=== PATIENT | female | born 1930 | race Caucasian/White ===

== ENCOUNTER → 2016-04-28 | Outpatient (CLI) | payer OTHER, MEDICARE ==
[~2016-04-28] MED LIST: AMOX500C3 PO; AMX500 PO; ASPI81TA28 PO; ATEN50TA8 PO; BETA0.053 TOP; CALC-20 PO; CEPH500C PO; CEPH500C2 PO; CHOL1000 PO; CHOL100027 PO; ECON0.05 TOP; FLUT0.0529 NAE; GABA-112 PO; GABA1CAP4 PO; HCTZ PO; HYZ/50125 PO; LOSA100T2 PO; LOSA100T26 PO; LOSARTAN POT PO; LXP10 PO; MECL1TAB42 PO; MECL25TA2 PO; MULT60CA PO; MULTCAP42 PO; OMEG10007 PO; PENI-82 PO; TIMO0.5S2 OPB; TRAM-10 PO; [UNRECOGNIZED DRUG - CODE] TD
--- NOTE | 2016-04-28 10:06 | DIAGNOSTIC IMAGING REPORT ---
RIGHT TOE(S) MIN 2 VIEWS CLINICAL HISTORY: RIGHT 3RD TOE NON HEALING WOUND Right COMPARISON: None. DISCUSSION: Significant degenerative change throughout the articular joints throughout. Mild soft tissue edema. No evidence for bony destructive process. No evidence for abnormal depressed reaction. IMPRESSION: Soft tissue edema. Degenerative change. No acute bony abnormality. Electronically signed by: Moe Mulligan M.D. 04/28/2016 10:05 AM Dictated Date/Time: 04/28/2016 10:04 AM
== END | disposition home or self-care (01) ==
LOC: C.RAD 09:19
PROVIDERS: ATTEND Emergency Medicine
DX: S91.104A Unspecified open wound of right lesser toe(s) without damage to nail, initial encounter (principal); X58.XXXA Exposure to other specified factors, initial encounter; M79.9 Soft tissue disorder, unspecified; M19.071 Primary osteoarthritis, right ankle and foot

== ENCOUNTER → 2016-05-03 | Outpatient (CLI) | payer OTHER, MEDICARE ==
[~2016-05-03] MED LIST changes: -CEPH500C2 PO; +GADAVIST IV PRN
--- NOTE | 2016-05-03 15:24 | DIAGNOSTIC IMAGING REPORT ---
MRI RIGHT FOREFOOT COMBO CLINICAL HISTORY: Third toe wound. COMPARISON STUDY: Radiographs of the right third toe dated 04/28/16 TECHNIQUE: MRI of the right forefoot is performed utilizing various T1 and T2-weighted sequences in the axial, sagittal, coronal planes. Contrast-enhanced sequences are acquired from the IV administration of 8 cc of Gadavist. The examination is degraded by motion artifact. FINDINGS: There is marrow edema identified within the third distal phalanx. There is drop in signal on the T1-weighted sequence, with increased signal on the STIR sequence. Nonspecific abnormal enhancement is identified. The appearance is highly concerning for osteomyelitis. No additional similar-appearing foci are identified throughout the remainder of the forefoot. Arthritic change with mild edema is present the first metatarsophalangeal joints. There is near-complete bony fusion at the second proximal interphalangeal joint. There is mild soft tissue edema present in the third toe with nonspecific patchy abnormal enhancement suggesting cellulitis. A small cutaneous ulceration is seen in the tip of the third toe. No organized fluid collection is identified to indicate abscess. There is mild fatty atrophy of the regional musculature. The partially imaged flexor and extensor tendons are grossly intact. Subcutaneous soft tissue edema is also present along the dorsal aspect of the foot. There is significant marrow edema identified within the navicular with drop in signal on the T1-weighted sequence. There is also nonspecific enhancement identified at this site. This is only partially assessed. Degenerative change is also seen involving the intertarsal articulations. IMPRESSION: 1. Cutaneous ulceration is identified in the distal third toe with surrounding cellulitis. No organized fluid collection is seen to indicate abscess. 2. Findings are consistent with osteomyelitis involving the third distal phalanx. 3. No additional foci of osteomyelitis are suspected in the forefoot. 4. There is marked edema present within the partially imaged navicular bone with associated nonspecific abnormal enhancement. This is likely on a degenerative basis. Osteonecrosis or osteomyelitis would be impossible to exclude. Clinical correlation will be required. 5. Additional foci of degenerative change as above. 6. Soft tissue edema is also present on the dorsal aspect of the foot. Electronically signed by: Narinder Fonseca M.D. 05/03/2016 3:23 PM Dictated Date/Time: 05/03/2016 3:15 PM
== END | disposition home or self-care (01) ==
LOC: C.MRI 13:33
PROVIDERS: ATTEND Emergency Medicine
DX: S91.104A Unspecified open wound of right lesser toe(s) without damage to nail, initial encounter (principal); X58.XXXA Exposure to other specified factors, initial encounter

== ENCOUNTER → 2016-06-20 | Outpatient (CLI) | payer OTHER, MEDICARE ==
[~2016-06-20] MED LIST changes: -GADAVIST IV PRN; -PENI-82 PO
[2016-06-20 15:50] LABS: BASO % 0.3 %; BASO ABS # 0.02 K/uL (0-0.2); COMPLETE YES; EOS % 1.8 %; IG% 0.3 %; LYMPH % 23.2 %; MEAN CELL VOLUME 90.9 fL (80-100); MEAN CORPUSCULAR HEMOGLOBIN 30.2 pg (25-34); MEAN CORPUSCULAR HGB CONC 33.2 g/dl (32-36); MEAN PLATELET VOLUME 11.5 fL (7.4-10.4); MONO % 10.1 %; NEUT % 64.3 %; PLATELET COUNT 150 K/uL (130-400); RED BLOOD COUNT 4.51 M/uL (4.2-5.4); WHITE BLOOD COUNT 7.33 K/uL (4.8-10.8)
[2016-06-20 16:01] LABS: ALT/SGPT 27 U/L (12-78); BLOOD UREA NITROGEN 11 mg/dl (7-18); BUN/CREATININE RATIO 13.1 (10-20); C-REACTIVE PROTEIN < 0.29 mg/dl (0-0.29); CALCIUM 9.6 mg/dl (8.5-10.1); CARBON DIOXIDE 31 mmol/L (21-32); CHLORIDE 105 mmol/L (98-107); CREATININE 0.84 mg/dl (0.60-1.20); GLUCOSE 98 mg/dl (70-99); POTASSIUM 3.9 mmol/L (3.5-5.1); SODIUM 143 mmol/L (136-145)
[2016-06-20 16:04] LABS: ALB/GLOB RATIO 1.1 (0.9-2); ALKALINE PHOSPHATASE 52 U/L (45-117); AST/SGOT 21 U/L (15-37)
== END | disposition home or self-care (01) ==
LOC: C.LAB1850 14:23
PROVIDERS: ATTEND Internal Medicine Infectious Disease
DX: M86.179 Other acute osteomyelitis, unspecified ankle and foot (principal)

== ENCOUNTER → 2016-07-05 | Outpatient (CLI) | payer OTHER, MEDICARE ==
[~2016-07-05] MED LIST changes: -LOSA100T26 PO; +LOSA100T33 PO
--- NOTE | 2016-07-05 14:01 | DIAGNOSTIC IMAGING REPORT ---
RIGHT FOOT MIN 3 VIEWS ROUTINE CLINICAL HISTORY: M86.179 Acute osteomyelitis of [id number] Right pain COMPARISON: 04/28/2016 DISCUSSION: Severe degenerative change throughout. This is most prominent at the first as well as second metatarsal tarsal phalangeal joints. Moderate degenerative changes seen throughout all remaining osseous structures. It well-defined lytic or blastic process is not appreciated. There is no evidence for soft tissue swelling. IMPRESSION: Severe degenerative change. No well-defined lytic or blastic process. Electronically signed by: Moe Mulligan M.D. 07/05/2016 1:59 PM Dictated Date/Time: 07/05/2016 1:58 PM
== END | disposition home or self-care (01) ==
LOC: C.RAD 13:35
PROVIDERS: ATTEND Internal Medicine Infectious Disease
DX: M86.179 Other acute osteomyelitis, unspecified ankle and foot (principal)

== ENCOUNTER 2016-08-08 18:56 | Emergency (ER) | payer OTHER, MEDICARE ==
[~2016-08-08] VITALS: Ht 167.6 cm; Wt 98.3 kg
[~2016-08-08 18:56] MED LIST changes: -AMOX500C3 PO; -CEPH500C PO; -CHOL1000 PO; -GABA-112 PO; -GABA1CAP4 PO; -HCTZ PO; -LOSA100T33 PO; -LOSARTAN POT PO; -MECL1TAB42 PO; -MULT60CA PO; -TRAM-10 PO; -[UNRECOGNIZED DRUG - CODE] TD
[2016-08-08 19:02] VITALS: TEMP 36.7; Ht 167.6 cm; Wt 98.3 kg
[2016-08-08] MEDS ORDERED: HYZ/50125 PO (19:21)
[2016-08-08] MEDS ORDERED: GABA-112 PO ×2 (19:30→19:32)
[2016-08-08] MEDS ORDERED: HCTZ PO (19:34)
[2016-08-08] MEDS ORDERED: LOSARTAN POT PO (19:34)
[2016-08-08] MEDS ORDERED: AMOX500C3 PO (19:38)
[2016-08-08] MEDS ORDERED: [UNRECOGNIZED DRUG - CODE] TD (19:48)
--- NOTE | 2016-08-08 20:25 | DIAGNOSTIC IMAGING REPORT ---
LEFT SHOULDER 3 VIEWS CLINICAL HISTORY: Fall with left shoulder pain. FINDINGS: 3 views of left shoulder are obtained. No prior studies are available for comparison at the time of dictation. The skeletal structures are osteopenic. There is an impacted and comminuted fracture of the left humeral head and neck. No significant distraction of the fragments is seen. Overlying soft tissue edema is noted. No additional fracture is identified. The glenohumeral articulation appears preserved. Productive degenerative change is identified at the acromioclavicular joint. Calcific tendinopathy is noted. The visualized left upper lobe lung parenchyma appears clear. The heart is enlarged and there is atherosclerotic calcification of the thoracic aorta. IMPRESSION: There is an impacted and comminuted fracture through the left humeral head and neck as detailed above. Electronically signed by: Narinder Fonseca M.D. 08/08/2016 8:24 PM Dictated Date/Time: 08/08/2016 8:23 PM
--- NOTE | 2016-08-08 20:29 | DIAGNOSTIC IMAGING REPORT ---
PA CHEST WITH LEFT-SIDED RIB SERIES CLINICAL HISTORY: Fall. Left-sided chest injury. FINDINGS: A PA chest radiograph with 4 additional views may left-sided rib series is compared to study dated 11/28/2012. The heart is enlarged and there is atherosclerotic calcification of the thoracic aorta. The pulmonary vasculature is noncongested. There is bibasilar atelectasis. No airspace consolidation, large pleural effusion, or pneumothorax is seen. The skeletal structures are osteopenic. There is no radiographic evidence of left-sided rib fracture on the rib series. There is an impacted fracture of the left humeral head and neck. The remainder of the bony thorax is grossly intact. Degenerative change and scoliosis are noted in the thoracic spine. Calcific tendinopathy is noted in the left shoulder. IMPRESSION: 1. Cardiomegaly with no acute cardiopulmonary abnormality. 2. There is an impacted and comminuted fracture through the left humeral head and neck. 3. There is no radiographic evidence of left-sided rib fracture on the rib series as clinically queried. Electronically signed by: Narinder Fonseca M.D. 08/08/2016 8:28 PM Dictated Date/Time: 08/08/2016 8:24 PM
--- NOTE | 2016-08-08 20:33 | DIAGNOSTIC IMAGING REPORT ---
LEFT ELBOW 3 VIEWS CLINICAL HISTORY: Fall with left arm pain. FINDINGS: 3 views of left elbow are obtained. No prior studies are available for comparison at the time of dictation. The skeletal structures are osteopenic. No fracture is identified. There is no joint effusion. Degenerative spurring is noted along the lateral joint space. Small enthesophytes arise from the humeral epicondyles. Soft tissue calcifications are seen posterior to olecranon process. The overlying soft tissues are otherwise normal in appearance. IMPRESSION: Osteopenia and degenerative change as above. There is no radiographic evidence of left elbow fracture. Electronically signed by: Narinder Fonseca M.D. 08/08/2016 8:31 PM Dictated Date/Time: 08/08/2016 8:28 PM
[2016-08-08] MEDS ORDERED: TRAMADOL HCL 50 MG TAB PO STA (21:10)
--- NOTE | 2016-08-08 21:29 | EMERGENCY ROOM VISIT NOTE ---
History Report prepared by Idania: Mary Vyas Under the Supervision of: Dr. Sury Chadwick D.O. 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 The patient currently rates her pain as a 10/10 in severity. The patient states that she was walking out of the bathroom and started to stumble forward and was unable to catch herself. She thinks that her shoes are too big and it caused her to stumble and fall hitting her left shoulder. The patient states that she landed on her left shoulder. The patient denies hitting her head, hips or knees. The patient states that she was unable to get up by herself. She denies any loss of consciousness, or knee or hip pain. The patient states that movements worsens her pain. No chest pain or abdominal pain. The patient stats that she was initially short of breath when she fell but denies any shortness of breath currently. The patient stats that she is not on any blood thinners. The patient states that when she was young she might have broke her shoulder. Source of History: patient Onset: shortly HAND STRAIGHTENER Position: shoulder (left) Symptom Intensity: 10/10 Timing: constant Modifying Factors (Worsening): movement Associated Symptoms: + SOB, No LOC, No abdominal pain, No chest pain Note: Patient denies any hip or knee pain. Review of Systems See HPI for pertinent positives & negatives. A total of 10 systems reviewed and were otherwise negative. Past Medical & Surgical Medical Problems: (1) DIAB W OTH SPEC MANIFEST, TYPE II OR UNSPEC TYPE, NOT UNCNTR (2) HIP JOINT REPLACEMENT STATUS (3) Idiopathic osteoporosis (4) Irritable colon (5) Low tension glaucoma (6) MALIGN NEOPL BREAST NOS Family History Patient reports no known family medical history. Social History Smoking Status: Never Smoker Drug Use: none Marital Status: Housing Status: lives alone Occupation Status: employed, retired Current/Historical Medications Scheduled Amoxicillin (Amoxil), 500 MG PO TID Aspirin (Aspirin Ec), 81 MG PO QPM Atenolol (Tenormin), 50 MG PO QPM Calcium Carbonate-Vitamin D (Calcium 600 + D), 600 MG PO BID Escitalopram Oxalate (Escitalopram Oxalate), 10 MG PO DAILY Fish Oil (Hemet-3), 1 CAP PO DAILY Gabapentin (Neurontin), 200 MG PO AMPM Gabapentin (Neurontin), 100 MG PO QAFTERNOON Multiple Vitamin (Multivitamins), 1 CAPSULE PO QPM Timolol Maleate (Ophth) (Timoptic-Xe 0.5% Oph), 1 DROP OPB DAILY [Losartan Pot/Hctz], 1 TAB PO DAILY Scheduled PRN Meclizine Hcl (Antivert), 25 MG PO TID PRN for Dizziness or Vertigo Metronidazole (Topical) (Rosadan), 1 APPLN TD BID PRN for ROSACIA Tramadol (Ultram), 1-2 TABS PO Q6H PRN for Pain Allergies Coded Allergies: Epinephrine (Verified Allergy, Unknown, BODY SHOOK, FREEZING, 08/18/15) Physical Exam Vital Signs Date Time Temp Pulse Resp B/P Pulse Ox O2 Delivery O2 Flow Rate FiO2 08/08/16 22:02 65 18 178/97 95 08/08/16 20:25 62 14 174/95 98 Room Air 08/08/16 19:02 36.7 64 18 186/130 97 Room Air Physical Exam GENERAL: alert, well appearing, well nourished, no distress, non-toxic EYE EXAM: normal conjunctiva, PERRL and EOM's grossly intact OROPHARYNX: no exudate, no erythema, lips, buccal mucosa, and tongue normal and mucous membranes are moist NECK: supple, no nuchal rigidity, no adenopathy, non-tender LUNGS: Clear to auscultation. Normal chest wall mechanics HEART: no murmurs, S1 normal and S2 normal ABDOMEN: abdomen soft, non-tender, normo-active bowel sounds, no masses, no rebound or guarding. BACK: Back is symmetrical on inspection and there is no deformity, no midline tenderness, no CVA tenderness. 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 LOWER EXTREMITIES: No pitting edema. NEURO EXAM: Normal sensorium, cranial nerves II-XII intact, normal speech, no weakness of arms, no weakness of legs. Medical Decision & Procedures ER Provider Diagnostic Interpretation: Radiology results have been interpreted by the radiologist and reviewed by me. LEFT ELBOW 3 VIEWS CLINICAL HISTORY: Fall with left arm pain. FINDINGS: 3 views of left elbow are obtained. No prior studies are available for comparison at the time of dictation. The skeletal structures are osteopenic. No fracture is identified. There is no joint effusion. Degenerative spurring is noted along the lateral joint space. Small enthesophytes arise from the humeral epicondyles. Soft tissue calcifications are seen posterior to olecranon process. The overlying soft tissues are otherwise normal in appearance. IMPRESSION: Osteopenia and degenerative change as above. There is no radiographic evidence of left elbow fracture. Electronically signed by: Narinder Fonseca M.D. 08/08/2016 8:31 PM Dictated Date/Time: 08/08/2016 8:28 PM PA CHEST WITH LEFT-SIDED RIB SERIES CLINICAL HISTORY: Fall. Left-sided chest injury. FINDINGS: A PA chest radiograph with 4 additional views may left-sided rib series is compared to study dated 11/28/2012. The heart is enlarged and there is atherosclerotic calcification of the thoracic aorta. The pulmonary vasculature is noncongested. There is bibasilar atelectasis. No airspace consolidation, large pleural effusion, or pneumothorax is seen. The skeletal structures are osteopenic. There is no radiographic evidence of left-sided rib fracture on the rib series. There is an impacted fracture of the left humeral head and neck. The remainder of the bony thorax is grossly intact. Degenerative change and scoliosis are noted in the thoracic spine. Calcific tendinopathy is noted in the left shoulder. IMPRESSION: 1. Cardiomegaly with no acute cardiopulmonary abnormality. 2. There is an impacted and comminuted fracture through the left humeral head and neck. 3. There is no radiographic evidence of left-sided rib fracture on the rib series as clinically queried. Electronically signed by: Narinder Fonseca M.D. 08/08/2016 8:28 PM Dictated Date/Time: 08/08/2016 8:24 PM LEFT SHOULDER 3 VIEWS CLINICAL HISTORY: Fall with left shoulder pain. FINDINGS: 3 views of left shoulder are obtained. No prior studies are available for comparison at the time of dictation. The skeletal structures are osteopenic. There is an impacted and comminuted fracture of the left humeral head and neck. No significant distraction of the fragments is seen. Overlying soft tissue edema is noted. No additional fracture is identified. The glenohumeral articulation appears preserved. Productive degenerative change is identified at the acromioclavicular joint. Calcific tendinopathy is noted. The visualized left upper lobe lung parenchyma appears clear. The heart is enlarged and there is atherosclerotic calcification of the thoracic aorta. IMPRESSION: There is an impacted and comminuted fracture through the left humeral head and neck as detailed above. Electronically signed by: Narinder Fonseca M.D. 08/08/2016 8:24 PM Dictated Date/Time: 08/08/2016 8:23 PM Medications Administered Medications (Trade) Dose Ordered Sig/Naz Route Start Time Stop Time Status Last Admin Dose Admin Tramadol HCl (Ultram Tab) 50 mg NOW STAT PO 08/08/16 21:10 08/08/16 21:12 DC 08/08/16 21:31 50 MG Tramadol HCl (Ultram Home Pack) 1 homepack UD ONCE PO 08/08/16 21:45 08/08/16 21:46 DC 08/08/16 21:48 1 HOMEPACK ED Course 1906: The patient was evaluated in room A11B. A complete history and physical exam was performed. \ 2104: I reevaluated the patient and she was feeling okay. Her family was at bedside and I updated her on the results of her X-Ray. I discussed the treatment plan with the patient. She verbalizes agreement and understanding. The patient was discharged home. 2109: Ordered Ultram Tab 50 mg PO. Medical Decision The patient is a 86 year old female who presents to the ED with complaints of shoulder pain. Differential diagnoses include but are not limited to fracture, dislocation, neurovascular compromise, compartment syndrome, soft tissue injury , as well as others were entertained. Patient well-appearing here despite injury. Isolated humeral head fracture found, patient with no other pain by history or exam to warrant additional imaging. No head trauma or LOC. Patient not on any anticoagulation or any platelet therapy. I have a low suspicion for any additional culture medic injury. No change in patient's complaints are exam on repeat evaluation at bedside. Patient aware of all results and need for sling, and close follow-up with orthopedics. Injuries to patient's nondominant upper extremity. Discussed with patient symptoms to watch and return for, need for additional help during this time with activities of daily living given limitations, family is at bedside and agrees to help with this. Patient verbalized understanding of all this was agreeable with plan. Impression Primary Impression: Fall Additional Impression: Humeral head fracture Scribe Attestation The scribe's documentation has been prepared under my direction and personally reviewed by me in its entirety. I confirm that the note above accurately reflects all work, treatment, procedures, and medical decision making performed by me. Departure Information Dispostion Home / Self-Care Prescriptions Tramadol (Ultram) 50 Mg Tab 1-2 TABS PO Q6H Y for Pain, #14 TAB Prov: Sury Chadwick, DO 08/08/16 Referrals Moe Bogres M.D. (PCP) Forms HOME CARE DOCUMENTATION FORM, IMPORTANT VISIT INFORMATION Patient Instructions My [facility] Additional Instructions Please call and follow-up with your orthopedic surgeon. Please wear the sling until you're otherwise instructed by orthopedics. You may use the pain medication as needed. Do not take the pain medication and drive. Please continue regular medications. If you have any worsening pain, have discoloration or increased swelling of your left arm or hand, have worsening numbness and tingling, develop a cold sensation to the hand or fingers, develop fevers, chest pain, trouble breathing, dizziness, headaches, you've any other new concerns, please return the emergency room. Problem Qualifiers Primary Impression: Fall Encounter type: initial encounter Qualified Codes: W19.XXXA - Unspecified fall, initial encounter Additional Impression: Humeral head fracture Encounter type: initial encounter Fracture type: closed Laterality: left Qualified Codes: S42.292A - Other displaced fracture of upper end of left humerus, initial encounter for closed fracture
[2016-08-08] MEDS ORDERED: TRAM-10 PO (21:30)
[2016-08-08] MEDS ORDERED: TRAMADOL HCL 50 MG HOME PACK PO ONE (21:45)
[2016-08-08 22:02] VITALS: BP 178/97; PULSE 65; O2SAT 95
[2016-11-04] MEDS ORDERED: LOSA100T33 PO (20:09)
== END 2016-08-08 22:04 | disposition home or self-care (01) ==
LOC: EDBD 18:56 → C.EDA 18:57
DX: S42.292A Other displaced fracture of upper end of left humerus, initial encounter for closed fracture (principal); W18.09XA Striking against other object with subsequent fall, initial encounter; E11.9 Type 2 diabetes mellitus without complications; Z96.649 Presence of unspecified artificial hip joint; M81.8 Other osteoporosis without current pathological fracture; H40.1290 Low-tension glaucoma, unspecified eye, stage unspecified; Z85.3 Personal history of malignant neoplasm of breast; Z79.82 Long term (current) use of aspirin; Z79.899 Other long term (current) drug therapy

== ENCOUNTER 2016-11-04 17:59 | Observation (INO) | payer OTHER, MEDICARE ==
[~2016-11-04] VITALS: Ht 170.2 cm; Wt 85.9 kg
[~2016-11-04 17:59] MED LIST changes: +AMOX500C3 PO; -AMX500 PO; +BACITRACIN OINT 15 GM TUBE EXT ONE; -BETA0.053 TOP; -CHOL100027 PO; -ECON0.05 TOP; -FLUT0.0529 NAE; +GABA-112 PO; +HCTZ PO; -HYZ/50125 PO; +LIDOCAINE 4% W/AFRIN NASAL SOLN 4ML ONE; -LOSA100T2 PO; +LOSARTAN POT PO; +TRAM-10 PO; +[UNRECOGNIZED DRUG - CODE] TD
[2016-11-04] MEDS ORDERED: CEPHALEXIN MONOHYDRATE 250 MG CAP PO STA (19:10)
[2016-11-04] MEDS ORDERED: XYLOCAINE 1%/SOD BICARB 20 ML VIAL INFIL ONE (19:15)
--- NOTE | 2016-11-04 19:19 | EMERGENCY ROOM VISIT NOTE ---
History Report prepared by Idania: Katie Delgadillo Under the Supervision of: Dr. Narinder Sheppard M.D. First contact with patient: 19:00 Chief Complaint: FALL Stated Complaint: FALL,FELL FACE FIRST W/OTHER ABRASIONS History of Present Illness The patient is an 86 year old female who presents to the Emergency Room with complaints of a sudden fall that occurred two hours prior to arrival. The patient states that she was trying to close or storm door today, noting that she fell face first onto the ramp outside of her house. She states that she injured her nose and bilateral knees. The patient denies any loss of consciousness and states that she has ambulated since the fall. She states that she is on aspirin daily, but denies being on Coumadin. The patient denies any neck pain. She states that she is unsure if her tetanus is up to date, but her daughter reports that the patient's PCP is good about keeping her updated on her vaccinations. The patient's daughter states that in July the patient fell injuring her left shoulder. She states that the patient has been following with physical therapy since then. The patient denies any new left shoulder pain. She states that she felt fine prior to the fall. Source of History: patient, family (daughter) Onset: two hours prior to arrival Position: other (global) Quality: other (fall) Timing: other (sudden) Associated Symptoms: No LOC, No neck pain Note: Associated symptoms: injury to nose and bilateral knees. Review of Systems See HPI for pertinent positives & negatives. A total of 10 systems reviewed and were otherwise negative. Past Medical & Surgical Medical Problems: (1) Ambulatory dysfunction (2) DIAB W OTH SPEC MANIFEST, TYPE II OR UNSPEC TYPE, NOT UNCNTR (3) Diabetes mellitus (4) HIP JOINT REPLACEMENT STATUS (5) Idiopathic osteoporosis (6) Irritable colon (7) Low tension glaucoma (8) MALIGN NEOPL BREAST NOS (9) Nasal bone fractures Family History Patient reports no known family medical history. Social History Smoking Status: Never Smoker Drug Use: none Marital Status: Housing Status: lives alone Occupation Status: employed, retired Current/Historical Medications Scheduled Aspirin (Aspirin Ec), 81 MG PO QPM Atenolol (Tenormin), 50 MG PO QPM Calcium Carbonate-Vitamin D (Calcium 600 + D), 600 MG PO BID Cephalexin Monohydrate (Keflex), 500 MG PO TID Cholecalciferol (Vitamin D3), 1,000 UNITS PO DAILY Escitalopram Oxalate (Escitalopram Oxalate), 10 MG PO DAILY Fish Oil (Barnard-3), 1 CAP PO DAILY Gabapentin (Gabapentin), 300 MG PO TID Hctz/Losartan (Hyzaar 12.5MG/100MG), 1 TAB PO DAILY Multiple Vitamin (Multivitamins), 1 CAPSULE PO QPM Multiple Vitamins W/ Minerals (Preservision Areds 2), 1 CAP PO BID Timolol Maleate (Ophth) (Timoptic-Xe 0.5% Oph), 1 DROP OPB DAILY Scheduled PRN Meclizine Hcl (Meclizine Hcl), 25 MG PO TID PRN for Dizziness or Vertigo Tramadol (Ultram), 1-2 TABS PO Q6H PRN for Pain Allergies Coded Allergies: Epinephrine (Verified Allergy, Unknown, BODY SHOOK, FREEZING, 11/04/16) Physical Exam Vital Signs Date Time Temp Pulse Resp B/P (MAP) Pulse Ox O2 Delivery O2 Flow Rate FiO2 11/05/16 01:02 56 20 180/73 95 Room Air 11/05/16 00:34 57 11/05/16 00:25 57 20 136/75 94 Room Air 11/04/16 22:54 71 18 154/86 96 Room Air 11/04/16 21:25 78 20 203/103 96 Room Air 11/04/16 19:27 58 20 209/82 97 Room Air 11/04/16 18:01 36.7 62 18 195/88 95 Room Air Physical Exam GENERAL: Patient is in no acute distress. HEENT: 2 cm gaping laceration to the bridge of the nose, abrasion to the mid forehead and nose. Edema to the nose, no active bleeding, contusion forming inferior to both eyes. Normal bite, no lip lacerations. No scalp hematoma, mucous membranes moist. NECK: No stridor, no adenopathy, no meningismus, trachea is midline. Nontender posterior c-spine. LUNGS: Clear to auscultation bilaterally, no wheeze, no rhonchi, breath sounds equal. HEART: 2/6 systolic murmur with a regular rate and rhythm. ABDOMEN: Soft, nontender, bowel sounds positive, no hernias, no peritonitis. EXTREMITIES: Full range of motion of all joints without evidence of fracture, abrasion to the dorsal right wrist and hand, no evidence of fracture, abrasion to both anterior knees no evidence of fracture. NEUROLOGIC: Oriented x 3, no acute motor or sensory deficits, no focal weakness. SKIN: No rash, no jaundice, no diaphoresis. Medical Decision & Procedures ER Provider Diagnostic Interpretation: CT results as stated below per my review and radiologist interpretation: MAXILLOFACIAL CT CT DOSE: 843.88 mGy.cm HISTORY: fall, trauma TECHNIQUE: Multiaxial CT images of the maxillofacial region were performed and reformatted in the coronal plane without the use of contrast. A dose lowering technique was utilized adhering to the principles of ALARA. COMPARISON: None. FINDINGS: Comminuted and displaced nasal bone and anterior nasal septal fractures. There is soft tissue swelling at the nose with a small laceration at the bridge of the nose. There is intraorbital soft tissue swelling. There is also displaced fracture within the frontal process of the right maxilla at the junction of the nasal bones. Left temporomandibular joint osteoarthritis. No fractures within the mandible, skull base, pterygoid plates, zygomatic arches, or orbits. IMPRESSION: 1. Comminuted and displaced nasal bone and nasal septal fractures. 2. Soft tissue swelling with a small laceration at the nose. Electronically signed by: Fletcher Smiley M.D. 11/04/2016 7:56 PM Dictated Date/Time: 11/04/2016 7:[address] CT DOSE: HISTORY: fall, trauma TECHNIQUE: Multiaxial CT images of the head were performed without the use of intravenous contrast. Automated exposure control was utilized for this study. A dose lowering technique was utilized adhering to the principles of ALARA. Comparison: Head CT 08/18/2015. Findings: The paranasal sinuses and mastoid air cells are clear. The calvarium and skull base are intact. There is no mass, hematoma, midline shift, acute infarct. White matter hypodensity is nonspecific but suggestive of microvascular ischemic change. The ventricles and sulci demonstrate mild age-related involutional changes. Comminuted and displaced nasal bone and anterior nasal septal fractures. There is a small soft tissue laceration at the nasal bridge and nasal soft tissue swelling. Impression: No acute intracranial abnormality. Nasal bone and nasal septal fractures. Electronically signed by: Fletcher Smiley M.D. 11/04/2016 7:52 PM Dictated Date/Time: 11/04/2016 7:46 PM Laboratory Results 11/05/16 00:36 Red Blood Count 4.40, Mean Corpuscular Volume 89.8, Mean Corpuscular Hemoglobin 30.2, Mean Corpuscular Hemoglobin Concent 33.7, Mean Platelet Volume 11.1, Neutrophils (%) (Auto) 72.3, Lymphocytes (%) (Auto) 17.5, Monocytes (%) (Auto) 8.9, Eosinophils (%) (Auto) 0.8, Basophils (%) (Auto) 0.2, Neutrophils # (Auto) 8.66, Lymphocytes # (Auto) 2.09, Monocytes # (Auto) 1.07, Eosinophils # (Auto) 0.09, Basophils # (Auto) 0.02 11/05/16 00:36 Test 11/05/16 00:26 11/05/16 00:36 Bedside Glucose 140 mg/dl (70-90) White Blood Count 11.96 K/uL (4.8-10.8) Red Blood Count 4.40 M/uL (4.2-5.4) Hemoglobin 13.3 g/dL (12.0-16.0) Hematocrit 39.5 % (37-47) Mean Corpuscular Volume 89.8 fL (80-100) Mean Corpuscular Hemoglobin 30.2 pg (25-34) Mean Corpuscular Hemoglobin Concent 33.7 g/dl (32-36) Platelet Count 155 K/uL (130-400) Mean Platelet Volume 11.1 fL (7.4-10.4) Neutrophils (%) (Auto) 72.3 % Lymphocytes (%) (Auto) 17.5 % Monocytes (%) (Auto) 8.9 % Eosinophils (%) (Auto) 0.8 % Basophils (%) (Auto) 0.2 % Neutrophils # (Auto) 8.66 K/uL (1.4-6.5) Lymphocytes # (Auto) 2.09 K/uL (1.2-3.4) Monocytes # (Auto) 1.07 K/uL (0.11-0.59) Eosinophils # (Auto) 0.09 K/uL (0-0.5) Basophils # (Auto) 0.02 K/uL (0-0.2) RDW Standard Deviation 45.4 fL (36.4-46.3) RDW Coefficient of Variation 13.7 % (11.5-14.5) Immature Granulocyte % (Auto) 0.3 % Immature Granulocyte # (Auto) 0.03 K/uL (0.00-0.02) Prothrombin Time 11.1 SECONDS (9.0-12.0) Prothromb Time International Ratio 1.0 (0.9-1.1) Activated Partial Thromboplast Time 21.2 SECONDS (21.0-31.0) Partial Thromboplastin Ratio 0.8 Anion Gap 7.0 mmol/L (3-11) Est Creatinine Clear Calc Drug Dose 54.5 ml/min Estimated GFR () 72.9 Estimated GFR (Non- 62.9 BUN/Creatinine Ratio 16.7 (10-20) Calcium Level 9.3 mg/dl (8.5-10.1) Magnesium Level 1.9 mg/dl (1.8-2.4) Total Bilirubin 0.8 mg/dl (0.2-1) Aspartate Amino Transf (AST/SGOT) 20 U/L (15-37) Alanine Aminotransferase (ALT/SGPT) 32 U/L (12-78) Alkaline Phosphatase 66 U/L (45-117) Troponin I < 0.015 ng/ml (0-0.045) Total Protein 7.2 gm/dl (6.4-8.2) Albumin 3.7 gm/dl (3.4-5.0) Globulin 3.5 gm/dl (2.5-4.0) Albumin/Globulin Ratio 1.1 (0.9-2) Laboratory results reviewed by me. Medications Administered Medications (Trade) Dose Ordered Sig/Naz Route Start Time Stop Time Status Last Admin Dose Admin Cephalexin Monohydrate (Keflex Cap) 500 mg NOW STAT PO 11/04/16 19:10 11/04/16 19:13 DC 11/04/16 19:25 500 MG Atenolol (Tenormin Tab) 50 mg NOW ONCE PO 11/04/16 22:45 11/04/16 22:46 DC 11/04/16 22:53 50 MG Sodium Chloride 500 ml @ 999 mls/hr Q31M STAT IV 8/12/17 00:29 11/05/16 00:59 DC 11/05/16 00:29 999 MLS/HR Ondansetron HCl (Zofran Inj) 4 mg NOW STAT IV 11/05/16 00:29 11/05/16 00:31 DC 11/05/16 00:29 4 MG ECG Indication: syncope Rate (beats per minute): 60 Rhythm: sinus rhythm (with SA) Findings: LBBB, no acute ischemic change Comparison ECG Date: no prior available ED Course 1901: The patient was evaluated in room B2. A complete history and physical exam was performed. 1909: Ordered Keflex Cap 500 mg PO. 1914: Ordered Lidocaine HCl 20 ml INFIL. 2032: I reevaluated the patient and she is resting comfortably. I discussed the exam findings with her and I discussed the treatment plan. She verbalized complete understanding and agreement. Her lacerations will be repaired by Sohail Steinberg PA-C. See his note for further detail. 2112: I reevaluated the patient and she is persistently bleeding from her laceration. She has an arterial bleed that cannot be stopped. 2117: I discussed the patients case with Dr. Bynum, director of in service education. He is going to come in to evaluate the patient. 2150: I reevaluated the patient and she is resting comfortably. Dr. Bynum, from director of in service education is currently at the bedside. 2224: I spoke to Dr. Bynum, director of in service education and he states that he was able to stop the patients bleeding. He states that he will follow up with the patient as an outpatient. 0: I reevaluated the patient and she is going well. I discussed the exam findings with her and I discussed the treatment plan. She verbalized complete understanding and agreement. She is going to have an ambulation trial. 2245: Ordered Atenolol 50 mg PO. 0015: I reevaluated the patient and she is doing well. She is ready to go home. 0026: Per nursing staff the patient became nauseated and had a near syncopal event. She is still feeling nauseated and is diaphoretic. She denies any chest pain. I evaluated the patient at this time. She will be evaluated for further treatment. 0029: Ordered Zofran Inj 4 mg IV, Sodium Chloride 1000 ml @ 125 mls/hr IV, Sodium Chloride 500 ml @ 999 mls/hr IV. 0034: I discussed the patients case with Oneida Davenport. He states that he will evaluate the patient for further treatment. 0113: I reevaluated the patient and she is doing much better. Medical Decision The patient is an 86 year old female who presents to the ED with complaints of a fall. Differential diagnoses considered include intracranial bleeding, skull fracture, facial fracture; c-spine injury, extremity, chest, or abdominal trauma. There is a mild leukocytosis, this could be consistent with infection or the stress of her situation. No concerning anemia. No significant electrolyte abnormality, kidney failure or hepatitis. EKG shows a sinus rhythm with a left bundle branch block, no acute ischemia. Cardiac enzyme testing times one is not consistent with acute cardiac injury. Brain CT shows no acute bleed or mass effect. Facial CT shows a nasal fracture. Urinalysis result is currently pending. I did have my PA attend to the nasal laceration, however, the bleeding was not controllable. I did also attempt to control the arterial nasal bleeding but I was unsuccessful. Point pressure was held to control the bleeding. Dr. Bynum of facial surgery was consulted. He saw the patient here and has attended to the bleeding and the laceration. The patient was given a dose of oral Keflex. The patient was adamant about being discharged home. I did have her ambulate here and she was able to get around with a walker. Before discharge though, she had a syncopal or near syncopal event. She became sweaty and nauseated and did vomit. She was placed back in bed. She was given IV Zofran and IV saline and did do well. The patient is in no condition to be discharged home. Further workup and care is required. She may require inpatient rehabilitation. The cause for the frequent falls is unclear. Of note, patient did receive her normal dose of oral atenolol as her blood pressure was elevated. Medication Reconcilliation Current Medication List: was personally reviewed by me Blood Pressure Screening Patient's blood pressure: Elevated blood pressure Blood pressure disposition: Referred to PCP Consults Time Called: 2114 Consulting Physician: Dr. Bynum, Oral amd Maxillofacial Surgery Returned Call: 2117 I discussed the patients case with Dr. Bynum, director of in service education. He is going to come in to evaluate the patient. Additional Consults: Time Called: 29 Consulted Physician: Oneida Davenport Returned Call: 33 Additional Comments: I discussed the patients case with Oneida Davenport. He states that he will evaluate the patient for further treatment. Impression Primary Impression: Nasal fracture Additional Impressions: Nasal laceration Multiple abrasions Fall Arterial hemorrhage Syncope Scribe Attestation The scribe's documentation has been prepared under my direction and personally reviewed by me in its entirety. I confirm that the note above accurately reflects all work, treatment, procedures, and medical decision making performed by me. Departure Information Dispostion Being Evaluated By Hospitalist Prescriptions Cephalexin Monohydrate (Keflex) 500 Mg Cap 500 MG PO TID for 5 Days, #15 CAP Prov: Narinder Sheppard M.D. 11/05/16 Referrals Moe Borges M.D. (PCP) Problem Qualifiers
--- NOTE | 2016-11-04 19:53 | DIAGNOSTIC IMAGING REPORT ---
HEAD CT NONCONTRAST CT DOSE: HISTORY: fall, trauma TECHNIQUE: Multiaxial CT images of the head were performed without the use of intravenous contrast. Automated exposure control was utilized for this study. A dose lowering technique was utilized adhering to the principles of ALARA. Comparison: Head CT 08/18/2015. Findings: The paranasal sinuses and mastoid air cells are clear. The calvarium and skull base are intact. There is no mass, hematoma, midline shift, acute infarct. White matter hypodensity is nonspecific but suggestive of microvascular ischemic change. The ventricles and sulci demonstrate mild age-related involutional changes. Comminuted and displaced nasal bone and anterior nasal septal fractures. There is a small soft tissue laceration at the nasal bridge and nasal soft tissue swelling. Impression: No acute intracranial abnormality. Nasal bone and nasal septal fractures. Electronically signed by: Fletcher Smiley M.D. 11/04/2016 7:52 PM Dictated Date/Time: 11/04/2016 7:46 PM
--- NOTE | 2016-11-04 19:57 | DIAGNOSTIC IMAGING REPORT ---
MAXILLOFACIAL CT CT DOSE: 843.88 mGy.cm HISTORY: fall, trauma TECHNIQUE: Multiaxial CT images of the maxillofacial region were performed and reformatted in the coronal plane without the use of contrast. A dose lowering technique was utilized adhering to the principles of ALARA. COMPARISON: None. FINDINGS: Comminuted and displaced nasal bone and anterior nasal septal fractures. There is soft tissue swelling at the nose with a small laceration at the bridge of the nose. There is intraorbital soft tissue swelling. There is also displaced fracture within the frontal process of the right maxilla at the junction of the nasal bones. Left temporomandibular joint osteoarthritis. No fractures within the mandible, skull base, pterygoid plates, zygomatic arches, or orbits. IMPRESSION: 1. Comminuted and displaced nasal bone and nasal septal fractures. 2. Soft tissue swelling with a small laceration at the nose. Electronically signed by: Fletcher Smiley M.D. 11/04/2016 7:56 PM Dictated Date/Time: 11/04/2016 7:52 PM
[2016-11-04] MEDS ORDERED: MECL1TAB42 PO (20:09)
[2016-11-04] MEDS ORDERED: LOSA100T26 PO (20:09)
[2016-11-04] MEDS ORDERED: GABA1CAP4 PO (20:09)
[2016-11-04] MEDS ORDERED: MULT60CA PO (20:09)
[2016-11-04] MEDS ORDERED: CHOL1000 PO (20:09)
[2016-11-04] MEDS ORDERED: LIDO/EPINEPHRINE/SOD BICARB 20 ML VIAL INFIL ONE (21:24)
[2016-11-05] MEDS ORDERED: CEPH500C PO (00:19)
[2016-11-05] MEDS ORDERED: ONDANSETRON INJ 2 MG/ML 2 ML VIAL IV STA (00:29)
[2016-11-05] MEDS ORDERED: SODIUM CHLORIDE 0.9% 1000ML 1,000 ML IV STA (00:29)
[2016-11-05] MEDS ORDERED: SODIUM CHLORIDE 0.9% 500ML 500 ML IV STA (00:29)
[2016-11-05 00:49] LABS: BASO % 0.2 %; BASO ABS # 0.02 K/uL (0-0.2); COMPLETE YES; EOS % 0.8 %; HEMATOCRIT 39.5 % (37-47); IG% 0.3 %; LYMPH % 17.5 %; LYMPH ABS # 2.09 K/uL (1.2-3.4); MEAN CELL VOLUME 89.8 fL (80-100); MEAN CORPUSCULAR HEMOGLOBIN 30.2 pg (25-34); MEAN CORPUSCULAR HGB CONC 33.7 g/dl (32-36); MEAN PLATELET VOLUME 11.1 fL (7.4-10.4); MONO % 8.9 %; NEUT % 72.3 %; PLATELET COUNT 155 K/uL (130-400); WHITE BLOOD COUNT 11.96 K/uL (4.8-10.8)
[2016-11-05 00:58] LABS: PARTIAL THROMBOPLASTIN RATIO 0.8; PROTHROMBIN TIME (PATIENT) 11.1 SECONDS (9.0-12.0)
[2016-11-05] MEDS ORDERED: TRAMADOL HCL 50 MG TAB PO PRN (01:15)
[2016-11-05] MEDS ORDERED: MECLIZINE HCL 25 MG TAB PO PRN (01:15)
[2016-11-05] MEDS ORDERED: ACETAMINOPHEN 325 MG TAB PO PRN (01:30)
[2016-11-05] MEDS ORDERED: ONDANSETRON INJ 2 MG/ML 2 ML VIAL IV PRN (01:30)
[2016-11-05 01:36] LABS: ALT/SGPT 32 U/L (12-78); AST/SGOT 20 U/L (15-37); BLOOD UREA NITROGEN 14 mg/dl (7-18); BUN/CREATININE RATIO 16.7 (10-20); CALCIUM 9.3 mg/dl (8.5-10.1); CARBON DIOXIDE 28 mmol/L (21-32); CHLORIDE 105 mmol/L (98-107); CREATININE 0.84 mg/dl (0.60-1.20); GLUCOSE 175 mg/dl (70-99); MAGNESIUM 1.9 mg/dl (1.8-2.4); POTASSIUM 3.8 mmol/L (3.5-5.1); SODIUM 140 mmol/L (136-145)
[2016-11-05 01:41] LABS: ALB/GLOB RATIO 1.1 (0.9-2); ALKALINE PHOSPHATASE 66 U/L (45-117)
[2016-11-05] MEDS ORDERED: DEXTROSE 50% 50 ML SYR IV PRN (01:45)
[2016-11-05] MEDS ORDERED: GLUCAGON FOR INJ 1 MG VIAL SQ PRN (01:45)
[2016-11-05] MEDS ORDERED: GLUCOSE 40% GEL 15 GM TUBE PO PRN (01:45)
[2016-11-05] MEDS ORDERED: GLUCOSE 10 TABS/TUBE PO PRN (01:45)
--- NOTE | 2016-11-05 01:53 | EMERGENCY ROOM VISIT NOTE ---
ED Visit Note Emergency Department Procedure Note I was asked to see Ms. Chaves by Dr. Narinder Sheppard, emergency medicine, for repair of the nasal laceration she sustained during a fall. Please see Dr. Sheppard his notes and orders for full information about her ED visit. Wound Repair: Description: Full-thickness anterior nasal laceration over the anterior portion of the nose; approximately 2.5 cm. Complexity: Advanced. Reason: Uncontrolled arterial bleeding Verbal consent was obtained after the risks and benefits were explained. The skin was prepped with betadine and a sterile field set. Wound edges of the wound was anesthetized with 4.2 ml buffered 1% lidocaine. The wound was explored for foreign bodies and multiple small black foreign bodies were removed from the wound. Copious irrigation was performed using sterile saline. During irrigation patient's wounds started bleeding. The bleeding was arterial in nature. I made multiple attempts to control bleeding including direct pressure, subcutaneous sutures, cutaneous sutures, cauterization; all of which were unsuccessful. I did have Dr. Sheppard and see the patient and we added direct pressure with a Quik Clot Trauma Dressing. Dr. Sheppard contacted the facial surgeon optimization consultant who came to the ED and repaired patient's laceration.
--- NOTE | 2016-11-05 02:25 | HISTORY & PHYSICAL EXAMINATION ---
DATE OF ADMISSION: 11/04/2016 PRIMARY CARE PHYSICIAN: Dr. Borges. CHIEF COMPLAINT: Status post mechanical fall this evening. HISTORY OF PRESENT COMPLAINT: She is an 86-year-old female with significant past medical history of depression, diabetes type 2 with neuropathy, osteoporosis, sleep apnea, hypertension, osteoarthritis, and history of CA of breast. Apparently, has had a fall this evening. The patient was trying to close the storm door today while she fell on her face onto the ramp outside her house. She denies any loss of consciousness and she has ambulated since the fall. She started to bleed from the nose, and from that point, she was brought to the Emergency Room. In the ER, she had a CAT scan of the maxillofacial area, and that did show comminuted and displaced nasal bone and septal fracture with ongoing bleeding. The ENT physician had to come to stop the bleeding. Following that, the patient was almost about to go home, but she felt dizzy and with the history of recurrent falls at home, she was advised to stay in the hospital. There are no warning symptoms before the fall and there are no palpitations, no dizziness, no numbness or tingling in the extremities. No headache, no blurred vision, no dysarthria before the fall. PAST MEDICAL HISTORY: Significant for depression, type 2 diabetes with peripheral neuropathy, osteoporosis, history of sleep apnea, hypertension, history of CA of breast and benign essential tremor. PAST SURGICAL HISTORY: Colonoscopy with biopsy 5 years ago, cholecystectomy, partial mastectomy and total hysterectomy. FAMILY HISTORY: Mother had breast cancer. Sister has acute leukemia. Father secondary to [place]. SOCIAL HISTORY: She is . She has 5 children. She lives alone. She never smoked any cigarettes. She uses alcohol occasionally, and she has been ambulant, but recently she has been falling a lot. In fact, recently she had a fall and fractured her left shoulder. ALLERGIES: EPINEPHRINE. MEDICATIONS: She has been on aspirin 81 mg daily, atenolol 50 mg daily, Keflex 500 mg three times daily, vitamin D3 at 1000 units daily, Lexapro 10 mg daily, fish oil 1 tablet daily, gabapentin 300 mg 3 times daily, meclizine 25 mg t.i.d. for dizziness, ophthalmic solution 0.5% one drop OPB daily that is Timolol, Ultram 50 mg 1-2 tablets q. 6 hourly p.r.n., calcium with vitamin D 1 tablet b.i.d., Hyzaar 12.5/100 one tablet daily, multivitamin 1 tablet daily. REVIEW OF SYSTEMS: Other systems reviewed and are unremarkable except those mentioned in history of present complaint. LABORATORY DATA: White count was 11.96, H&H 13.3/39.5, platelet was 155. Chemistry pending. Coagulation pending. CT of the head, no acute abnormality, nasal bone and septal fracture. CT of faciomaxillary area, comminuted and displaced nasal bone and nasal septal fracture, soft tissue swelling with a small laceration at the side of the nose. IMPRESSION AND PLAN: 1. Status post mechanical fall with fracture of the nasal bone and nasal septum with profuse bleeding. The bleeding was stopped by manipulation by ENT specialist, Dr. Bynum. The patient will be admitted to medical floor for observation, PT, OT evaluation and she may need placement from here. She has bilateral black eyes. 2. Ambulatory dysfunction with frequent falls. The dysfunction could be secondary to neuropathy from diabetes. Recently she has had a fall with left shoulder fracture, and she mentions today, falling quite a few times in a week. She will need PT, OT and probable placement before she goes home. 3. Diabetes type 2. Continue with current medications. She does not take any medicines or any insulin. We will put her on sliding scale coverage. 4. Hypertension. Continue current medications. Blood pressure seems to be controlled. 5. Sleep apnea. Not sure whether she uses any CPAP, but that will be provided. 6. Deep venous thrombosis prophylaxis with SCDs. 7. Gastrointestinal prophylaxis with Maalox and Mylanta as needed. 8. Code status. She will be a full code. In my clinical judgment, the beneficiary meets criteria as per CMS for 2 midnight stay in the hospital. MTDD
[2016-11-05 02:30] VITALS: BP 197/80; PULSE 61; TEMP 36.8; O2SAT 94
[2016-11-05 02:52] VITALS: Ht 170.2 cm; Wt 85.9 kg
[2016-11-05] MEDS ORDERED: CLONIDINE HCL 0.1 MG TAB PO PRN (03:15)
[2016-11-05] MEDS ORDERED: IV FLUIDS COMPLETED PRN (03:15)
[2016-11-05 04:42] VITALS: BP 109/63; PULSE 58
[2016-11-05 06:04] LABS: HEMATOCRIT 34.6 % (37-47); MEAN CELL VOLUME 90.8 fL (80-100); MEAN CORPUSCULAR HEMOGLOBIN 29.7 pg (25-34); MEAN CORPUSCULAR HGB CONC 32.7 g/dl (32-36); MEAN PLATELET VOLUME 10.9 fL (7.4-10.4); PLATELET COUNT 131 K/uL (130-400); RED BLOOD COUNT 3.81 M/uL (4.2-5.4); WHITE BLOOD COUNT 8.04 K/uL (4.8-10.8)
[2016-11-05] MEDS: INSULIN ASPART 100 UNITS/ML 3 ML PEN SC SCH ×4 (06:30→20:52)
[2016-11-05 06:43] LABS: BUN/CREATININE RATIO 16.8 (10-20); CALCIUM 8.5 mg/dl (8.5-10.1); CREATININE 0.86 mg/dl (0.60-1.20); POTASSIUM 4.3 mmol/L (3.5-5.1)
[2016-11-05 07:31] VITALS: BP 97/50; PULSE 51; TEMP 36.5; O2SAT 94
[2016-11-05 08:00] VITALS: O2SAT 94
[2016-11-05] MEDS: TIMOLOL GFS 0.5% OPH SOLN 74 DROPS/5 ML BTL OPB SCH (08:23)
[2016-11-05] MEDS: GABAPENTIN 300 MG CAP PO SCH ×3 (08:24→20:53)
[2016-11-05] MEDS: CALCIUM 600MG + VIT D 400 IU TAB PO SCH ×2 (08:24→20:53)
[2016-11-05] MEDS: ESCITALOPRAM OXALATE 10 MG TAB PO SCH (08:25)
[2016-11-05] MEDS: CHOLECALCIFEROL 1000 INTER.UNIT TAB PO SCH (08:25)
[2016-11-05] MEDS: CEROVITE ADV FORMULA TAB PO SCH ×2 (08:26→20:53)
[2016-11-05] MEDS: HYDROCHLOROTHIAZIDE 25 MG TAB PO SCH (08:33)
[2016-11-05] MEDS: LOSARTAN POTASSIUM 50 MG TAB PO SCH (08:34)
[2016-11-05 16:10] VITALS: BP 110/61; PULSE 48; TEMP 36.5; O2SAT 94
--- NOTE | 2016-11-05 18:11 | Progress Note ---
Internal Med Progress Note Date of Service: Nov 05, 2016. Provider Documentation: SUBJECTIVE: denies of any headache or vision change no SOB no fever or chills no bleeding from nose OBJECTIVE: Vital Signs-as noted below Exam: General-no sign of distress Eyes-ecchymosis around both eyelids ENT-bruise /ecchymosis on nasal bridge -appears to be deformed /bilateral maxillary and frontal area, no active bleeding noted Neck- no JVD Lungs-CTA ,no wheeze or rales Heart-regular s1/S2 Abdomen-soft, non tender Extremities-superficial skin tear on both knees , no active bleeding noted Neuro-AAo x3, no focal deficit Lab data as noted below. ASSESSMENT & PLAN: 1. Status post mechanical fall leading to fracture of the nasal bone and nasal septum had profuse nasal bleeding in ED The bleeding was stopped by manipulation by ENT specialist, Dr. Bynum. no active bleeding noted since admission continue to hold aspirin and all form of anticoagulation 2. Ambulatory dysfunction with frequent falls. pt mentions of losing balance while trying to close the storm door landed on her face mention of falling at least 6 times in past few months loses balance all of a sudden and causing to fall denies of any dizzy spell or lightheadedness prior to fall dysfunction could be secondary to neuropathy from diabetes. PT/OT eval requested unsafe to return to home will need rehab referral made to [facility] 3. Diabetes type 2. cont insulin SSI FULL CODE DVT PROPHYLAXIS scd and teds avoid anticoagulation due to recent fall /nasal bone fracture /significant nasal bleed DISPOSITION transfer to [facility] for rehab tomorrow if accepted Vital Signs: Date Time Temp Pulse Resp B/P (MAP) Pulse Ox O2 Delivery O2 Flow Rate FiO2 11/05/16 16:10 36.5 48 18 110/61 (77) 94 Room Air 11/05/16 15:50 Room Air 11/05/16 08:00 94 Room Air 11/05/16 07:31 36.5 51 18 97/50 (66) 94 Room Air 11/05/16 04:42 58 109/63 (78) 11/05/16 02:52 Room Air 11/05/16 02:30 36.8 61 20 197/80 (119) 94 Room Air 11/05/16 02:00 53 20 144/60 95 Room Air 11/05/16 01:02 56 20 180/73 95 Room Air 11/05/16 00:34 57 11/05/16 00:25 57 20 136/75 94 Room Air 11/04/16 22:54 71 18 154/86 96 Room Air 11/04/16 21:25 78 20 203/103 96 Room Air 11/04/16 19:27 58 20 209/82 97 Room Air Lab Results: Results Past 24 Hours Test 11/05/16 00:26 11/05/16 00:36 11/05/16 05:31 11/05/16 07:40 Range/Units Bedside Glucose 140 122 70-90 mg/dl White Blood Count 11.96 8.04 4.8-10.8 K/uL Red Blood Count 4.40 3.81 4.2-5.4 M/uL Hemoglobin 13.3 11.3 12.0-16.0 g/dL Hematocrit 39.5 34.6 37-47 % Mean Corpuscular Volume 89.8 90.8 80-100 fL Mean Corpuscular Hemoglobin 30.2 29.7 25-34 pg Mean Corpuscular Hemoglobin Concent 33.7 32.7 32-36 g/dl Platelet Count 155 131 130-400 K/uL Mean Platelet Volume 11.1 10.9 7.4-10.4 fL Neutrophils (%) (Auto) 72.3 % Lymphocytes (%) (Auto) 17.5 % Monocytes (%) (Auto) 8.9 % Eosinophils (%) (Auto) 0.8 % Basophils (%) (Auto) 0.2 % Neutrophils # (Auto) 8.66 1.4-6.5 K/uL Lymphocytes # (Auto) 2.09 1.2-3.4 K/uL Monocytes # (Auto) 1.07 0.11-0.59 K/uL Eosinophils # (Auto) 0.09 0-0.5 K/uL Basophils # (Auto) 0.02 0-0.2 K/uL RDW Standard Deviation 45.4 45.8 36.4-46.3 fL RDW Coefficient of Variation 13.7 13.9 11.5-14.5 % Immature Granulocyte % (Auto) 0.3 % Immature Granulocyte # (Auto) 0.03 0.00-0.02 K/uL Prothrombin Time 11.1 9.0-12.0 SECONDS Prothromb Time International Ratio 1.0 0.9-1.1 Activated Partial Thromboplast Time 21.2 21.0-31.0 SECONDS Partial Thromboplastin Ratio 0.8 Sodium Level 140 141 136-145 mmol/L Potassium Level 3.8 4.3 3.5-5.1 mmol/L Chloride Level 105 108 98-107 mmol/L Carbon Dioxide Level 28 30 21-32 mmol/L Anion Gap 7.0 3.0 3-11 mmol/L Blood Urea Nitrogen 14 14 7-18 mg/dl Creatinine 0.84 0.86 0.60-1.20 mg/dl Est Creatinine Clear Calc Drug Dose 54.5 52.9 ml/min Estimated GFR () 72.9 70.9 Estimated GFR (Non- 62.9 61.2 BUN/Creatinine Ratio 16.7 16.8 10-20 Random Glucose 175 137 70-99 mg/dl Calcium Level 9.3 8.5 8.5-10.1 mg/dl Magnesium Level 1.9 1.8-2.4 mg/dl Total Bilirubin 0.8 0.2-1 mg/dl Aspartate Amino Transf (AST/SGOT) 20 15-37 U/L Alanine Aminotransferase (ALT/SGPT) 32 12-78 U/L Alkaline Phosphatase 66 45-117 U/L Troponin I < 0.015 0-0.045 ng/ml Total Protein 7.2 6.4-8.2 gm/dl Albumin 3.7 3.4-5.0 gm/dl Globulin 3.5 2.5-4.0 gm/dl Albumin/Globulin Ratio 1.1 0.9-2 Test 11/05/16 11:31 11/05/16 16:41 Range/Units Bedside Glucose 116 118 70-90 mg/dl
--- NOTE | 2016-11-05 18:14 | Discharge Instructions ---
Discharge Instructions Date of Service Nov 05, 2016. Admission Reason for Admission: Ambulatory Dysfunction,Diabetes Mellitus,Fall, Discharge Discharge Diagnosis / Problem: FALL /AMBULATORY DYSFUNCTION /NASAL BONE FRACTURE Discharge Goals Goal(s): Increase independence, Improve disease control, Therapeutic intervention Activity Recommendations Activity Level: Assistance Required Therapies: Physical Therapy, Occupational Therapy Shower/Bathe: no limitations . Additional Information Patient informed of condition: Yes Advance Directives: No DNR: No Level of Care: Acute Rehab Communicable Disease: No Prognosis: Stable Thomas Catheter: No Instructions / Follow-Up Instructions / Follow-Up FOLLOW UP WITH FAMILY PHYSICIAN AFTER DISCHARGE FORM REHAB FOLLOW UP WITH ENT DR GARVEY IN 2 WEEKS TO ASSES FOR FRACTURE OF NASAL BRIDGE AVOID ANTIPLATELETS -ASPIRIN NO MOTRIN , NO ANTICOAGULATION , INCREASES RISK OF NASAL BLEED Current Hospital Diet Patient's current hospital diet: Diabetes Type 2 Diet Discharge Diet Recommended Diet: Diabetes Type 2 Diet Pending Studies Studies pending at discharge: no Medical Emergencies . Who to Call and When: Medical Emergencies: If at any time you feel your situation is an emergency, please call 911 immediately. . Non-Emergent Contact Non-Emergency issues call your: Primary Care Provider . . "Provider Documentation" section prepared by Alondra Aguilar. . Core Measure Problem Core Measures: None
[2016-11-05 20:20] VITALS: BP 116/65; PULSE 60; TEMP 36.8; O2SAT 92
[2016-11-06 00:02] VITALS: BP 128/68; PULSE 57; TEMP 37.1; O2SAT 93
[2016-11-06 07:39] VITALS: BP 147/66; PULSE 59; TEMP 37; O2SAT 91
[2016-11-06] MEDS: CALCIUM 600MG + VIT D 400 IU TAB PO SCH (08:23)
[2016-11-06] MEDS: HYDROCHLOROTHIAZIDE 25 MG TAB PO SCH (08:23)
[2016-11-06] MEDS: CHOLECALCIFEROL 1000 INTER.UNIT TAB PO SCH (08:23)
[2016-11-06] MEDS: TIMOLOL GFS 0.5% OPH SOLN 74 DROPS/5 ML BTL OPB SCH (08:23)
[2016-11-06] MEDS: GABAPENTIN 300 MG CAP PO SCH (08:23)
[2016-11-06] MEDS: LOSARTAN POTASSIUM 50 MG TAB PO SCH (08:24)
[2016-11-06] MEDS: CEROVITE ADV FORMULA TAB PO SCH (08:24)
[2016-11-06] MEDS: ESCITALOPRAM OXALATE 10 MG TAB PO SCH (08:24)
[2016-11-06] MEDS: INSULIN ASPART 100 UNITS/ML 3 ML PEN SC SCH ×2 (08:50→12:22)
[2016-11-06 10:00] VITALS: BP 147/66; PULSE 59; TEMP 37; O2SAT 91
[2016-11-06 10:31] VITALS: BP 146/60; PULSE 62; O2SAT 93
--- NOTE | 2016-11-06 11:33 | Progress Note ---
Internal Med Progress Note Date of Service: Nov 06, 2016. Provider Documentation: SUBJECTIVE: no episode of bleeding from nose no headache or visual symptoms feels well accepted at [facility] for rehab will be transferred to [facility] today OBJECTIVE: Vital Signs-as noted below Exam: General-no sign of distress Eyes-ecchymosis around both eyelids ENT-bruise /ecchymosis on nasal bridge -appears to be deformed /bilateral maxillary and frontal area, no active bleeding noted Neck- no JVD Lungs-CTA ,no wheeze or rales Heart-regular s1/S2 Abdomen-soft, non tender Extremities-superficial skin tear on both knees , no active bleeding noted Neuro-AAo x3, no focal deficit Lab data as noted below. ASSESSMENT & PLAN: 1. Status post mechanical fall leading to fracture of the nasal bone and nasal septum had profuse nasal bleeding in ED The bleeding was stopped by manipulation by ENT specialist, Dr. Bynum. no active bleeding noted since admission continue to hold aspirin and all form of anticoagulation stable to be transferred to [facility] for rehab pt will need follow up with ENT Dr Bynum in 2 weeks for evaluation of nasal bone fracture 2. Ambulatory dysfunction with frequent falls. pt mentions of losing balance while trying to close the storm door landed on her face mention of falling at least 6 times in past few months loses balance all of a sudden and causing to fall denies of any dizzy spell or lightheadedness prior to fall dysfunction could be secondary to neuropathy from diabetes. PT/OT eval requested unsafe to return to home will need rehab referral made to [facility] -accepted transfer to [facility] today 3. Diabetes type 2. cont insulin SSI FULL CODE DVT PROPHYLAXIS scd and teds avoid anticoagulation due to recent fall /nasal bone fracture /significant nasal bleed DISPOSITION transfer to [facility] for rehab today Vital Signs: Date Time Temp Pulse Resp B/P (MAP) Pulse Ox O2 Delivery O2 Flow Rate FiO2 11/06/16 10:31 62 93 11/06/16 10:00 37.0 59 18 91 Room Air 11/06/16 08:00 Room Air 11/06/16 07:39 37.0 59 18 147/66 (93) 91 Room Air 11/06/16 00:02 37.1 57 20 128/68 (88) 93 Room Air 11/06/16 00:00 Room Air 11/05/16 20:20 36.8 60 18 116/65 (82) 92 Room Air 11/05/16 16:10 36.5 48 18 110/61 (77) 94 Room Air 11/05/16 15:50 Room Air Lab Results: Results Past 24 Hours Test 11/05/16 11:31 11/05/16 16:41 11/05/16 20:47 11/06/16 07:15 Range/Units Bedside Glucose 116 118 143 70-90 mg/dl Thyroid Stimulating Hormone (TSH) 2.090 0.300-4.500 uIu/ml Test 11/06/16 07:37 Range/Units Bedside Glucose 104 70-90 mg/dl
--- NOTE | 2016-11-06 11:35 | Discharge Summary ---
Discharge Summary Date of Service Nov 06, 2016. Discharge Summary Admission Date: Nov 05, 2016 at 01:20 Discharge Date: Nov 06, 2016 Discharge Disposition: Rehab Principal Diagnosis: FALL /AMBULATORY DYSFUNCTION /NASAL BONE FRACTURE Procedures: CT MAXILLOFACIAL : IMPRESSION: 1. Comminuted and displaced nasal bone and nasal septal fractures. 2. Soft tissue swelling with a small laceration at the nose. CT HEAD : Impression: No acute intracranial abnormality. Nasal bone and nasal septal fractures. Medication Reconciliation Continued Medications: Atenolol (Tenormin) 50 Mg Tab 50 MG PO QPM, 0 Refills Calcium Carbonate-Vitamin D (Calcium 600 + D) 1 Tab Tab 600 MG PO BID Cholecalciferol (Vitamin D3) 1,000 Unit Tab 1000 UNITS PO DAILY for 90 Days, TAB 3 Refills Escitalopram Oxalate (Escitalopram Oxalate) 10 Mg Tab 10 MG PO DAILY Gabapentin (Gabapentin) 300 Mg Cap 300 MG PO TID, #270 Hctz/Losartan (Hyzaar 12.5MG/100MG) 1 Tab Tab 1 TAB PO DAILY, TAB Meclizine Hcl (Meclizine Hcl) 25 Mg Tab 25 MG PO TID PRN for Dizziness or Vertigo for 10 Days, #30 TAB Multiple Vitamin (Multivitamins) 1 Cap Cap 1 CAPSULE PO QPM Multiple Vitamins W/ Minerals (Preservision Areds 2) 1 Cap Cap 1 CAP PO BID Timolol Maleate (Ophth) (Timoptic-Xe 0.5% Oph) 0.5 % Reema 1 DROP OPB DAILY Discontinued Medications: Aspirin (Aspirin Ec) 81 Mg Tab 81 MG PO QPM Cephalexin Monohydrate (Keflex) 500 Mg Cap 500 MG PO TID for 5 Days, #15 CAP Fish Oil ([place]-3) 1 Ea Cap 1 CAP PO DAILY, CAP Tramadol (Ultram) 50 Mg Tab 1-2 TABS PO Q6H PRN for Pain, #14 TAB Referrals At Discharge Follow up Referrals: Physician Referral - Within 2 Weeks with Juan Carlos Bynum D.D.S. Admission Information HPI (per Admitting provider): DATE OF ADMISSION: 11/04/2016 PRIMARY CARE PHYSICIAN: Dr. Borges. CHIEF COMPLAINT: Status post mechanical fall this evening. HISTORY OF PRESENT COMPLAINT: She is an 86-year-old female with significant past medical history of depression, diabetes type 2 with neuropathy, osteoporosis, sleep apnea, hypertension, osteoarthritis, and history of CA of breast. Apparently, has had a fall this evening. The patient was trying to close the storm door today while she fell on her face onto the ramp outside her house. She denies any loss of consciousness and she has ambulated since the fall. She started to bleed from the nose, and from that point, she was brought to the Emergency Room. In the ER, she had a CAT scan of the maxillofacial area, and that did show comminuted and displaced nasal bone and septal fracture with ongoing bleeding. The ENT physician had to come to stop the bleeding. Following that, the patient was almost about to go home, but she felt dizzy and with the history of recurrent falls at home, she was advised to stay in the hospital. There are no warning symptoms before the fall and there are no palpitations, no dizziness, no numbness or tingling in the extremities. No headache, no blurred vision, no dysarthria before the fall. Hospital Course 1. Status post mechanical fall leading to fracture of the nasal bone and nasal septum had profuse nasal bleeding in ED The bleeding was stopped by manipulation by ENT specialist, Dr. Bynum. no active bleeding noted since admission continue to hold aspirin and all form of anticoagulation stable to be transferred to [facility] for rehab pt will need follow up with ENT Dr Bynum in 2 weeks for evaluation of nasal bone fracture 2. Ambulatory dysfunction with frequent falls. pt mentions of losing balance while trying to close the storm door landed on her face mention of falling at least 6 times in past few months loses balance all of a sudden and causing to fall denies of any dizzy spell or lightheadedness prior to fall dysfunction could be secondary to neuropathy from diabetes. PT/OT eval requested unsafe to return to home will need rehab referral made to [facility] -accepted transfer to [facility] today 3. Diabetes type 2. cont insulin SSI FULL CODE DVT PROPHYLAXIS scd and teds avoid anticoagulation due to recent fall /nasal bone fracture /significant nasal bleed DISPOSITION transfer to [facility] for rehab today Discharge Instructions Discharge Instructions Date of Service Nov 05, 2016. Admission Reason for Admission: Ambulatory Dysfunction,Diabetes Mellitus,Fall, Discharge Discharge Diagnosis / Problem: FALL /AMBULATORY DYSFUNCTION /NASAL BONE FRACTURE Discharge Goals Goal(s): Increase independence, Improve disease control, Therapeutic intervention Activity Recommendations Activity Level: Assistance Required Therapies: Physical Therapy, Occupational Therapy Shower/Bathe: no limitations . Additional Information Patient informed of condition: Yes Advance Directives: No DNR: No Level of Care: Acute Rehab Communicable Disease: No Prognosis: Stable Thomas Catheter: No Instructions / Follow-Up Instructions / Follow-Up FOLLOW UP WITH FAMILY PHYSICIAN AFTER DISCHARGE FORM REHAB FOLLOW UP WITH ENT DR BYNUM IN 2 WEEKS TO ASSES FOR FRACTURE OF NASAL BRIDGE AVOID ANTIPLATELETS -ASPIRIN NO MOTRIN , NO ANTICOAGULATION , INCREASES RISK OF NASAL BLEED Current Hospital Diet Patient's current hospital diet: Diabetes Type 2 Diet Discharge Diet Recommended Diet: Diabetes Type 2 Diet Pending Studies Studies pending at discharge: no Medical Emergencies . Who to Call and When: Medical Emergencies: If at any time you feel your situation is an emergency, please call 911 immediately. . Non-Emergent Contact Non-Emergency issues call your: Primary Care Provider . . "Provider Documentation" section prepared by Alondra Aguilar. . Core Measure Problem Core Measures: None
--- NOTE | 2016-11-07 08:05 | CONSULTATION REPORT ---
DATE OF CONSULTATION: 11/05/2016 CHIEF COMPLAINT: Fall with nasal trauma and bleeding. HISTORY OF PRESENT ILLNESS: Ariana is an 86-year-old woman who fell earlier this evening, striking her face. She presented to the ER with significant bleeding and I was called by Dr. Sheppard to help control an arterial bleed through a nasal fracture with open skin laceration. I will defer you to the patient's dictated ER documentation, her history and physical, and past medical history. On exam, the nurse was holding direct pressure on the nose, and on careful inspection there, there was indeed brisk arterial pumper right in the midline of the nasal dorsum through the laceration which was down to bone. I first used some judicious amounts of 1% lidocaine with 1:100,000 epinephrine as local infiltration around the wound as well as bilateral infraorbital and supratrochlear nerve blocks. Also used topical lidocaine and Afrin intranasally. I then performed a closed reduction of the nasal fracture to help reduce the bones which resulted in some improvement in the bleeding and then I directly used a mattress suture over the soft tissue bleeding point to control the arterial bleeder. I then carefully irrigated and cleansed the wound. I did a sterile prep and completed the closure with interrupted 4-0 chromic gut suture. Bacitracin was applied to the suture line which was 1.5 cm in length and also to superficial abrasions on her forehead and nasal tip. Her maxilla and mandible were stable, and I did not see any signs of dental trauma. I gave the patient wound care instructions and she will follow up with me in approximately 1 week's time to monitor her healing.
== END 2016-11-06 12:35 ==
LOC: C.EDB 17:59 → C.MED 11-05 01:20 → ENRESERV 11-05 01:53
PROVIDERS: ADMIT Internal Medicine; ATTEND Hospitalist
DX: S02.2XXA Fracture of nasal bones, initial encounter for closed fracture (principal); R26.9 Unspecified abnormalities of gait and mobility; W22.8XXA Striking against or struck by other objects, initial encounter; R55 Syncope and collapse; Z91.81 History of falling; W19.XXXA Unspecified fall, initial encounter; E11.40 Type 2 diabetes mellitus with diabetic neuropathy, unspecified; F32.9 Major depressive disorder, single episode, unspecified; M81.0 Age-related osteoporosis without current pathological fracture; I10 Essential (primary) hypertension; G47.30 Sleep apnea, unspecified; Z79.4 Long term (current) use of insulin; Z79.82 Long term (current) use of aspirin; Z90.49 Acquired absence of other specified parts of digestive tract; Z90.710 Acquired absence of both cervix and uterus; Z90.10 Acquired absence of unspecified breast and nipple; Z96.649 Presence of unspecified artificial hip joint; Z80.3 Family history of malignant neoplasm of breast; Z80.6 Family history of leukemia

== ENCOUNTER → 2016-12-16 | Outpatient (CLI) | payer OTHER, MEDICARE ==
[~2016-12-16] MED LIST changes: -AMOX500C3 PO; -ASPI81TA28 PO; -BACITRACIN OINT 15 GM TUBE EXT ONE; +CHOL1000 PO; -GABA-112 PO; +GABA1CAP4 PO; -HCTZ PO; -LIDOCAINE 4% W/AFRIN NASAL SOLN 4ML ONE; +LOSA100T26 PO; -LOSARTAN POT PO; +MECL1TAB42 PO; -MECL25TA2 PO; +MULT60CA PO; -OMEG10007 PO; -TRAM-10 PO; -[UNRECOGNIZED DRUG - CODE] TD
--- NOTE | 2016-12-19 13:33 | MAMMOGRAPHY REPORT ---
BILATERAL DIGITAL SCREENING MAMMOGRAM TOMOSYNTHESIS WITH CAD: 12/16/2016 CLINICAL HISTORY: Routine screening. Patient has no complaints. TECHNIQUE: Breast tomosynthesis in addition to standard 2D mammography was performed. Current study was also evaluated with a Computer Aided Detection (CAD) system. COMPARISON: Comparison is made to exams dated: 09/08/2014 mammogram, 09/14/2015 mammogram, 09/04/2013 m ammogram, 09/03/2012 mammogram, 08/31/2011 mammogram, and 08/16/2010 mammogram - [facility] nter. BREAST COMPOSITION: There are scattered areas of fibroglandular density in both breasts. FINDINGS: No suspicious masses, calcifications, or areas of architectural distortion are noted in ei ther breast. There has been no significant interval change compared to prior exams. Scattered bilater al benign-appearing calcifications are not significantly changed. There are stable postsurgical ashley ges in the left breast; a linear scar marker denotes a scar on the left anterior breast. IMPRESSION: ACR BI-RADS CATEGORY 2: BENIGN There is no mammographic evidence of malignancy. A 1 year screening mammogram is recommended. The pa tient will receive written notification of the results. Approximately 10% of breast cancers are not detected with mammography. A negative mammographic report should not delay biopsy if a clinically suggestive mass is present. Emily Tucker M.D. ah/:12/16/2016 16:46:04 Bail Bond Agent: Perla FRANCO)(M), [facility] letter sent: Normal 1/2 BI-RADS Code: ACR BI-RADS Category 2: Benign
== END | disposition home or self-care (01) ==
LOC: C.MAMM 14:31
PROVIDERS: ATTEND Family Medicine
DX: Z12.31 Encounter for screening mammogram for malignant neoplasm of breast (principal); Z85.3 Personal history of malignant neoplasm of breast

== ENCOUNTER 2017-05-24 12:25 | Inpatient (IN) | payer OTHER, MEDICARE ==
[~2017-05-24] VITALS: Ht 162.6 cm; Wt 85.6 kg
[2017-05-24 03:45] VITALS: BP 152/70; PULSE 68; TEMP 37.2; O2SAT 91
[~2017-05-24 12:25] MED LIST changes: -CHOL1000 PO; -GABA1CAP4 PO; -LOSA100T26 PO; -LXP10 PO; -MECL1TAB42 PO; -MULTCAP42 PO
[2017-05-24] MEDS ORDERED: SODIUM CHLORIDE 0.9% 1000ML 1,000 ML IV SCH (12:47)
--- NOTE | 2017-05-24 12:49 | EMERGENCY ROOM VISIT NOTE ---
History Report prepared by Idania: Walter Gillis Under the Supervision of: Dr. Radhames Pennington M.D. First contact with patient: 12:35 Chief Complaint: STROKE SYMPTOMS Stated Complaint: POSSIBLE STROKE, IMPACTING L EYE History of Present Illness The patient is a 87 year old female who presents to the Emergency Room with complaints of a loss of vision in her left eye that began 15.5 hours ago. She has a past medical history of hypertension and a possible TIA. At this time, the patient began to complain of a loss of vision in her left eye when she was trying to read her newspaper. She called her daughter and discussed this with her. Her daughter called the patient's regular physicians this morning and was referred to Dr. Maria of Ophthalmology who then dilated her eye and evaluated it. They then referred her to the ER for a possible stroke. She denies any speech trouble, problems swallowing, fevers, chills, chest pain, shortness of breath, abdominal pain, weakness or numbness. She is not on any blood thinners. She did not take any of her her regular medications today. She denies any history of atrial fibrillation. Source of History: patient, family Onset: 15.5 hours ago Position: eye (left) Symptom Intensity: severe Quality: other (Loss of vision) Timing: constant Associated Symptoms: No fevers, No chills, No chest pain, No SOB, No abdominal pain, No weakness, No numbness Review of Systems See HPI for pertinent positives & negatives. A total of 10 systems reviewed and were otherwise negative. 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 Nurse's notes were reviewed and I agree with. Family History Patient reports no known family medical history. Social History Smoking Status: Never Smoker Drug Use: none Marital Status: Housing Status: lives alone Occupation Status: employed, retired Current/Historical Medications Scheduled Aspirin (Aspirin Ec), 81 MG PO DAILY Calcium Carbonate-Vitamin D (Calcium + D), 1 TAB PO BID Cholecalciferol (Vitamin D3), 1,000 UNITS PO DAILY Escitalopram Oxalate (Escitalopram Oxalate), 10 MG PO DAILY Fish Oil ([place]-3), 1 CAP PO DAILY Gabapentin (Gabapentin), 300 MG PO TID Hctz/Losartan (Hyzaar 12.5MG/100MG), 1 TAB PO DAILY Metoprolol Tartrate (Lopressor), 25 MG PO DAILY Multiple Vitamins W/ Minerals (Preservision Areds 2), 1 CAP PO BID Timolol Maleate (Ophth) (Timoptic-Xe 0.5% Oph), 1 DROP OPB BID Allergies Coded Allergies: BEE STING (Unverified Allergy, Intermediate, ., 05/24/17) Epinephrine (Verified Allergy, Unknown, BODY SHOOK, FREEZING, 05/24/17) Physical Exam Vital Signs Date Time Temp Pulse Resp B/P (MAP) Pulse Ox O2 Delivery O2 Flow Rate FiO2 05/24/17 17:14 71 05/24/17 16:39 67 22 205/86 93 Room Air 05/24/17 16:01 209/05/24/17 15:51 66 15 94 05/24/17 15:31 205/94 05/24/17 15:21 61 19 91 05/24/17 15:01 197/05/24/17 14:51 69 15 94 05/24/17 14:31 188/90 05/24/17 14:21 62 19 92 05/24/17 14:01 196/100 05/24/17 13:51 65 17 93 05/24/17 13:46 203/81 05/24/17 13:40 66 18 94 05/24/17 13:31 191/92 05/24/17 13:25 64 18 94 05/24/17 13:16 183/88 05/24/17 13:10 67 21 93 05/24/17 13:08 05/24/17 13:08 68 20 93 Room Air 05/24/17 12:55 71 24 95 05/24/17 12:49 93 Room Air 05/24/17 12:46 196/95 05/24/17 12:45 72 05/24/17 12:43 204/119 05/24/17 12:29 36.7 73 16 220/120 96 Room Air Physical Exam General: Non-ill appearing older female in no acute distress. HEENT: Normal cephalic atraumatic. Left pupil is markedly dilated from visit to Resistor Inspector office. Extraocular movements are intact. Vision field cut in the left lateral eye. Oropharynx is pink with moist mucous membranes. No swelling of the mouth lips or tongue. Neck: Supple with a midline trachea. No meningeal signs or stiffness, no JVD or bruits. No Stridor. Chest: Clear to auscultation bilaterally. No wheezes or rhonchi. No increased work of breathing. Heart: regular rate and rhythm. Abdomen: Soft nontender, nondistended without rebound guarding or rigidity. Extremities: No cyanosis clubbing or edema. No calf tenderness or assymetry Spine/Back. Non tender to palpation. No CVA tenderness Skin: Good turgor without rashes. Neurologic exam: Cranial nerves two through 12 are intact. Motor and sensation are intact and symmetrical throughout. Medical Decision & Procedures ER Provider Diagnostic Interpretation: Radiology results as stated below per my review and radiologist interpretation: HEAD WITHOUT CONTRAST (CT) CLINICAL HISTORY: 87 years-old Female presenting with Stroke. TECHNIQUE: Multidetector CT imaging of the head was performed without the use of intravenous contrast. IV contrast: None. A dose lowering technique was used consistent with the principles of ALARA (as low as reasonably achievable). COMPARISON: 11/04/2016. CT DOSE (mGy.cm): The estimated cumulative dose is 537.48 mGy.cm. FINDINGS: Lead Oracle Developer topogram: Unremarkable. Effacement of the sulci along the paramedian right occipital lobe associated with hypodensity of the medial right occipital lobe. The affected region is fairly hypodense suggesting acute to subacute infarct. No evidence of hemorrhage in this region. No midline shift. No additional site of abnormality. No hemorrhage or acute territorial infarct. No extra-axial fluid collection. Chronic deformity of the nasal bones. Calvarium intact. The nasal sinuses and mastoid air cells clear. Bilateral osage lenses are absent. IMPRESSION: 1. Findings consistent with acute to subacute infarct in the right posterior cerebral artery territory involving the medial right occipital lobe. No hemorrhage. 2. These findings were discussed with Dr. Sheppard by Dr. Epperson at 1:05 PM on 05/24/2017. Electronically signed by: Tim Epperson M.D. 05/24/2017 1:10 PM Dictated Date/Time: 05/24/2017 1:05 PM Laboratory Results 05/24/17 12:55 Red Blood Count 4.31, Mean Corpuscular Volume 89.6, Mean Corpuscular Hemoglobin 30.2, Mean Corpuscular Hemoglobin Concent 33.7, Mean Platelet Volume 11.3, Neutrophils (%) (Auto) 64.3, Lymphocytes (%) (Auto) 23.0, Monocytes (%) (Auto) 10.7, Eosinophils (%) (Auto) 1.3, Basophils (%) (Auto) 0.4, Neutrophils # (Auto ) 4.82, Lymphocytes # (Auto) 1.72, Monocytes # (Auto) 0.80, Eosinophils # (Auto ) 0.10, Basophils # (Auto) 0.03 05/24/17 12:55 Test 05/24/17 12:51 05/24/17 12:55 Bedside Prothrombin Time INR 1.0 (0.9-1.1) White Blood Count 7.49 K/uL (4.8-10.8) Red Blood Count 4.31 M/uL (4.2-5.4) Hemoglobin 13.0 g/dL (12.0-16.0) Hematocrit 38.6 % (37-47) Mean Corpuscular Volume 89.6 fL (80-100) Mean Corpuscular Hemoglobin 30.2 pg (25-34) Mean Corpuscular Hemoglobin Concent 33.7 g/dl (32-36) Platelet Count 134 K/uL (130-400) Mean Platelet Volume 11.3 fL (7.4-10.4) Neutrophils (%) (Auto) 64.3 % Lymphocytes (%) (Auto) 23.0 % Monocytes (%) (Auto) 10.7 % Eosinophils (%) (Auto) 1.3 % Basophils (%) (Auto) 0.4 % Neutrophils # (Auto) 4.82 K/uL (1.4-6.5) Lymphocytes # (Auto) 1.72 K/uL (1.2-3.4) Monocytes # (Auto) 0.80 K/uL (0.11-0.59) Eosinophils # (Auto) 0.10 K/uL (0-0.5) Basophils # (Auto) 0.03 K/uL (0-0.2) RDW Standard Deviation 46.6 fL (36.4-46.3) RDW Coefficient of Variation 14.0 % (11.5-14.5) Immature Granulocyte % (Auto) 0.3 % Immature Granulocyte # (Auto) 0.02 K/uL (0.00-0.02) Prothrombin Time 10.8 SECONDS (9.0-12.0) Prothromb Time International Ratio 1.0 (0.9-1.1) Activated Partial Thromboplast Time 23.8 SECONDS (21.0-31.0) Partial Thromboplastin Ratio 0.9 Anion Gap 5.0 mmol/L (3-11) Est Creatinine Clear Calc Drug Dose 46.0 ml/min Estimated GFR () 64.9 Estimated GFR (Non- 56.0 BUN/Creatinine Ratio 19.0 (10-20) Calcium Level 9.3 mg/dl (8.5-10.1) Magnesium Level 2.1 mg/dl (1.8-2.4) Total Creatine Kinase 118 U/L (26-192) Creatine Kinase MB 1.5 ng/ml (0.5-3.6) Creatine Kinase MB Ratio 1.3 (0-3.0) Troponin I < 0.015 ng/ml (0-0.045) Laboratory studies as stated above per my review. Medications Administered Medications (Trade) Dose Ordered Sig/Naz Route Start Time Stop Time Status Last Admin Dose Admin Sodium Chloride 1,000 ml @ 50 mls/hr Q20H IV 05/24/17 12:47 06/23/17 12:46 05/24/17 12:47 50 MLS/HR Aspirin (Aspirin Chew) 324 mg NOW STAT PO 05/24/17 13:47 05/24/17 13:48 DC 05/24/17 13:56 324 MG ECG Per My Interpretation Indication: other (Possible CVA) Rate (beats per minute): 64 Rhythm: normal sinus Findings: LBBB, left axis deviation Comparison ECG Date: 05 Nov 2016 Change: no significant change ED Course 1235: Past medical records reviewed. The patient was evaluated in room B10, and a complete history and physical examination were performed. 1308: The patient just arrived back in her room after her CT scan. She appears to be comfortable. 1343: I discussed the patient's case with [facility] at this time. They state that she is not a candidate for [facility] intervention as there would be no difference between intervention here and at [facility]. 1347: Ordered Aspirin Chew 324 mg PO 1350: I updated the patient at this time. She is agreeable. 1417: Upon reevaluation, the patient is resting. I discussed the results and treatment plan with the patient. She verbalized agreement of the treatment plan. The patient will be evaluated by Dr. [facility]apa of [facility] for further management. Medical Decision Differentials include, but are not limited to; stroke, TIA, occipital migraine, trauma, infection, and electrolyte or metabolic abnormality. This patient comes in as described above. She had acute visual loss in her left eye last evening around 9:00. She showed up to her street openings inspector today and had a full eye exam is found to have a superior lateral field cut in the left consistent with an occipital stroke. Size that she has no other strokelike symptoms. She has a mild headache. No trauma. No fever or chills. No history of any similar. We were expecting her and I saw her promptly upon arrival. I did call a stroke alert to expedite her care and also touch base with the [facility] neurologist to make sure there was nothing else they would offer. She is obviously outside the window for [facility]. They did not feel there was any intervention they could do at [facility] acutely and recommend we keep her here. The CAT scan confirms an occipital subacute/acute stroke. She was given aspirin 325 mg here. She has no significant electrolyte or metabolic abnormality. she is nothing to suggest that she has acute cardiac disease. I do think she needs to be admitted for further treatment and evaluation. Her blood pressures been running on the high side however she did not take her meds this morning. The patient was seen by Dr. Thapa in the ER Medication Reconcilliation Current Medication List: was personally reviewed by me Blood Pressure Screening Patient's blood pressure: Elevated blood pressure Referred to the hospitalist Consults Time Called: 1340 Consulting Physician: [facility] Returned Call: 1341 We discussed the patient's case. They did not believe the patient to be a candidate for [facility] intervention as intervention in our facility would be the same. Impression Primary Impression: CVA (cerebral vascular accident) Additional Impression: Visual field defect of left eye Scribe Attestation The scribe's documentation has been prepared under my direction and personally reviewed by me in its entirety. I confirm that the note above accurately reflects all work, treatment, procedures, and medical decision making performed by me. Departure Information Dispostion Being Evaluated By Hospitalist Referrals Moe Borges M.D. (PCP) Patient Instructions My [facility] Problem Qualifiers
--- NOTE | 2017-05-24 13:11 | DIAGNOSTIC IMAGING REPORT ---
HEAD WITHOUT CONTRAST (CT) CLINICAL HISTORY: 87 years-old Female presenting with Stroke. TECHNIQUE: Multidetector CT imaging of the head was performed without the use of intravenous contrast. IV contrast: None. A dose lowering technique was used consistent with the principles of ALARA (as low as reasonably achievable). COMPARISON: 11/04/2016. CT DOSE (mGy.cm): The estimated cumulative dose is 537.48 mGy.cm. FINDINGS: Carpenter Assistant topogram: Unremarkable. Effacement of the sulci along the paramedian right occipital lobe associated with hypodensity of the medial right occipital lobe. The affected region is fairly hypodense suggesting acute to subacute infarct. No evidence of hemorrhage in this region. No midline shift. No additional site of abnormality. No hemorrhage or acute territorial infarct. No extra-axial fluid collection. Chronic deformity of the nasal bones. Calvarium intact. The nasal sinuses and mastoid air cells clear. Bilateral gambell lenses are absent. IMPRESSION: 1. Findings consistent with acute to subacute infarct in the right posterior cerebral artery territory involving the medial right occipital lobe. No hemorrhage. 2. These findings were discussed with Dr. Sheppard by Dr. Epperson at 1:05 PM on 05/24/2017. Electronically signed by: Tim Epperson M.D. 05/24/2017 1:10 PM Dictated Date/Time: 05/24/2017 1:05 PM
[2017-05-24 13:13] LABS: BASO % 0.4 %; BASO ABS # 0.03 K/uL (0-0.2); EOS % 1.3 %; HEMATOCRIT 38.6 % (37-47); IG# 0.02 K/uL (0.00-0.02); LYMPH ABS # 1.72 K/uL (1.2-3.4); MEAN CELL VOLUME 89.6 fL (80-100); MEAN CORPUSCULAR HEMOGLOBIN 30.2 pg (25-34); MEAN CORPUSCULAR HGB CONC 33.7 g/dl (32-36); MEAN PLATELET VOLUME 11.3 fL (7.4-10.4); MONO % 10.7 %; NEUT % 64.3 %; NEUT ABS # 4.82 K/uL (1.4-6.5); PLATELET COUNT 134 K/uL (130-400); RED CELL DISTRIBUTION WIDTH SD 46.6 fL (36.4-46.3); WHITE BLOOD COUNT 7.49 K/uL (4.8-10.8)
[2017-05-24 13:25] LABS: PTT PATIENT 23.8 SECONDS (21.0-31.0)
[2017-05-24 13:32] LABS: BLOOD UREA NITROGEN 17 mg/dl (7-18); CALCIUM 9.3 mg/dl (8.5-10.1); CARBON DIOXIDE 30 mmol/L (21-32); CREATININE 0.92 mg/dl (0.60-1.20); GLUCOSE 92 mg/dl (70-99); SODIUM 137 mmol/L (136-145)
[2017-05-24 13:37] LABS: CKMB 1.5 ng/ml (0.5-3.6)
[2017-05-24] MEDS ORDERED: LXP10 PO (13:45)
[2017-05-24] MEDS ORDERED: ASPIRIN 324 MG CHEW PO STA (13:47)
[2017-05-24] MEDS ORDERED: MULTCAP42 PO (16:08)
--- NOTE | 2017-05-24 16:41 | History and Physical ---
History & Physical Date & Time of Service: May 24, 2017 at 16:41 . Chief Complaint: Vision loss left eye . Primary Care Physician: Moe Borges M.D. . History of Present Illness Source: patient, clinic records, hospital records 87-year-old female followed by Dr. Borges. History of hypertension, diet-controlled diabetes, and other problems noted below. Experienced sudden onset of vision loss in the left eye last evening. No associated ophthalmic pain. Mild right-sided headache. No dysarthria, focal motor weakness, or other focal neurologic symptoms. Evaluated by her junior high school teacher this morning who detected a left visual field cut. Referred to ED for evaluation. . Past Medical/Surgical History Chronic and Resolved Medical Problems: (1) Ambulatory dysfunction Status: Chronic (2) Diabetes mellitus, type 2 Status: Chronic (3) Diabetic peripheral neuropathy associated with type 2 diabetes mellitus Status: Chronic (4) Glaucoma Status: Chronic (5) History of breast cancer Permanent Comment: left partial mastectomy Status: Chronic (6) Hypertension Status: Chronic (7) Nasal bone fractures Status: Resolved (8) Osteoporosis Status: Chronic (9) Sleep apnea Permanent Comment: CPAP Status: Chronic Surgical Problems: (1) Status post cholecystectomy Status: Chronic (2) Status post hip replacement Status: Chronic (3) Status post hysterectomy Status: Chronic (4) Status post partial mastectomy Permanent Comment: left breast for Ca Status: Chronic . Family History Mother-breast cancer. Father-myocardial infarction. Sister-leukemia. . Social History Smoking Status: Never Smoker Alcohol Use: none Drug Use: none Marital Status: Occupational Status: employed, retired Immunizations History of Influenza Vaccine: Yes History of Tetanus Vaccine?: YES 2004 History of Pneumococcal: YES COUPLE OF YEARS AGO History of Hepatitis B Vaccine: Unknown Allergies Coded Allergies: BEE STING (Unverified Allergy, Intermediate, ., 05/24/17) Epinephrine (Verified Allergy, Unknown, BODY SHOOK, FREEZING, 05/24/17) Home Medications Scheduled Aspirin (Aspirin Ec), 81 MG PO DAILY Calcium Carbonate-Vitamin D (Calcium + D), 1 TAB PO DAILY Cholecalciferol (Vitamin D3), 1,000 UNITS PO DAILY Escitalopram Oxalate (Escitalopram Oxalate), 10 MG PO DAILY Fish Oil ([place]-3), 1 CAP PO DAILY Gabapentin (Gabapentin), 300 MG PO TID Hctz/Losartan (Hyzaar 12.5MG/100MG), 1 TAB PO DAILY Metoprolol Tartrate (Lopressor), 25 MG PO BID Multiple Vitamins W/ Minerals (Preservision Areds 2), 1 CAP PO BID Timolol Maleate (Ophth) (Timoptic-Xe 0.5% Oph), 1 DROP OPB BID Scheduled PRN Meclizine HCl (Meclizine 25), 25 MG PO TID PRN for Dizziness or Vertigo Review of Systems Constitutional: No fever, No weight loss Eyes: + problem reported (As noted above in HPI) ENT: + nasal symptoms Respiratory: No cough, No shortness of breath Cardiovascular: + edema ( chronic ankle edema), No chest pain, No palpitations Abdomen: No pain, No nausea, No vomiting, No diarrhea, No GI bleeding Musculoskeletal: + joint pain (Mild arthritis) Genitourinary - Female: No dysuria, No hematuria Neurologic: + problem reported (As noted above in HPI) Endocrine: + problem reported (Blood sugars well controlled), No excessive thirst, No excessive urination Hematologic / Lymphatic: + abnormal bleeding/bruising (Bruises easily) Integumentary: + rash (Intermittent rash between toes, followed by podiatry), No new/changing skin lesions Physical Exam Vital Signs Date Time Temp Pulse Resp B/P (MAP) Pulse Ox O2 Delivery O2 Flow Rate FiO2 05/24/17 16:39 67 22 205/86 93 Room Air 05/24/17 16:01 209/05/24/17 15:51 66 15 94 05/24/17 15:31 205/94 05/24/17 15:21 61 19 91 05/24/17 15:01 197/88 05/24/17 14:51 69 15 94 05/24/17 14:31 188/90 05/24/17 14:21 62 19 92 05/24/17 14:01 196/100 05/24/17 13:51 65 17 93 05/24/17 13:46 203/81 05/24/17 13:40 66 18 94 05/24/17 13:31 191/92 05/24/17 13:25 64 18 94 05/24/17 13:16 183/88 05/24/17 13:10 67 21 93 05/24/17 13:08 211/81 05/24/17 13:08 68 20 211/81 93 Room Air 05/24/17 12:55 71 24 95 05/24/17 12:49 93 Room Air 05/24/17 12:46 196/95 05/24/17 12:45 72 05/24/17 12:43 204/119 05/24/17 12:29 36.7 73 16 220/120 96 Room Air General Appearance: WD/WN, no apparent distress Head: normocephalic, atraumatic Eyes: normal inspection, PERRL, EOMI, sclerae normal, + pertinent finding ( Visual field cut left eye lower outer quadrant) ENT: normal ENT inspection, hearing grossly normal, + pertinent finding (Upper dentures; poor dentition fair) Neck: thyroid normal, trachea midline Respiratory/Chest: lungs clear (To auscultation and percussion), no respiratory distress, no accessory muscle use Cardiovascular: regular rate, rhythm, no edema, no JVD, + systolic murmur (3/6 systolic murmur at base), + abnormal peripheral pulses (Pedal pulses diminished) Abdomen/GI: normal bowel sounds, non tender, soft, no organomegaly Extremities/Musculoskelatal: normal inspection, no calf tenderness, normal capillary refill, + pertinent finding (No cyanosis; no diabetic foot ulcers) Neurologic/Psych: aircraft electronics technical officer II-XII nml as tested (anisocoria L > R, EOMI, no facial pulmonary, no dysarthria), no motor/sensory deficits (Motor strength extremities grossly intact), alert, normal mood/affect, normal reflexes ( Patellar DTRs 1/2 bilaterally), oriented x 3, + babinski (Right plantar reflex equivocally upgoing) Skin: normal color, warm/dry, no rash Lymphatic: no adenopathy (Cervical) Diagnostics Laboratory Results Results Past 24 Hours Test 05/24/17 12:51 05/24/17 12:55 Range/Units Bedside Prothrombin Time INR 1.0 0.9-1.1 White Blood Count 7.49 4.8-10.8 K/uL Red Blood Count 4.31 4.2-5.4 M/uL Hemoglobin 13.0 12.0-16.0 g/dL Hematocrit 38.6 37-47 % Mean Corpuscular Volume 89.6 80-100 fL Mean Corpuscular Hemoglobin 30.2 25-34 pg Mean Corpuscular Hemoglobin Concent 33.7 32-36 g/dl Platelet Count 134 130-400 K/uL Mean Platelet Volume 11.3 7.4-10.4 fL Neutrophils (%) (Auto) 64.3 % Lymphocytes (%) (Auto) 23.0 % Monocytes (%) (Auto) 10.7 % Eosinophils (%) (Auto) 1.3 % Basophils (%) (Auto) 0.4 % Neutrophils # (Auto) 4.82 1.4-6.5 K/uL Lymphocytes # (Auto) 1.72 1.2-3.4 K/uL Monocytes # (Auto) 0.80 0.11-0.59 K/uL Eosinophils # (Auto) 0.10 0-0.5 K/uL Basophils # (Auto) 0.03 0-0.2 K/uL RDW Standard Deviation 46.6 36.4-46.3 fL RDW Coefficient of Variation 14.0 11.5-14.5 % Immature Granulocyte % (Auto) 0.3 % Immature Granulocyte # (Auto) 0.02 0.00-0.02 K/uL Prothrombin Time 10.8 9.0-12.0 SECONDS Prothromb Time International Ratio 1.0 0.9-1.1 Activated Partial Thromboplast Time 23.8 21.0-31.0 SECONDS Partial Thromboplastin Ratio 0.9 Sodium Level 137 136-145 mmol/L Potassium Level 4.0 3.5-5.1 mmol/L Chloride Level 103 98-107 mmol/L Carbon Dioxide Level 30 21-32 mmol/L Anion Gap 5.0 3-11 mmol/L Blood Urea Nitrogen 17 7-18 mg/dl Creatinine 0.92 0.60-1.20 mg/dl Est Creatinine Clear Calc Drug Dose 46.0 ml/min Estimated GFR () 64.9 Estimated GFR (Non- 56.0 BUN/Creatinine Ratio 19.0 10-20 Random Glucose 92 70-99 mg/dl Calcium Level 9.3 8.5-10.1 mg/dl Magnesium Level 2.1 1.8-2.4 mg/dl Total Creatine Kinase 118 26-192 U/L Creatine Kinase MB 1.5 0.5-3.6 ng/ml Creatine Kinase MB Ratio 1.3 0-3.0 Troponin I < 0.015 0-0.045 ng/ml Diagnostic Radiology CT of head without contrast consistent with acute to subacute ischemic infarct involving the right occipital lobe. . EKG EKG performed at 1317 reviewed and demonstrated normal sinus rhythm at 64/minute , left axis deviation, left bundle branch block. . Impression Assessment and Plan RIGHT OCCIPITAL ISCHEMIC STROKE Acute vision loss left eye with visual field cut more than 12 hours prior to admission. CT demonstrates ischemic stroke right occipital lobe. Not a candidate for thrombolytic therapy due to duration of symptoms. Passed dysphagia screen in the ED. Takes aspirin at home which will be continued; add clopidogrel pending input from Neurology. Normal sinus rhythm in ED. Monitor for arrhythmias. Check carotid duplex. Check echocardiogram. Check lipid profile. Consult Neurology. PT, OT, speech evaluations. SYSTOLIC HEART MURMUR III/ systolic murmur at base. Check echocardiogram. HYPERTENSION BP elevated in the ED. Patient did not take her morning medications. Allow permissive hypertension for 24-48 hours in light of acute ischemic stroke. Continue usual dose of metoprolol. Hold losartan/hydrochlorothiazide. Follow and gradually titrate therapy. SLEEP APNEA Continue CPAP. DM TYPE 2 Currently diet controlled. Random blood sugar in ED 92. Check hemoglobin A1c. Follow. DIABETIC NEUROPATHY Continue gabapentin. OBESITY BMI 32. AHA diet. GLAUCOMA Continue usual ophthalmic drops. DEPRESSION Continue escitalopram. VTE PROPHYLAXIS Moderate risk for VTE. SQ heparin. Ambulate. RESUSCITATION STATUS Discussed with patient. She has a living will - family will bring in copy. Patient indicates that she prefers a natural passing and does not want resuscitation attempted in the event of a cardiopulmonary arrest. Therefore, code status = "Level 5" (DNR). She does, however, wish to have aggressive interventions as necessary for treatable problems. DISPOSITION Admit to Telemetry Unit. Discharge disposition to be determined. Family Medicine follow-up with Dr. Borges. . Resuscitation Status VTE Prophylaxis Will order VTE Prophylaxis: Yes
[2017-05-24] MEDS ORDERED: SPCCR30 TOP (16:47)
[2017-05-24] MEDS ORDERED: [UNRECOGNIZED DRUG - CODE] TOP (16:47)
[2017-05-24] MEDS ORDERED: LPR25 PO (16:47)
[2017-05-24] MEDS ORDERED: OMEG10007 PO (16:47)
[2017-05-24] MEDS ORDERED: ASPI81TA28 PO (17:00)
[2017-05-24] MEDS ORDERED: MULT60CA PO (17:00)
[2017-05-24] MEDS ORDERED: CALC600T9 PO (17:00)
[2017-05-24] MEDS ORDERED: MECL-91 PO (17:50)
[2017-05-24] MEDS ORDERED: PHARMACIST DISCHARGE MED REC CONSULT PRN (18:00)
[2017-05-24 18:36] VITALS: BP 217/94; PULSE 77; TEMP 37.7; O2SAT 94; Ht 162.6 cm; Wt 85.6 kg
[2017-05-24 19:35] VITALS: BP 208/93; PULSE 78; TEMP 37.7; O2SAT 91
[2017-05-24] MEDS ORDERED: CHOL1000 PO (20:09)
[2017-05-24] MEDS ORDERED: LOSA100T33 PO (20:09)
[2017-05-24] MEDS ORDERED: GABA-1219 PO (20:09)
[2017-05-24] MEDS ORDERED: MECL1TAB42 PO (20:09)
[2017-05-24] MEDS ORDERED: ONDANSETRON INJ 2 MG/ML 2 ML VIAL IV PRN (20:45)
[2017-05-24] MEDS: METOPROLOL TARTRATE 25 MG TAB PO SCH (21:22)
[2017-05-24] MEDS: TIMOLOL GFS 0.5% OPH SOLN 74 DROPS/5 ML BTL OPB SCH (21:22)
[2017-05-24] MEDS: GABAPENTIN 300 MG CAP PO SCH (21:22)
[2017-05-24] MEDS: HEPARIN SOD 5000 UNIT/0.5 ML CARP SQ SCH (21:25)
[2017-05-24 23:33] VITALS: BP 180/77; PULSE 73; TEMP 37.4; O2SAT 91
[2017-05-25] VITALS (7 sets, daily range): BP systolic 150–190; BP diastolic 60–82; PULSE 63–72; TEMP 36.8–37.6; O2SAT 91–96
[2017-05-25 05:57] LABS: BASO % 0.3 %; BASO ABS # 0.02 K/uL (0-0.2); EOS % 0.3 %; EOS ABS # 0.02 K/uL (0-0.5); HEMATOCRIT 35.7 % (37-47); HEMOGLOBIN 12.1 g/dL (12.0-16.0); IG# 0.01 K/uL (0.00-0.02); LYMPH % 21.4 %; MEAN CORPUSCULAR HEMOGLOBIN 30.2 pg (25-34); MEAN CORPUSCULAR HGB CONC 33.9 g/dl (32-36); MEAN PLATELET VOLUME 11.3 fL (7.4-10.4); MONO % 11.7 %; MONO ABS # 0.82 K/uL (0.11-0.59); NEUT % 66.2 %; NEUT ABS # 4.65 K/uL (1.4-6.5); PLATELET COUNT 125 K/uL (130-400); RED CELL DISTRIBUTION WIDTH SD 45.9 fL (36.4-46.3); WHITE BLOOD COUNT 7.02 K/uL (4.8-10.8)
[2017-05-25 06:28] LABS: CALCIUM 8.8 mg/dl (8.5-10.1); CREATININE 0.82 mg/dl (0.60-1.20); POTASSIUM 3.7 mmol/L (3.5-5.1)
[2017-05-25] MEDS: GABAPENTIN 300 MG CAP PO SCH ×3 (08:27→20:26)
[2017-05-25] MEDS: ASPIRIN 81 MG ECTAB PO SCH (08:27)
[2017-05-25] MEDS: CHOLECALCIFEROL 1000 INTER.UNIT TAB PO SCH (08:27)
[2017-05-25] MEDS: ESCITALOPRAM OXALATE 10 MG TAB PO SCH (08:27)
[2017-05-25] MEDS: METOPROLOL TARTRATE 25 MG TAB PO SCH ×2 (08:27→20:26)
[2017-05-25] MEDS: CLOPIDOGREL BISULFATE 75 MG TAB PO SCH (08:27)
[2017-05-25] MEDS: HEPARIN SOD 5000 UNIT/0.5 ML CARP SQ SCH ×2 (08:30→20:25)
[2017-05-25] MEDS: TIMOLOL GFS 0.5% OPH SOLN 74 DROPS/5 ML BTL OPB SCH ×2 (08:32→20:26)
[2017-05-25] MEDS: CEFTRIAXONE SOD INJ 1 GM in DEXTROSE 5% ADD-VANTAGE 50ML 50 ML IV SCH (08:38)
[2017-05-25] MEDS ORDERED: ASPIRIN 81 MG ECTAB PO SCH (09:00)
--- NOTE | 2017-05-25 09:44 | DIAGNOSTIC IMAGING REPORT ---
CAROTID ARTERY ULTRASOUND CLINICAL HISTORY: Stroke COMPARISON STUDY: None. TECHNIQUE: Real-time, grayscale, and color Doppler sonography of the carotid and vertebral arteries was performed. Images were viewed in the transverse and longitudinal planes. FINDINGS: There is mild atherosclerotic plaque. Velocity measurements are listed below. COMMON CAROTID PEAK SYSTOLIC VELOCITY (CM/S): RIGHT 75 LEFT 64 ICA PEAK SYSTOLIC VELOCITY (CM/S): RIGHT 66 LEFT 59 Systolic ratios between the internal to common carotid arteries are normal. Antegrade flow is seen in the vertebral arteries. The external carotid arteries are patent. Due to limited restriction, blood pressure could not be obtained in this patient. IMPRESSION: No evidence of a hemodynamically significant stenosis. Electronically signed by: Mp Robbins M.D. 05/25/2017 9:43 AM Dictated Date/Time: 05/25/2017 9:41 AM
--- NOTE | 2017-05-25 11:56 | Progress Note ---
Internal Med Progress Note Date of Service: May 25, 2017. Provider Documentation: SUBJECTIVE: Seen and examined at bedside States left eye vision is slightly better Denies chest pain, SOB, dizziness, weakness/numbness in extremities Also denies dysphagia, dysarthria No other complaints OBJECTIVE: Vital Signs-as noted below Physical Exam: General Appearance:Moderately built and nourished, no apparent distress Head: normocephalic, Atraumatic Eyes: normal inspection, EOMI, +Left visual lower quadrant defect Neck: supple, Trachea midline Respiratory/Chest: Normal breath sounds, CTA Cardiovascular: S1, S2, + murmur Abdomen/GI:Soft, Non tender, Bowel sounds present Extremities/Musculoskelatal:normal inspection, no edema Neurologic/Psych:AAOX3, grossly no focal neurological deficits other than L visual defect Skin: normal color, warm Lab data as noted below. ASSESSMENT & PLAN: Acute Right posterior cerebral artery CVA CT head:Findings consistent with acute to subacute infarct in the right posterior cerebral artery territory involving the medial right occipital lobe. No hemorrhage. Carotid Doppler:No evidence of a hemodynamically significant stenosis. ECHO:pending Continue monitoring in Tele Continue Aspirin, Plavix Started on Lipitor Neurology consulted Lipid panel:normal PT/OT Allow permissive HTN in setting of acute CVA A1C:6.0 Possible UTI: Denies Urinary symptoms Continue Ceftriaxone Day # 2 Urine Culture:pending Systolic Murmur: ECHO pending Denies chest pain, dizziness HTN Elevated in setting of acute CVA Plan to resume HTN meds tomorrow (losartan/hydrochlorothiazide) Continue metoprolol monitor Sleep Apnea: Continue CPAP DM II Currently diet controlled. A1c:6.0 monitor Diabetic Neuropathy: Continue gabapentin Obesity BMI 32.3 H/O Glaucoma Continue home ophthalmic drops. Depression: Continue escitalopram. DVT Px: Heparin SQ Code Status: DNR Disposition: To be determined. Medicine follow-up with Dr. Borges. Vital Signs: Date Time Temp Pulse Resp B/P (MAP) Pulse Ox O2 Delivery O2 Flow Rate FiO2 05/25/17 11:35 36.8 64 18 163/74 (103) 96 Room Air 05/25/17 08:00 Room Air 05/25/17 07:34 36.8 68 18 150/60 (90) 93 05/25/17 04:00 Room Air 05/25/17 03:45 37.2 68 20 152/70 (97) 91 BiPAP 05/25/17 01:58 72 94 21 05/25/17 00:01 Room Air 05/24/17 23:33 37.4 73 20 180/77 (111) 91 Room Air 05/24/17 20:00 Room Air 05/24/17 19:35 37.7 78 18 208/93 (131) 91 Room Air 05/24/17 18:36 37.7 77 20 217/94 94 Room Air 05/24/17 17:54 75 178/141 93 05/24/17 17:14 71 05/24/17 16:39 67 22 205/86 93 Room Air 05/24/17 16:01 209/05/24/17 15:51 66 15 94 05/24/17 15:31 205/94 05/24/17 15:21 61 19 91 05/24/17 15:01 197/88 05/24/17 14:51 69 15 94 05/24/17 14:31 188/90 05/24/17 14:21 62 19 92 05/24/17 14:01 196/100 05/24/17 13:51 65 17 93 05/24/17 13:46 203/81 05/24/17 13:40 66 18 94 05/24/17 13:31 191/92 05/24/17 13:25 64 18 94 05/24/17 13:16 183/88 05/24/17 13:10 67 21 93 05/24/17 13:08 211/81 05/24/17 13:08 68 20 211/81 93 Room Air 05/24/17 12:55 71 24 95 05/24/17 12:49 93 Room Air 05/24/17 12:46 196/95 05/24/17 12:45 72 05/24/17 12:43 204/119 05/24/17 12:29 36.7 73 16 220/120 96 Room Air Lab Results: Results Past 24 Hours Test 05/24/17 12:51 05/24/17 12:55 05/24/17 12:56 05/24/17 20:22 Range/Units Bedside Prothrombin Time INR 1.0 0.9-1.1 White Blood Count 7.49 4.8-10.8 K/uL Red Blood Count 4.31 4.2-5.4 M/uL Hemoglobin 13.0 12.0-16.0 g/dL Hematocrit 38.6 37-47 % Mean Corpuscular Volume 89.6 80-100 fL Mean Corpuscular Hemoglobin 30.2 25-34 pg Mean Corpuscular Hemoglobin Concent 33.7 32-36 g/dl Platelet Count 134 130-400 K/uL Mean Platelet Volume 11.3 7.4-10.4 fL Neutrophils (%) (Auto) 64.3 % Lymphocytes (%) (Auto) 23.0 % Monocytes (%) (Auto) 10.7 % Eosinophils (%) (Auto) 1.3 % Basophils (%) (Auto) 0.4 % Neutrophils # (Auto) 4.82 1.4-6.5 K/uL Lymphocytes # (Auto) 1.72 1.2-3.4 K/uL Monocytes # (Auto) 0.80 0.11-0.59 K/uL Eosinophils # (Auto) 0.10 0-0.5 K/uL Basophils # (Auto) 0.03 0-0.2 K/uL RDW Standard Deviation 46.6 36.4-46.3 fL RDW Coefficient of Variation 14.0 11.5-14.5 % Immature Granulocyte % (Auto) 0.3 % Immature Granulocyte # (Auto) 0.02 0.00-0.02 K/uL Prothrombin Time 10.8 9.0-12.0 SECONDS Prothromb Time International Ratio 1.0 0.9-1.1 Activated Partial Thromboplast Time 23.8 21.0-31.0 SECONDS Partial Thromboplastin Ratio 0.9 Sodium Level 137 136-145 mmol/L Potassium Level 4.0 3.5-5.1 mmol/L Chloride Level 103 98-107 mmol/L Carbon Dioxide Level 30 21-32 mmol/L Anion Gap 5.0 3-11 mmol/L Blood Urea Nitrogen 17 7-18 mg/dl Creatinine 0.92 0.60-1.20 mg/dl Est Creatinine Clear Calc Drug Dose 46.0 ml/min Estimated GFR () 64.9 Estimated GFR (Non- 56.0 BUN/Creatinine Ratio 19.0 10-20 Random Glucose 92 70-99 mg/dl Calcium Level 9.3 8.5-10.1 mg/dl Magnesium Level 2.1 1.8-2.4 mg/dl Total Creatine Kinase 118 26-192 U/L Creatine Kinase MB 1.5 0.5-3.6 ng/ml Creatine Kinase MB Ratio 1.3 0-3.0 Troponin I < 0.015 0-0.045 ng/ml Bedside Glucose 106 129 70-90 mg/dl Test 05/25/17 04:20 05/25/17 05:28 Range/Units Urine Color YELLOW Urine Appearance CLOUDY CLEAR Urine pH 6.0 4.5-7.5 Urine Specific [place] 1.022 1.000-1.030 Urine Protein NEG NEG Urine Glucose (UA) NEG NEG Urine Ketones NEG NEG Urine Occult Blood 1+ NEG Urine Nitrite POS NEG Urine Bilirubin NEG NEG Urine Urobilinogen NEG NEG Urine Leukocyte Esterase LARGE NEG Urine WBC (Auto) >30 0-5 /hpf Urine RBC (Auto) 0-4 0-4 /hpf Urine Hyaline Casts (Auto) 0 0-5 /lpf Urine Epithelial Cells (Auto) 5-10 0-5 /lpf Urine Bacteria (Auto) 3+ NEG White Blood Count 7.02 4.8-10.8 K/uL Red Blood Count 4.01 4.2-5.4 M/uL Hemoglobin 12.1 12.0-16.0 g/dL Hematocrit 35.7 37-47 % Mean Corpuscular Volume 89.0 80-100 fL Mean Corpuscular Hemoglobin 30.2 25-34 pg Mean Corpuscular Hemoglobin Concent 33.9 32-36 g/dl Platelet Count 125 130-400 K/uL Mean Platelet Volume 11.3 7.4-10.4 fL Neutrophils (%) (Auto) 66.2 % Lymphocytes (%) (Auto) 21.4 % Monocytes (%) (Auto) 11.7 % Eosinophils (%) (Auto) 0.3 % Basophils (%) (Auto) 0.3 % Neutrophils # (Auto) 4.65 1.4-6.5 K/uL Lymphocytes # (Auto) 1.50 1.2-3.4 K/uL Monocytes # (Auto) 0.82 0.11-0.59 K/uL Eosinophils # (Auto) 0.02 0-0.5 K/uL Basophils # (Auto) 0.02 0-0.2 K/uL RDW Standard Deviation 45.9 36.4-46.3 fL RDW Coefficient of Variation 14.0 11.5-14.5 % Immature Granulocyte % (Auto) 0.1 % Immature Granulocyte # (Auto) 0.01 0.00-0.02 K/uL Sodium Level 137 136-145 mmol/L Potassium Level 3.7 3.5-5.1 mmol/L Chloride Level 103 98-107 mmol/L Carbon Dioxide Level 26 21-32 mmol/L Anion Gap 8.0 3-11 mmol/L Blood Urea Nitrogen 15 7-18 mg/dl Creatinine 0.82 0.60-1.20 mg/dl Est Creatinine Clear Calc Drug Dose 51.2 ml/min Estimated GFR () 74.6 Estimated GFR (Non- 64.3 BUN/Creatinine Ratio 18.4 10-20 Random Glucose 105 70-99 mg/dl Estimated Average Glucose 126 mg/dl Hemoglobin A1c 6.0 4.5-5.6 % Calcium Level 8.8 8.5-10.1 mg/dl Triglycerides Level 44 0-150 mg/dl Cholesterol Level 132 0-200 mg/dl HDL Cholesterol 70 mg/dl LDL Cholesterol, Calculated 53 mg/dl VLDL Cholesterol, Calculated 9 mg/dl Cholesterol/HDL Ratio 1.9 Microbiology Results 05/25/17 Urine Culture, Received Pending
[2017-05-25] MEDS ORDERED: ATORVASTATIN 40 MG TAB PO ONE (12:15)
--- NOTE | 2017-05-25 13:26 | ECHOCARDIOGRAM REPORT ---
*NOTICE TO RECEIVING DEMOCRAT AGENCY This information is strictly Confidential and protected under [place] law. [place] law prohibits you from making any further disclosure of this information unless further disclosure is expressly permitted by the written consent of the person to whom it pertains or is authorized by law. A general authorization for the release of medical or other information is not sufficient for this purpose. Hospital accepts no responsibility if the information is made available to any other person, INCLUDING THE PATIENT. Interpretation Summary * Name: IRMA DURAN Study Date: 05/25/2017 09:55 AM BP: 150/60 mmHg * Patient Location: C.2T\S\S229\S\1 HR: 65 * : 1930 (M/d/yyy) Gender: Female Height: 64 in * Age: 87 yrs Ethnicity: [place] Weight: 191 lb * Ordering Physician: Sohail Thapa * Referring Physician: Orlando Sheriff. * Performed By: Inés Jaimes RCS * * Reason For Study: CEREBRAL ISCHEMIA / EMBOLUS * BSA: 1.9 m2 * -- Conclusions -- * Normal LV chamber size with moderate concentric LVH. * Normal LV systolic function, EF 60-65%. * Aortic valve sclerosis moderate, without significant aortic valvular stenosis. * Grade I diastolic dysfunction. * Moderate aortic valve sclerosis without stenosis. * Severe mitral annular calcifications. * Intact interatrial septum. Procedure Details * A complete two-dimensional transthoracic echocardiogram was performed (2D, M-mode, Doppler and color flow Doppler). * A saline contrast injection was performed to assess for cardiac shunting. * The injection was performed through an intravenous line in the right arm. * The attending nurse who injected the saline contrast was ELIANE GALINDO, RN. * A total of 20 cc of agitated saline was given. Left Ventricle * The left ventricle is normal in size. * There is moderate concentric left ventricular hypertrophy. * Left ventricular systolic function is low normal. * Ejection Fraction = 50-55%. * Septal motion is consistent with conduction abnormality. Right Ventricle * The right ventricular cavity size is normal (basal dimension <4.2 cm in right ventricular apical 4-chamber view). * The right ventricular systolic function is normal as assessed by tricuspid annular plane systolic excursion (TAPSE) (normal >1.5 cm). Atria * The left atrial size is normal. * Right atrial size is normal. * The interatrial septum is intact with no evidence for an atrial septal defect. Mitral Valve * There is severe mitral annular calcification. * There is no mitral valve stenosis. * There is no mitral regurgitation noted. Tricuspid Valve * The tricuspid valve is normal in structure and function. Aortic Valve * The aortic valve is trileaflet. * Aortic valve sclerosis moderate, without significant aortic valvular stenosis. * There is no significant aortic regurgitation. Pulmonic Valve * The pulmonary valve is not well seen, but the Doppler examination is normal without significant regurgitation or stenosis. Great Vessels * The aortic root is normal size. Pericardium/Pleural * There is no pericardial effusion. Left Ventricular Diastolic Function * Grade I diastolic dysfunction, (abnormal relaxation pattern). MMode 2D Measurements and Calculations IVSd 1.4 cm IVSs 1.7 cm LVIDd 3.6 cm LVIDs 2.9 cm LVPWd 1.4 cm LVPWs 1.5 cm IVS/LVPW 1.0 FS 18.3 % EDV(Teich) 54.3 ml ESV(Teich) 33.2 ml EF(Teich) 38.7 % EDV(cubed) 46.5 ml ESV(cubed) 25.4 ml EF(cubed) 45.5 % % IVS thick 20.9 % % LVPW thick 6.7 % LV mass(C)d 185.4 grams LV mass(C)dI 96.7 grams/m\S\2 LV mass(C)s 176.8 grams LV mass(C)sI 92.2 grams/m\S\2 SV(Teich) 21.0 ml SI(Teich) 11.0 ml/m\S\2 SV(cubed) 21.1 ml SI(cubed) 11.0 ml/m\S\2 Ao root diam 3.4 cm Ao root area 8.8 cm\S\2 ACS 1.6 cm LA dimension 3.6 cm LA/Ao 1.1 LVOT diam 2.0 cm LVOT area 3.2 cm\S\2 LVAd ap4 35.4 cm\S\2 LVLd ap4 7.8 cm EDV(MOD-sp4) 130.4 ml EDV(sp4-el) 136.0 ml LVAs ap4 24.9 cm\S\2 LVLs ap4 7.3 cm ESV(MOD-sp4) 76.0 ml ESV(sp4-el) 72.4 ml EF(MOD-sp4) 41.7 % EF(sp4-el) 46.8 % LVAd ap2 34.3 cm\S\2 LVLd ap2 7.7 cm EDV(MOD-sp2) 123.3 ml EDV(sp2-el) 130.6 ml LVAs ap2 22.4 cm\S\2 LVLs ap2 6.4 cm ESV(MOD-sp2) 63.6 ml ESV(sp2-el) 67.1 ml EF(MOD-sp2) 48.4 % EF(sp2-el) 48.6 % LVLd %diff -2.17 % EDV(MOD-bp) 128.2 ml LVLs %diff -14.45 % ESV(MOD-bp) 68.3 ml EF(MOD-bp) 46.8 % SV(MOD-sp4) 54.4 ml SI(MOD-sp4) 28.4 ml/m\S\2 SV(MOD-sp2) 59.7 ml SI(MOD-sp2) 31.1 ml/m\S\2 SV(MOD-bp) 60.0 ml SI(MOD-bp) 31.3 ml/m\S\2 SV(sp4-el) 63.6 ml SI(sp4-el) 33.2 ml/m\S\2 SV(sp2-el) 63.4 ml SI(sp2-el) 33.1 ml/m\S\2 Doppler Measurements and Calculations MV E max kye 74.7 cm/sec MV A max kye 111.1 cm/sec MV E/A 0.67 MV P1/2t max kye 108.6 cm/sec MV P1/2t 90.8 msec MVA(P1/2t) 2.4 cm\S\2 MV dec slope 350.5 cm/sec\S\2 MV dec time 0.18 sec Ao V2 max 187.3 cm/sec Ao max PG 14.0 mmHg Ao max PG (full) 12.3 mmHg SHARLENE(V,A) 1.1 cm\S\2 SHARLENE(V,D) 1.1 cm\S\2 LV V1 max PG 1.7 mmHg LV V1 max 66.0 cm/sec PA V2 max 96.4 cm/sec PA max PG 3.7 mmHg PI max kye 207.7 cm/sec PI max PG 17.3 mmHg PI dec slope 138.9 cm/sec\S\2 PI P1/2t 437.9 msec TR max kye 295.2 cm/sec
--- NOTE | 2017-05-25 14:28 | Neurology Consultation ---
Neurology Consultation Date of Consultation: May 25, 2017. Attending Physician: Lucien Samson MD Primary Care Physician: Moe Borges M.D. Reason for Consultation: stroke History of Present Illness Source: patient Ariana is an 87 year old female who has a PMH HTN, DM2, peripheral neuropathy, sleep apnea on bipap, glaucoma. She states she had difficulty on Monday night making bread pudding in her toaster oven she couldn't figure out how to work it. She got frustrated and just went to bed. The next morning her son called her and she couldn't find the phone and pulled alot of the cords out of her bi pap trying to find the phone. She got up and decided to do some word finding and all that she saw in front of her was a "check a board flag". Her daughter stopped by and she told her what happened and she took her to the lead electrician who discovered a left field deficit and referred her to the ED. A CT head revealed a acute subacute infarct in the right posterior cerebral artery territory involving the medial right occipital lobe. Past Medical/Surgical History Medical Problems: (1) Arterial hemorrhage Status: Acute (2) Fall Status: Acute (3) Fall Status: Acute (4) Fall Status: Acute (5) Head injury Status: Acute (6) Humeral head fracture Status: Acute (7) Multiple abrasions Status: Acute (8) Nasal fracture Status: Acute (9) Nasal laceration Status: Acute (10) Scalp laceration Status: Acute (11) Syncope Status: Acute (12) Visual field defect of left eye Status: Acute Social History Smoking Status: Never smoker Alcohol Use: none Drug Use: none Marital Status: Housing Status: lives alone Occupation Status: employed, retired Allergies Coded Allergies: BEE STING (Unverified Allergy, Intermediate, ., 05/24/17) Epinephrine (Verified Allergy, Unknown, BODY SHOOK, FREEZING, 05/24/17) Current Inpatient Medications Current Inpatient Medications Medications (Trade) Dose Ordered Sig/Naz Route Start Time Stop Time Status Last Admin Dose Admin Heparin Sodium (Porcine) (Heparin Sq 5000 Unit/0.5ml) 5,000 unit Q12@0800,2000 SQ 05/24/17 20:00 06/23/17 19:59 05/25/17 08:30 5,000 UNIT Aspirin (Ecotrin Tab) 81 mg QAM PO 05/25/17 09:00 06/24/17 08:59 05/25/17 08:27 81 MG Miscellaneous Information (Pharmacist Discharge Med Rec Consult) 1 ea UD PRN N/A 05/24/17 18:00 06/23/17 17:59 Cholecalciferol (Vitamin D Tab) 1,000 inter.unit DAILY PO 05/25/17 09:00 06/24/17 08:59 05/25/17 08:27 1,000 INTER.UNIT Escitalopram Oxalate (Lexapro Tab) 10 mg DAILY PO 05/25/17 09:00 06/24/17 08:59 05/25/17 08:27 10 MG Gabapentin (Neurontin Cap) 300 mg TID PO 05/24/17 21:00 06/23/17 20:59 05/25/17 13:08 300 MG Metoprolol Tartrate (Lopressor Tab) 25 mg BID PO 05/24/17 21:00 06/23/17 20:59 05/25/17 08:27 25 MG Timolol Maleate (Timoptic-Xe 0.5% Oph Soln) 1 drops BID OPB 05/24/17 21:00 06/23/17 20:59 05/25/17 08:32 1 DROPS Clopidogrel Bisulfate (plAVix TAB) 75 mg QAM PO 05/25/17 09:00 06/24/17 08:59 05/25/17 08:27 75 MG Ondansetron HCl (Zofran Inj) 4 mg Q6H PRN IV 05/24/17 20:45 06/23/17 20:44 Ceftriaxone Sodium 1 gm/ Dextrose 50 ml @ 100 mls/hr Q24H IV 05/25/17 08:00 05/30/17 07:59 05/25/17 08:38 100 MLS/HR Atorvastatin Calcium (Lipitor Tab) 40 mg QAM PO 05/26/17 09:00 06/25/17 08:59 Physical Exam Vital Signs (Past 24 Hrs): Date Time Temp Pulse Resp B/P (MAP) Pulse Ox O2 Delivery O2 Flow Rate FiO2 05/25/17 12:00 Room Air 05/25/17 11:35 36.8 64 18 163/74 (103) 96 Room Air 3/1/18 08:00 Room Air 05/25/17 07:34 36.8 68 18 150/60 (90) 93 05/25/17 04:00 Room Air 05/25/17 03:45 37.2 68 20 152/70 (97) 91 BiPAP 05/25/17 01:58 72 94 21 05/25/17 00:01 Room Air 05/24/17 23:33 37.4 73 20 180/77 (111) 91 Room Air 05/24/17 20:00 Room Air 05/24/17 19:35 37.7 78 18 208/93 (131) 91 Room Air 05/24/17 18:36 37.7 77 20 217/94 94 Room Air 05/24/17 17:54 75 178/141 93 05/24/17 17:14 71 05/24/17 16:39 67 22 205/86 93 Room Air 05/24/17 16:01 209/87 05/24/17 15:51 66 15 94 05/24/17 15:31 205/94 05/24/17 15:21 61 19 91 05/24/17 15:01 197/88 05/24/17 14:51 69 15 94 05/24/17 14:31 188/90 05/24/17 14:21 62 19 92 05/24/17 14:01 196/100 Physical Exam: Constitutional: appearance nourished, healthy Ears, Nose, Mouth and Throat: mucous membranes moist, no injection and skin normal, eyes normal Cardiovascular: normal S-1 and S-2 and regular rate and rhythm Respiratory: clear to auscultation (CTA) and no rales, rhonchi or wheeze Musculoskeletal: no peripheral edema and good distal pulses Skin: no stigmata of neurocutaneous disease noted and normal and intact Eyes: extraocular muscles intact (EOMI) and pupils equal, round and reactive to light (PERRL), left sided mid field cut NEUROLOGIC EXAMINATION: Mental status: Alert and interactive Oriented to full date and location, 2017, no ifs ands or buts, veronique fuentes pick a nazario of pickle peppers, stick out tongue closes eye points to ceiling Oriented to person Speech fluent with no evidence of aphasia Cranial Nerves smile slight nasolabial fold flattening, eye brow raise symmetric Reflexes: Deep tendon reflexes were symmetrical and graded 2/5. 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 5/5 bilaterally hip flex plantar flex ext 5/ 5 Laboratory Results Past 24 Hours: 05/25/17 05:28 Red Blood Count 4.01, Mean Corpuscular Volume 89.0, Mean Corpuscular Hemoglobin 30.2, Mean Corpuscular Hemoglobin Concent 33.9, Mean Platelet Volume 11.3, Neutrophils (%) (Auto) 66.2, Lymphocytes (%) (Auto) 21.4, Monocytes (%) (Auto) 11.7, Eosinophils (%) (Auto) 0.3, Basophils (%) (Auto) 0.3, Neutrophils # (Auto ) 4.65, Lymphocytes # (Auto) 1.50, Monocytes # (Auto) 0.82, Eosinophils # (Auto ) 0.02, Basophils # (Auto) 0.02 05/25/17 05:28 Test 05/24/17 20:22 05/25/17 04:20 05/25/17 05:28 Bedside Glucose 129 mg/dl (70-90) Urine Color YELLOW Urine Appearance CLOUDY (CLEAR) Urine pH 6.0 (4.5-7.5) Urine Specific [place] 1.022 (1.000-1.030) Urine Protein NEG (NEG) Urine Glucose (UA) NEG (NEG) Urine Ketones NEG (NEG) Urine Occult Blood 1+ (NEG) Urine Nitrite POS (NEG) Urine Bilirubin NEG (NEG) Urine Urobilinogen NEG (NEG) Urine Leukocyte Esterase LARGE (NEG) Urine WBC (Auto) >30 /hpf (0-5) Urine RBC (Auto) 0-4 /hpf (0-4) Urine Hyaline Casts (Auto) 0 /lpf (0-5) Urine Epithelial Cells (Auto) 5-10 /lpf (0-5) Urine Bacteria (Auto) 3+ (NEG) White Blood Count 7.02 K/uL (4.8-10.8) Red Blood Count 4.01 M/uL (4.2-5.4) Hemoglobin 12.1 g/dL (12.0-16.0) Hematocrit 35.7 % (37-47) Mean Corpuscular Volume 89.0 fL (80-100) Mean Corpuscular Hemoglobin 30.2 pg (25-34) Mean Corpuscular Hemoglobin Concent 33.9 g/dl (32-36) Platelet Count 125 K/uL (130-400) Mean Platelet Volume 11.3 fL (7.4-10.4) Neutrophils (%) (Auto) 66.2 % Lymphocytes (%) (Auto) 21.4 % Monocytes (%) (Auto) 11.7 % Eosinophils (%) (Auto) 0.3 % Basophils (%) (Auto) 0.3 % Neutrophils # (Auto) 4.65 K/uL (1.4-6.5) Lymphocytes # (Auto) 1.50 K/uL (1.2-3.4) Monocytes # (Auto) 0.82 K/uL (0.11-0.59) Eosinophils # (Auto) 0.02 K/uL (0-0.5) Basophils # (Auto) 0.02 K/uL (0-0.2) RDW Standard Deviation 45.9 fL (36.4-46.3) RDW Coefficient of Variation 14.0 % (11.5-14.5) Immature Granulocyte % (Auto) 0.1 % Immature Granulocyte # (Auto) 0.01 K/uL (0.00-0.02) Anion Gap 8.0 mmol/L (3-11) Est Creatinine Clear Calc Drug Dose 51.2 ml/min Estimated GFR () 74.6 Estimated GFR (Non- 64.3 BUN/Creatinine Ratio 18.4 (10-20) Estimated Average Glucose 126 mg/dl Hemoglobin A1c 6.0 % (4.5-5.6) Calcium Level 8.8 mg/dl (8.5-10.1) Triglycerides Level 44 mg/dl (0-150) Cholesterol Level 132 mg/dl (0-200) HDL Cholesterol 70 mg/dl LDL Cholesterol, Calculated 53 mg/dl VLDL Cholesterol, Calculated 9 mg/dl Cholesterol/HDL Ratio 1.[address] head- Findings consistent with acute to subacute infarct in the right posterior cerebral artery territory involving the medial right occipital lobe. No hemorrhage. carotid doppler- No evidence of a hemodynamically significant stenosis. TTE- Normal LV chamber size with moderate concentric LVH. * Normal LV systolic function, EF 60-65%. * Aortic valve sclerosis moderate, without significant aortic valvular stenosis. * Grade I diastolic dysfunction. * Moderate aortic valve sclerosis without stenosis. * Severe mitral annular calcifications. * Intact interatrial septum. Impression 87 year old female right posterior cerebral artery territory involving the medial right occipital lobe. Plan 1. MRI brain combo for better definition of stroke 2. continue aspirin 81 mg and add plavix 75mg daily continue for 3 months then stop aspirin and continue plavix for a life time 3. optimize HTN, DL, DM consider age appropriate LDL <70 currently in 50s 4. PT/OT/ speech therapy for discharge needs 5. TTE with no PFO 6. carotid doppler- no significant stenosis 7. UTI- treat to culture sensitive 8. further recommendations to follow I have seen and discussed above patient with Dr Sohail Sims, neurology Patient known to me for neuropathy on neurontin. Now in for right occipital infarction which by history evolved over a dy to day and a half and was briefly accompantied by madhav postiv visual phenomena and is now left with and incongruous left field cut with inferior greater than superior quadrantanopsia Suspect this is s localized right posterior cerebral event due to intracranial disease but she has a potential embolic source in the aorta apparently and needs a workup to include an mri and mra and echo and plavix for now added to asa Dr Steve and Clau Atwood will see tomorrow Sohail Sims MD
--- NOTE | 2017-05-25 18:00 | DIAGNOSTIC IMAGING REPORT ---
MR ANGIOGRAPHY OF THE [place] NO CONTRAST CLINICAL HISTORY: Stroke with left-sided visual field cut COMPARISON STUDY: Noncontrast head CT dated 05/24/2017 A 3-D [id number] MR angiographic sequence of the [place] was performed. Both the source and projection images were reviewed. There are no lesion suspicious for aneurysm. There are no major intracranial stenotic lesions. There is edema within the right occipital lobe consistent with the patient's known acute/subacute infarct IMPRESSION: 1. No evidence of aneurysm 2. No evidence of major intracranial branch stenosis 3. Right occipital lobe edema, consistent with the patient's known acute/subacute infarct Electronically signed by: Julio C Pérez M.D. 05/25/2017 5:59 PM Dictated Date/Time: 05/25/2017 5:55 PM
--- NOTE | 2017-05-25 18:11 | DIAGNOSTIC IMAGING REPORT ---
MRI OF THE BRAIN WITHOUT AND WITH IV CONTRAST CLINICAL HISTORY: Stroke with left-sided visual field cut COMPARISON STUDY: Noncontrast head CT dated July 22, 2017 TECHNIQUE: MRI of the brain was performed from the vertex to the skull base utilizing various T1 and T2 weighted sequences. Following the IV administration of 8.5 mL of Gadavist contrast, additional enhanced images were obtained. FINDINGS: Sagittal T1, axial diffusion, proton density and T2 weighted axial, coronal FLAIR, and pre and post axial T1-weighted images were acquired. These were supplemented with post gadolinium coronal T1 weighted images. No intra or extra-axial mass lesions are visualized. There is a 5.5 cm focus of restricted water diffusion involving the right paramedial occipital lobe. The findings are consistent with a subacute infarct There is no evidence of ventricular dilatation. Proton density T2-weighted and FLAIR images reveal scattered foci of increased T2 signal within the white matter, likely on a small vessel basis. There is right occipital lobe edema with mild cortical effacement consistent with the subacute infarct. Incidental note is made of prominent perivascular spaces. There are no abnormal flow voids. There is subtle post infarct enhancement in the region of the right occipital infarct. There are no pathologically enhancing masses to indicate neoplasm. IMPRESSION: Subacute infarct involving the right medial occipital lobe. Electronically signed by: Julio C Péerz M.D. 05/25/2017 6:10 PM Dictated Date/Time: 05/25/2017 6:06 PM
[2017-05-26] VITALS (8 sets, daily range): BP systolic 122–177; BP diastolic 62–75; PULSE 56–70; TEMP 36.6–37.6; O2SAT 93–97
[2017-05-26] MEDS: CEFTRIAXONE SOD INJ 1 GM in DEXTROSE 5% ADD-VANTAGE 50ML 50 ML IV SCH (09:04)
[2017-05-26] MEDS: CHOLECALCIFEROL 1000 INTER.UNIT TAB PO SCH (09:04)
[2017-05-26] MEDS: CLOPIDOGREL BISULFATE 75 MG TAB PO SCH (09:04)
[2017-05-26] MEDS: GABAPENTIN 300 MG CAP PO SCH ×3 (09:04→21:46)
[2017-05-26] MEDS: ESCITALOPRAM OXALATE 10 MG TAB PO SCH (09:04)
[2017-05-26] MEDS: ASPIRIN 81 MG ECTAB PO SCH (09:05)
[2017-05-26] MEDS: TIMOLOL GFS 0.5% OPH SOLN 74 DROPS/5 ML BTL OPB SCH ×2 (09:05→21:47)
[2017-05-26] MEDS: METOPROLOL TARTRATE 25 MG TAB PO SCH ×2 (09:05→21:47)
[2017-05-26] MEDS: ATORVASTATIN 40 MG TAB PO SCH (09:05)
[2017-05-26] MEDS: HEPARIN SOD 5000 UNIT/0.5 ML CARP SQ SCH ×2 (09:23→21:48)
--- NOTE | 2017-05-26 09:50 | Progress Note ---
Internal Med Progress Note Date of Service: May 26, 2017. Provider Documentation: SUBJECTIVE: Seen and examined at bedside States left eye vision is about the same as yesterday Denies chest pain, SOB, dizziness, weakness/numbness in extremities No other complaints OBJECTIVE: Vital Signs-as noted below Physical Exam: General Appearance:Moderately built and nourished, no apparent distress Head: normocephalic, Atraumatic Eyes: normal inspection, EOMI, +Left visual lower quadrant defect Neck: supple, Trachea midline Respiratory/Chest: Normal breath sounds, CTA Cardiovascular: S1, S2, + murmur Abdomen/GI:Soft, Non tender, Bowel sounds present Extremities/Musculoskelatal:normal inspection, no edema Neurologic/Psych:AAOX3, grossly no focal neurological deficits other than L visual defect Skin: normal color, warm Lab data as noted below. ASSESSMENT & PLAN: Acute Right medial occipital lobe CVA CT head:Findings consistent with acute to subacute infarct in the right posterior cerebral artery territory involving the medial right occipital lobe. No hemorrhage. Carotid Doppler:No evidence of a hemodynamically significant stenosis. ECHO:No ASD Continue monitoring in Tele Continue Aspirin, Plavix for 3 months and then switch to plavix for life long Continue Lipitor Appreciate Neurology Input Lipid panel:normal PT/OT A1C:6.0 Advised No driving until cleared by her Neurologist UTI: Denies Urinary symptoms Continue Ceftriaxone Day # 3 Urine Culture:gram negative bacilli HTN Elevated in setting of acute CVA Resume Hyzaar Continue metoprolol monitor Sleep Apnea: Continue CPAP DM II Currently diet controlled. A1c:6.0 monitor Diabetic Neuropathy: Continue gabapentin Obesity BMI 32.3 H/O Glaucoma Continue home ophthalmic drops. Depression: Continue escitalopram. DVT Px: Heparin SQ Code Status: DNR Disposition: Needs Rehab placement Medicine follow-up with Dr. Borges. PROCEDURES: MRI Brain: Subacute infarct involving the right medial occipital lobe. Head MRA: 1. No evidence of aneurysm 2. No evidence of major intracranial branch stenosis 3. Right occipital lobe edema, consistent with the patient's known acute/subacute infarct Carotid Doppler: : No evidence of a hemodynamically significant stenosis. ECHO: Normal LV chamber size with moderate concentric LVH. * Normal LV systolic function, EF 60-65%. * Aortic valve sclerosis moderate, without significant aortic valvular stenosis. * Grade I diastolic dysfunction. * Moderate aortic valve sclerosis without stenosis. * Severe mitral annular calcifications. * Intact interatrial septum. Vital Signs: Date Time Temp Pulse Resp B/P (MAP) Pulse Ox O2 Delivery O2 Flow Rate FiO2 05/26/17 08:00 36.6 59 20 174/75 (108) 95 05/26/17 04:28 37.2 62 20 142/64 (90) 95 BiPAP 05/26/17 04:00 Room Air 05/26/17 00:26 37.5 62 20 176/70 (105) 97 CPAP 05/26/17 00:01 Room Air 05/25/17 22:08 69 95 21 05/25/17 20:00 Room Air 05/25/17 19:07 37.6 69 20 190/82 (118) 95 Room Air 05/25/17 16:00 Room Air 05/25/17 15:15 36.8 63 22 180/72 (108) 94 Room Air 05/25/17 12:00 Room Air 05/25/17 11:35 36.8 64 18 163/74 (103) 96 Room Air
[2017-05-26] MEDS ORDERED: LOSARTAN POTASSIUM 50 MG TAB PO ONE (10:00)
[2017-05-26] MEDS: HYDROCHLOROTHIAZIDE 25 MG TAB PO SCH (10:15)
--- NOTE | 2017-05-26 13:25 | Neurology Progress Notes ---
Neurology Progress Note Date of Service May 26, 2017. Gaudencio Lane is an 87 year old female who has a PMH HTN, DM2, peripheral neuropathy, sleep apnea on bipap, glaucoma. She states she had difficulty on Monday night making bread pudding in her toaster oven she couldn't figure out how to work it. She got frustrated and just went to bed. The next morning her son called her and she couldn't find the phone and pulled alot of the cords out of her bi pap trying to find the phone. She got up and decided to do some word finding and all that she saw in front of her was a "check a board flag". Her daughter stopped by and she told her what happened and she took her to the oracle distribution consultant who discovered a left field deficit and referred her to the ED. A CT head revealed a acute subacute infarct in the right posterior cerebral artery territory involving the medial right occipital lobe. today she states she is very tired. Her roommate makes lots of noises that keeps her up. Denies CP, SOB, abdominal pain, weakness, numbness tingling, N, V , no right sided symptoms. Objective Date Time Temp Pulse Resp B/P (MAP) Pulse Ox O2 Delivery O2 Flow Rate FiO2 05/26/17 12:27 37.3 70 18 177/74 (108) 94 05/26/17 08:00 36.6 59 20 174/75 (108) 95 05/26/17 04:28 37.2 62 20 142/64 (90) 95 BiPAP 05/26/17 04:00 Room Air 05/26/17 00:26 37.5 62 20 176/70 (105) 97 CPAP 05/26/17 00:01 Room Air 05/25/17 22:08 69 95 21 05/25/17 20:00 Room Air 05/25/17 19:07 37.6 69 20 190/82 (118) 95 Room Air 05/25/17 16:00 Room Air 05/25/17 15:15 36.8 63 22 180/72 (108) 94 Room Air no new labs Imaging: MRI brain with and without- There is subtle post infarct enhancement in the region of the right occipital infarct. There are no pathologically enhancing masses to indicate neoplasm MRA brain- No evidence of aneurysm No evidence of major intracranial branch stenosis Right occipital lobe edema, consistent with the patient's known acute/ subacute infarct carotid doppler- No evidence of a hemodynamically significant stenosis Exam: Physical Exam: Constitutional: appearance nourished, healthy appears very tired but in gauging Ears, Nose, Mouth and Throat: mucous membranes moist, no injection and skin normal, eyes normal Cardiovascular: RRR, systolic murmur Respiratory: clear to auscultation (CTA) and no rales, rhonchi or wheeze Musculoskeletal: no peripheral edema and good distal pulses Skin: no stigmata of neurocutaneous disease noted and normal and intact Eyes: extraocular muscles intact (EOMI) and pupils equal, round and reactive to light (PERRL), hemianopsia left medial lower NEUROLOGIC EXAMINATION: Mental status: Alert and interactive Oriented [facility], [facility], [employer] president Oriented to person Speech fluent with no evidence of aphasia Cranial Nerves smile eye brow raise symmetric. Reflexes: Deep tendon reflexes were symmetrical and graded 2/5. 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 5/5 bilaterally hip flex patellar flex ext plantar flex ext 5/5 Current Inpatient Medications Medications (Trade) Dose Ordered Sig/Naz Route Start Time Stop Time Status Last Admin Dose Admin Heparin Sodium (Porcine) (Heparin Sq 5000 Unit/0.5ml) 5,000 unit Q12@0800,2000 SQ 05/24/17 20:00 06/23/17 19:59 05/26/17 09:23 5,000 UNIT Aspirin (Ecotrin Tab) 81 mg QAM PO 05/25/17 09:00 06/24/17 08:59 05/26/17 09:05 81 MG Miscellaneous Information (Pharmacist Discharge Med Rec Consult) 1 ea UD PRN N/A 05/24/17 18:00 06/23/17 17:59 Cholecalciferol (Vitamin D Tab) 1,000 inter.unit DAILY PO 05/25/17 09:00 06/24/17 08:59 05/26/17 09:04 1,000 INTER.UNIT Escitalopram Oxalate (Lexapro Tab) 10 mg DAILY PO 05/25/17 09:00 06/24/17 08:59 05/26/17 09:04 10 MG Gabapentin (Neurontin Cap) 300 mg TID PO 05/24/17 21:00 06/23/17 20:59 05/26/17 09:04 300 MG Metoprolol Tartrate (Lopressor Tab) 25 mg BID PO 05/24/17 21:00 06/23/17 20:59 05/26/17 09:05 25 MG Timolol Maleate (Timoptic-Xe 0.5% Oph Soln) 1 drops BID OPB 05/24/17 21:00 06/23/17 20:59 05/26/17 09:05 1 DROPS Clopidogrel Bisulfate (plAVix TAB) 75 mg QAM PO 05/25/17 09:00 06/24/17 08:59 05/26/17 09:04 75 MG Ondansetron HCl (Zofran Inj) 4 mg Q6H PRN IV 05/24/17 20:45 06/23/17 20:44 Ceftriaxone Sodium 1 gm/ Dextrose 50 ml @ 100 mls/hr Q24H IV 05/25/17 08:00 05/30/17 07:59 05/26/17 09:04 100 MLS/HR Atorvastatin Calcium (Lipitor Tab) 40 mg QAM PO 05/26/17 09:00 06/25/17 08:59 05/26/17 09:05 40 MG Losartan Potassium (coZAAR TAB) 100 mg DAILY PO 05/27/17 09:00 06/26/17 08:59 Hydrochlorothiazide (Hydrochlorothiazide Tab) 12.5 mg DAILY PO 05/26/17 10:00 06/25/17 09:59 05/26/17 10:15 12.5 MG Impression 87 year old female right posterior cerebral artery territory involving the medial right occipital lobe. Plan 1. MRI brain combo for better definition of stroke- subacute medial right occipital lobe. 2. continue aspirin 81 mg and add plavix 75mg daily continue for 3 months then stop aspirin and continue plavix for a life time 3. optimize HTN, DL, DM consider age appropriate LDL <70 currently in 50s 4. PT/OT/ speech therapy for discharge needs 5. TTE with no PFO 6. carotid doppler- no significant stenosis 7. UTI- treat to culture sensitive 8. carotid doppler no significant stenosis I have seen and discussed above patient with Dr Clau Ozuna, neurology Pt seen and examined, Field cut in OD inferonasally, otherwise no signficant deficit. As pt has a risk of significant falls presumable from her neuropathy, I would not recommend outpt monitoring for afib. DELFIN Ozuna MD
[2017-05-27] VITALS (7 sets, daily range): BP systolic 124–164; BP diastolic 67–78; PULSE 59–67; TEMP 36.5–37.2; O2SAT 94–96
[2017-05-27 06:42] LABS: BASO % 0.3 %; BASO ABS # 0.02 K/uL (0-0.2); EOS % 2.1 %; EOS ABS # 0.16 K/uL (0-0.5); HEMATOCRIT 35.6 % (37-47); HEMOGLOBIN 12.1 g/dL (12.0-16.0); IG# 0.03 K/uL (0.00-0.02); LYMPH % 21.4 %; LYMPH ABS # 1.61 K/uL (1.2-3.4); MEAN CELL VOLUME 88.3 fL (80-100); MEAN PLATELET VOLUME 10.9 fL (7.4-10.4); MONO % 9.6 %; MONO ABS # 0.72 K/uL (0.11-0.59); NEUT % 66.2 %; NEUT ABS # 4.98 K/uL (1.4-6.5); PLATELET COUNT 117 K/uL (130-400); RED CELL DISTRIBUTION WIDTH CV 14.1 % (11.5-14.5); RED CELL DISTRIBUTION WIDTH SD 45.6 fL (36.4-46.3); WHITE BLOOD COUNT 7.52 K/uL (4.8-10.8)
[2017-05-27 07:13] LABS: CALCIUM 8.8 mg/dl (8.5-10.1); CREATININE 0.79 mg/dl (0.60-1.20); POTASSIUM 3.4 mmol/L (3.5-5.1)
[2017-05-27] MEDS: CEFTRIAXONE SOD INJ 1 GM in DEXTROSE 5% ADD-VANTAGE 50ML 50 ML IV SCH (08:09)
[2017-05-27] MEDS: GABAPENTIN 300 MG CAP PO SCH ×3 (08:09→21:31)
[2017-05-27] MEDS: TIMOLOL GFS 0.5% OPH SOLN 74 DROPS/5 ML BTL OPB SCH ×2 (08:10→21:28)
[2017-05-27] MEDS: ASPIRIN 81 MG ECTAB PO SCH (08:10)
[2017-05-27] MEDS: CHOLECALCIFEROL 1000 INTER.UNIT TAB PO SCH (08:10)
[2017-05-27] MEDS: ESCITALOPRAM OXALATE 10 MG TAB PO SCH (08:10)
[2017-05-27] MEDS: ATORVASTATIN 40 MG TAB PO SCH (08:10)
[2017-05-27] MEDS: METOPROLOL TARTRATE 25 MG TAB PO SCH ×2 (08:10→21:31)
[2017-05-27] MEDS: CLOPIDOGREL BISULFATE 75 MG TAB PO SCH (08:10)
[2017-05-27] MEDS: LOSARTAN POTASSIUM 50 MG TAB PO SCH (08:11)
[2017-05-27] MEDS: HYDROCHLOROTHIAZIDE 25 MG TAB PO SCH (08:11)
[2017-05-27] MEDS: HEPARIN SOD 5000 UNIT/0.5 ML CARP SQ SCH ×2 (08:15→21:38)
[2017-05-27] MEDS ORDERED: POTASSIUM CHLORIDE 10 MEQ TABCR PO ONE (11:43)
--- NOTE | 2017-05-27 12:00 | PROGRESS NOTE ---
DATE: 05/27/2017 SUBJECTIVE: Mrs. Chvaes is seen in followup of a right [employer]INO ACCOUNT[employer] infarction. She has not had any new neurologic symptoms. PHYSICAL EXAMINATION: She is awake and alert, normal speech and language. There is a non-congruent right inferior nasal quadrantanopsia. No facial asymmetry. Normal speech and language. No asymmetric weakness. IMPRESSION: Right posterior cerebral artery infarction. Continue risk factor modification, antiplatelet therapy, Plavix and aspirin for 3 months, then Plavix alone. I would not recommend searching for atrial fibrillation as the patient has a prominent history of fall and would not be an anticoagulation candidate. She should see Dr. Sims or who she follows regularly or Clau Atwood in the office followup. ALEXUS
[2017-05-27] MEDS ORDERED: FAMOTIDINE 20 MG TAB PO ONE (12:15)
--- NOTE | 2017-05-27 12:22 | Progress Note ---
Internal Med Progress Note Date of Service: May 27, 2017. Provider Documentation: SUBJECTIVE: Seen and examined at bedside Reports having mild abdominal discomfort (" I feel like gas pain") States having loose BM after every meal since yesterday left eye vision is better per patient Denies chest pain, SOB, dizziness No other complaints OBJECTIVE: Vital Signs-as noted below Physical Exam: General Appearance:Moderately built and nourished, no apparent distress Head: normocephalic, Atraumatic Eyes: normal inspection, EOMI, +Left visual lower quadrant defect Neck: supple, Trachea midline Respiratory/Chest: Normal breath sounds, CTA Cardiovascular: S1, S2, + murmur Abdomen/GI:Soft, Non tender, Bowel sounds present Extremities/Musculoskelatal:normal inspection, no edema Neurologic/Psych:AAOX3, grossly no focal neurological deficits other than L visual defect Skin: normal color, warm Lab data as noted below. ASSESSMENT & PLAN: Acute Right medial occipital lobe CVA CT head:Findings consistent with acute to subacute infarct in the right posterior cerebral artery territory involving the medial right occipital lobe. No hemorrhage. Carotid Doppler:No evidence of a hemodynamically significant stenosis. ECHO:No ASD Continue monitoring in Tele Continue Aspirin, Plavix for 3 months and then switch to plavix for life long Continue Lipitor Appreciate Neurology Input Lipid panel:normal PT/OT A1C:6.0 Advised No driving until cleared by her Neurologist May need Cardio net as outpatient UTI: Denies Urinary symptoms Continue Ceftriaxone Day # 3 >>switch to PO Abx Urine Culture:E.coli Diarrhea: Check stool for C.diff Hypokalemia: Replace and monitor HTN Elevated in setting of acute CVA Continue Hyzaar, metoprolol monitor Sleep Apnea: Continue CPAP DM II Currently diet controlled. A1c:6.0 monitor Diabetic Neuropathy: Continue gabapentin Obesity BMI 32.3 H/O Glaucoma Continue home ophthalmic drops. Depression: Continue escitalopram. DVT Px: Heparin SQ Code Status: DNR Disposition: Needs Rehab placement Medicine follow-up with Dr. Borges. PROCEDURES: MRI Brain: Subacute infarct involving the right medial occipital lobe. Head MRA: 1. No evidence of aneurysm 2. No evidence of major intracranial branch stenosis 3. Right occipital lobe edema, consistent with the patient's known acute/subacute infarct Carotid Doppler: : No evidence of a hemodynamically significant stenosis. ECHO: Normal LV chamber size with moderate concentric LVH. * Normal LV systolic function, EF 60-65%. * Aortic valve sclerosis moderate, without significant aortic valvular stenosis. * Grade I diastolic dysfunction. * Moderate aortic valve sclerosis without stenosis. * Severe mitral annular calcifications. * Intact interatrial septum. Vital Signs: Date Time Temp Pulse Resp B/P (MAP) Pulse Ox O2 Delivery O2 Flow Rate FiO2 05/27/17 07:22 36.8 59 20 164/72 (102) 95 Room Air 05/27/17 04:00 CPAP 05/27/17 03:25 36.5 59 18 132/69 (90) 95 CPAP 05/26/17 23:59 CPAP 05/26/17 23:07 36.6 62 18 135/69 (91) 96 CPAP 05/26/17 22:25 68 95 21 05/26/17 20:00 Room Air 05/26/17 19:14 36.7 69 16 122/62 (82) 93 Room Air 05/26/17 16:00 Room Air 05/26/17 15:00 37.6 56 16 149/65 (93) 93 Room Air 05/26/17 12:27 37.3 70 18 177/74 (108) 94 Lab Results: Results Past 24 Hours Test 05/26/17 16:49 05/26/17 20:34 05/27/17 05:49 05/27/17 06:40 Range/Units Bedside Glucose 106 103 91 70-90 mg/dl White Blood Count 7.52 4.8-10.8 K/uL Red Blood Count 4.03 4.2-5.4 M/uL Hemoglobin 12.1 12.0-16.0 g/dL Hematocrit 35.6 37-47 % Mean Corpuscular Volume 88.3 80-100 fL Mean Corpuscular Hemoglobin 30.0 25-34 pg Mean Corpuscular Hemoglobin Concent 34.0 32-36 g/dl Platelet Count 117 130-400 K/uL Mean Platelet Volume 10.9 7.4-10.4 fL Neutrophils (%) (Auto) 66.2 % Lymphocytes (%) (Auto) 21.4 % Monocytes (%) (Auto) 9.6 % Eosinophils (%) (Auto) 2.1 % Basophils (%) (Auto) 0.3 % Neutrophils # (Auto) 4.98 1.4-6.5 K/uL Lymphocytes # (Auto) 1.61 1.2-3.4 K/uL Monocytes # (Auto) 0.72 0.11-0.59 K/uL Eosinophils # (Auto) 0.16 0-0.5 K/uL Basophils # (Auto) 0.02 0-0.2 K/uL RDW Standard Deviation 45.6 36.4-46.3 fL RDW Coefficient of Variation 14.1 11.5-14.5 % Immature Granulocyte % (Auto) 0.4 % Immature Granulocyte # (Auto) 0.03 0.00-0.02 K/uL Sodium Level 138 136-145 mmol/L Potassium Level 3.4 3.5-5.1 mmol/L Chloride Level 103 98-107 mmol/L Carbon Dioxide Level 26 21-32 mmol/L Anion Gap 9.0 3-11 mmol/L Blood Urea Nitrogen 14 7-18 mg/dl Creatinine 0.79 0.60-1.20 mg/dl Est Creatinine Clear Calc Drug Dose 53.4 ml/min Estimated GFR () 78.0 Estimated GFR (Non- 67.3 BUN/Creatinine Ratio 17.3 10-20 Random Glucose 95 70-99 mg/dl Calcium Level 8.8 8.5-10.1 mg/dl Test 05/27/17 11:51 Range/Units Bedside Glucose 88 70-90 mg/dl
[2017-05-27] MEDS: CEFUROXIME AXETIL 250 MG TAB PO SCH (21:30)
[2017-05-28 00:31] VITALS: BP 121/57; PULSE 65; TEMP 36.4; O2SAT 94
[2017-05-28 04:15] VITALS: BP 185/75; PULSE 65; TEMP 36.6; O2SAT 94
[2017-05-28 07:05] VITALS: BP 120/61; PULSE 62; PULSE 65; TEMP 36.9; O2SAT 95
[2017-05-28] MEDS: GABAPENTIN 300 MG CAP PO SCH (07:43)
[2017-05-28] MEDS: ESCITALOPRAM OXALATE 10 MG TAB PO SCH (07:44)
[2017-05-28] MEDS: ATORVASTATIN 40 MG TAB PO SCH (07:44)
[2017-05-28] MEDS: CLOPIDOGREL BISULFATE 75 MG TAB PO SCH (07:44)
[2017-05-28] MEDS: METOPROLOL TARTRATE 25 MG TAB PO SCH (07:44)
[2017-05-28] MEDS: LOSARTAN POTASSIUM 50 MG TAB PO SCH (07:44)
[2017-05-28] MEDS: HYDROCHLOROTHIAZIDE 25 MG TAB PO SCH (07:45)
[2017-05-28] MEDS: CHOLECALCIFEROL 1000 INTER.UNIT TAB PO SCH (07:45)
[2017-05-28] MEDS: ASPIRIN 81 MG ECTAB PO SCH (07:46)
[2017-05-28] MEDS: CEFUROXIME AXETIL 250 MG TAB PO SCH (07:46)
[2017-05-28] MEDS: TIMOLOL GFS 0.5% OPH SOLN 74 DROPS/5 ML BTL OPB SCH (07:46)
[2017-05-28] MEDS: HEPARIN SOD 5000 UNIT/0.5 ML CARP SQ SCH (07:48)
[2017-05-28 07:49] LABS: HEMATOCRIT 34.3 % (37-47); HEMOGLOBIN 11.8 g/dL (12.0-16.0); MEAN CELL VOLUME 88.6 fL (80-100); MEAN CORPUSCULAR HEMOGLOBIN 30.5 pg (25-34); MEAN CORPUSCULAR HGB CONC 34.4 g/dl (32-36); MEAN PLATELET VOLUME 11.6 fL (7.4-10.4); PLATELET COUNT 113 K/uL (130-400); RED CELL DISTRIBUTION WIDTH CV 14.3 % (11.5-14.5); RED CELL DISTRIBUTION WIDTH SD 46.3 fL (36.4-46.3); WHITE BLOOD COUNT 7.39 K/uL (4.8-10.8)
[2017-05-28 08:26] LABS: CALCIUM 9.1 mg/dl (8.5-10.1); CREATININE 0.75 mg/dl (0.60-1.20); POTASSIUM 3.4 mmol/L (3.5-5.1)
[2017-05-28] MEDS ORDERED: FAMOTIDINE 20 MG TAB PO SCH (09:00)
--- NOTE | 2017-05-28 10:43 | Progress Note ---
Internal Med Progress Note Date of Service: May 28, 2017. Provider Documentation: SUBJECTIVE: Seen and examined at bedside Reports left lateral vision loss about the same Denies chest pain, SOB, dizziness Feels tired after PT today OBJECTIVE: Vital Signs-as noted below Physical Exam: General Appearance:Moderately built and nourished, no apparent distress Head: normocephalic, Atraumatic Eyes: normal inspection, EOMI, +Left visual lower quadrant defect Neck: supple, Trachea midline Respiratory/Chest: Normal breath sounds, CTA Cardiovascular: S1, S2, + murmur Abdomen/GI:Soft, Non tender, Bowel sounds present Extremities/Musculoskelatal:normal inspection, no edema Neurologic/Psych:AAOX3, grossly no focal neurological deficits other than L visual defect Skin: normal color, warm Lab data as noted below. ASSESSMENT & PLAN: Acute Right medial occipital lobe CVA CT head:Findings consistent with acute to subacute infarct in the right posterior cerebral artery territory involving the medial right occipital lobe. No hemorrhage. Carotid Doppler:No evidence of a hemodynamically significant stenosis. ECHO:No ASD Continue monitoring in Tele Continue Aspirin, Plavix for 3 months and then switch to Plavix for life long Continue Lipitor Appreciate Neurology Input Lipid panel:normal PT/OT A1C:6.0 Advised No driving until cleared by her Neurologist Needs Cardio net arranged as outpatient UTI: Denies Urinary symptoms Continue Ceftriaxone Day # 3 >>switched to PO Abx Urine Culture:E.coli Diarrhea: Check stool for C.diff if diarrhea reoccurs Hypokalemia: Replace and monitor HTN Elevated in setting of acute CVA Continue Hyzaar, metoprolol monitor Sleep Apnea: Continue CPAP DM II Currently diet controlled. A1c:6.0 monitor Diabetic Neuropathy: Continue gabapentin Obesity BMI 32.3 H/O Glaucoma Continue home ophthalmic drops. Depression: Continue escitalopram. DVT Px: Heparin SQ Code Status: DNR Disposition: Plan to discharge to [facility] today Follow up with your PCP Dr. Borges in 1 week after being discharged from [facility] Follow up with your Neurologist in 2-4 weeks Get CardioNet arranged per your Neurologist recommendations to rule out Atrial Fibrillation Complete the antibiotic course (2 more days) continue Aspirin and Plavix for 3 months and then continue with Plavix only for lifelong Seek immediate medical attention if your symptoms reoccur or worsen PROCEDURES: MRI Brain: Subacute infarct involving the right medial occipital lobe. Head MRA: 1. No evidence of aneurysm 2. No evidence of major intracranial branch stenosis 3. Right occipital lobe edema, consistent with the patient's known acute/subacute infarct Carotid Doppler: : No evidence of a hemodynamically significant stenosis. ECHO: Normal LV chamber size with moderate concentric LVH. * Normal LV systolic function, EF 60-65%. * Aortic valve sclerosis moderate, without significant aortic valvular stenosis. * Grade I diastolic dysfunction. * Moderate aortic valve sclerosis without stenosis. * Severe mitral annular calcifications. * Intact interatrial septum. Vital Signs: Date Time Temp Pulse Resp B/P (MAP) Pulse Ox O2 Delivery O2 Flow Rate FiO2 05/28/17 07:05 36.9 65 16 120/61 (80) 95 Room Air 62 05/28/17 04:15 36.6 65 18 185/75 (111) 94 CPAP 05/28/17 04:00 CPAP 05/28/17 00:31 36.4 65 18 121/57 (78) 94 CPAP 05/28/17 00:00 CPAP 05/27/17 22:39 64 164/78 (106) 05/27/17 22:26 67 94 21 05/27/17 19:28 36.9 63 18 157/67 (97) 95 Room Air 05/27/17 18:30 Room Air 05/27/17 15:01 36.7 65 18 144/71 (95) 95 Room Air 05/27/17 13:54 37.2 66 20 124/73 (90) 96 Room Air 05/27/17 12:00 Room Air Lab Results: Results Past 24 Hours Test 05/27/17 11:51 05/27/17 16:54 05/27/17 20:38 05/28/17 06:28 Range/Units Bedside Glucose 88 116 130 70-90 mg/dl White Blood Count 7.39 4.8-10.8 K/uL Red Blood Count 3.87 4.2-5.4 M/uL Hemoglobin 11.8 12.0-16.0 g/dL Hematocrit 34.3 37-47 % Mean Corpuscular Volume 88.6 80-100 fL Mean Corpuscular Hemoglobin 30.5 25-34 pg Mean Corpuscular Hemoglobin Concent 34.4 32-36 g/dl RDW Standard Deviation 46.3 36.4-46.3 fL RDW Coefficient of Variation 14.3 11.5-14.5 % Platelet Count 113 130-400 K/uL Mean Platelet Volume 11.6 7.4-10.4 fL Sodium Level 140 136-145 mmol/L Potassium Level 3.4 3.5-5.1 mmol/L Chloride Level 106 98-107 mmol/L Carbon Dioxide Level 27 21-32 mmol/L Anion Gap 6.0 3-11 mmol/L Blood Urea Nitrogen 15 7-18 mg/dl Creatinine 0.75 0.60-1.20 mg/dl Est Creatinine Clear Calc Drug Dose 56.0 ml/min Estimated GFR () 83.1 Estimated GFR (Non- 71.7 BUN/Creatinine Ratio 19.5 10-20 Random Glucose 94 70-99 mg/dl Calcium Level 9.1 8.5-10.1 mg/dl Magnesium Level 2.0 1.8-2.4 mg/dl
[2017-05-28] MEDS ORDERED: POTASSIUM CHLORIDE 10 MEQ TABCR PO ONE (10:47)
[2017-05-28] MEDS ORDERED: LPT40 PO (11:06)
[2017-05-28] MEDS ORDERED: CFT250 PO (11:06)
[2017-05-28] MEDS ORDERED: PLV75 PO (11:06)
[2017-05-28] MEDS ORDERED: LCTXP PO (11:06)
--- NOTE | 2017-05-28 11:10 | Discharge Summary ---
Discharge Summary Date of Service May 28, 2017. 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 Carotid Doppler: No evidence of a hemodynamically significant stenosis ECHO: * Normal LV chamber size with moderate concentric LVH. * Normal LV systolic function, EF 60-65%. * Aortic valve sclerosis moderate, without significant aortic valvular stenosis. * Grade I diastolic dysfunction. * Moderate aortic valve sclerosis without stenosis. * Severe mitral annular calcifications. * Intact interatrial septum. Head MRA: 1. No evidence of aneurysm 2. No evidence of major intracranial branch stenosis 3. Right occipital lobe edema, consistent with the patient's known acute/subacute infarct Consultations: Neurology Pending Studies/Follow-Up: Follow up with your PCP Dr. Borges in 1 week after being discharged from [facility] Follow up with your Neurologist in 2-4 weeks Get CardioNet arranged per your Neurologist recommendations to rule out Atrial Fibrillation Complete the antibiotic course (2 more days) continue Aspirin and Plavix for 3 months and then continue with Plavix only for lifelong Seek immediate medical attention if your symptoms reoccur or worsen Medication Reconciliation New Medications: Atorvastatin (Lipitor) 40 Mg Tab 40 MG PO QAM for 30 Days, #30 TAB 1 Refill Cefuroxime Axetil (Cefuroxime Axetil) 250 Mg Tab 250 MG PO BID for 2 Days, #4 TAB Clopidogrel Bisulfate (Clopidogrel) 75 Mg Tab 75 MG PO QAM for 30 Days, #30 TAB 1 Refill Lactobacillus Acidophilus (Lactinex Granules) 1 Gm Pack 1 GM PO TIDM for 7 Days, #21 EA Continued Medications: Aspirin (Aspirin Ec) 81 Mg Tab 81 MG PO DAILY Calcium Carbonate-Vitamin D (Calcium + D) 1 Tab Tab 1 TAB PO DAILY Cholecalciferol (Vitamin D3) 1,000 Unit Tab 1000 UNITS PO DAILY Escitalopram Oxalate (Escitalopram Oxalate) 10 Mg Tab 10 MG PO DAILY Fish Oil ([place]-3) 1 Ea Cap 1 CAP PO DAILY, CAP Gabapentin (Gabapentin) 300 Mg Cap 300 MG PO TID, #270 Hctz/Losartan (Hyzaar 12.5MG/100MG) 1 Tab Tab 1 TAB PO DAILY, TAB Meclizine HCl (Meclizine 25) 25 Mg Tab 25 MG PO TID PRN for Dizziness or Vertigo Metoprolol Tartrate (Lopressor) 25 Mg Tab 25 MG PO BID Multiple Vitamins W/ Minerals (Preservision Areds 2) 1 Cap Cap 1 CAP PO BID Timolol Maleate (Ophth) (Timoptic-Xe 0.5% Oph) 0.5 % Reema 1 DROP OPB BID Admission Information HPI (per Admitting provider): 87-year-old female followed by Dr. Borges. History of hypertension, diet-controlled diabetes, and other problems noted below. Experienced sudden onset of vision loss in the left eye last evening. No associated ophthalmic pain. Mild right-sided headache. No dysarthria, focal motor weakness, or other focal neurologic symptoms. Evaluated by her telecommunications project manager this morning who detected a left visual field cut. Referred to ED for evaluation. . Physical Exam (per Admitting): General Appearance: WD/WN, no apparent distress Head: normocephalic, atraumatic Eyes: normal inspection, PERRL, EOMI, sclerae normal, + pertinent finding ( Visual field cut left eye lower outer quadrant) ENT: normal ENT inspection, hearing grossly normal, + pertinent finding ( Upper dentures; poor dentition fair) Neck: thyroid normal, trachea midline Respiratory/Chest: lungs clear (To auscultation and percussion), no respiratory distress, no accessory muscle use Cardiovascular: regular rate, rhythm, no edema, no JVD, + systolic murmur (3 /6 systolic murmur at base), + abnormal peripheral pulses (Pedal pulses diminished) Abdomen/GI: normal bowel sounds, non tender, soft, no organomegaly Extremities/Musculoskelatal: normal inspection, no calf tenderness, normal capillary refill, + pertinent finding (No cyanosis; no diabetic foot ulcers) Neurologic/Psych: supervisor malted milk II-XII nml as tested (anisocoria L > R, EOMI, no facial pulmonary, no dysarthria), no motor/sensory deficits (Motor strength extremities grossly intact), alert, normal mood/affect, normal reflexes ( Patellar DTRs 1/2 bilaterally), oriented x 3, + babinski (Right plantar reflex equivocally upgoing) Skin: normal color, warm/dry, no rash Lymphatic: no adenopathy (Cervical) Hospital Course Acute Right medial occipital lobe CVA CT head:Findings consistent with acute to subacute infarct in the right posterior cerebral artery territory involving the medial right occipital lobe. No hemorrhage. Carotid Doppler:No evidence of a hemodynamically significant stenosis. ECHO:No ASD Continue monitoring in Tele Continue Aspirin, Plavix for 3 months and then switch to Plavix for life long Continue Lipitor Appreciate Neurology Input Lipid panel:normal PT/OT A1C:6.0 Advised No [address] until cleared by her Neurologist Needs Cardio net arranged as outpatient UTI: Denies Urinary symptoms Continue Ceftriaxone Day # 3 >>switched to PO Abx Urine Culture:E.coli Diarrhea: Check stool for C.diff if diarrhea reoccurs Hypokalemia: Replace and monitor HTN Elevated in setting of acute CVA Continue Hyzaar, metoprolol monitor Sleep Apnea: Continue CPAP DM II Currently diet controlled. A1c:6.0 monitor Diabetic Neuropathy: Continue gabapentin Obesity BMI 32.3 H/O Glaucoma Continue home ophthalmic drops. Depression: Continue escitalopram. DVT Px: Heparin SQ Code Status: DNR Disposition: Plan to discharge to [facility] today Follow up with your PCP Dr. Borges in 1 week after being discharged from [facility] Follow up with your Neurologist in 2-4 weeks Get CardioNet arranged per your Neurologist recommendations to rule out Atrial Fibrillation Complete the antibiotic course (2 more days) continue Aspirin and Plavix for 3 months and then continue with Plavix only for lifelong Seek immediate medical attention if your symptoms reoccur or worsen PROCEDURES: MRI Brain: Subacute infarct involving the right medial occipital lobe. Head MRA: 1. No evidence of aneurysm 2. No evidence of major intracranial branch stenosis 3. Right occipital lobe edema, consistent with the patient's known acute/subacute infarct Carotid Doppler: : No evidence of a hemodynamically significant stenosis. ECHO: Normal LV chamber size with moderate concentric LVH. * Normal LV systolic function, EF 60-65%. * Aortic valve sclerosis moderate, without significant aortic valvular stenosis. * Grade I diastolic dysfunction. * Moderate aortic valve sclerosis without stenosis. * Severe mitral annular calcifications. * Intact interatrial septum. Total time spent on discharge = 35 minutes This includes examination of the patient, discharge planning, medication reconciliation, and communication with other providers. Discharge Instructions Discharge Instructions Date of Service May 28, 2017. 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 Instructions / Follow-Up Instructions / Follow-Up Follow up with your PCP Dr. Borges in 1 week after being discharged from [facility] Follow up with your Neurologist in 2-4 weeks Get CardioNet arranged per your Neurologist recommendations to rule out Atrial Fibrillation Complete the antibiotic course (2 more days) continue Aspirin and Plavix for 3 months and then continue with Plavix only for lifelong Seek immediate medical attention if your symptoms reoccur or worsen Risk Factors for Stroke: You can reduce your chances of stroke by working with your medical provider to adopt a healthy lifestyle. Some specific ways to lower your chance of stroke are: * If you are a smoker, now is the time to stop smoking cigarettes * If you are diabetic, improve the control of your blood sugars * Avoid excessive amounts of alcohol * Control high blood pressure * Lose weight if you are overweight * Be sure to lead an active lifestyle * Eat a healthy diet low in salt, cholesterol and fat You should know about other risk factors for stroke that you are unable to control. These include: * Age 55 years or older * Male gender * Certain racial groups: , or / * Family History of Stroke, Mini stroke or Heart Attack * Sickle Cell Disease Follow Up: It is important for you to keep your follow up appointments with your medical provider. Current Hospital Diet Patient's current hospital diet: AHA Diet (Heart Healthy), Diabetes Type 2 Diet Discharge Diet Recommended Diet: AHA Diet (Heart Healthy), Diabetes Type 2 Diet Pending Studies Studies pending at discharge: no Laboratory Results Hemoglobin A1c Test 05/25/17 05:28 Range/Units Estimated Average Glucose 126 mg/dl Hemoglobin A1c 6.0 H 4.5-5.6 % Lipid Panel Test 05/25/17 05:28 Range/Units Triglycerides Level 44 0-150 mg/dl Cholesterol Level 132 0-200 mg/dl HDL Cholesterol 70 mg/dl Cholesterol/HDL Ratio 1.9 LDL Cholesterol, Calculated 53 mg/dl Medical Emergencies . Who to Call and When: Medical Emergencies: Call 911 immediately if you experience any of the following warning signs and symptoms of Stroke: * Sudden numbness or weakness of the face, arm or leg, especially on one side of the body * Sudden confusion, trouble speaking or understanding * Sudden trouble seeing in one or both eyes * Sudden trouble walking, dizziness, loss of balance or coordination * Sudden severe headache with no cause Do not delay calling 911 if you experience any warning signs or symptoms of a stroke. Delay in seeking medical attention may affect what treatments can be given to you. . Non-Emergent Contact Non-Emergency issues call your: Primary Care Provider, Neurologist Call Non-Emergent contact if: you have a fever, your pain is not controlled, your pain is worsening, your pain is unusual for you, your pain is concerning you, you have any medication questions Seek immediate medical attention if your symptoms reoccur or worsen . . "Provider Documentation" section prepared by Lucien Samson. . Stroke Core Measures Reason no t-PA for Stroke: Treatment not indicated Reason no antithrom by day 2: Treatment provided - N/A Reason no antithrom at D/C: Treatment provided - N/A Reason no statin at D/C: Treatment provided - N/A Reason no anticoag w/a fib: Treatment not indicated <Electronically signed by Lucien Samson MD> Signed: 05/28/17 1109 Signed: The status of this report is Signed * If report status is Draft, the document has not been finalized by the responsible provider.
[2017-05-28] MEDS ORDERED: LACTOBACILLUS ACIDOPHILUS 1 GM PACK PO SCH (11:30)
[2017-05-28 12:18] VITALS: BP 144/78; PULSE 69; TEMP 37; O2SAT 97
[2017-05-28 14:25] VITALS: BP 144/78; PULSE 69; TEMP 37; O2SAT 97
== END 2017-05-28 14:50 | DRG 65 ==
LOC: C.EDB 12:26 → C.2T 16:43 → ENRESERV 17:25
PROVIDERS: ADMIT Hospitalist; ATTEND Internal Medicine
DX: I63.8 Other cerebral infarction (principal); N39.0 Urinary tract infection, site not specified; H53.132 Sudden visual loss, left eye; R29.703 NIHSS score 3; R01.1 Cardiac murmur, unspecified; R19.7 Diarrhea, unspecified; I10 Essential (primary) hypertension; E11.42 Type 2 diabetes mellitus with diabetic polyneuropathy; H40.1290 Low-tension glaucoma, unspecified eye, stage unspecified; M81.8 Other osteoporosis without current pathological fracture; G47.30 Sleep apnea, unspecified; F32.9 Major depressive disorder, single episode, unspecified; E66.9 Obesity, unspecified; Z51.81 Encounter for therapeutic drug level monitoring; Z79.899 Other long term (current) drug therapy; Z79.82 Long term (current) use of aspirin; Z66 Do not resuscitate; Z86.73 Personal history of transient ischemic attack (TIA), and cerebral infarction without residual deficits; Z91.81 History of falling; Z85.3 Personal history of malignant neoplasm of breast; Z68.32 Body mass index [BMI] 32.0-32.9, adult; Z88.8 Allergy status to other drugs, medicaments and biological substances; Z91.030 Bee allergy status; Z80.3 Family history of malignant neoplasm of breast; Z82.49 Family history of ischemic heart disease and other diseases of the circulatory system; Z80.6 Family history of leukemia

== ENCOUNTER 2017-08-08 01:51 | Inpatient (IN) | payer OTHER, MEDICARE ==
[~2017-08-08] VITALS: Ht 162.6 cm; Wt 86.8 kg
[~2017-08-08 01:51] MED LIST changes: +ASPI81TA28 PO; -ATEN50TA8 PO; -CALC-20 PO; +CALC600T9 PO; +CFT250 PO; +CHOL1000 PO; +GABA-1219 PO; +LCTXP PO; +LOSA100T33 PO; +LPR25 PO; +LPT40 PO; +LXP10 PO; +MECL-91 PO; +OMEG10007 PO; +PLV75 PO
[2017-08-08] MEDS ORDERED: ONDANSETRON INJ 2 MG/ML 2 ML VIAL IV STA (02:03)
[2017-08-08] MEDS ORDERED: SODIUM CHLORIDE 0.9% 500ML 500 ML IV STA (02:03)
--- NOTE | 2017-08-08 02:06 | EMERGENCY ROOM VISIT NOTE ---
History Report prepared by Idania: Julio Tesfaye Under the Supervision of: Dr. Lucio Hardy M.D. First contact with patient: 01:55 Stated Complaint: WEAKNESS History of Present Illness The patient is a 87 year old female who presents to the Emergency Room with complaints of constant weakness that started a couple of days ago. Per nursing, the patient is residing at the [facility]. The patient states that she has been feeling weak for the last couple of days. She reports that she has been experiencing right flank pain and nausea. The patient reports that she has had a decreased appetite. She denies a rash, fever, any new lower extremity swelling. The patient denies a history of kidney infections or stones. The patient's daughter states the patient was hospitalized for a stroke at the beginning of May. She states the patient has a history of UTIs and currently has C. Diff. Source of History: patient, family Onset: a couple of days ago Position: other (global) Quality: other (weakness) Timing: constant Associated Symptoms: + nausea, No fevers, No rash Note: Associated symptoms: right flank pain, decrease appetite Denies new lower extremity swelling Review of Systems See HPI for pertinent positives & negatives. A total of 10 systems reviewed and were otherwise negative. Past Medical & Surgical Medical Problems: (1) Ambulatory dysfunction (2) Diabetes mellitus, type 2 (3) Diabetic peripheral neuropathy associated with type 2 diabetes mellitus (4) Glaucoma (5) History of breast cancer (6) Hypertension (7) Nasal bone fractures (8) Osteoporosis (9) Sleep apnea (10) UTI (urinary tract infection) (11) Weakness Surgical Problems: (1) Status post cholecystectomy (2) Status post hip replacement (3) Status post hysterectomy (4) Status post partial mastectomy Family History Patient reports no known family medical history. Social History Smoking Status: Never Smoker Drug Use: none Marital Status: Housing Status: lives alone Occupation Status: employed, retired Current/Historical Medications Scheduled Aspirin (Aspirin Ec), 81 MG PO DAILY Atorvastatin (Lipitor), 40 MG PO DAILY Cholestyramine (Bulk) (Cholestyramine), 1 DOSE PO BID Clopidogrel (Plavix), 75 MG PO DAILY Escitalopram (Lexapro), 15 MG PO DAILY Gabapentin (Gabapentin), 300 MG PO DAILY Gabapentin (Neurontin), 600 MG PO HS Hctz/Losartan (Hyzaar 12.5MG/100MG), 1 TAB PO DAILY Lactobacillus (Floranex), 1 TAB PO TIDM Metoprolol Tartrate (Lopressor), 25 MG PO BID Multiple Vitamins W/ Minerals (Preservision Areds 2), 1 CAP PO BID Timolol Maleate (Ophth) (Timoptic-Xe 0.5% Oph), 1 DROP OPB BID Scheduled PRN Acetaminophen (Tylenol), 500 MG PO Q4 PRN for Pain Allergies Coded Allergies: BEE STING (Unverified Allergy, Intermediate, ., 08/08/17) Epinephrine (Verified Allergy, Unknown, BODY SHOOK, FREEZING, 08/08/17) Physical Exam Vital Signs Date Time Temp Pulse Resp B/P (MAP) Pulse Ox O2 Delivery O2 Flow Rate FiO2 08/08/17 04:01 65 21 148/60 97 Nasal Cannula 2.0 08/08/17 03:42 64 16 147/67 94 Nasal Cannula 2.0 08/08/17 02:40 62 19 133/66 93 Nasal Cannula 2.0 08/08/17 02:05 97 Nasal Cannula 2.0 08/08/17 01:58 37.8 08/08/17 01:58 37.5 73 23 149/67 88 Room Air Physical Exam GENERAL: Patient is tired and uncomfortable appearing and in mild distress. EYES: No scleral icterus, unremarkable pupils. ENT: Mucous membranes moist, no nasal congestion. NECK: No masses appreciated, no meningismus, trachea is midline. RESPIRATORY: No dyspnea. Clear to auscultation and equal bilaterally. No wheeze , no rhonchi. CARDIOVASCULAR: Regular rate and rhythm. No murmurs, rubs, gallops appreciated. GASTROINTESTINAL: Abdomen soft, nontender, no peritonitis. Bowel sounds positive. No masses appreciated. BACK: No midline tenderness, vague right CVA tenderness to palpation. EXTREMITIES: Normal motion all extremities, no cyanosis, some edema bilateral legs chronic. NEUROLOGIC: Alert and oriented, no acute motor or sensory deficits, no focal weakness, cranial nerves grossly intact. SKIN: No rash, no jaundice, no diaphoresis. Medical Decision & Procedures ER Provider Diagnostic Interpretation: X ray results are stated below per my interpretation: Chest: 1 view: No infiltrate, no effusion, normal cardiac border. Stat Rad Radiology results and stated below per my review and radiologist interpretation: CT ABDOMEN & PELVIS Without Contrast: Pancolitis No renal stones or hydronephrosis Radiologist: Pedro Isabel MD Laboratory Results 08/08/17 01:45 Red Blood Count 4.04, Mean Corpuscular Volume 89.6, Mean Corpuscular Hemoglobin 30.0, Mean Corpuscular Hemoglobin Concent 33.4, Mean Platelet Volume 10.8, Neutrophils (%) (Auto) 75.3, Lymphocytes (%) (Auto) 13.3, Monocytes (%) (Auto) 9.2, Eosinophils (%) (Auto) 1.6, Basophils (%) (Auto) 0.2, Neutrophils # (Auto) 6.27, Lymphocytes # (Auto) 1.11, Monocytes # (Auto) 0.77, Eosinophils # (Auto) 0.13, Basophils # (Auto) 0.02 08/08/17 01:45 Test 08/08/17 01:45 08/08/17 02:10 08/08/17 02:22 White Blood Count 8.33 K/uL (4.8-10.8) Red Blood Count 4.04 M/uL (4.2-5.4) Hemoglobin 12.1 g/dL (12.0-16.0) Hematocrit 36.2 % (37-47) Mean Corpuscular Volume 89.6 fL (80-100) Mean Corpuscular Hemoglobin 30.0 pg (25-34) Mean Corpuscular Hemoglobin Concent 33.4 g/dl (32-36) Platelet Count 131 K/uL (130-400) Mean Platelet Volume 10.8 fL (7.4-10.4) Neutrophils (%) (Auto) 75.3 % Lymphocytes (%) (Auto) 13.3 % Monocytes (%) (Auto) 9.2 % Eosinophils (%) (Auto) 1.6 % Basophils (%) (Auto) 0.2 % Neutrophils # (Auto) 6.27 K/uL (1.4-6.5) Lymphocytes # (Auto) 1.11 K/uL (1.2-3.4) Monocytes # (Auto) 0.77 K/uL (0.11-0.59) Eosinophils # (Auto) 0.13 K/uL (0-0.5) Basophils # (Auto) 0.02 K/uL (0-0.2) RDW Standard Deviation 47.4 fL (36.4-46.3) RDW Coefficient of Variation 14.4 % (11.5-14.5) Immature Granulocyte % (Auto) 0.4 % Immature Granulocyte # (Auto) 0.03 K/uL (0.00-0.02) Anion Gap 8.0 mmol/L (3-11) Est Creatinine Clear Calc Drug Dose 45.1 ml/min Estimated GFR () 58.7 Estimated GFR (Non- 50.6 BUN/Creatinine Ratio 16.6 (10-20) Calcium Level 9.0 mg/dl (8.5-10.1) Total Bilirubin 0.8 mg/dl (0.2-1) Direct Bilirubin 0.2 mg/dl (0-0.2) Aspartate Amino Transf (AST/SGOT) 15 U/L (15-37) Alanine Aminotransferase (ALT/SGPT) 19 U/L (12-78) Alkaline Phosphatase 58 U/L (45-117) Total Protein 7.1 gm/dl (6.4-8.2) Albumin 3.4 gm/dl (3.4-5.0) Lipase 61 U/L (73-393) Urine Color DK YELLOW Urine Appearance CLOUDY (CLEAR) Urine pH 5.0 (4.5-7.5) Urine Specific [place] 1.022 (1.000-1.030) Urine Protein NEG (NEG) Urine Glucose (UA) NEG (NEG) Urine Ketones NEG (NEG) Urine Occult Blood 1+ (NEG) Urine Nitrite POS (NEG) Urine Bilirubin NEG (NEG) Urine Urobilinogen NEG (NEG) Urine Leukocyte Esterase MODERATE (NEG) Urine WBC (Auto) >30 /hpf (0-5) Urine RBC (Auto) 0-4 /hpf (0-4) Urine Hyaline Casts (Auto) 10-30 /lpf (0-5) Urine Epithelial Cells (Auto) 0-5 /lpf (0-5) Urine Bacteria (Auto) 4+ (NEG) Urine Pathogenic Casts /lpf (0) Urine Mucus PRESENT (NONE PRSENT) Bedside Lactic Acid Venous 1.26 mmol/L (0.90-1.70) Laboratory results as reviewed by me. Medications Administered Medications (Trade) Dose Ordered Sig/Naz Route Start Time Stop Time Status Last Admin Dose Admin Sodium Chloride 500 ml @ 999 mls/hr Q31M STAT IV 08/08/17 02:03 08/08/17 02:33 DC 08/08/17 02:39 999 MLS/HR Ondansetron HCl (Zofran Inj) 4 mg NOW STAT IV 08/08/17 02:03 08/08/17 02:06 DC 08/08/17 02:39 4 MG Ceftriaxone Sodium (Rocephin Inj) 1 gm NOW STAT IV 08/08/17 03:23 08/08/17 03:24 DC 08/08/17 03:41 1 GM Vancomycin HCl 1500 mg/Sodium Chloride 530 ml @ 200 mls/hr ONE STAT IV 08/08/17 03:23 08/08/17 06:01 08/08/17 04:16 200 MLS/HR ECG Per My Interpretation Indication: weakness Rate (beats per minute): 71 Rhythm: normal sinus Findings: 1st degree AV block, LBBB, no ectopy ED Course 0158: The patient was evaluated in room A09B. A complete history and physical exam was performed. 0229: I reevaluated the patient and she is stable. Medical Decision Differential: Sepsis, Infectious (UTI/Pneumonia/Meningitis/etc), Metabolic/ Electrolyte Abnormality, Cardiac, Dehydration, Anemia, Hepatic, Endocrine, Toxicologic, Neurologic, amongst other pathologies entertained. 87 yr old female arrives for evaluation of generalized weakness. She is unwell appearing with modest increased temp and she is tired appearing. She has decreased O2 sats likely secondary to tiredness from infection. Straight cath clearly infected. CT done given pain which reveals pancolitis but no renal stones. Labs otherwise look OK. CXR without evidence infiltrate. Will need to come in for further management. Vanco/Rocephin given recent hospitalization with knowledge she has had CDiff, though I suspect that she may have it again given pancolitis already. Hospitalist consulted for further management/ treatment. Medication Reconcilliation Current Medication List: was personally reviewed by me Blood Pressure Screening Patient's blood pressure: Elevated blood pressure Blood pressure disposition: Elevated BP felt to be situational Impression Primary Impression: Urinary tract infection Additional Impressions: Pancolitis Hypoxia Scribe Attestation The scribe's documentation has been prepared under my direction and personally reviewed by me in its entirety. I confirm that the note above accurately reflects all work, treatment, procedures, and medical decision making performed by me. Departure Information Referrals Moe Borges M.D. (PCP) Problem Qualifiers
[2017-08-08 02:24] LABS: HEMATOCRIT 36.2 % (37-47); HEMOGLOBIN 12.1 g/dL (12.0-16.0); MEAN CELL VOLUME 89.6 fL (80-100); MEAN CORPUSCULAR HGB CONC 33.4 g/dl (32-36); MEAN PLATELET VOLUME 10.8 fL (7.4-10.4); PLATELET COUNT 131 K/uL (130-400); RED CELL DISTRIBUTION WIDTH CV 14.4 % (11.5-14.5); RED CELL DISTRIBUTION WIDTH SD 47.4 fL (36.4-46.3); WHITE BLOOD COUNT 8.33 K/uL (4.8-10.8)
[2017-08-08] MEDS ORDERED: ESCI10TA17 PO (02:36)
[2017-08-08] MEDS ORDERED: ATOR-24 PO (02:37)
[2017-08-08] MEDS ORDERED: CLOP1TAB15 PO (02:37)
[2017-08-08] MEDS ORDERED: VANCOMYCIN LIQUID PO (02:42)
[2017-08-08] MEDS ORDERED: LACT1TAB4 PO (02:44)
[2017-08-08 02:46] LABS: ALBUMIN 3.4 gm/dl (3.4-5.0); POTASSIUM 3.7 mmol/L (3.5-5.1)
[2017-08-08] MEDS ORDERED: GABA-113 PO (02:46)
[2017-08-08 02:48] LABS: BASO % 0.2 %; BASO ABS # 0.02 K/uL (0-0.2); EOS % 1.6 %; EOS ABS # 0.13 K/uL (0-0.5); IG# 0.03 K/uL (0.00-0.02); LYMPH % 13.3 %; LYMPH ABS # 1.11 K/uL (1.2-3.4); MONO % 9.2 %; MONO ABS # 0.77 K/uL (0.11-0.59); NEUT % 75.3 %; NEUT ABS # 6.27 K/uL (1.4-6.5)
[2017-08-08] MEDS ORDERED: CHOLPOW PO (02:48)
[2017-08-08 02:49] LABS: TOTAL PROTEIN 7.1 gm/dl (6.4-8.2)
[2017-08-08] MEDS ORDERED: ACET-1256 PO (02:50)
[2017-08-08] MEDS ORDERED: VANCOMYCIN IV 1,500 MG in SODIUM CHLORIDE 0.9% 500ML 500 ML IV STA (03:23)
[2017-08-08] MEDS ORDERED: CEFTRIAXONE SOD INJ 1 GM ADDVIAL IV STA (03:23)
[2017-08-08] MEDS ORDERED: VANCOMYCIN CONSULT ACTIVE PRN (03:30)
--- NOTE | 2017-08-08 05:19 | History and Physical ---
History & Physical Date & Time of Service: August 08, 2017 at 04:50 Chief Complaint: Weakness Primary Care Physician: Moe Borges M.D. 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 Patient will lives at the [facility]. History is limited due to patient was tired. Most of the history obtained from skilled nursing chart and daughter at bedside. Daughter said patient was doing fine on Mother's Day. She said her children took her out to eat.Yesterday, she started to feel very weak. She said that she did not eat much yesterday. she said that she continued to have diarrhea that has been going on for weeks. She had recurrent C. difficile and was recently treated with oral Vanco. Daughter said her PCP recently started her on cholestyramine for the diarrhea with no help. She denies any fever, nausea, vomiting, chest pain, dizziness, dysuria, urinary frequency and shortness of breath. Past Medical/Surgical History Medical Problems: (1) Ambulatory dysfunction (2) Arterial hemorrhage (3) Diabetes mellitus, type 2 (4) Diabetic peripheral neuropathy associated with type 2 diabetes mellitus (5) Fall (6) Fall (7) Fall (8) Glaucoma (9) Head injury (10) History of breast cancer (11) Humeral head fracture (12) Hypertension (13) Multiple abrasions (14) Nasal bone fractures (15) Nasal fracture (16) Nasal laceration (17) Osteoporosis (18) Scalp laceration (19) Sleep apnea (20) Stroke (21) Syncope (22) UTI (urinary tract infection) (23) Visual field defect of left eye (24) Weakness Surgical Problems: (1) Status post cholecystectomy (2) Status post hip replacement (3) Status post hysterectomy (4) Status post partial mastectomy Family History Patient reports no known family medical history. Social History Smoking Status: Never Smoker Drug Use: none Marital Status: Occupational Status: employed, retired Immunizations History of Influenza Vaccine: Yes History of Tetanus Vaccine?: YES 2004 History of Pneumococcal: YES COUPLE OF YEARS AGO History of Hepatitis B Vaccine: Unknown Allergies Coded Allergies: BEE STING (Unverified Allergy, Intermediate, ., 08/08/17) Epinephrine (Verified Allergy, Unknown, BODY SHOOK, FREEZING, 08/08/17) Home Medications Scheduled Aspirin (Aspirin Ec), 81 MG PO DAILY Atorvastatin (Lipitor), 40 MG PO DAILY Cholestyramine (Bulk) (Cholestyramine), 1 DOSE PO BID Clopidogrel (Plavix), 75 MG PO DAILY Escitalopram (Lexapro), 15 MG PO DAILY Gabapentin (Gabapentin), 300 MG PO DAILY Gabapentin (Neurontin), 600 MG PO HS Hctz/Losartan (Hyzaar 12.5MG/100MG), 1 TAB PO DAILY Lactobacillus (Floranex), 1 TAB PO TIDM Metoprolol Tartrate (Lopressor), 25 MG PO BID Multiple Vitamins W/ Minerals (Preservision Areds 2), 1 CAP PO BID Timolol Maleate (Ophth) (Timoptic-Xe 0.5% Oph), 1 DROP OPB BID Scheduled PRN Acetaminophen (Tylenol), 500 MG PO Q4 PRN for Pain Review of Systems Constitutional: + weakness, + fatigue, No fever, No chills Eyes: No eye pain, No discharge ENT: No nasal symptoms, No sore throat Respiratory: No cough, No sputum, No shortness of breath Cardiovascular: No chest pain, No palpitations Abdomen: + diarrhea, No pain, No nausea, No vomiting Musculoskeletal: No calf pain Genitourinary - Female: No dysuria Neurologic: + weakness, No paralysis Psychiatric: No substance abuse Endocrine: + fatigue Hematologic / Lymphatic: + abnormal bleeding/bruising Integumentary: No rash, No itch Physical Exam Vital Signs Date Time Temp Pulse Resp B/P (MAP) Pulse Ox O2 Delivery O2 Flow Rate FiO2 08/08/17 03:42 64 16 147/67 94 Nasal Cannula 2.0 08/08/17 02:40 62 19 133/66 93 Nasal Cannula 2.0 08/08/17 02:05 97 Nasal Cannula 2.0 08/08/17 01:58 37.8 08/08/17 01:58 37.5 73 23 149/67 88 Room Air General Appearance: WD/WN, no apparent distress Head: normocephalic, atraumatic Eyes: PERRL, EOMI ENT: hearing grossly normal Neck: no JVD, trachea midline Respiratory/Chest: chest non-tender, no respiratory distress, no accessory muscle use Cardiovascular: no JVD, + systolic murmur Abdomen/GI: normal bowel sounds, non tender, soft Back: no CVA tenderness Extremities/Musculoskelatal: no calf tenderness Neurologic/Psych: no motor/sensory deficits, alert Skin: warm/dry, no rash Diagnostics Laboratory Results Results Past 24 Hours Test 08/08/17 01:45 08/08/17 02:10 08/08/17 02:22 Range/Units White Blood Count 8.33 4.8-10.8 K/uL Red Blood Count 4.04 4.2-5.4 M/uL Hemoglobin 12.1 12.0-16.0 g/dL Hematocrit 36.2 37-47 % Mean Corpuscular Volume 89.6 80-100 fL Mean Corpuscular Hemoglobin 30.0 25-34 pg Mean Corpuscular Hemoglobin Concent 33.4 32-36 g/dl Platelet Count 131 130-400 K/uL Mean Platelet Volume 10.8 7.4-10.4 fL Neutrophils (%) (Auto) 75.3 % Lymphocytes (%) (Auto) 13.3 % Monocytes (%) (Auto) 9.2 % Eosinophils (%) (Auto) 1.6 % Basophils (%) (Auto) 0.2 % Neutrophils # (Auto) 6.27 1.4-6.5 K/uL Lymphocytes # (Auto) 1.11 1.2-3.4 K/uL Monocytes # (Auto) 0.77 0.11-0.59 K/uL Eosinophils # (Auto) 0.13 0-0.5 K/uL Basophils # (Auto) 0.02 0-0.2 K/uL RDW Standard Deviation 47.4 36.4-46.3 fL RDW Coefficient of Variation 14.4 11.5-14.5 % Immature Granulocyte % (Auto) 0.4 % Immature Granulocyte # (Auto) 0.03 0.00-0.02 K/uL Sodium Level 139 136-145 mmol/L Potassium Level 3.7 3.5-5.1 mmol/L Chloride Level 106 98-107 mmol/L Carbon Dioxide Level 25 21-32 mmol/L Anion Gap 8.0 3-11 mmol/L Blood Urea Nitrogen 17 7-18 mg/dl Creatinine 1.00 0.60-1.20 mg/dl Est Creatinine Clear Calc Drug Dose 45.1 ml/min Estimated GFR () 58.7 Estimated GFR (Non- 50.6 BUN/Creatinine Ratio 16.6 10-20 Random Glucose 110 70-99 mg/dl Calcium Level 9.0 8.5-10.1 mg/dl Total Bilirubin 0.8 0.2-1 mg/dl Direct Bilirubin 0.2 0-0.2 mg/dl Aspartate Amino Transf (AST/SGOT) 15 15-37 U/L Alanine Aminotransferase (ALT/SGPT) 19 12-78 U/L Alkaline Phosphatase 58 45-117 U/L Total Protein 7.1 6.4-8.2 gm/dl Albumin 3.4 3.4-5.0 gm/dl Lipase 61 73-393 U/L Urine Color DK YELLOW Urine Appearance CLOUDY CLEAR Urine pH 5.0 4.5-7.5 Urine Specific [place] 1.022 1.000-1.030 Urine Protein NEG NEG Urine Glucose (UA) NEG NEG Urine Ketones NEG NEG Urine Occult Blood 1+ NEG Urine Nitrite POS NEG Urine Bilirubin NEG NEG Urine Urobilinogen NEG NEG Urine Leukocyte Esterase MODERATE NEG Urine WBC (Auto) >30 0-5 /hpf Urine RBC (Auto) 0-4 0-4 /hpf Urine Hyaline Casts (Auto) 10-30 0-5 /lpf Urine Epithelial Cells (Auto) 0-5 0-5 /lpf Urine Bacteria (Auto) 4+ NEG Urine Pathogenic Casts 0 /lpf Urine Mucus PRESENT NONE PRSENT Bedside Lactic Acid Venous 1.26 0.90-1.70 mmol/L Microbiology Results 08/08/17 Blood Culture, Received Pending 08/08/17 Blood Culture, Received Pending 08/08/17 Urine Culture, Received Pending Impression Assessment and Plan Generalized weakness Possible related to UTI Fall precaution PT/OT eval UTI UA positive for nitrite/leukocyte and bacteria Receive Rocephin and Vanco in the ER Follow-up urine culture and blood culture Urine culture back in May grew E. coli, was pansensitive Continue Rocephin IV Diarrhea History of recurrent C. difficile CT abdomen showed pancolitis We will start on oral Vanco Check stools for C. difficile if negative will DC oral Vanco HTN BP stable Continue Hyzaar, metoprolol monitor CVA Continue aspirin, Plavix, and statin Stable Sleep Apnea: Continue CPAP DM II Currently diet controlled. Last hemoglobin A1c 6.0 on 06/11 monitor Diabetic Neuropathy: Continue gabapentin Obesity BMI 30.3 H/O Glaucoma Continue home ophthalmic drops. Depression: Continue escitalopram. DVT Px: Heparin SQ Code Status DNR Resuscitation Status VTE Prophylaxis Will order VTE Prophylaxis: Yes
[2017-08-08 05:43] VITALS: BP 158/69; PULSE 65; TEMP 36.8; O2SAT 97; Ht 162.6 cm; Wt 86.8 kg
[2017-08-08] MEDS ORDERED: VANCOMYCIN HCL 125 MG/2.5ML SOLN PO SCH (06:00)
[2017-08-08] MEDS ORDERED: RASPBERRY SYRUP 5 ML UDP PO SCH (06:00)
[2017-08-08 06:51] VITALS: BP 144/67; TEMP 36.6; O2SAT 98
--- NOTE | 2017-08-08 07:21 | DIAGNOSTIC IMAGING REPORT ---
CHEST ONE VIEW PORTABLE HISTORY: sepsis/weak COMPARISON: Chest 11/28/2012. FINDINGS: There are low lung volumes. No pneumothorax. No pleural effusions. The heart is borderline enlarged. No evidence for pulmonary edema. The right lung is clear. A few linear densities the left lung base. IMPRESSION: Left basilar linear densities favor subsegmental atelectasis or scarring. The heart is borderline enlarged. Electronically signed by: Fletcher Smiley M.D. 08/08/2017 7:20 AM Dictated Date/Time: 08/08/2017 7:18 AM
--- NOTE | 2017-08-08 07:33 | DIAGNOSTIC IMAGING REPORT ---
CT SCAN OF THE ABDOMEN AND PELVIS WITHOUT IV CONTRAST CLINICAL HISTORY: Generalized weakness. Right-sided abdominal pain. COMPARISON STUDY: No priors. TECHNIQUE: CT scan of the abdomen and pelvis is performed from the lung bases to the proximal femora. Images are reviewed in the axial, sagittal, and coronal planes. IV contrast was not administered for this examination as per the referring clinician. Note that the examination was performed in suboptimal fashion without oral and IV contrast. A dose lowering technique was utilized adhering to the principles of ALARA. CT DOSE: 1141.92 mGy.cm FINDINGS: Lung bases: The heart is enlarged and without pericardial effusion. The aortic valve leaflets and mitral annulus are densely calcified. Scarring/atelectasis is present at both lung bases. No airspace consolidation is seen typical for pneumonia and there is no pleural effusion. Liver: The unenhanced liver is normal in size, contour, and attenuation. There is no intrahepatic biliary ductal dilatation. Gallbladder: Surgically absent noting clips in the gallbladder fossa. Spleen: Normal in size and attenuation. Pancreas: The unenhanced pancreas is moderately atrophic. There are at least 2 cystic lesions identified in the pancreatic tail seen on image #77 and #89 which measure up to 1.3 cm. Adrenal glands: Unremarkable. Kidneys: The unenhanced kidneys demonstrate cortical atrophy and are without hydronephrosis. There are no renal calculi identified. There is no evidence of contour deforming renal mass lesion. Parapelvic cysts are noted bilaterally. Abdominal vasculature: The abdominal aorta is normal in course and caliber noting advanced atherosclerotic calcification. Bowel: There is mild diffuse colonic wall thickening. Mild pericolic infiltration is identified in the appearance suggests a nonspecific pancolitis. No bowel obstruction is seen. The appendix is not identified. Peritoneum: There is no intraperitoneal free air or abdominal ascites. There is a small fat-containing umbilical hernia. Lymphadenopathy: None. Pelvic viscera: Evaluation of the pelvis is degraded by streak artifact from a left hip arthroplasty. The bladder is decompressed and grossly unremarkable. The uterus is surgically absent. No adnexal lesion is seen. Numerous phleboliths are observed in the pelvis. Skeletal structures: The skeletal structures are osteopenic. No lytic or blastic lesions are seen. There is moderate lumbosacral spondylosis. Tarlov cysts are incidentally noted in the sacral region. A left hip arthroplasty is in place. Sclerotic degenerative change is noted in the sacroiliac joints. IMPRESSION: 1. Findings suggest a mild nonspecific pancolitis, likely on an infectious or inflammatory basis. Clinical correlation will be required. 2. Cardiomegaly. 3. There are 2 ovoid cystic lesion is identified in the pancreatic tail, likely resenting IPMN's or mucinous cystic neoplasms. These could be further assessed with a pancreas protocol abdominal CT scan if clinically warranted. 4. Additional findings as above. Electronically signed by: Narinder Fonseca M.D. 08/08/2017 7:32 AM Dictated Date/Time: 08/08/2017 7:18 AM
[2017-08-08] MEDS ORDERED: PNEUMOCOCCAL ADMINISTRATION CHARGE ONE (08:15)
[2017-08-08] MEDS ORDERED: PNEUMOCOCCAL POLYSACCHARIDES 25 MCG/0.5 ML VIAL/SYR IM. ONE (08:30)
[2017-08-08] MEDS: ASPIRIN 81 MG ECTAB PO SCH (09:09)
[2017-08-08] MEDS: LACTOBACILLUS ACIDOPHILUS (FLORANEX) TAB PO SCH ×3 (09:09→17:20)
[2017-08-08] MEDS: TIMOLOL GFS 0.5% OPH SOLN 74 DROPS/5 ML BTL OPB SCH ×2 (09:09→20:19)
[2017-08-08] MEDS: ATORVASTATIN 20 MG TAB PO SCH (09:10)
[2017-08-08] MEDS: ESCITALOPRAM OXALATE 10 MG TAB PO SCH (09:10)
[2017-08-08] MEDS: GABAPENTIN 300 MG CAP PO SCH ×2 (09:10→20:20)
[2017-08-08] MEDS: METOPROLOL TARTRATE 25 MG TAB PO SCH ×2 (09:11→20:20)
[2017-08-08] MEDS: CLOPIDOGREL BISULFATE 75 MG TAB PO SCH (09:11)
[2017-08-08] MEDS: HYDROCHLOROTHIAZIDE 25 MG TAB PO SCH (09:11)
[2017-08-08] MEDS: LOSARTAN POTASSIUM 50 MG TAB PO SCH (09:11)
[2017-08-08] MEDS ORDERED: CHOLESTYRAMINE LIGHT 4 GM PKT PO SCH (10:00)
--- NOTE | 2017-08-08 10:02 | Medical Consult ---
Consultation Date of Consultation: August 08, 2017. Attending Physician: Martina Moore DO Reason for Consultation: Recurrent UTI History of Present Illness 87-year-old male with history of diabetes hypertension recent CVA, as well as history of recurrent C. diff infection, who was admitted to the hospital yesterday with 1 week of increasing weakness, fatigue, and persistent diarrhea associated with lower quadrant abdominal pain and back pain, currently 3/10 in intensity. She was found to have abnormal urinalysis, with culture pending, and started on ceftriaxone for possible urinary tract infection. C difficile PCR has returned positive, patient has been started on vancomycin. Patient states that she has had no significant urinary symptoms, denies dysuria or foul- smelling urine. Denies flank pain. Past Medical/Surgical History Medical Problems: (1) Arterial hemorrhage Status: Acute (2) Fall Status: Acute (3) Fall Status: Acute (4) Fall Status: Acute (5) Head injury Status: Acute (6) Humeral head fracture Status: Acute (7) Hypoxia Status: Acute (8) Multiple abrasions Status: Acute (9) Nasal fracture Status: Acute (10) Nasal laceration Status: Acute (11) Pancolitis Status: Acute (12) Scalp laceration Status: Acute (13) Syncope Status: Acute (14) Urinary tract infection Status: Acute (15) Visual field defect of left eye Status: Acute Medical Problems: (1) Ambulatory dysfunction (2) Diabetes mellitus, type 2 (3) Diabetic peripheral neuropathy associated with type 2 diabetes mellitus (4) Glaucoma (5) History of breast cancer (6) Hypertension (7) Nasal bone fractures (8) Osteoporosis (9) Sleep apnea (10) UTI (urinary tract infection) (11) Weakness Surgical Problems: (1) Status post cholecystectomy (2) Status post hip replacement (3) Status post hysterectomy (4) Status post partial mastectomy Family History Patient reports no known family medical history. Social History Smoking Status: Unknown if Ever Smoked Drug Use: none Marital Status: Housing Status: lives alone Occupation Status: employed, retired Allergies Coded Allergies: BEE STING (Unverified Allergy, Intermediate, ., 08/08/17) Epinephrine (Verified Allergy, Unknown, BODY SHOOK, FREEZING, 08/08/17) Current Inpatient Medications Current Inpatient Medications Medications (Trade) Dose Ordered Sig/Naz Route Start Time Stop Time Status Last Admin Dose Admin Aspirin (Ecotrin Tab) 81 mg DAILY PO 08/08/17 09:00 09/07/17 08:59 08/08/17 09:09 81 MG Atorvastatin Calcium (Lipitor Tab) 40 mg DAILY PO 08/08/17 09:00 09/07/17 08:59 08/08/17 09:10 40 MG Clopidogrel Bisulfate (plAVix TAB) 75 mg DAILY PO 08/08/17 09:00 09/07/17 08:59 08/08/17 09:11 75 MG Escitalopram Oxalate (Lexapro Tab) 15 mg DAILY PO 08/08/17 09:00 09/07/17 08:59 08/08/17 09:10 15 MG Gabapentin (Neurontin Cap) 300 mg DAILY PO 08/08/17 09:00 09/07/17 08:59 08/08/17 09:10 300 MG Gabapentin (Neurontin Cap) 600 mg HS PO 08/08/17 21:00 09/07/17 20:59 Lactobacillus Acidophilus (Floranex Tab) 1 tab TIDM PO 08/08/17 08:00 09/07/17 07:59 08/08/17 09:09 1 TAB Metoprolol Tartrate (Lopressor Tab) 25 mg BID PO 08/08/17 09:00 09/07/17 08:59 08/08/17 09:11 25 MG Timolol Maleate (Timoptic-Xe 0.5% Oph Soln) 1 drops BID OPB 08/08/17 09:00 09/07/17 08:59 08/08/17 09:09 1 DROPS Cholestyramine Resin (Questran Powder Light) 1 gm BID@1000,2200 PO 08/08/17 10:00 09/07/17 09:59 Losartan Potassium (coZAAR TAB) 100 mg DAILY PO 08/08/17 08:00 09/07/17 07:59 08/08/17 09:11 100 MG Miscellaneous Information (Order Awaiting Action) 1 ea QS N/A 08/08/17 08:00 09/07/17 07:59 Vancomycin HCl (Vancomycin Oral Soln) 125 mg Q6H PO 08/08/17 06:00 08/22/17 05:59 08/08/17 06:30 125 MG Raspberry (Raspberry Syrup 5ml Cup) 5 ml Q6H PO 08/08/17 06:00 08/22/17 05:59 08/08/17 06:30 5 ML Ceftriaxone Sodium 1 gm/ Dextrose 50 ml @ 100 mls/hr Q24H IV 08/09/17 04:00 08/12/17 04:29 Hydrochlorothiazide (Hydrochlorothiazide Tab) 12.5 mg DAILY PO 08/08/17 08:00 09/07/17 07:59 08/08/17 09:11 12.5 MG Review of Systems All systems were reviewed and are negative except as HPI Physical Exam Date Time Temp Pulse Resp B/P (MAP) Pulse Ox O2 Delivery O2 Flow Rate FiO2 08/08/17 06:51 36.6 18 144/67 (92) 98 2.0 08/08/17 05:43 36.8 65 18 158/69 97 Nasal Cannula 2.0 08/08/17 05:05 37.4 61 16 155/63 98 08/08/17 04:01 65 21 148/60 97 Nasal Cannula 2.0 08/08/17 03:42 64 16 147/67 94 Nasal Cannula 2.0 08/08/17 02:40 62 19 133/66 93 Nasal Cannula 2.0 08/08/17 02:05 97 Nasal Cannula 2.0 08/08/17 01:58 37.8 08/08/17 01:58 37.5 73 23 149/67 88 Room Air General Appearance: WD/WN, no apparent distress Head: normocephalic, atraumatic Eyes: normal inspection, EOMI, sclerae normal ENT: normal ENT inspection, pharynx normal Neck: supple, no adenopathy, thyroid normal, trachea midline Respiratory/Chest: chest non-tender, lungs clear, normal breath sounds, no respiratory distress Cardiovascular: regular rate, rhythm, no gallop, no murmur Abdomen/GI: normal bowel sounds, soft, no organomegaly, + tenderness Back: normal inspection, no CVA tenderness Extremities/Musculoskelatal: no calf tenderness, normal capillary refill, non- tender Neurologic/Psych: alert, normal mood/affect, oriented x 3 Skin: normal color, warm/dry, no rash Lymphatic: no adenopathy Laboratory Results Date/Time Source Procedure Growth Status 08/08/17 02:35 Blood Blood Culture Pending Received 08/08/17 02:20 Blood Blood Culture Pending Received 08/08/17 05:00 Stool C.difficile Toxin B Gene (PCR) - Final Positive for C. difficile toxin B gene Complete 08/08/17 02:10 Urine,Catheterized Urine Culture Pending Received Last 24 Hours Test 08/08/17 01:45 08/08/17 02:10 08/08/17 02:22 White Blood Count 8.33 K/uL Red Blood Count 4.04 M/uL Hemoglobin 12.1 g/dL Hematocrit 36.2 % Mean Corpuscular Volume 89.6 fL Mean Corpuscular Hemoglobin 30.0 pg Mean Corpuscular Hemoglobin Concent 33.4 g/dl Platelet Count 131 K/uL Mean Platelet Volume 10.8 fL Neutrophils (%) (Auto) 75.3 % Lymphocytes (%) (Auto) 13.3 % Monocytes (%) (Auto) 9.2 % Eosinophils (%) (Auto) 1.6 % Basophils (%) (Auto) 0.2 % Neutrophils # (Auto) 6.27 K/uL Lymphocytes # (Auto) 1.11 K/uL Monocytes # (Auto) 0.77 K/uL Eosinophils # (Auto) 0.13 K/uL Basophils # (Auto) 0.02 K/uL RDW Standard Deviation 47.4 fL RDW Coefficient of Variation 14.4 % Immature Granulocyte % (Auto) 0.4 % Immature Granulocyte # (Auto) 0.03 K/uL Sodium Level 139 mmol/L Potassium Level 3.7 mmol/L Chloride Level 106 mmol/L Carbon Dioxide Level 25 mmol/L Anion Gap 8.0 mmol/L Blood Urea Nitrogen 17 mg/dl Creatinine 1.00 mg/dl Est Creatinine Clear Calc Drug Dose 45.1 ml/min Estimated GFR () 58.7 Estimated GFR (Non- 50.6 BUN/Creatinine Ratio 16.6 Random Glucose 110 mg/dl Calcium Level 9.0 mg/dl Total Bilirubin 0.8 mg/dl Direct Bilirubin 0.2 mg/dl Aspartate Amino Transf (AST/SGOT) 15 U/L Alanine Aminotransferase (ALT/SGPT) 19 U/L Alkaline Phosphatase 58 U/L Total Protein 7.1 gm/dl Albumin 3.4 gm/dl Lipase 61 U/L Urine Color DK YELLOW Urine Appearance CLOUDY Urine pH 5.0 Urine Specific [place] 1.022 Urine Protein NEG Urine Glucose (UA) NEG Urine Ketones NEG Urine Occult Blood 1+ Urine Nitrite POS Urine Bilirubin NEG Urine Urobilinogen NEG Urine Leukocyte Esterase MODERATE Urine WBC (Auto) >30 /hpf Urine RBC (Auto) 0-4 /hpf Urine Hyaline Casts (Auto) 10-30 /lpf Urine Epithelial Cells (Auto) 0-5 /lpf Urine Bacteria (Auto) 4+ Urine Pathogenic Casts /lpf Urine Mucus PRESENT Bedside Lactic Acid Venous 1.26 mmol/L Patient Name: IRMA DURAN Unit Number: [id number] Dictated: 08/08/17717 Transcribed: 08/08/17717 EV Printed Date/Time: [~ rep prt dt]/[~ rep prt tm] [~ rep ct labl] - [~ rep ct ivnm] [facility] [place] [address] Dictated: 08/08/17717 Transcribed: 08/08/17717 EV Printed Date/Time: [~ rep prt dt]/[~ rep prt tm] [~ rep ct labl] - [~ rep ct ivnm] CT SCAN OF THE ABDOMEN AND PELVIS WITHOUT IV CONTRAST CLINICAL HISTORY: Generalized weakness. Right-sided abdominal pain. COMPARISON STUDY: No priors. TECHNIQUE: CT scan of the abdomen and pelvis is performed from the lung bases to the proximal femora. Images are reviewed in the axial, sagittal, and coronal planes. IV contrast was not administered for this examination as per the referring clinician. Note that the examination was performed in suboptimal fashion without oral and IV contrast. A dose lowering technique was utilized adhering to the principles of ALARA. CT DOSE: 1141.92 mGy.cm FINDINGS: Lung bases: The heart is enlarged and without pericardial effusion. The aortic valve leaflets and mitral annulus are densely calcified. Scarring/atelectasis is present at both lung bases. No airspace consolidation is seen typical for pneumonia and there is no pleural effusion. Liver: The unenhanced liver is normal in size, contour, and attenuation. There is no intrahepatic biliary ductal dilatation. Gallbladder: Surgically absent noting clips in the gallbladder fossa. Spleen: Normal in size and attenuation. Pancreas: The unenhanced pancreas is moderately atrophic. There are at least 2 cystic lesions identified in the pancreatic tail seen on image #77 and #89 which measure up to 1.3 cm. Adrenal glands: Unremarkable. Kidneys: The unenhanced kidneys demonstrate cortical atrophy and are without hydronephrosis. There are no renal calculi identified. There is no evidence of contour deforming renal mass lesion. Parapelvic cysts are noted bilaterally. Abdominal vasculature: The abdominal aorta is normal in course and caliber noting advanced atherosclerotic calcification. Bowel: There is mild diffuse colonic wall thickening. Mild pericolic infiltration is identified in the appearance suggests a nonspecific pancolitis. No bowel obstruction is seen. The appendix is not identified. Peritoneum: There is no intraperitoneal free air or abdominal ascites. There is a small fat-containing umbilical hernia. Lymphadenopathy: None. Pelvic viscera: Evaluation of the pelvis is degraded by streak artifact from a left hip arthroplasty. The bladder is decompressed and grossly unremarkable. The uterus is surgically absent. No adnexal lesion is seen. Numerous phleboliths are observed in the pelvis. Skeletal structures: The skeletal structures are osteopenic. No lytic or blastic lesions are seen. There is moderate lumbosacral spondylosis. Tarlov cysts are incidentally noted in the sacral region. A left hip arthroplasty is in place. Sclerotic degenerative change is noted in the sacroiliac joints. IMPRESSION: 1. Findings suggest a mild nonspecific pancolitis, likely on an infectious or inflammatory basis. Clinical correlation will be required. 2. Cardiomegaly. 3. There are 2 ovoid cystic lesion is identified in the pancreatic tail, likely resenting IPMN's or mucinous cystic neoplasms. These could be further assessed with a pancreas protocol abdominal CT scan if clinically warranted. 4. Additional findings as above. Electronically signed by: Narinder Fonseca M.D. 08/08/2017 7:32 AM Dictated Date/Time: 08/08/2017 7:18 AM The status of this report is Signed. Draft = Not yet reviewed or approved by Radiologist. Signed = Reviewed and approved by Radiologist. <AttendingPhy>Martina Moore DO</AttendingPhy> <FamilyPhy>Danilo Lyons</ FamilyPhy> <PrimaryPhy>Moe Borges M.D.</PrimaryPhy> <UnitNumber>[id number]< /UnitNumber> <VisitNumber>[id number]</VisitNumber> <PatientName>IRMA DURAN</PatientName> <DateOfBirth>1930</DateOfBirth> <Location>[facility]</ Location> <ServiceDate>08/08/17</ServiceDate> <MNE>ESINDI</MNE> <OrderingPhy> Lucio Hardy M.D.</OrderingPhy> <OrderingPhyMNE>f rep ord dr brown</ OrderingPhyMNE> <DictatingPhyMNE>f rep dict dr brown</DictatingPhyMNE> <CCListMNE> f rep ct mne</CCListMNE> <AdmittingPhyMNE>f pt admit dr brown</AdmittingPhyMNE> < AttendingPhyMNE>f pt attend dr brown</AttendingPhyMNE> <ConsultingPhyMNE>f pt consult dr brown</ConsultingPhyMNE> <FamilyPhyMNE>f pt fam dr brown</FamilyPhyMNE> <OtherPhyMNE>f pt other dr brown</OtherPhyMNE> < PrimaryPhyMNE>f pt prim care dr brown</PrimaryPhyMNE> <ReferringPhyMNE>f pt referring dr brown</ReferringPhyMNE> Assessment & Plan 87-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 Given likely chance for recurrence, have change patient to fidaxomicin, but suspect she will also require a long course of tapering vancomycin following this treatment. Would like to stop antibiotics as soon as feasible once urine culture and blood cultures available. Will follow.
[2017-08-08 10:45] VITALS: O2SAT 95
--- NOTE | 2017-08-08 11:30 | Gastrointestinal Consultation ---
Gastrointestinal Consultation Date of Consultation: August 08, 2017 Attending Physician: Dr. Borges Consulting Physician: Dr. Dutta Reason for Consultation: Recurrent C-diff History of Present Illness Patient is a 87 year old female patient of Dr. Borges, resident of the [place], with a hx of DM-2, CVA, HTN, Sleep apnea, depression who experienced weakness and was transferred to [facility]. GI is consulted for recurrent C-diff diarrhea. On arrival here, Stool was C-diff (+) and CT with pancolitis. The patient report 4-5 BMs/day, loose to liquid, occurring after eating/ drinking anything. She believes that a few of the BMs a few days ago may have been black but this seems to have resolved. She has not taken Pepto Bismol. She tells me that she has "a little" lower abdomen cramping just prior to each BM but otherwise denies any abdominal pain. She reports having a good appetite. She is sitting up in a chair at the bedside. Her most recent colonoscopy was in 2006 with findings of one 2mm polyp. Regarding her prior hx of C-diff, she tells me that she just finished a course of vancomycin on Monday and diarrhea persistent through that course, not worsening after but also persisting 4-5 times/day after finishing the course. I am unable to find records of prior positive C-diff tests in the [facility] OP records or the [facility] records. Past Medical/Surgical History Medical Problems: (1) Arterial hemorrhage Status: Acute (2) Fall Status: Acute (3) Fall Status: Acute (4) Fall Status: Acute (5) Head injury Status: Acute (6) Humeral head fracture Status: Acute (7) Hypoxia Status: Acute (8) Multiple abrasions Status: Acute (9) Nasal fracture Status: Acute (10) Nasal laceration Status: Acute (11) Pancolitis Status: Acute (12) Scalp laceration Status: Acute (13) Syncope Status: Acute (14) Urinary tract infection Status: Acute (15) Visual field defect of left eye Status: Acute Past Medical History: 1. DM2 2. Diabetic neuropathy 3. glaucoma 4. Head injury 5. Breast cancer 6. Osteoporosis 7. Sleep Apnea 8. CVA 9. UTI Past Surgical History: (1) Status post cholecystectomy (2) Status post hip replacement (3) Status post hysterectomy (4) Status post partial mastectomy Family History Patient reports no known family medical history. Social History Smoking Status: Unknown if Ever Smoked Drug Use: none Marital Status: Housing Status: lives alone Occupation Status: employed, retired Allergies Coded Allergies: BEE STING (Unverified Allergy, Intermediate, ., 08/08/17) Epinephrine (Verified Allergy, Unknown, BODY SHOOK, FREEZING, 08/08/17) Current Medications Home Meds and Scripts Medications Dose Route/Sig Max Daily Dose Days Date Category Dose Instructions Tylenol (Acetaminophen) 500 Mg Tab 500 Mg PO Q4 PRN 08/08/17 Reported Cholestyramine (Cholestyramine (Bulk)) 1 Pow Pow 1 Dose PO BID 08/08/17 Reported MIX IN 8 OUNCES OF FLUID TWICE DAILY Neurontin (Gabapentin) 300 Mg Cap 600 Mg PO HS 08/08/17 Reported Floranex (Lactobacillus) 1 Tab Tab 1 Tab PO TIDM 08/08/17 Reported Lipitor (Atorvastatin Calcium) 40 Mg Tab 40 Mg PO DAILY 08/08/17 Reported Plavix (Clopidogrel Bisulfate) 75 Mg Tab 75 Mg PO DAILY 08/08/17 Reported Lexapro (Escitalopram Oxalate) 10 Mg Tab 15 Mg PO DAILY 08/08/17 Reported Preservision Areds 2 (Multiple Vitamins W/ Minerals) 1 Cap Cap 1 Cap PO BID 05/24/17 Reported Aspirin Ec (Aspirin) 81 Mg Tab 81 Mg PO DAILY 05/24/17 Reported Lopressor (Metoprolol Tartrate) 25 Mg Tab 25 Mg PO BID 05/24/17 Reported Hyzaar 12.5MG/100MG (Hctz/Losartan) 1 Tab Tab 1 Tab PO DAILY 11/04/16 Reported Gabapentin 300 Mg Cap 300 Mg PO DAILY 11/04/16 Reported Timoptic-Xe 0.5% Oph (Timolol Maleate (Ophth)) 0.5 % Reema 1 Drop OPB BID 11/28/12 Reported Review of Systems Constitutional: No fever, No chills, No sweats, No weight loss, No weakness Eyes: No eye pain, No redness ENT: No sore throat, No trouble swallowing, No pain on swallowing Respiratory: No cough, No wheezing, No shortness of breath, No dyspnea on exertion Cardiac: No chest pain, No edema, No palpitations Abdomen: + see HPI, + pain (minimal), No nausea, No vomiting Neuro: No memory loss, No weakness, No numbness/tingling, No vertigo, No balance problems Psych: No depression symptoms, No anxiety, No insomnia Heme: No abnormal bleeding/bruising, No night sweats Endo: No excessive thirst, No excessive urination Skin: No rash, No itch, No new/changing skin lesions, No jaundice Physical Exam Date Time Temp Pulse Resp B/P (MAP) Pulse Ox O2 Delivery O2 Flow Rate FiO2 08/08/17 10:45 Room Air 08/08/17 06:51 36.6 18 144/67 (92) 98 2.0 08/08/17 05:43 36.8 65 18 158/69 97 Nasal Cannula 2.0 08/08/17 05:05 37.4 61 16 155/63 98 08/08/17 04:01 65 21 148/60 97 Nasal Cannula 2.0 08/08/17 03:42 64 16 147/67 94 Nasal Cannula 2.0 08/08/17 02:40 62 19 133/66 93 Nasal Cannula 2.0 08/08/17 02:05 97 Nasal Cannula 2.0 08/08/17 01:58 37.8 08/08/17 01:58 37.5 73 23 149/67 88 Room Air General Appearance: no apparent distress Eyes: normal inspection, EOMI Neck: supple, no adenopathy, thyroid normal, no JVD Respiratory/Chest: chest non-tender, lungs clear, normal breath sounds, no accessory muscle use Cardiovascular: regular rate, rhythm, no JVD, no murmur Abdomen: normal bowel sounds, non tender, soft, no organomegaly Extremities: normal inspection, no pedal edema, normal capillary refill Neurologic/Psych: alert, normal mood/affect, oriented x 3 Skin: normal color, no jaundice, warm/dry, no rash Laboratory Results Last 24 Hours Test 08/08/17 01:45 08/08/17 02:10 08/08/17 02:22 White Blood Count 8.33 K/uL Red Blood Count 4.04 M/uL Hemoglobin 12.1 g/dL Hematocrit 36.2 % Mean Corpuscular Volume 89.6 fL Mean Corpuscular Hemoglobin 30.0 pg Mean Corpuscular Hemoglobin Concent 33.4 g/dl Platelet Count 131 K/uL Mean Platelet Volume 10.8 fL Neutrophils (%) (Auto) 75.3 % Lymphocytes (%) (Auto) 13.3 % Monocytes (%) (Auto) 9.2 % Eosinophils (%) (Auto) 1.6 % Basophils (%) (Auto) 0.2 % Neutrophils # (Auto) 6.27 K/uL Lymphocytes # (Auto) 1.11 K/uL Monocytes # (Auto) 0.77 K/uL Eosinophils # (Auto) 0.13 K/uL Basophils # (Auto) 0.02 K/uL RDW Standard Deviation 47.4 fL RDW Coefficient of Variation 14.4 % Immature Granulocyte % (Auto) 0.4 % Immature Granulocyte # (Auto) 0.03 K/uL Sodium Level 139 mmol/L Potassium Level 3.7 mmol/L Chloride Level 106 mmol/L Carbon Dioxide Level 25 mmol/L Anion Gap 8.0 mmol/L Blood Urea Nitrogen 17 mg/dl Creatinine 1.00 mg/dl Est Creatinine Clear Calc Drug Dose 45.1 ml/min Estimated GFR () 58.7 Estimated GFR (Non- 50.6 BUN/Creatinine Ratio 16.6 Random Glucose 110 mg/dl Calcium Level 9.0 mg/dl Total Bilirubin 0.8 mg/dl Direct Bilirubin 0.2 mg/dl Aspartate Amino Transf (AST/SGOT) 15 U/L Alanine Aminotransferase (ALT/SGPT) 19 U/L Alkaline Phosphatase 58 U/L Total Protein 7.1 gm/dl Albumin 3.4 gm/dl Lipase 61 U/L Urine Color DK YELLOW Urine Appearance CLOUDY Urine pH 5.0 Urine Specific [place] 1.022 Urine Protein NEG Urine Glucose (UA) NEG Urine Ketones NEG Urine Occult Blood 1+ Urine Nitrite POS Urine Bilirubin NEG Urine Urobilinogen NEG Urine Leukocyte Esterase MODERATE Urine WBC (Auto) >30 /hpf Urine RBC (Auto) 0-4 /hpf Urine Hyaline Casts (Auto) 10-30 /lpf Urine Epithelial Cells (Auto) 0-5 /lpf Urine Bacteria (Auto) 4+ Urine Pathogenic Casts /lpf Urine Mucus PRESENT Bedside Lactic Acid Venous 1.26 mmol/L Impression Patient is a 87 year old female with C-diff diarrhea and CT with pancolitis, thus likely C-diff colitis. Plan 1. Clear liquids po today. 2. Plan for flex sig tomorrow. 3. Judicious use of antibiotics. Unless clear evidence of infection - please consider discontinuing the ceftriaxone and IV vancomycin. 4. She is currently on Dificid BID and should continue that for tx of C-diff. I performed a history and physical examination of the patient, including specifically no tenderness on physical exam. I have discussed the patient's management with eJff Worthington. Please refer to the [employer]'s note for the documented findings and plan of care. Patient with recent ABx use for UTI and seems she developed C.diff after that and treated with PO Vanc, her diarrhea improved but seems never resolved, now admitted with UTI and found with pancolitis on CT scan. Her labs does not suggest C.diff with normal ALB and NIRAJ, no leukocytosis. Stool test is positive for C.diff. Started on Dificid. Will plan for Flex Sig tomorrow and Bx. Presuming this is first recurrence after prior PO Van use, she can be treated with prolonged tapered and pulsed Vanc regimen or Dificid 200 mg BID for 10 days ( if coverage is assured). Needs EUS as OP for ? IPMN on CT scan.
--- NOTE | 2017-08-08 13:12 | Progress Note ---
Medicine Progress Note Date & Time of Visit: August 08, 2017 at 13:02. Subjective 87-year-old female resident of the [place] presents with generalized weakness 1 day in the setting of recent recurrent C. difficile infection and UTI. Patient currently denies any chest pain, shortness of breath, abdominal pain. She has had only 2 loose stools since admission this morning. She reports 2 loose stools yesterday. She denies any blood per rectum. She denies any fevers or chills. She is hungry and asking for tray of food. Objective Last 8 Hrs Date Time Temp Pulse Resp B/P (MAP) Pulse Ox O2 Delivery O2 Flow Rate FiO2 08/08/17 10:45 Room Air 08/08/17 10:45 95 08/08/17 06:51 36.6 18 144/67 (92) 98 2.0 08/08/17 05:43 36.8 65 18 158/69 97 Nasal Cannula 2.0 08/08/17 05:05 37.4 61 16 155/63 98 Physical Exam: GEN: WNWD, in no acute distress, alert and appropriate, falling asleep easily HEENT: NC/AT, normal sclerae, MMM CARDIO: reg rate, S1/2 heard without m/g/r LUNGS: CTA bilaterally, no crackles, rales or wheezes, good diaphragmatic excursion ABD: soft, non-tender, non-distended, no rebound or guarding, +BS EXTREMITY: RP and DP palpable 2+ bilat, no LE swelling or edema, extremities are warm and well-perfused NEURO: CN 2-12 grossly intact, no gross focal deficits. MUSC: generalized weakness, moves all extremities easily, no gross focal deficits. SKIN: warm and dry Laboratory Results: 08/08/17 01:45 Red Blood Count 4.04, Mean Corpuscular Volume 89.6, Mean Corpuscular Hemoglobin 30.0, Mean Corpuscular Hemoglobin Concent 33.4, Mean Platelet Volume 10.8, Neutrophils (%) (Auto) 75.3, Lymphocytes (%) (Auto) 13.3, Monocytes (%) (Auto) 9.2, Eosinophils (%) (Auto) 1.6, Basophils (%) (Auto) 0.2, Neutrophils # (Auto) 6.27, Lymphocytes # (Auto) 1.11, Monocytes # (Auto) 0.77, Eosinophils # (Auto) 0.13, Basophils # (Auto) 0.02 08/08/17 01:45 Test 08/08/17 01:45 08/08/17 02:10 08/08/17 02:22 White Blood Count 8.33 K/uL (4.8-10.8) Red Blood Count 4.04 M/uL (4.2-5.4) Hemoglobin 12.1 g/dL (12.0-16.0) Hematocrit 36.2 % (37-47) Mean Corpuscular Volume 89.6 fL (80-100) Mean Corpuscular Hemoglobin 30.0 pg (25-34) Mean Corpuscular Hemoglobin Concent 33.4 g/dl (32-36) Platelet Count 131 K/uL (130-400) Mean Platelet Volume 10.8 fL (7.4-10.4) Neutrophils (%) (Auto) 75.3 % Lymphocytes (%) (Auto) 13.3 % Monocytes (%) (Auto) 9.2 % Eosinophils (%) (Auto) 1.6 % Basophils (%) (Auto) 0.2 % Neutrophils # (Auto) 6.27 K/uL (1.4-6.5) Lymphocytes # (Auto) 1.11 K/uL (1.2-3.4) Monocytes # (Auto) 0.77 K/uL (0.11-0.59) Eosinophils # (Auto) 0.13 K/uL (0-0.5) Basophils # (Auto) 0.02 K/uL (0-0.2) RDW Standard Deviation 47.4 fL (36.4-46.3) RDW Coefficient of Variation 14.4 % (11.5-14.5) Immature Granulocyte % (Auto) 0.4 % Immature Granulocyte # (Auto) 0.03 K/uL (0.00-0.02) Anion Gap 8.0 mmol/L (3-11) Est Creatinine Clear Calc Drug Dose 45.1 ml/min Estimated GFR () 58.7 Estimated GFR (Non- 50.6 BUN/Creatinine Ratio 16.6 (10-20) Calcium Level 9.0 mg/dl (8.5-10.1) Total Bilirubin 0.8 mg/dl (0.2-1) Direct Bilirubin 0.2 mg/dl (0-0.2) Aspartate Amino Transf (AST/SGOT) 15 U/L (15-37) Alanine Aminotransferase (ALT/SGPT) 19 U/L (12-78) Alkaline Phosphatase 58 U/L (45-117) Total Protein 7.1 gm/dl (6.4-8.2) Albumin 3.4 gm/dl (3.4-5.0) Lipase 61 U/L (73-393) Urine Color DK YELLOW Urine Appearance CLOUDY (CLEAR) Urine pH 5.0 (4.5-7.5) Urine Specific [place] 1.022 (1.000-1.030) Urine Protein NEG (NEG) Urine Glucose (UA) NEG (NEG) Urine Ketones NEG (NEG) Urine Occult Blood 1+ (NEG) Urine Nitrite POS (NEG) Urine Bilirubin NEG (NEG) Urine Urobilinogen NEG (NEG) Urine Leukocyte Esterase MODERATE (NEG) Urine WBC (Auto) >30 /hpf (0-5) Urine RBC (Auto) 0-4 /hpf (0-4) Urine Hyaline Casts (Auto) 10-30 /lpf (0-5) Urine Epithelial Cells (Auto) 0-5 /lpf (0-5) Urine Bacteria (Auto) 4+ (NEG) Urine Pathogenic Casts /lpf (0) Urine Mucus PRESENT (NONE PRSENT) Bedside Lactic Acid Venous 1.26 mmol/L (0.90-1.70) Date/Time Source Procedure Growth Status 08/08/17 02:35 Blood Blood Culture Pending Received 08/08/17 05:00 Stool C.difficile Toxin B Gene (PCR) - Final Positive for C. difficile toxin B gene Complete 08/08/17 02:10 Urine,Catheterized Urine Culture Pending Received Last 24 Hours Test 08/08/17 01:45 08/08/17 02:10 08/08/17 02:22 White Blood Count 8.33 K/uL Red Blood Count 4.04 M/uL Hemoglobin 12.1 g/dL Hematocrit 36.2 % Mean Corpuscular Volume 89.6 fL Mean Corpuscular Hemoglobin 30.0 pg Mean Corpuscular Hemoglobin Concent 33.4 g/dl Platelet Count 131 K/uL Mean Platelet Volume 10.8 fL Neutrophils (%) (Auto) 75.3 % Lymphocytes (%) (Auto) 13.3 % Monocytes (%) (Auto) 9.2 % Eosinophils (%) (Auto) 1.6 % Basophils (%) (Auto) 0.2 % Neutrophils # (Auto) 6.27 K/uL Lymphocytes # (Auto) 1.11 K/uL Monocytes # (Auto) 0.77 K/uL Eosinophils # (Auto) 0.13 K/uL Basophils # (Auto) 0.02 K/uL RDW Standard Deviation 47.4 fL RDW Coefficient of Variation 14.4 % Immature Granulocyte % (Auto) 0.4 % Immature Granulocyte # (Auto) 0.03 K/uL Sodium Level 139 mmol/L Potassium Level 3.7 mmol/L Chloride Level 106 mmol/L Carbon Dioxide Level 25 mmol/L Anion Gap 8.0 mmol/L Blood Urea Nitrogen 17 mg/dl Creatinine 1.00 mg/dl Est Creatinine Clear Calc Drug Dose 45.1 ml/min Estimated GFR () 58.7 Estimated GFR (Non- 50.6 BUN/Creatinine Ratio 16.6 Random Glucose 110 mg/dl Calcium Level 9.0 mg/dl Total Bilirubin 0.8 mg/dl Direct Bilirubin 0.2 mg/dl Aspartate Amino Transf (AST/SGOT) 15 U/L Alanine Aminotransferase (ALT/SGPT) 19 U/L Alkaline Phosphatase 58 U/L Total Protein 7.1 gm/dl Albumin 3.4 gm/dl Lipase 61 U/L Urine Color DK YELLOW Urine Appearance CLOUDY Urine pH 5.0 Urine Specific [place] 1.022 Urine Protein NEG Urine Glucose (UA) NEG Urine Ketones NEG Urine Occult Blood 1+ Urine Nitrite POS Urine Bilirubin NEG Urine Urobilinogen NEG Urine Leukocyte Esterase MODERATE Urine WBC (Auto) >30 /hpf Urine RBC (Auto) 0-4 /hpf Urine Hyaline Casts (Auto) 10-30 /lpf Urine Epithelial Cells (Auto) 0-5 /lpf Urine Bacteria (Auto) 4+ Urine Pathogenic Casts /lpf Urine Mucus PRESENT Bedside Lactic Acid Venous 1.26 mmol/L Date/Time Source Procedure Growth Status 08/08/17 02:35 Blood Blood Culture Pending Received 08/08/17 02:20 Blood Blood Culture Pending Received 08/08/17 05:00 Stool C.difficile Toxin B Gene (PCR) - Final Positive for C. difficile toxin B gene Complete 08/08/17 02:10 Urine,Catheterized Urine Culture Pending Received Assessment & Plan 87-year-old female resident of the [place] presents with generalized weakness 1 day in the setting of recent recurrent C C. difficile infection and UTI. 1. Generalized weakness-possible etiologies include but are not limited to urinary tract infection, however, patient is asymptomatic versus C. difficile colitis. There is evidence of pancolitis on the CT scan as well as new lesions on the pancreas. GI was consulted for assistance with this. ID was consulted as patient is C. difficile positive and has placed the patient on fidaxomicin. GI recommends to switch to vancomycin p.o. 250 4 times daily followed by pulse dose as outpatient as Dr. Fitzpatrick is expensive and hard to get as outpatient. Will discuss this with infectious disease. Currently ceftriaxone is being given empirically to cover possible urinary tract infection. Awaiting urine culture and will discontinue if no infection is actually present. PT/OT eval recommendations appreciated. Patient is on fall precautions. 2. Bacteriuria-Rocephin empirically, urine culture pending. 3. C. difficile colitis-pancolitis on CT as above. GI plan for flex sig in the morning. Patient will be n.p.o. after midnight. Currently on clear diet. Continue for Doxil niacin. Contact precautions. 4. Hypertension-stable, continue home medications including Hyzaar and metoprolol. 5. History of CVA-continue medical management with aspirin, Plavix, statin. No focal neurologic deficit noted on exam. 6. RILEY-CPAP at night 7. Diabetes mellitus type 2-diet controlled, last hemoglobin A1c was 6.0 on . Monitor with daily labs. 8. Diabetic neuropathy-continue gabapentin 9. Depression-stable continue Lexapro per home regimen DVT prophylaxis-heparin subcu DO NOT RESUSCITATE Disposition-pending PT/OT evaluation and sigmoidoscopy results from tomorrow. Martina Moore DO [facility] Hospitalist Consultants: [facility] Current Inpatient Medications: Current Inpatient Medications Medications (Trade) Dose Ordered Sig/Naz Route Start Time Stop Time Status Last Admin Dose Admin Aspirin (Ecotrin Tab) 81 mg DAILY PO 08/08/17 09:00 09/07/17 08:59 08/08/17 09:09 81 MG Atorvastatin Calcium (Lipitor Tab) 40 mg DAILY PO 08/08/17 09:00 09/07/17 08:59 08/08/17 09:10 40 MG Clopidogrel Bisulfate (plAVix TAB) 75 mg DAILY PO 08/08/17 09:00 09/07/17 08:59 08/08/17 09:11 75 MG Escitalopram Oxalate (Lexapro Tab) 15 mg DAILY PO 08/08/17 09:00 09/07/17 08:59 08/08/17 09:10 15 MG Gabapentin (Neurontin Cap) 300 mg DAILY PO 08/08/17 09:00 09/07/17 08:59 08/08/17 09:10 300 MG Gabapentin (Neurontin Cap) 600 mg HS PO 08/08/17 21:00 09/07/17 20:59 Lactobacillus Acidophilus (Floranex Tab) 1 tab TIDM PO 08/08/17 08:00 09/07/17 07:59 08/08/17 09:09 1 TAB Metoprolol Tartrate (Lopressor Tab) 25 mg BID PO 08/08/17 09:00 09/07/17 08:59 08/08/17 09:11 25 MG Timolol Maleate (Timoptic-Xe 0.5% Oph Soln) 1 drops BID OPB 08/08/17 09:00 09/07/17 08:59 08/08/17 09:09 1 DROPS Losartan Potassium (coZAAR TAB) 100 mg DAILY PO 08/08/17 08:00 09/07/17 07:59 08/08/17 09:11 100 MG Miscellaneous Information (Order Awaiting Action) 1 ea QS N/A 08/08/17 08:00 09/07/17 07:59 Ceftriaxone Sodium 1 gm/ Dextrose 50 ml @ 100 mls/hr Q24H IV 08/09/17 04:00 08/12/17 04:29 Hydrochlorothiazide (Hydrochlorothiazide Tab) 12.5 mg DAILY PO 08/08/17 08:00 09/07/17 07:59 08/08/17 09:11 12.5 MG Fidaxomicin (Dificid Tab) 200 mg BID PO 08/08/17 20:00 08/22/17 19:59
[2017-08-08 15:40] VITALS: BP 149/70; PULSE 63; TEMP 36.8; O2SAT 94
[2017-08-08] MEDS: FIDAXOMICIN TAB 200 MG TAB PO SCH (20:19)
[2017-08-08 23:31] VITALS: BP 131/69; PULSE 71; TEMP 36.8; O2SAT 96
[2017-08-09] MEDS: CEFTRIAXONE SOD INJ 1 GM in DEXTROSE 5% ADD-VANTAGE 50ML 50 ML IV SCH (03:40)
[2017-08-09 05:43] LABS: HEMATOCRIT 34.4 % (37-47); HEMOGLOBIN 11.2 g/dL (12.0-16.0); MEAN CORPUSCULAR HEMOGLOBIN 29.6 pg (25-34); MEAN CORPUSCULAR HGB CONC 32.6 g/dl (32-36); MEAN PLATELET VOLUME 10.6 fL (7.4-10.4); PLATELET COUNT 106 K/uL (130-400); RED CELL DISTRIBUTION WIDTH CV 14.7 % (11.5-14.5); RED CELL DISTRIBUTION WIDTH SD 48.7 fL (36.4-46.3); WHITE BLOOD COUNT 4.25 K/uL (4.8-10.8)
[2017-08-09] MEDS ORDERED: NURSING VERBAL MED ORDER ONE (06:15)
[2017-08-09 06:22] LABS: CALCIUM 8.3 mg/dl (8.5-10.1); CREATININE 0.83 mg/dl (0.60-1.20); POTASSIUM 3.1 mmol/L (3.5-5.1)
[2017-08-09 07:25] VITALS: BP 111/57; PULSE 71; TEMP 37; O2SAT 95
[2017-08-09] MEDS: HYDROCHLOROTHIAZIDE 25 MG TAB PO SCH (09:12)
[2017-08-09] MEDS: LOSARTAN POTASSIUM 50 MG TAB PO SCH (09:12)
[2017-08-09] MEDS: TIMOLOL GFS 0.5% OPH SOLN 74 DROPS/5 ML BTL OPB SCH ×2 (09:12→21:23)
[2017-08-09] MEDS: FIDAXOMICIN TAB 200 MG TAB PO SCH ×2 (09:13→21:22)
[2017-08-09] MEDS: ATORVASTATIN 20 MG TAB PO SCH (09:14)
[2017-08-09] MEDS: ESCITALOPRAM OXALATE 10 MG TAB PO SCH (09:14)
[2017-08-09] MEDS: CLOPIDOGREL BISULFATE 75 MG TAB PO SCH (09:15)
[2017-08-09] MEDS: GABAPENTIN 300 MG CAP PO SCH ×2 (09:15→21:23)
[2017-08-09] MEDS: METOPROLOL TARTRATE 25 MG TAB PO SCH ×2 (09:15→21:23)
[2017-08-09] MEDS ORDERED: POTASSIUM CHLORIDE 20 MEQ/15 ML UDC PO SCH (09:45)
[2017-08-09] MEDS ORDERED: TAP WATER ENEMA PR ONE (10:00)
[2017-08-09] MEDS: LACTOBACILLUS ACIDOPHILUS (FLORANEX) TAB PO SCH ×3 (11:22→17:24)
[2017-08-09 11:34] VITALS: O2SAT 96
[2017-08-09] MEDS: ASPIRIN 81 MG ECTAB PO SCH (14:10)
[2017-08-09] MEDS: POTASSIUM CHLORIDE 20MEQ/15ML 473ML PO SCH ×2 (14:11→17:21)
[2017-08-09 15:09] VITALS: BP 130/69; PULSE 66; TEMP 36.7; O2SAT 93
--- NOTE | 2017-08-09 15:59 | History & Physical Bridge Note ---
H&P Re-Evaluation Bridge Note: I have examined the patient, reviewed the History & Physical and in the interval since the performance of the History & Physical I have noted the following changes of clinical significance: No changes noted
--- NOTE | 2017-08-09 16:19 | GI REPORT ---
Patient Name: Ariana Chaves Procedure Date: 08/09/2017 4:01 PM Date of : 1930 Admit Type: Inpatient Age: 87 Gender: Female Attending MD: Alise Dutta MD Procedure: Flexible Sigmoidoscopy Providers: Alise Dutta MD Referring MD: Moe Aldridge Indications: Diarrhea Medicines: None Complications: No immediate complications. Estimated Blood Loss: Estimated blood loss: none. Procedure: Pre-Anesthesia Assessment: - Prior to the procedure, a History and Physical was performed, and patient medications and allergies were reviewed. The patient is competent. The risks and benefits of the procedure and the sedation options and risks were discussed with the patient. All questions were answered and informed consent was obtained. Patient identification and proposed procedure were verified by the physician and the nurse in the procedure room. Mental Status Examination: alert and oriented. Airway Examination: normal oropharyngeal airway and neck mobility. Respiratory Examination: clear to auscultation. CV Examination: normal. ASA Grade Assessment: III - A patient with severe systemic disease. After reviewing the risks and benefits, the patient was deemed in satisfactory condition to undergo the procedure. The anesthesia plan was to use no sedation or anesthesia. Immediately prior to administration of medications, the patient was re-assessed for adequacy to receive sedatives. The heart rate, respiratory rate, oxygen saturations, blood pressure, adequacy of pulmonary ventilation, and response to care were monitored throughout the procedure. The physical status of the patient was re-assessed after the procedure. After obtaining informed consent, the endoscope was passed under direct vision. Throughout the procedure, the patient's blood pressure, pulse, and oxygen saturations were monitored continuously. The scope was introduced through the anus and advanced to the splenic flexure. The flexible sigmoidoscopy was accomplished without difficulty. The patient tolerated the procedure well. The quality of the bowel preparation was fair. Findings: The perianal and digital rectal examinations were normal. An area of mildly erythematous mucosa was found in the sigmoid colon. Biopsies were taken with a cold forceps for histology. Verification of patient identification for the specimen was done by the physician and nurse using the patient's name and date. There is no endoscopic evidence of colitis. There was a questionable pseudomembranous changes, possibly resolving CDI. Impression: - Preparation of the colon was fair. - Erythematous mucosa in the sigmoid colon. Biopsied. No colitis. Recommendation: - Return patient to hospital [facility] for ongoing care. - Resume regular diet. - Await pathology results. Alise Dutta MD 08/09/2017 4:18:54 PM This report has been signed electronically. Note Initiated On: 08/09/2017 4:01 PM Number of Addenda: 0 I attest to the content of the Intraoperative Record and orders documented therein, exceptions below {[id number]}
--- NOTE | 2017-08-09 17:56 | Progress Note ---
Internal Med Progress Note Date of Service: August 09, 2017. Provider Documentation: SUBJECTIVE: resting comfortably s/p flex sigmoidoscopy today had 3-4 loose bowel movements today denies abdominal pain or nausea no burning micturition afebrile OBJECTIVE: Vital Signs-as noted below Exam: General-alert and oriented. Not in distress ENT-Normal hearing Neck-no neck masses Lungs-cta b/l no wheezing no crackles Heart-s1 and s2 heard regular rate and rhythm no murmurs Abdomen-soft bowel sounds present non tender, no distension Extremities-trace pedal edema Neuro-alert and awake 'moves extremities Lab data as noted below. 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 1. Generalized weakness- c diff colitis and UTI pancolitis on ct scan recently treated for c diff by po vanco on Dificid 200mg BID ID on board plan for Long po vanco taper s/p flex sigmoidoscopy- no colitis and pseudomembrane seen-possibly resolving CDI clear liquid diet will monitor 2. UTI -Rocephin empirically, urine culture gm negative bacilli. 3. Hypertension-stable, on Hyzaar and metoprolol.Will monitor 5. History of CVA-on aspirin, Plavix, statin. stable 6. RILEY-CPAP at night 7. Diabetes mellitus type 2-diet controlled, last hemoglobin A1c was 6.0 on . will monitor. 8. Diabetic neuropathy-continue gabapentin 9. Depression-On Lexapro. DVT prophylaxis-heparin subcu DO NOT RESUSCITATE. Disposition- pt/ot to be determined Vital Signs: Date Time Temp Pulse Resp B/P (MAP) Pulse Ox O2 Delivery O2 Flow Rate FiO2 08/09/17 16:12 63 18 136/66 (89) 96 Room Air 08/09/17 16:08 70 18 138/58 98 Room Air 08/09/17 16:05 66 18 189/78 97 Room Air 08/09/17 16:02 65 18 143/64 95 Room Air 08/09/17 15:49 36.6 70 18 147/63 (91) 94 Room Air 08/09/17 15:09 36.7 66 18 130/69 (89) 93 Room Air 08/09/17 11:34 96 Room Air 08/09/17 07:25 37.0 71 20 111/57 (75) 95 Room Air 08/09/17 00:02 Room Air 08/08/17 23:31 36.8 71 20 131/69 (89) 96 Room Air Lab Results: Results Past 24 Hours Test 08/09/17 05:18 Range/Units White Blood Count 4.25 4.8-10.8 K/uL Red Blood Count 3.78 4.2-5.4 M/uL Hemoglobin 11.2 12.0-16.0 g/dL Hematocrit 34.4 37-47 % Mean Corpuscular Volume 91.0 80-100 fL Mean Corpuscular Hemoglobin 29.6 25-34 pg Mean Corpuscular Hemoglobin Concent 32.6 32-36 g/dl RDW Standard Deviation 48.7 36.4-46.3 fL RDW Coefficient of Variation 14.7 11.5-14.5 % Platelet Count 106 130-400 K/uL Mean Platelet Volume 10.6 7.4-10.4 fL Sodium Level 141 136-145 mmol/L Potassium Level 3.1 3.5-5.1 mmol/L Chloride Level 108 98-107 mmol/L Carbon Dioxide Level 26 21-32 mmol/L Anion Gap 7.0 3-11 mmol/L Blood Urea Nitrogen 12 7-18 mg/dl Creatinine 0.83 0.60-1.20 mg/dl Est Creatinine Clear Calc Drug Dose 50.9 ml/min Estimated GFR () 73.5 Estimated GFR (Non- 63.4 BUN/Creatinine Ratio 14.0 10-20 Random Glucose 91 70-99 mg/dl Calcium Level 8.3 8.5-10.1 mg/dl
--- NOTE | 2017-08-09 21:07 | Infectious Disease Progress Nt ---
Progress Note Date of Service August 09, 2017. Subjective Pt evaluation today including: conversation w/ patient, physical exam, chart review, lab review, review of studies, conversation w/ media consultant outside sales, review of inpatient medication list Patient is status post sigmoidoscopy with finding of possible pseudomembranes but no active colitis. No new complaints today. Remains afebrile. Abdominal pain controlled. All Other Systems: Reviewed and Negative Medications Current Inpatient Medications Medications (Trade) Dose Ordered Sig/Naz Route Start Time Stop Time Status Last Admin Dose Admin Aspirin (Ecotrin Tab) 81 mg DAILY PO 08/08/17 09:00 09/07/17 08:59 08/08/17 09:09 81 MG Atorvastatin Calcium (Lipitor Tab) 40 mg DAILY PO 08/08/17 09:00 09/07/17 08:59 08/09/17 09:14 40 MG Clopidogrel Bisulfate (plAVix TAB) 75 mg DAILY PO 08/08/17 09:00 09/07/17 08:59 08/09/17 09:15 75 MG Escitalopram Oxalate (Lexapro Tab) 15 mg DAILY PO 08/08/17 09:00 09/07/17 08:59 08/09/17 09:14 15 MG Gabapentin (Neurontin Cap) 300 mg DAILY PO 08/08/17 09:00 09/07/17 08:59 08/09/17 09:15 300 MG Gabapentin (Neurontin Cap) 600 mg HS PO 08/08/17 21:00 09/07/17 20:59 08/08/17 20:20 600 MG Metoprolol Tartrate (Lopressor Tab) 25 mg BID PO 08/08/17 09:00 09/07/17 08:59 08/09/17 09:15 25 MG Timolol Maleate (Timoptic-Xe 0.5% Oph Soln) 1 drops BID OPB 08/08/17 09:00 09/07/17 08:59 08/09/17 09:12 1 DROPS Losartan Potassium (coZAAR TAB) 100 mg DAILY PO 08/08/17 08:00 09/07/17 07:59 08/09/17 09:12 100 MG Miscellaneous Information (Order Awaiting Action) 1 ea QS N/A 08/08/17 08:00 09/07/17 07:59 Ceftriaxone Sodium 1 gm/ Dextrose 50 ml @ 100 mls/hr Q24H IV 08/09/17 04:00 08/12/17 04:29 08/09/17 03:40 100 MLS/HR Hydrochlorothiazide (Hydrochlorothiazide Tab) 12.5 mg DAILY PO 08/08/17 08:00 09/07/17 07:59 08/09/17 09:12 12.5 MG Fidaxomicin (Dificid Tab) 200 mg BID PO 08/08/17 20:00 08/22/17 19:59 08/09/17 09:13 200 MG Lactobacillus Acidophilus (Floranex Tab) 4 tab TIDM PO 08/08/17 17:00 09/07/17 07:59 08/09/17 17:24 4 TAB Objective Vital Signs Date Time Temp Pulse Resp B/P (MAP) Pulse Ox O2 Delivery O2 Flow Rate FiO2 08/09/17 16:12 63 18 136/66 (89) 96 Room Air 08/09/17 16:08 70 18 138/58 98 Room Air 08/09/17 16:05 66 18 189/78 97 Room Air 08/09/17 16:02 65 18 143/64 95 Room Air 08/09/17 16:00 Room Air 08/09/17 15:49 36.6 70 18 147/63 (91) 94 Room Air 08/09/17 15:09 36.7 66 18 130/69 (89) 93 Room Air 08/09/17 11:34 96 Room Air 08/09/17 07:25 37.0 71 20 111/57 (75) 95 Room Air 08/09/17 00:02 Room Air 08/08/17 23:31 36.8 71 20 131/69 (89) 96 Room Air Physical Exam General Appearance: WD/WN, no apparent distress Eyes: normal inspection, EOMI, sclerae normal ENT: normal ENT inspection, pharynx normal Neck: supple, no adenopathy, thyroid normal, trachea midline Respiratory/Chest: chest non-tender, lungs clear, normal breath sounds, no respiratory distress Cardiovascular: regular rate, rhythm, no gallop, no murmur Abdomen: normal bowel sounds, non tender, soft, no organomegaly Extremities: non-tender, no calf tenderness Neurologic/Psychiatric: alert, oriented x 3 Skin: normal color, warm/dry, no rash Lymphatic: no adenopathy Laboratory Results Last 24 Hours Test 08/09/17 05:18 White Blood Count 4.25 K/uL Red Blood Count 3.78 M/uL Hemoglobin 11.2 g/dL Hematocrit 34.4 % Mean Corpuscular Volume 91.0 fL Mean Corpuscular Hemoglobin 29.6 pg Mean Corpuscular Hemoglobin Concent 32.6 g/dl RDW Standard Deviation 48.7 fL RDW Coefficient of Variation 14.7 % Platelet Count 106 K/uL Mean Platelet Volume 10.6 fL Sodium Level 141 mmol/L Potassium Level 3.1 mmol/L Chloride Level 108 mmol/L Carbon Dioxide Level 26 mmol/L Anion Gap 7.0 mmol/L Blood Urea Nitrogen 12 mg/dl Creatinine 0.83 mg/dl Est Creatinine Clear Calc Drug Dose 50.9 ml/min Estimated GFR () 73.5 Estimated GFR (Non- 63.4 BUN/Creatinine Ratio 14.0 Random Glucose 91 mg/dl Calcium Level 8.3 mg/dl Assessment and Plan 87-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 Given likely chance for recurrence, have change patient to fidaxomicin, but suspect she will also require a long course of tapering vancomycin following this treatment. Continue current Rx for UTI pending final ID/sensitivities of gram negative in urine culture.
[2017-08-09 23:19] VITALS: BP 134/63; PULSE 68; TEMP 36.7; O2SAT 93
[2017-08-10] MEDS: CEFTRIAXONE SOD INJ 1 GM in DEXTROSE 5% ADD-VANTAGE 50ML 50 ML IV SCH (03:48)
[2017-08-10 06:05] LABS: BASO % 0.7 %; BASO ABS # 0.03 K/uL (0-0.2); EOS % 4.4 %; HEMATOCRIT 35.7 % (37-47); HEMOGLOBIN 11.8 g/dL (12.0-16.0); IG# 0.01 K/uL (0.00-0.02); LYMPH % 29.8 %; LYMPH ABS # 1.34 K/uL (1.2-3.4); MEAN CELL VOLUME 89.5 fL (80-100); MEAN CORPUSCULAR HEMOGLOBIN 29.6 pg (25-34); MEAN CORPUSCULAR HGB CONC 33.1 g/dl (32-36); MEAN PLATELET VOLUME 10.5 fL (7.4-10.4); MONO % 17.3 %; MONO ABS # 0.78 K/uL (0.11-0.59); NEUT % 47.6 %; NEUT ABS # 2.14 K/uL (1.4-6.5); PLATELET COUNT 102 K/uL (130-400); RED CELL DISTRIBUTION WIDTH CV 14.1 % (11.5-14.5); RED CELL DISTRIBUTION WIDTH SD 46.6 fL (36.4-46.3)
[2017-08-10 06:31] LABS: CALCIUM 8.6 mg/dl (8.5-10.1); CREATININE 0.72 mg/dl (0.60-1.20); POTASSIUM 3.4 mmol/L (3.5-5.1)
[2017-08-10 07:27] VITALS: BP 135/76; PULSE 59; TEMP 36.6; O2SAT 94
[2017-08-10] MEDS ORDERED: POTASSIUM CHLORIDE 10 MEQ TABCR PO STA (08:31)
[2017-08-10] MEDS ORDERED: MAGNESIUM SULFATE 1GM / D5W 100 ML IV ONE (08:45)
[2017-08-10 08:50] VITALS: PULSE 64
[2017-08-10] MEDS: TIMOLOL GFS 0.5% OPH SOLN 74 DROPS/5 ML BTL OPB SCH ×2 (08:55→20:22)
[2017-08-10] MEDS: FIDAXOMICIN TAB 200 MG TAB PO SCH ×2 (08:56→20:22)
[2017-08-10] MEDS: ASPIRIN 81 MG ECTAB PO SCH (08:56)
[2017-08-10] MEDS: HYDROCHLOROTHIAZIDE 25 MG TAB PO SCH (08:56)
[2017-08-10] MEDS: LOSARTAN POTASSIUM 50 MG TAB PO SCH (08:56)
[2017-08-10] MEDS: LACTOBACILLUS ACIDOPHILUS (FLORANEX) TAB PO SCH ×3 (08:57→16:16)
[2017-08-10] MEDS: ESCITALOPRAM OXALATE 10 MG TAB PO SCH (08:57)
[2017-08-10] MEDS: ATORVASTATIN 20 MG TAB PO SCH (08:58)
[2017-08-10] MEDS: METOPROLOL TARTRATE 25 MG TAB PO SCH ×2 (08:58→20:23)
[2017-08-10] MEDS: GABAPENTIN 300 MG CAP PO SCH ×2 (08:58→20:23)
[2017-08-10] MEDS: CLOPIDOGREL BISULFATE 75 MG TAB PO SCH (08:59)
--- NOTE | 2017-08-10 10:02 | Gastroenterology Progress Note ---
Progress Note Date of Service: August 10, 2017 Subjective Pt evaluation today including: conversation w/ patient, physical exam, chart review, lab review, review of studies, review of inpatient medication list Ms. Chaves is an 87 yr old female admitted with C-diff diarrhea. Colitis on CT, but flex sig yesterday with mild sigmoid colon changes of erythema and pseudomembranous colitis, no other evidence of colitis to the splenic flexure. Two BMs thus far this morning: loose, green, large. Pt feels well. Up ambulating in her room, doing self AM care. Review of Systems Constitutional: No fever Eyes: No worsening of vision Abdomen: + GI bleeding, No pain Female : No dysuria Psych: No depression symptoms Heme: No abnormal bleeding/bruising Endo: No fatigue Skin: No rash Medications Current Inpatient Medications Medications (Trade) Dose Ordered Sig/Naz Route Start Time Stop Time Status Last Admin Dose Admin Aspirin (Ecotrin Tab) 81 mg DAILY PO 08/08/17 09:00 09/07/17 08:59 08/10/17 08:56 81 MG Atorvastatin Calcium (Lipitor Tab) 40 mg DAILY PO 08/08/17 09:00 09/07/17 08:59 08/10/17 08:58 40 MG Clopidogrel Bisulfate (plAVix TAB) 75 mg DAILY PO 08/08/17 09:00 09/07/17 08:59 08/10/17 08:59 75 MG Escitalopram Oxalate (Lexapro Tab) 15 mg DAILY PO 08/08/17 09:00 09/07/17 08:59 08/10/17 08:57 15 MG Gabapentin (Neurontin Cap) 300 mg DAILY PO 08/08/17 09:00 09/07/17 08:59 08/10/17 08:58 300 MG Gabapentin (Neurontin Cap) 600 mg HS PO 08/08/17 21:00 09/07/17 20:59 08/09/17 21:23 600 MG Metoprolol Tartrate (Lopressor Tab) 25 mg BID PO 08/08/17 09:00 09/07/17 08:59 08/10/17 08:58 25 MG Timolol Maleate (Timoptic-Xe 0.5% Oph Soln) 1 drops BID OPB 08/08/17 09:00 09/07/17 08:59 08/10/17 08:55 1 DROPS Losartan Potassium (coZAAR TAB) 100 mg DAILY PO 08/08/17 08:00 09/07/17 07:59 08/10/17 08:56 100 MG Miscellaneous Information (Order Awaiting Action) 1 ea QS N/A 08/08/17 08:00 09/07/17 07:59 Ceftriaxone Sodium 1 gm/ Dextrose 50 ml @ 100 mls/hr Q24H IV 08/09/17 04:00 08/12/17 04:29 08/10/17 03:48 100 MLS/HR Hydrochlorothiazide (Hydrochlorothiazide Tab) 12.5 mg DAILY PO 08/08/17 08:00 09/07/17 07:59 08/10/17 08:56 12.5 MG Fidaxomicin (Dificid Tab) 200 mg BID PO 08/08/17 20:00 08/22/17 19:59 08/10/17 08:56 200 MG Lactobacillus Acidophilus (Floranex Tab) 4 tab TIDM PO 08/08/17 17:00 09/07/17 07:59 08/10/17 08:57 4 TAB Magnesium Oxide (Mag-Ox Tab) 400 mg BID PO 08/10/17 20:00 09/09/17 19:59 Objective Vital Signs Date Time Temp Pulse Resp B/P (MAP) Pulse Ox O2 Delivery O2 Flow Rate FiO2 08/10/17 07:27 36.6 59 22 135/76 (95) 94 Room Air 08/10/17 00:02 Room Air 08/09/17 23:19 36.7 68 20 134/63 (86) 93 Room Air 08/09/17 16:12 63 18 136/66 (89) 96 Room Air 08/09/17 16:08 70 18 138/58 98 Room Air 08/09/17 16:05 66 18 189/78 97 Room Air 08/09/17 16:02 65 18 143/64 95 Room Air 08/09/17 16:00 Room Air 08/09/17 15:49 36.6 70 18 147/63 (91) 94 Room Air 08/09/17 15:09 36.7 66 18 130/69 (89) 93 Room Air 08/09/17 11:34 96 Room Air Physical Exam General Appearance: no apparent distress ENT: pharynx normal Neck: thyroid normal, no JVD Respiratory/Chest: lungs clear, normal breath sounds Cardiovascular: regular rate, rhythm, no JVD, no murmur Abdomen: non tender, soft Extremities: no pedal edema Neurologic/Psych: alert, normal mood/affect, oriented x 3 Skin: no jaundice Laboratory Results Last 24 Hours Test 08/10/17 05:41 White Blood Count 4.50 K/uL Red Blood Count 3.99 M/uL Hemoglobin 11.8 g/dL Hematocrit 35.7 % Mean Corpuscular Volume 89.5 fL Mean Corpuscular Hemoglobin 29.6 pg Mean Corpuscular Hemoglobin Concent 33.1 g/dl Platelet Count 102 K/uL Mean Platelet Volume 10.5 fL Neutrophils (%) (Auto) 47.6 % Lymphocytes (%) (Auto) 29.8 % Monocytes (%) (Auto) 17.3 % Eosinophils (%) (Auto) 4.4 % Basophils (%) (Auto) 0.7 % Neutrophils # (Auto) 2.14 K/uL Lymphocytes # (Auto) 1.34 K/uL Monocytes # (Auto) 0.78 K/uL Eosinophils # (Auto) 0.20 K/uL Basophils # (Auto) 0.03 K/uL RDW Standard Deviation 46.6 fL RDW Coefficient of Variation 14.1 % Immature Granulocyte % (Auto) 0.2 % Immature Granulocyte # (Auto) 0.01 K/uL Sodium Level 141 mmol/L Potassium Level 3.4 mmol/L Chloride Level 108 mmol/L Carbon Dioxide Level 26 mmol/L Anion Gap 7.0 mmol/L Blood Urea Nitrogen 8 mg/dl Creatinine 0.72 mg/dl Est Creatinine Clear Calc Drug Dose 58.7 ml/min Estimated GFR () 87.3 Estimated GFR (Non- 75.3 BUN/Creatinine Ratio 11.6 Random Glucose 89 mg/dl Calcium Level 8.6 mg/dl Magnesium Level 1.6 mg/dl Assessment and Plan Ms. Lane is an 87 yr old female with recurrent C-diff diarrhea. Prefer long vanco taper, but understand ID is recommending Dificid then Vancomycin so would defer to their instructions. Regular diet. No GI contraindication to DC. GI will sign off. I performed a history and physical examination of the patient, including specifically diarrhea improved. I have discussed the patient's management with Jeff Worthington. Please refer to the JOB ANALYST's note for the documented findings and plan of care. Flex sig did not show any evidence of colitis. Biopsies obtained. Continue therapy for CDI. Recall Gi if needed.
[2017-08-10 15:05] VITALS: BP 138/75; PULSE 59; TEMP 36.6; O2SAT 91
--- NOTE | 2017-08-10 15:31 | Progress Note ---
Internal Med Progress Note Date of Service: August 10, 2017. Provider Documentation: SUBJECTIVE: resting comfortably s/p flex sigmoidoscopy yesterday still has diarrhea tolerating clears and like to advance the diet complained of some blurred vision in right eye in the morning but later improved afebrile no abdominal pain OBJECTIVE: Vital Signs-as noted below Exam: General-alert and oriented. Not in distress ENT-Normal hearing Neck-no neck masses Lungs-cta b/l no wheezing no crackles Heart-s1 and s2 heard regular rate and rhythm no murmurs Abdomen-soft bowel sounds present non tender, no distension Extremities-trace pedal edema Neuro-alert and awake 'moves extremities Lab data as noted below. 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 1. Generalized weakness- c diff colitis and UTI pancolitis on ct scan recently treated for c diff by po vanco on Dificid 200mg BID ID on board plan for Long po vanco taper s/p flex sigmoidoscopy- no colitis and pseudomembrane seen-possibly resolving CDI tolerating clears -will advance as tolerated to soft diet will monitor 2. UTI -Rocephin empirically, urine culture klebsiella 3. Hypertension-stable, on Hyzaar and metoprolol.Will monitor 5. History of CVA-on aspirin, Plavix, statin. will monitor. stable 6. RILEY-CPAP at night 7. Diabetes mellitus type 2-diet controlled, last hemoglobin A1c was 6.0 on . will monitor. 8. Diabetic neuropathy-continue gabapentin 9. Depression-On Lexapro. DVT prophylaxis-heparin subcu DO NOT RESUSCITATE. Disposition- pt/ot to be determined Vital Signs: Date Time Temp Pulse Resp B/P (MAP) Pulse Ox O2 Delivery O2 Flow Rate FiO2 08/10/17 15:05 36.6 59 18 138/75 (96) 91 Room Air 08/10/17 10:34 Room Air 08/10/17 08:50 64 08/10/17 07:27 36.6 59 22 135/76 (95) 94 Room Air 08/10/17 00:02 Room Air 08/09/17 23:19 36.7 68 20 134/63 (86) 93 Room Air 08/09/17 16:12 63 18 136/66 (89) 96 Room Air 08/09/17 16:08 70 18 138/58 98 Room Air 08/09/17 16:05 66 18 189/78 97 Room Air 08/09/17 16:02 65 18 143/64 95 Room Air 08/09/17 16:00 Room Air 08/09/17 15:49 36.6 70 18 147/63 (91) 94 Room Air Lab Results: Results Past 24 Hours Test 08/10/17 05:41 Range/Units White Blood Count 4.50 4.8-10.8 K/uL Red Blood Count 3.99 4.2-5.4 M/uL Hemoglobin 11.8 12.0-16.0 g/dL Hematocrit 35.7 37-47 % Mean Corpuscular Volume 89.5 80-100 fL Mean Corpuscular Hemoglobin 29.6 25-34 pg Mean Corpuscular Hemoglobin Concent 33.1 32-36 g/dl Platelet Count 102 130-400 K/uL Mean Platelet Volume 10.5 7.4-10.4 fL Neutrophils (%) (Auto) 47.6 % Lymphocytes (%) (Auto) 29.8 % Monocytes (%) (Auto) 17.3 % Eosinophils (%) (Auto) 4.4 % Basophils (%) (Auto) 0.7 % Neutrophils # (Auto) 2.14 1.4-6.5 K/uL Lymphocytes # (Auto) 1.34 1.2-3.4 K/uL Monocytes # (Auto) 0.78 0.11-0.59 K/uL Eosinophils # (Auto) 0.20 0-0.5 K/uL Basophils # (Auto) 0.03 0-0.2 K/uL RDW Standard Deviation 46.6 36.4-46.3 fL RDW Coefficient of Variation 14.1 11.5-14.5 % Immature Granulocyte % (Auto) 0.2 % Immature Granulocyte # (Auto) 0.01 0.00-0.02 K/uL Sodium Level 141 136-145 mmol/L Potassium Level 3.4 3.5-5.1 mmol/L Chloride Level 108 98-107 mmol/L Carbon Dioxide Level 26 21-32 mmol/L Anion Gap 7.0 3-11 mmol/L Blood Urea Nitrogen 8 7-18 mg/dl Creatinine 0.72 0.60-1.20 mg/dl Est Creatinine Clear Calc Drug Dose 58.7 ml/min Estimated GFR () 87.3 Estimated GFR (Non- 75.3 BUN/Creatinine Ratio 11.6 10-20 Random Glucose 89 70-99 mg/dl Calcium Level 8.6 8.5-10.1 mg/dl Magnesium Level 1.6 1.8-2.4 mg/dl
[2017-08-10] MEDS: MAGNESIUM OXIDE 400 MG TAB PO SCH (20:22)
--- NOTE | 2017-08-10 20:49 | Infectious Disease Progress Nt ---
Progress Note Date of Service August 10, 2017. Subjective Pt evaluation today including: conversation w/ patient, physical exam, chart review, lab review, review of studies, conversation w/ technical marketing consultant, review of inpatient medication list Patient offering no new complaints. Still has diarrhea. Remains afebrile. All Other Systems: Reviewed and Negative Medications Current Inpatient Medications Medications (Trade) Dose Ordered Sig/Naz Route Start Time Stop Time Status Last Admin Dose Admin Aspirin (Ecotrin Tab) 81 mg DAILY PO 08/08/17 09:00 09/07/17 08:59 08/10/17 08:56 81 MG Atorvastatin Calcium (Lipitor Tab) 40 mg DAILY PO 08/08/17 09:00 09/07/17 08:59 08/10/17 08:58 40 MG Clopidogrel Bisulfate (plAVix TAB) 75 mg DAILY PO 08/08/17 09:00 09/07/17 08:59 08/10/17 08:59 75 MG Escitalopram Oxalate (Lexapro Tab) 15 mg DAILY PO 08/08/17 09:00 09/07/17 08:59 08/10/17 08:57 15 MG Gabapentin (Neurontin Cap) 300 mg DAILY PO 08/08/17 09:00 09/07/17 08:59 08/10/17 08:58 300 MG Gabapentin (Neurontin Cap) 600 mg HS PO 08/08/17 21:00 09/07/17 20:59 08/10/17 20:23 600 MG Metoprolol Tartrate (Lopressor Tab) 25 mg BID PO 08/08/17 09:00 09/07/17 08:59 08/10/17 20:23 25 MG Timolol Maleate (Timoptic-Xe 0.5% Oph Soln) 1 drops BID OPB 08/08/17 09:00 09/07/17 08:59 08/10/17 20:22 1 DROPS Losartan Potassium (coZAAR TAB) 100 mg DAILY PO 08/08/17 08:00 09/07/17 07:59 08/10/17 08:56 100 MG Miscellaneous Information (Order Awaiting Action) 1 ea QS N/A 08/08/17 08:00 09/07/17 07:59 Ceftriaxone Sodium 1 gm/ Dextrose 50 ml @ 100 mls/hr Q24H IV 08/09/17 04:00 5/19/18 04:29 08/10/17 03:48 100 MLS/HR Hydrochlorothiazide (Hydrochlorothiazide Tab) 12.5 mg DAILY PO 08/08/17 08:00 09/07/17 07:59 08/10/17 08:56 12.5 MG Fidaxomicin (Dificid Tab) 200 mg BID PO 08/08/17 20:00 08/22/17 19:59 08/10/17 20:22 200 MG Lactobacillus Acidophilus (Floranex Tab) 4 tab TIDM PO 08/08/17 17:00 09/07/17 07:59 08/10/17 16:16 4 TAB Magnesium Oxide (Mag-Ox Tab) 400 mg BID PO 08/10/17 20:00 09/09/17 19:59 08/10/17 20:22 400 MG Objective Vital Signs Date Time Temp Pulse Resp B/P (MAP) Pulse Ox O2 Delivery O2 Flow Rate FiO2 08/10/17 15:05 36.6 59 18 138/75 (96) 91 Room Air 08/10/17 10:34 Room Air 08/10/17 08:50 64 08/10/17 07:27 36.6 59 22 135/76 (95) 94 Room Air 08/10/17 00:02 Room Air 08/09/17 23:19 36.7 68 20 134/63 (86) 93 Room Air Physical Exam General Appearance: WD/WN, no apparent distress Eyes: normal inspection, EOMI, sclerae normal ENT: normal ENT inspection, pharynx normal Neck: supple, no adenopathy, thyroid normal, trachea midline Respiratory/Chest: chest non-tender, lungs clear, normal breath sounds, no respiratory distress Cardiovascular: regular rate, rhythm, no gallop, no murmur Abdomen: normal bowel sounds, non tender, soft, no organomegaly Extremities: non-tender, no calf tenderness Neurologic/Psychiatric: alert, oriented x 3 Skin: normal color, warm/dry, no rash Lymphatic: no adenopathy Laboratory Results Last 24 Hours Test 08/10/17 05:41 White Blood Count 4.50 K/uL Red Blood Count 3.99 M/uL Hemoglobin 11.8 g/dL Hematocrit 35.7 % Mean Corpuscular Volume 89.5 fL Mean Corpuscular Hemoglobin 29.6 pg Mean Corpuscular Hemoglobin Concent 33.1 g/dl Platelet Count 102 K/uL Mean Platelet Volume 10.5 fL Neutrophils (%) (Auto) 47.6 % Lymphocytes (%) (Auto) 29.8 % Monocytes (%) (Auto) 17.3 % Eosinophils (%) (Auto) 4.4 % Basophils (%) (Auto) 0.7 % Neutrophils # (Auto) 2.14 K/uL Lymphocytes # (Auto) 1.34 K/uL Monocytes # (Auto) 0.78 K/uL Eosinophils # (Auto) 0.20 K/uL Basophils # (Auto) 0.03 K/uL RDW Standard Deviation 46.6 fL RDW Coefficient of Variation 14.1 % Immature Granulocyte % (Auto) 0.2 % Immature Granulocyte # (Auto) 0.01 K/uL Sodium Level 141 mmol/L Potassium Level 3.4 mmol/L Chloride Level 108 mmol/L Carbon Dioxide Level 26 mmol/L Anion Gap 7.0 mmol/L Blood Urea Nitrogen 8 mg/dl Creatinine 0.72 mg/dl Est Creatinine Clear Calc Drug Dose 58.7 ml/min Estimated GFR () 87.3 Estimated GFR (Non- 75.3 BUN/Creatinine Ratio 11.6 Random Glucose 89 mg/dl Calcium Level 8.6 mg/dl Magnesium Level 1.6 mg/dl Assessment and Plan 87-year-old female with recurrent C difficile colitis, not sure whether she actually has urinary tract infection with E coli. Would continue patient on fidaxomicin for C diff, recommend transition to oral therapy with Omnicef 300 mg b.i.d. to complete 7 days of therapy for possible UTI.
[2017-08-10 23:59] VITALS: BP 157/68; PULSE 59; TEMP 36.4; O2SAT 92
[2017-08-11] MEDS: CEFTRIAXONE SOD INJ 1 GM in DEXTROSE 5% ADD-VANTAGE 50ML 50 ML IV SCH (03:38)
[2017-08-11 06:05] LABS: BASO % 0.4 %; BASO ABS # 0.02 K/uL (0-0.2); EOS % 2.8 %; EOS ABS # 0.15 K/uL (0-0.5); HEMATOCRIT 35.2 % (37-47); HEMOGLOBIN 11.8 g/dL (12.0-16.0); IG# 0.01 K/uL (0.00-0.02); LYMPH % 23.2 %; LYMPH ABS # 1.23 K/uL (1.2-3.4); MEAN CELL VOLUME 88.9 fL (80-100); MEAN CORPUSCULAR HEMOGLOBIN 29.8 pg (25-34); MEAN CORPUSCULAR HGB CONC 33.5 g/dl (32-36); MEAN PLATELET VOLUME 10.5 fL (7.4-10.4); MONO % 14.5 %; MONO ABS # 0.77 K/uL (0.11-0.59); NEUT % 58.9 %; NEUT ABS # 3.13 K/uL (1.4-6.5); PLATELET COUNT 100 K/uL (130-400); RED CELL DISTRIBUTION WIDTH SD 45.7 fL (36.4-46.3); WHITE BLOOD COUNT 5.31 K/uL (4.8-10.8)
[2017-08-11 06:45] LABS: CALCIUM 8.5 mg/dl (8.5-10.1); CREATININE 0.75 mg/dl (0.60-1.20); POTASSIUM 3.4 mmol/L (3.5-5.1)
[2017-08-11 07:33] VITALS: BP 137/73; PULSE 57; TEMP 36.4; O2SAT 98
[2017-08-11] MEDS ORDERED: POTASSIUM CHLORIDE 10 MEQ TABCR PO STA (07:36)
[2017-08-11 08:00] VITALS: O2SAT 98
[2017-08-11] MEDS: TIMOLOL GFS 0.5% OPH SOLN 74 DROPS/5 ML BTL OPB SCH ×2 (08:32→20:54)
[2017-08-11] MEDS: HYDROCHLOROTHIAZIDE 25 MG TAB PO SCH (08:32)
[2017-08-11] MEDS: GABAPENTIN 300 MG CAP PO SCH ×2 (08:33→20:55)
[2017-08-11] MEDS: ATORVASTATIN 20 MG TAB PO SCH (08:33)
[2017-08-11] MEDS: CLOPIDOGREL BISULFATE 75 MG TAB PO SCH (08:33)
[2017-08-11] MEDS: METOPROLOL TARTRATE 25 MG TAB PO SCH ×2 (08:33→20:55)
[2017-08-11] MEDS: ESCITALOPRAM OXALATE 10 MG TAB PO SCH (08:33)
[2017-08-11] MEDS: LOSARTAN POTASSIUM 50 MG TAB PO SCH (08:33)
[2017-08-11] MEDS: MAGNESIUM OXIDE 400 MG TAB PO SCH ×2 (08:34→20:54)
[2017-08-11] MEDS: ASPIRIN 81 MG ECTAB PO SCH (08:34)
[2017-08-11] MEDS: FIDAXOMICIN TAB 200 MG TAB PO SCH ×2 (08:34→20:54)
[2017-08-11] MEDS: LACTOBACILLUS ACIDOPHILUS (FLORANEX) TAB PO SCH ×3 (08:34→17:41)
--- NOTE | 2017-08-11 13:50 | DIAGNOSTIC IMAGING REPORT ---
HEAD WITHOUT CONTRAST (CT) CLINICAL HISTORY: 87 years-old Female presenting with blurred vision. hx of cva. TECHNIQUE: Multidetector CT imaging of the head was performed without the use of intravenous contrast. IV contrast: None. A dose lowering technique was used consistent with the principles of ALARA (as low as reasonably achievable). COMPARISON: 05/24/2017 and MR from 05/25/2017. CT DOSE (mGy.cm): The estimated cumulative dose is 709.48 mGy.cm. FINDINGS: Flooring Machine Operator topogram: Unremarkable. Proportional ventricular and sulcal prominence, likely age-related parenchymal volume loss. Periventricular and subcortical white matter hypoattenuation, nonspecific but likely indicative of chronic small vessel ischemic change. Chronic infarct in the right paramedian occipital lobe. No mass effect or midline shift. No hemorrhage or acute territorial infarct. No extra-axial fluid collection. Paranasal sinuses and mastoid air cells clear. Calvarium intact. Chronic nasal bone fractures. IMPRESSION: 1. No acute intracranial abnormality. 2. Chronic infarct in the right paramedian occipital lobe. Electronically signed by: Tim Epperson M.D. 08/11/2017 1:49 PM Dictated Date/Time: 08/11/2017 1:44 PM
[2017-08-11 15:36] VITALS: BP 147/78; PULSE 64; TEMP 36.4; O2SAT 95
--- NOTE | 2017-08-11 17:44 | Progress Note ---
Internal Med Progress Note Date of Service: August 11, 2017. Provider Documentation: SUBJECTIVE: resting comfortably s/p flex sigmoidoscopy this admission still has diarrhea but getting better tolerating soft diet complained of some blurred vision in right eye but getting better ambulating ok OBJECTIVE: Vital Signs-as noted below Exam: General-alert and oriented. Not in distress ENT-Normal hearing Neck-no neck masses Lungs-cta b/l no wheezing no crackles Heart-s1 and s2 heard regular rate and rhythm no murmurs Abdomen-soft bowel sounds present non tender, no distension Extremities-trace pedal edema Neuro-alert and awake 'moves extremities Lab data as noted below. 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 1. Generalized weakness- c diff colitis and UTI pancolitis on ct scan recurrent c diff recently had 10 day course and also 6 week vanco taper course currently on Dificid 200mg BID ID on board plan for Long po vanco taper after completion of Dificid course s/p flex sigmoidoscopy- no colitis and pseudomembrane seen-possibly resolving CDI tolerating to soft diet await insurance approval of Dificid will monitor 2. UTI -Rocephin empirically, urine culture klebsiella . plan for Omnicef in am and complete one week course 3. Hypertension-stable, on Hyzaar and metoprolol.Will monitor 5. History of CVA-on aspirin, Plavix, statin. will monitor. stable 6. RILEY-CPAP at night 7. Diabetes mellitus type 2-diet controlled, last hemoglobin A1c was 6.0 on . will monitor. 8. Diabetic neuropathy-continue gabapentin 9. Depression-On Lexapro. DVT prophylaxis-heparin subcu DO NOT RESUSCITATE. Disposition- pt/ot possible d/c in am social service for d/c planning Vital Signs: Date Time Temp Pulse Resp B/P (MAP) Pulse Ox O2 Delivery O2 Flow Rate FiO2 08/11/17 15:36 36.4 64 18 147/78 (101) 95 Room Air 08/11/17 08:00 98 Room Air 08/11/17 07:33 36.4 57 18 137/73 (94) 98 Room Air 08/11/17 00:24 Room Air 08/10/17 23:59 36.4 59 16 157/68 (97) 92 Room Air Lab Results: Results Past 24 Hours Test 08/11/17 05:33 Range/Units White Blood Count 5.31 4.8-10.8 K/uL Red Blood Count 3.96 4.2-5.4 M/uL Hemoglobin 11.8 12.0-16.0 g/dL Hematocrit 35.2 37-47 % Mean Corpuscular Volume 88.9 80-100 fL Mean Corpuscular Hemoglobin 29.8 25-34 pg Mean Corpuscular Hemoglobin Concent 33.5 32-36 g/dl Platelet Count 100 130-400 K/uL Mean Platelet Volume 10.5 7.4-10.4 fL Neutrophils (%) (Auto) 58.9 % Lymphocytes (%) (Auto) 23.2 % Monocytes (%) (Auto) 14.5 % Eosinophils (%) (Auto) 2.8 % Basophils (%) (Auto) 0.4 % Neutrophils # (Auto) 3.13 1.4-6.5 K/uL Lymphocytes # (Auto) 1.23 1.2-3.4 K/uL Monocytes # (Auto) 0.77 0.11-0.59 K/uL Eosinophils # (Auto) 0.15 0-0.5 K/uL Basophils # (Auto) 0.02 0-0.2 K/uL RDW Standard Deviation 45.7 36.4-46.3 fL RDW Coefficient of Variation 14.0 11.5-14.5 % Immature Granulocyte % (Auto) 0.2 % Immature Granulocyte # (Auto) 0.01 0.00-0.02 K/uL Sodium Level 140 136-145 mmol/L Potassium Level 3.4 3.5-5.1 mmol/L Chloride Level 107 98-107 mmol/L Carbon Dioxide Level 26 21-32 mmol/L Anion Gap 7.0 3-11 mmol/L Blood Urea Nitrogen 10 7-18 mg/dl Creatinine 0.75 0.60-1.20 mg/dl Est Creatinine Clear Calc Drug Dose 56.4 ml/min Estimated GFR () 83.1 Estimated GFR (Non- 71.7 BUN/Creatinine Ratio 12.9 10-20 Random Glucose 105 70-99 mg/dl Calcium Level 8.5 8.5-10.1 mg/dl Magnesium Level 1.9 1.8-2.4 mg/dl
--- NOTE | 2017-08-11 19:59 | Infectious Disease Progress Nt ---
Progress Note Date of Service August 11, 2017. Subjective Pt evaluation today including: conversation w/ patient, physical exam, chart review, lab review, review of studies, conversation w/ internet consultant, review of inpatient medication list Patient feeling somewhat better with improvement in diarrhea. Remains afebrile. No other new complaints. All Other Systems: Reviewed and Negative Medications Current Inpatient Medications Medications (Trade) Dose Ordered Sig/Naz Route Start Time Stop Time Status Last Admin Dose Admin Aspirin (Ecotrin Tab) 81 mg DAILY PO 08/08/17 09:00 09/07/17 08:59 08/11/17 08:34 81 MG Atorvastatin Calcium (Lipitor Tab) 40 mg DAILY PO 08/08/17 09:00 09/07/17 08:59 08/11/17 08:33 40 MG Clopidogrel Bisulfate (plAVix TAB) 75 mg DAILY PO 08/08/17 09:00 09/07/17 08:59 08/11/17 08:33 75 MG Escitalopram Oxalate (Lexapro Tab) 15 mg DAILY PO 08/08/17 09:00 09/07/17 08:59 08/11/17 08:33 15 MG Gabapentin (Neurontin Cap) 300 mg DAILY PO 08/08/17 09:00 09/07/17 08:59 08/11/17 08:33 300 MG Gabapentin (Neurontin Cap) 600 mg HS PO 08/08/17 21:00 09/07/17 20:59 08/10/17 20:23 600 MG Metoprolol Tartrate (Lopressor Tab) 25 mg BID PO 08/08/17 09:00 09/07/17 08:59 08/11/17 08:33 25 MG Timolol Maleate (Timoptic-Xe 0.5% Oph Soln) 1 drops BID OPB 08/08/17 09:00 09/07/17 08:59 08/11/17 08:32 1 DROPS Losartan Potassium (coZAAR TAB) 100 mg DAILY PO 08/08/17 08:00 09/07/17 07:59 08/11/17 08:33 100 MG Miscellaneous Information (Order Awaiting Action) 1 ea QS N/A 08/08/17 08:00 09/07/17 07:59 Ceftriaxone Sodium 1 gm/ Dextrose 50 ml @ 100 mls/hr Q24H IV 08/09/17 04:00 08/12/17 04:29 08/11/17 03:38 100 MLS/HR Hydrochlorothiazide (Hydrochlorothiazide Tab) 12.5 mg DAILY PO 08/08/17 08:00 09/07/17 07:59 08/11/17 08:32 12.5 MG Fidaxomicin (Dificid Tab) 200 mg BID PO 08/08/17 20:00 08/22/17 19:59 08/11/17 08:34 200 MG Lactobacillus Acidophilus (Floranex Tab) 4 tab TIDM PO 08/08/17 17:00 09/07/17 07:59 08/11/17 17:41 4 TAB Magnesium Oxide (Mag-Ox Tab) 400 mg BID PO 08/10/17 20:00 09/09/17 19:59 08/11/17 08:34 400 MG Objective Vital Signs Date Time Temp Pulse Resp B/P (MAP) Pulse Ox O2 Delivery O2 Flow Rate FiO2 08/11/17 19:44 Room Air 08/11/17 15:36 36.4 64 18 147/78 (101) 95 Room Air 08/11/17 08:00 98 Room Air 08/11/17 07:33 36.4 57 18 137/73 (94) 98 Room Air 08/11/17 00:24 Room Air 08/10/17 23:59 36.4 59 16 157/68 (97) 92 Room Air Physical Exam General Appearance: WD/WN, no apparent distress Eyes: normal inspection, EOMI, sclerae normal ENT: normal ENT inspection, pharynx normal Neck: supple, no adenopathy, thyroid normal, trachea midline Respiratory/Chest: chest non-tender, lungs clear, normal breath sounds, no respiratory distress Cardiovascular: regular rate, rhythm, no gallop, no murmur Abdomen: normal bowel sounds, non tender, soft, no organomegaly Extremities: non-tender, no calf tenderness Neurologic/Psychiatric: alert, oriented x 3 Skin: normal color, warm/dry, no rash Lymphatic: no adenopathy Laboratory Results Last 24 Hours Test 08/11/17 05:33 White Blood Count 5.31 K/uL Red Blood Count 3.96 M/uL Hemoglobin 11.8 g/dL Hematocrit 35.2 % Mean Corpuscular Volume 88.9 fL Mean Corpuscular Hemoglobin 29.8 pg Mean Corpuscular Hemoglobin Concent 33.5 g/dl Platelet Count 100 K/uL Mean Platelet Volume 10.5 fL Neutrophils (%) (Auto) 58.9 % Lymphocytes (%) (Auto) 23.2 % Monocytes (%) (Auto) 14.5 % Eosinophils (%) (Auto) 2.8 % Basophils (%) (Auto) 0.4 % Neutrophils # (Auto) 3.13 K/uL Lymphocytes # (Auto) 1.23 K/uL Monocytes # (Auto) 0.77 K/uL Eosinophils # (Auto) 0.15 K/uL Basophils # (Auto) 0.02 K/uL RDW Standard Deviation 45.7 fL RDW Coefficient of Variation 14.0 % Immature Granulocyte % (Auto) 0.2 % Immature Granulocyte # (Auto) 0.01 K/uL Sodium Level 140 mmol/L Potassium Level 3.4 mmol/L Chloride Level 107 mmol/L Carbon Dioxide Level 26 mmol/L Anion Gap 7.0 mmol/L Blood Urea Nitrogen 10 mg/dl Creatinine 0.75 mg/dl Est Creatinine Clear Calc Drug Dose 56.4 ml/min Estimated GFR () 83.1 Estimated GFR (Non- 71.7 BUN/Creatinine Ratio 12.9 Random Glucose 105 mg/dl Calcium Level 8.5 mg/dl Magnesium Level 1.9 mg/dl Assessment and Plan 87-year-old female with recurrent C difficile colitis, not sure whether she actually has urinary tract infection with E coli. Would continue patient on fidaxomicin for C diff, recommend transition to oral therapy with Omnicef 300 mg b.i.d. to complete 7 days of therapy for possible UTI.
[2017-08-11 20:52] VITALS: BP 118/77; PULSE 69
[2017-08-11 23:21] VITALS: BP 122/67; PULSE 57; TEMP 36.4; O2SAT 98
[2017-08-12 07:00] VITALS: BP 125/68; PULSE 59; TEMP 36.5; O2SAT 96
[2017-08-12 08:00] VITALS: O2SAT 96
[2017-08-12] MEDS: FIDAXOMICIN TAB 200 MG TAB PO SCH ×2 (08:24→19:46)
[2017-08-12] MEDS: MAGNESIUM OXIDE 400 MG TAB PO SCH ×2 (08:24→19:28)
[2017-08-12] MEDS: TIMOLOL GFS 0.5% OPH SOLN 74 DROPS/5 ML BTL OPB SCH ×2 (08:24→19:28)
[2017-08-12] MEDS: CEFDINIR 300 MG CAP PO SCH ×2 (08:24→19:29)
[2017-08-12] MEDS: LACTOBACILLUS ACIDOPHILUS (FLORANEX) TAB PO SCH ×3 (08:25→16:04)
[2017-08-12] MEDS: ASPIRIN 81 MG ECTAB PO SCH (08:25)
[2017-08-12] MEDS: HYDROCHLOROTHIAZIDE 25 MG TAB PO SCH (08:25)
[2017-08-12] MEDS: METOPROLOL TARTRATE 25 MG TAB PO SCH ×2 (08:25→19:29)
[2017-08-12] MEDS: GABAPENTIN 300 MG CAP PO SCH ×2 (08:26→19:27)
[2017-08-12] MEDS: CLOPIDOGREL BISULFATE 75 MG TAB PO SCH (08:26)
[2017-08-12] MEDS: ESCITALOPRAM OXALATE 10 MG TAB PO SCH (08:26)
[2017-08-12] MEDS: ATORVASTATIN 20 MG TAB PO SCH (08:26)
[2017-08-12] MEDS: LOSARTAN POTASSIUM 50 MG TAB PO SCH (08:28)
[2017-08-12 08:55] LABS: BASO % 0.9 %; BASO ABS # 0.06 K/uL (0-0.2); EOS % 2.6 %; EOS ABS # 0.17 K/uL (0-0.5); HEMATOCRIT 37.9 % (37-47); HEMOGLOBIN 13.2 g/dL (12.0-16.0); IG# 0.04 K/uL (0.00-0.02); LYMPH % 22.5 %; LYMPH ABS # 1.47 K/uL (1.2-3.4); MEAN CELL VOLUME 88.3 fL (80-100); MEAN CORPUSCULAR HEMOGLOBIN 30.8 pg (25-34); MEAN CORPUSCULAR HGB CONC 34.8 g/dl (32-36); MEAN PLATELET VOLUME 11.2 fL (7.4-10.4); MONO % 12.1 %; MONO ABS # 0.79 K/uL (0.11-0.59); NEUT % 61.3 %; NEUT ABS # 4.01 K/uL (1.4-6.5); PLATELET COUNT 122 K/uL (130-400); RED CELL DISTRIBUTION WIDTH SD 45.5 fL (36.4-46.3); WHITE BLOOD COUNT 6.54 K/uL (4.8-10.8)
[2017-08-12 09:23] LABS: CREATININE 0.88 mg/dl (0.60-1.20); POTASSIUM 3.6 mmol/L (3.5-5.1)
--- NOTE | 2017-08-12 12:47 | Progress Note ---
Internal Med Progress Note Date of Service: August 12, 2017. Provider Documentation: SUBJECTIVE: sitting comfortably on the chair and eating lunch afebrile had one soft bowel movement today so far has some rumbling in abdomen but other [place] no nausea or abdominal pain no sob OBJECTIVE: Vital Signs-as noted below Exam: General-alert and oriented. Not in distress ENT-Normal hearing Neck-no neck masses Lungs-cta b/l no wheezing no crackles Heart-s1 and s2 heard regular rate and rhythm no murmurs Abdomen-soft bowel sounds present non tender, no distension Extremities-trace pedal edema Neuro-alert and awake 'moves extremities Lab data as noted below. 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 1. Generalized weakness- c diff colitis and UTI pancolitis on ct scan recurrent c diff recently had 10 day course and also 6 week vanco taper course currently on Dificid 200mg BID#4 ID on board plan for Long po vanco taper after completion of 10 day Dificid course as per ID recommendations s/p flex sigmoidoscopy 08/09/17- no colitis and pseudomembrane seen-possibly resolving CDI tolerating regular diet now awaiting insurance approval of Dificid continue to monitor 2. UTI -Rocephin empirically, urine culture klebsiella . Rocephin changed to Omnicef #4 to complete one week course 3. Hypertension-stable, on Hyzaar and metoprolol.Will monitor 5. History of CVA-on aspirin, Plavix, statin. will monitor. stable 6. RILEY-CPAP at night 7. Diabetes mellitus type 2-diet controlled, last hemoglobin A1c was 6.0 on . will monitor. 8. Diabetic neuropathy-continue gabapentin 9. Depression-On Lexapro. DVT prophylaxis-heparin subcu DO NOT RESUSCITATE. Disposition- pt/ot await insurance approval for Dificid plan to back to [facility] for d/c planning social [facility] for d/c planning Vital Signs: Date Time Temp Pulse Resp B/P (MAP) Pulse Ox O2 Delivery O2 Flow Rate FiO2 08/12/17 08:00 96 Room Air 08/12/17 07:00 36.5 59 16 125/68 (87) 96 Room Air 08/12/17 00:01 Room Air 08/11/17 23:21 36.4 57 18 122/67 (85) 98 Room Air 08/11/17 20:52 69 118/77 (91) 08/11/17 19:44 Room Air 08/11/17 15:36 36.4 64 18 147/78 (101) 95 Room Air Lab Results: Results Past 24 Hours Test 08/12/17 08:35 Range/Units White Blood Count 6.54 4.8-10.8 K/uL Red Blood Count 4.29 4.2-5.4 M/uL Hemoglobin 13.2 12.0-16.0 g/dL Hematocrit 37.9 37-47 % Mean Corpuscular Volume 88.3 80-100 fL Mean Corpuscular Hemoglobin 30.8 25-34 pg Mean Corpuscular Hemoglobin Concent 34.8 32-36 g/dl Platelet Count 122 130-400 K/uL Mean Platelet Volume 11.2 7.4-10.4 fL Neutrophils (%) (Auto) 61.3 % Lymphocytes (%) (Auto) 22.5 % Monocytes (%) (Auto) 12.1 % Eosinophils (%) (Auto) 2.6 % Basophils (%) (Auto) 0.9 % Neutrophils # (Auto) 4.01 1.4-6.5 K/uL Lymphocytes # (Auto) 1.47 1.2-3.4 K/uL Monocytes # (Auto) 0.79 0.11-0.59 K/uL Eosinophils # (Auto) 0.17 0-0.5 K/uL Basophils # (Auto) 0.06 0-0.2 K/uL RDW Standard Deviation 45.5 36.4-46.3 fL RDW Coefficient of Variation 14.0 11.5-14.5 % Immature Granulocyte % (Auto) 0.6 % Immature Granulocyte # (Auto) 0.04 0.00-0.02 K/uL Sodium Level 139 136-145 mmol/L Potassium Level 3.6 3.5-5.1 mmol/L Chloride Level 105 98-107 mmol/L Carbon Dioxide Level 26 21-32 mmol/L Anion Gap 8.0 3-11 mmol/L Blood Urea Nitrogen 10 7-18 mg/dl Creatinine 0.88 0.60-1.20 mg/dl Est Creatinine Clear Calc Drug Dose 48.0 ml/min Estimated GFR () 68.5 Estimated GFR (Non- 59.1 BUN/Creatinine Ratio 10.8 10-20 Random Glucose 132 70-99 mg/dl Calcium Level 9.0 8.5-10.1 mg/dl Magnesium Level 1.8 1.8-2.4 mg/dl
[2017-08-12 14:59] VITALS: BP 112/68; PULSE 65; TEMP 36.7; O2SAT 96
[2017-08-12 23:09] VITALS: BP 164/72; PULSE 64; TEMP 36.5; O2SAT 95
[2017-08-13] MEDS: ATORVASTATIN 20 MG TAB PO SCH (07:55)
[2017-08-13] MEDS: CLOPIDOGREL BISULFATE 75 MG TAB PO SCH (07:59)
[2017-08-13] MEDS: LACTOBACILLUS ACIDOPHILUS (FLORANEX) TAB PO SCH ×3 (08:00→17:08)
[2017-08-13] MEDS: HYDROCHLOROTHIAZIDE 25 MG TAB PO SCH (08:00)
[2017-08-13] MEDS: ESCITALOPRAM OXALATE 10 MG TAB PO SCH (08:00)
[2017-08-13] MEDS: GABAPENTIN 300 MG CAP PO SCH ×2 (08:00→21:33)
[2017-08-13] MEDS: LOSARTAN POTASSIUM 50 MG TAB PO SCH (08:01)
[2017-08-13] MEDS: CEFDINIR 300 MG CAP PO SCH ×2 (08:01→21:31)
[2017-08-13] MEDS: TIMOLOL GFS 0.5% OPH SOLN 74 DROPS/5 ML BTL OPB SCH ×2 (08:02→21:30)
[2017-08-13] MEDS: MAGNESIUM OXIDE 400 MG TAB PO SCH ×2 (08:02→21:32)
[2017-08-13] MEDS: METOPROLOL TARTRATE 25 MG TAB PO SCH ×2 (08:02→21:31)
[2017-08-13] MEDS: ASPIRIN 81 MG ECTAB PO SCH (08:02)
[2017-08-13 08:05] VITALS: BP 154/73; PULSE 61; TEMP 36.7; O2SAT 95
[2017-08-13] MEDS: FIDAXOMICIN TAB 200 MG TAB PO SCH ×2 (08:52→21:43)
--- NOTE | 2017-08-13 14:28 | Progress Note ---
Subjective Date of Service: August 13, 2017. Subjective Pt evaluation today including: conversation w/ patient, physical exam, lab review, review of studies, review of inpatient medication list Saw/examined the patient in room 404 She's doing okay, diarrhea slightly improving, but still present no abdominal pain, no fevers/chills Problem List Medical Problems: (1) Arterial hemorrhage Status: Acute (2) Fall Status: Acute (3) Fall Status: Acute (4) Fall Status: Acute (5) Head injury Status: Acute (6) Humeral head fracture Status: Acute (7) Hypoxia Status: Acute (8) Multiple abrasions Status: Acute (9) Nasal fracture Status: Acute (10) Nasal laceration Status: Acute (11) Pancolitis Status: Acute (12) Scalp laceration Status: Acute (13) Syncope Status: Acute (14) Urinary tract infection Status: Acute (15) Visual field defect of left eye Status: Acute Review of Systems Constitutional: No fever, No chills Respiratory: No shortness of breath Cardiac: No chest pain Abdomen: + diarrhea, No pain, No nausea, No vomiting, No constipation, No GI bleeding Medications Current Inpatient Medications Medications (Trade) Dose Ordered Sig/Naz Route Start Time Stop Time Status Last Admin Dose Admin Aspirin (Ecotrin Tab) 81 mg DAILY PO 08/08/17 09:00 09/07/17 08:59 08/13/17 08:02 81 MG Atorvastatin Calcium (Lipitor Tab) 40 mg DAILY PO 08/08/17 09:00 09/07/17 08:59 08/13/17 07:55 40 MG Clopidogrel Bisulfate (plAVix TAB) 75 mg DAILY PO 08/08/17 09:00 09/07/17 08:59 08/13/17 07:59 75 MG Escitalopram Oxalate (Lexapro Tab) 15 mg DAILY PO 08/08/17 09:00 09/07/17 08:59 08/13/17 08:00 15 MG Gabapentin (Neurontin Cap) 300 mg DAILY PO 08/08/17 09:00 09/07/17 08:59 08/13/17 08:00 300 MG Gabapentin (Neurontin Cap) 600 mg HS PO 08/08/17 21:00 09/07/17 20:59 08/12/17 19:27 600 MG Metoprolol Tartrate (Lopressor Tab) 25 mg BID PO 08/08/17 09:00 09/07/17 08:59 08/13/17 08:02 25 MG Timolol Maleate (Timoptic-Xe 0.5% Oph Soln) 1 drops BID OPB 08/08/17 09:00 09/07/17 08:59 08/13/17 08:02 1 DROPS Losartan Potassium (coZAAR TAB) 100 mg DAILY PO 08/08/17 08:00 09/07/17 07:59 08/13/17 08:01 100 MG Miscellaneous Information (Order Awaiting Action) 1 ea QS N/A 08/08/17 08:00 09/07/17 07:59 Hydrochlorothiazide (Hydrochlorothiazide Tab) 12.5 mg DAILY PO 08/08/17 08:00 09/07/17 07:59 08/13/17 08:00 12.5 MG Fidaxomicin (Dificid Tab) 200 mg BID PO 08/08/17 20:00 08/22/17 19:59 08/13/17 08:52 200 MG Lactobacillus Acidophilus (Floranex Tab) 4 tab TIDM PO 08/08/17 17:00 09/07/17 07:59 08/13/17 11:57 4 TAB Magnesium Oxide (Mag-Ox Tab) 400 mg BID PO 08/10/17 20:00 09/09/17 19:59 08/13/17 08:02 400 MG Cefdinir (Omnicef Cap) 300 mg BID PO 08/12/17 08:00 08/22/17 07:59 08/13/17 08:01 300 MG Objective Vital Signs Date Time Temp Pulse Resp B/P (MAP) Pulse Ox O2 Delivery O2 Flow Rate FiO2 08/13/17 08:15 Room Air 08/13/17 08:05 36.7 61 18 154/73 (100) 95 Room Air 08/13/17 00:15 Room Air 08/12/17 23:09 36.5 64 18 164/72 (102) 95 Room Air 08/12/17 16:00 Room Air 08/12/17 14:59 36.7 65 18 112/68 (83) 96 Physical Exam General Appearance: no apparent distress Respiratory/Chest: lungs clear, normal breath sounds, no respiratory distress, no accessory muscle use Cardiovascular: regular rate, rhythm, no edema, no murmur Abdomen: normal bowel sounds, non tender, soft Neurologic/Psychiatric: no motor/sensory deficits, alert, normal mood/affect Assessment and Plan This is an 87 year old female with a past medical history of DM2, 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 diff - presents from the [facility] with recurrent C. Diff Infection and UTI Recurrent C. Diff Infection - appreciate GI and ID input - s/p flex sig - possible pseudomembranous changes - ID recommends Dificid 200mg PO BID x10 days - case management to find out the cost - pending insurance approval for Dificid, can discharge back to the [facility] - will need long-term PO Vancomycin after Dificid course is done UTI - pansensitive Klebsiella - currently on Omnicef; finish course Hx. of CVA - chronic visual changes - head CT on 08/11 with no acute changes - continue aspirin, Plavix, statin HTN - blood pressure stable - continue Cozaar, Lopressor and HCTZ RILEY with Nocturnal CPAP Depression - continue Lexapro DM2 - well controlled without insulin Diabetic Neuropathy - continue Gabapentin DVT ppx - Lovenox DNR
[2017-08-13 15:16] LABS: INR 1.1 (0.9-1.1)
[2017-08-13 15:37] VITALS: BP 186/75; PULSE 57; TEMP 36.5; O2SAT 94
[2017-08-13 21:32] VITALS: PULSE 71
[2017-08-13] MEDS: HEPARIN SOD 5000 UNIT/0.5 ML CARP SQ SCH (21:42)
[2017-08-13 22:39] VITALS: BP 144/75; PULSE 68; TEMP 36.8; O2SAT 91
[2017-08-14 06:18] LABS: HEMATOCRIT 35.1 % (37-47); HEMOGLOBIN 11.8 g/dL (12.0-16.0); MEAN CELL VOLUME 89.3 fL (80-100); MEAN CORPUSCULAR HGB CONC 33.6 g/dl (32-36); MEAN PLATELET VOLUME 9.9 fL (7.4-10.4); PLATELET COUNT 120 K/uL (130-400); RED CELL DISTRIBUTION WIDTH CV 14.1 % (11.5-14.5); RED CELL DISTRIBUTION WIDTH SD 46.3 fL (36.4-46.3)
[2017-08-14 06:38] VITALS: BP 145/79; PULSE 64; TEMP 36.4; O2SAT 92
[2017-08-14 06:49] LABS: CALCIUM 8.9 mg/dl (8.5-10.1); CREATININE 0.86 mg/dl (0.60-1.20); POTASSIUM 3.6 mmol/L (3.5-5.1)
[2017-08-14 08:00] VITALS: O2SAT 92
[2017-08-14] MEDS ORDERED: POTASSIUM CHLORIDE 20 MEQ TABCR PO ONE (08:00)
[2017-08-14] MEDS ORDERED: MAGNESIUM SULFATE 1GM / D5W 100 ML IV ONE (08:00)
[2017-08-14] MEDS: FIDAXOMICIN TAB 200 MG TAB PO SCH (08:57)
[2017-08-14] MEDS: ESCITALOPRAM OXALATE 10 MG TAB PO SCH (08:58)
[2017-08-14] MEDS: GABAPENTIN 300 MG CAP PO SCH (08:58)
[2017-08-14] MEDS: LACTOBACILLUS ACIDOPHILUS (FLORANEX) TAB PO SCH ×3 (08:58→17:00)
[2017-08-14] MEDS: CLOPIDOGREL BISULFATE 75 MG TAB PO SCH (08:58)
[2017-08-14] MEDS: LOSARTAN POTASSIUM 50 MG TAB PO SCH (08:58)
[2017-08-14] MEDS: HEPARIN SOD 5000 UNIT/0.5 ML CARP SQ SCH (09:00)
[2017-08-14] MEDS: CEFDINIR 300 MG CAP PO SCH (09:00)
[2017-08-14] MEDS: ATORVASTATIN 20 MG TAB PO SCH (09:00)
[2017-08-14] MEDS: HYDROCHLOROTHIAZIDE 25 MG TAB PO SCH (09:00)
[2017-08-14] MEDS: MAGNESIUM OXIDE 400 MG TAB PO SCH (09:00)
[2017-08-14] MEDS: ASPIRIN 81 MG ECTAB PO SCH (09:01)
[2017-08-14] MEDS: METOPROLOL TARTRATE 25 MG TAB PO SCH (09:01)
[2017-08-14] MEDS: TIMOLOL GFS 0.5% OPH SOLN 74 DROPS/5 ML BTL OPB SCH (09:08)
--- NOTE | 2017-08-14 10:22 | Progress Note ---
Subjective Date of Service: August 14, 2017. Subjective Pt evaluation today including: conversation w/ patient, physical exam, lab review, review of studies, review of inpatient medication list Saw/examined the patient in room 404 She's doing better diarrhea more formed today; and no fevers/chills Eager to get out of the hospital and go back to [facility] Problem List Medical Problems: (1) Arterial hemorrhage Status: Acute (2) Fall Status: Acute (3) Fall Status: Acute (4) Fall Status: Acute (5) Head injury Status: Acute (6) Humeral head fracture Status: Acute (7) Hypoxia Status: Acute (8) Multiple abrasions Status: Acute (9) Nasal fracture Status: Acute (10) Nasal laceration Status: Acute (11) Pancolitis Status: Acute (12) Scalp laceration Status: Acute (13) Syncope Status: Acute (14) Urinary tract infection Status: Acute (15) Visual field defect of left eye Status: Acute Review of Systems Constitutional: No fever, No chills, No weakness Respiratory: No shortness of breath Cardiac: No chest pain Abdomen: + diarrhea, No pain, No nausea, No vomiting Medications Current Inpatient Medications Medications (Trade) Dose Ordered Sig/Naz Route Start Time Stop Time Status Last Admin Dose Admin Aspirin (Ecotrin Tab) 81 mg DAILY PO 08/08/17 09:00 09/07/17 08:59 08/14/17 09:01 81 MG Atorvastatin Calcium (Lipitor Tab) 40 mg DAILY PO 08/08/17 09:00 09/07/17 08:59 08/14/17 09:00 40 MG Clopidogrel Bisulfate (plAVix TAB) 75 mg DAILY PO 08/08/17 09:00 09/07/17 08:59 08/14/17 08:58 75 MG Escitalopram Oxalate (Lexapro Tab) 15 mg DAILY PO 08/08/17 09:00 09/07/17 08:59 08/14/17 08:58 15 MG Gabapentin (Neurontin Cap) 300 mg DAILY PO 08/08/17 09:00 09/07/17 08:59 08/14/17 08:58 300 MG Gabapentin (Neurontin Cap) 600 mg HS PO 08/08/17 21:00 09/07/17 20:59 08/13/17 21:33 600 MG Metoprolol Tartrate (Lopressor Tab) 25 mg BID PO 08/08/17 09:00 09/07/17 08:59 08/14/17 09:01 25 MG Timolol Maleate (Timoptic-Xe 0.5% Oph Soln) 1 drops BID OPB 08/08/17 09:00 09/07/17 08:59 08/14/17 09:08 1 DROPS Losartan Potassium (coZAAR TAB) 100 mg DAILY PO 08/08/17 08:00 09/07/17 07:59 08/14/17 08:58 100 MG Miscellaneous Information (Order Awaiting Action) 1 ea QS N/A 08/08/17 08:00 09/07/17 07:59 Hydrochlorothiazide (Hydrochlorothiazide Tab) 12.5 mg DAILY PO 08/08/17 08:00 09/07/17 07:59 08/14/17 09:00 12.5 MG Fidaxomicin (Dificid Tab) 200 mg BID PO 08/08/17 20:00 08/22/17 19:59 08/14/17 08:57 200 MG Lactobacillus Acidophilus (Floranex Tab) 4 tab TIDM PO 08/08/17 17:00 09/07/17 07:59 08/14/17 08:58 4 TAB Magnesium Oxide (Mag-Ox Tab) 400 mg BID PO 08/10/17 20:00 09/09/17 19:59 08/14/17 09:00 400 MG Cefdinir (Omnicef Cap) 300 mg BID PO 08/12/17 08:00 08/22/17 07:59 08/14/17 09:00 300 MG Heparin Sodium (Porcine) (Heparin Sq 5000 Unit/0.5ml) 5,000 unit Q12 SQ 08/13/17 21:00 09/12/17 20:59 08/13/17 21:42 5,000 UNIT Objective Vital Signs Date Time Temp Pulse Resp B/P (MAP) Pulse Ox O2 Delivery O2 Flow Rate FiO2 08/14/17 06:38 36.4 64 18 145/79 (101) 92 Room Air 08/14/17 00:20 Room Air 08/13/17 22:39 36.8 68 18 144/75 (98) 91 Room Air 08/13/17 21:32 71 08/13/17 16:20 Room Air 08/13/17 15:37 36.5 57 16 186/75 112 94 Physical Exam General Appearance: no apparent distress Respiratory/Chest: lungs clear, normal breath sounds, no respiratory distress, no accessory muscle use Cardiovascular: regular rate, rhythm, no edema, no murmur Extremities: normal range of motion, non-tender, normal inspection, no pedal edema, no calf tenderness Neurologic/Psychiatric: no motor/sensory deficits, alert, normal mood/affect Laboratory Results Last 24 Hours Test 08/13/17 15:00 08/14/17 06:05 Prothrombin Time 11.2 SECONDS Prothromb Time International Ratio 1.1 White Blood Count 7.90 K/uL Red Blood Count 3.93 M/uL Hemoglobin 11.8 g/dL Hematocrit 35.1 % Mean Corpuscular Volume 89.3 fL Mean Corpuscular Hemoglobin 30.0 pg Mean Corpuscular Hemoglobin Concent 33.6 g/dl RDW Standard Deviation 46.3 fL RDW Coefficient of Variation 14.1 % Platelet Count 120 K/uL Mean Platelet Volume 9.9 fL Sodium Level 139 mmol/L Potassium Level 3.6 mmol/L Chloride Level 105 mmol/L Carbon Dioxide Level 28 mmol/L Anion Gap 6.0 mmol/L Blood Urea Nitrogen 13 mg/dl Creatinine 0.86 mg/dl Est Creatinine Clear Calc Drug Dose 49.2 ml/min Estimated GFR () 70.4 Estimated GFR (Non- 60.7 BUN/Creatinine Ratio 15.1 Random Glucose 105 mg/dl Calcium Level 8.9 mg/dl Magnesium Level 1.7 mg/dl Assessment and Plan This is an 87 year old female with a past medical history of DM2, 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 diff - presents from the [facility] with recurrent C. Diff Infection and UTI Recurrent C. Diff Infection 08/14 - plan to d/c back to [facility] today - will d/c on Dificid 200mg BID for the next 4 days to total 10 days - then will go back to Vancomycin tapering dose afterwards 08/13 - appreciate GI and ID input - s/p flex sig - possible pseudomembranous changes - ID recommends Dificid 200mg PO BID x10 days - case management to find out the cost - pending insurance approval for Dificid, can discharge back to the [facility] - will need long-term PO Vancomycin after Dificid course is done UTI - pansensitive Klebsiella - currently on Omnicef; finish course Hx. of CVA - chronic visual changes - head CT on 08/11 with no acute changes - continue aspirin, Plavix, statin HTN - blood pressure stable - continue Cozaar, Lopressor and HCTZ RILEY with Nocturnal CPAP Depression - continue Lexapro DM2 - well controlled without insulin Diabetic Neuropathy - continue Gabapentin DVT ppx - Lovenox DNR
[2017-08-14] MEDS ORDERED: MGNO400 PO (10:27)
[2017-08-14] MEDS ORDERED: DFC200 PO (10:27)
[2017-08-14] MEDS ORDERED: VANC5CAP PO (10:27)
[2017-08-14] MEDS ORDERED: CEFD300C3 PO (10:27)
--- NOTE | 2017-08-14 10:38 | Discharge Instructions ---
Discharge Instructions Date of Service August 14, 2017. Admission Reason for Admission: Uti, Weakness Discharge Discharge Diagnosis / Problem: C. Diff Infection/Diarrhea, UTI Discharge Goals Goal(s): Decrease discomfort, Improve function, Diagnostic testing, Therapeutic intervention Activity Recommendations Activity Limitations: resume your previous activity . Instructions / Follow-Up Instructions / Follow-Up Please follow-up with Dr. Borges on August 15 at 2:55PM * We will switch to oral Vancomycin - this should be started after the Dificid; will be on a tapering dose * First take 125mg four times daily for 14 days * Then take 125mg twice daily for 14 days * Next take 125mg daily for 14 days * Finally, take 125mg every other day for another 14 days * This schedule can be adjusted depending on clinical course/picture and/or by infectious disease specialist * You will also be given Omnicef (antibiotic) for a urinary tract infection Current Hospital Diet Patient's current hospital diet: Diabetes Type 2 Diet Discharge Diet Recommended Diet: Diabetes Type 2 Diet Procedures Procedures Performed: BX Pending Studies Studies pending at discharge: no Laboratory Results Hemoglobin A1c Test 05/25/17 05:28 Range/Units Estimated Average Glucose 126 mg/dl Hemoglobin A1c 6.0 H 4.5-5.6 % Lipid Panel Test 05/25/17 05:28 Range/Units Triglycerides Level 44 0-150 mg/dl Cholesterol Level 132 0-200 mg/dl HDL Cholesterol 70 mg/dl Cholesterol/HDL Ratio 1.9 LDL Cholesterol, Calculated 53 mg/dl Medical Emergencies . Who to Call and When: Medical Emergencies: If at any time you feel your situation is an emergency, please call 911 immediately. . Non-Emergent Contact Non-Emergency issues call your: Primary Care Provider . . "Provider Documentation" section prepared by Hermann Avalos. .
--- NOTE | 2017-08-14 10:41 | Discharge Summary ---
Discharge Summary Date of Service August 14, 2017. Discharge Summary Admission Date: August 08, 2017 at 04:39 Discharge Date: August 14, 2017 Discharge Disposition: Personal care Principal Diagnosis: Recurrent C. Diff Infection UTI Hx. of CVA HTN RILEY with Nocturnal CPAP Depression DM2 Diabetic Neuropathy Consultations: GI-Vale ID-Clemencia Medication Reconciliation New Medications: Vancomycin Hcl (Vancomycin) 125 Mg Cap 125 MG PO QID for 14 Days, #56 CAP Cefdinir (Cefdinir) 300 Mg Cap 300 MG PO BID for 3 Days, #6 CAP Fidaxomicin (Dificid) 200 Mg Tab 200 MG PO BID for 4 Days, #9 TAB Magnesium Oxide (Magnesium-Oxide) 400 Mg Tab 400 MG PO BID for 30 Days, #60 TAB Continued Medications: Acetaminophen (Tylenol) 500 Mg Tab 500 MG PO Q4 PRN for Pain, TAB Aspirin (Aspirin Ec) 81 Mg Tab 81 MG PO DAILY Atorvastatin (Lipitor) 40 Mg Tab 40 MG PO DAILY, TAB Cholestyramine (Bulk) (Cholestyramine) 1 Pow Pow 1 DOSE PO BID MIX IN 8 OUNCES OF FLUID TWICE DAILY Clopidogrel (Plavix) 75 Mg Tab 75 MG PO DAILY, TAB Escitalopram (Lexapro) 10 Mg Tab 15 MG PO DAILY, TAB Gabapentin (Gabapentin) 300 Mg Cap 300 MG PO DAILY, #270 Gabapentin (Neurontin) 300 Mg Cap 600 MG PO HS, CAP Hctz/Losartan (Hyzaar 12.5MG/100MG) 1 Tab Tab 1 TAB PO DAILY, TAB Lactobacillus (Floranex) 1 Tab Tab 1 TAB PO TIDM Metoprolol Tartrate (Lopressor) 25 Mg Tab 25 MG PO BID Multiple Vitamins W/ Minerals (Preservision Areds 2) 1 Cap Cap 1 CAP PO BID Timolol Maleate (Ophth) (Timoptic-Xe 0.5% Oph) 0.5 % Reema 1 DROP OPB BID Admission Information HPI (per Admitting provider): 87 years old female with past medical history of type 2 diabetes, 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 Patient will lives at the [facility]. History is limited due to patient was tired. Most of the history obtained from fpc chart and daughter at bedside. Daughter said patient was doing fine on Mother's Day. She said her children took her out to eat.Yesterday, she started to feel very weak. She said that she did not eat much yesterday. she said that she continued to have diarrhea that has been going on for weeks. She had recurrent C. difficile and was recently treated with oral Vanco. Daughter said her PCP recently started her on cholestyramine for the diarrhea with no help. She denies any fever, nausea, vomiting, chest pain, dizziness, dysuria, urinary frequency and shortness of breath. 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 diff - presents from the [facility] with recurrent C. Diff Infection and UTI Recurrent C. Diff Infection 08/14 - plan to d/c back to The [facility] today - will d/c on Dificid 200mg BID for the next 4 days to total 10 days - then will go back to Vancomycin tapering dose afterwards 08/13 - appreciate GI and ID input - s/p flex sig - possible pseudomembranous changes - ID recommends Dificid 200mg PO BID x10 days - case management to find out the cost - pending insurance approval for Dificid, can discharge back to the [facility] - will need long-term PO Vancomycin after Dificid course is done UTI - pansensitive Klebsiella - currently on Omnicef; finish course Hx. of CVA - chronic visual changes - head CT on 08/11 with no acute changes - continue aspirin, Plavix, statin HTN - blood pressure stable - continue Cozaar, Lopressor and HCTZ RILEY with Nocturnal CPAP Depression - continue Lexapro DM2 - well controlled without insulin Diabetic Neuropathy - continue Gabapentin DVT ppx - Lovenox DNR Total time spent on discharge = 50 minutes This includes examination of the patient, discharge planning, medication reconciliation, and communication with other providers. Discharge Instructions Please follow-up with Dr. Borges on August 15 at 2:55PM * We will switch to oral Vancomycin - this should be started after the Dificid; will be on a tapering dose * First take 125mg four times daily for 14 days * Then take 125mg twice daily for 14 days * Next take 125mg daily for 14 days * Finally, take 125mg every other day for another 14 days * This schedule can be adjusted depending on clinical course/picture and/or by infectious disease specialist * You will also be given Omnicef (antibiotic) for a urinary tract infection
--- NOTE | 2017-08-14 13:52 | Infectious Disease Progress Nt ---
Progress Note Date of Service August 14, 2017. Subjective Pt evaluation today including: conversation w/ patient, physical exam, chart review, lab review, review of studies, conversation w/ business continuity consultant, review of inpatient medication list Diarrhea is slowly improving. Remains afebrile. No new complaints. All Other Systems: Reviewed and Negative Medications Current Inpatient Medications Medications (Trade) Dose Ordered Sig/Naz Route Start Time Stop Time Status Last Admin Dose Admin Aspirin (Ecotrin Tab) 81 mg DAILY PO 08/08/17 09:00 09/07/17 08:59 08/14/17 09:01 81 MG Atorvastatin Calcium (Lipitor Tab) 40 mg DAILY PO 08/08/17 09:00 09/07/17 08:59 08/14/17 09:00 40 MG Clopidogrel Bisulfate (plAVix TAB) 75 mg DAILY PO 08/08/17 09:00 09/07/17 08:59 08/14/17 08:58 75 MG Escitalopram Oxalate (Lexapro Tab) 15 mg DAILY PO 08/08/17 09:00 09/07/17 08:59 08/14/17 08:58 15 MG Gabapentin (Neurontin Cap) 300 mg DAILY PO 08/08/17 09:00 09/07/17 08:59 08/14/17 08:58 300 MG Gabapentin (Neurontin Cap) 600 mg HS PO 08/08/17 21:00 09/07/17 20:59 08/13/17 21:33 600 MG Metoprolol Tartrate (Lopressor Tab) 25 mg BID PO 08/08/17 09:00 09/07/17 08:59 08/14/17 09:01 25 MG Timolol Maleate (Timoptic-Xe 0.5% Oph Soln) 1 drops BID OPB 08/08/17 09:00 09/07/17 08:59 08/14/17 09:08 1 DROPS Losartan Potassium (coZAAR TAB) 100 mg DAILY PO 08/08/17 08:00 09/07/17 07:59 08/14/17 08:58 100 MG Miscellaneous Information (Order Awaiting Action) 1 ea QS N/A 08/08/17 08:00 09/07/17 07:59 Hydrochlorothiazide (Hydrochlorothiazide Tab) 12.5 mg DAILY PO 08/08/17 08:00 09/07/17 07:59 08/14/17 09:00 12.5 MG Fidaxomicin (Dificid Tab) 200 mg BID PO 08/08/17 20:00 08/22/17 19:59 08/14/17 08:57 200 MG Lactobacillus Acidophilus (Floranex Tab) 4 tab TIDM PO 08/08/17 17:00 09/07/17 07:59 08/14/17 12:45 4 TAB Magnesium Oxide (Mag-Ox Tab) 400 mg BID PO 08/10/17 20:00 09/09/17 19:59 08/14/17 09:00 400 MG Cefdinir (Omnicef Cap) 300 mg BID PO 08/12/17 08:00 08/22/17 07:59 08/14/17 09:00 300 MG Heparin Sodium (Porcine) (Heparin Sq 5000 Unit/0.5ml) 5,000 unit Q12 SQ 08/13/17 21:00 09/12/17 20:59 08/13/17 21:42 5,000 UNIT Objective Vital Signs Date Time Temp Pulse Resp B/P (MAP) Pulse Ox O2 Delivery O2 Flow Rate FiO2 08/14/17 06:38 36.4 64 18 145/79 (101) 92 Room Air 08/14/17 00:20 Room Air 08/13/17 22:39 36.8 68 18 144/75 (98) 91 Room Air 08/13/17 21:32 71 08/13/17 16:20 Room Air 08/13/17 15:37 36.5 57 16 186/75 (112) 94 Physical Exam General Appearance: WD/WN, no apparent distress Eyes: normal inspection, EOMI, sclerae normal ENT: normal ENT inspection, pharynx normal Neck: supple, no adenopathy, thyroid normal, trachea midline Respiratory/Chest: chest non-tender, lungs clear, normal breath sounds, no respiratory distress Cardiovascular: regular rate, rhythm, no gallop, no murmur Abdomen: normal bowel sounds, non tender, soft, no organomegaly Extremities: non-tender, no calf tenderness Neurologic/Psychiatric: alert, oriented x 3 Skin: normal color, warm/dry, no rash Lymphatic: no adenopathy Laboratory Results Last 24 Hours Test 08/13/17 15:00 08/14/17 06:05 Prothrombin Time 11.2 SECONDS Prothromb Time International Ratio 1.1 White Blood Count 7.90 K/uL Red Blood Count 3.93 M/uL Hemoglobin 11.8 g/dL Hematocrit 35.1 % Mean Corpuscular Volume 89.3 fL Mean Corpuscular Hemoglobin 30.0 pg Mean Corpuscular Hemoglobin Concent 33.6 g/dl RDW Standard Deviation 46.3 fL RDW Coefficient of Variation 14.1 % Platelet Count 120 K/uL Mean Platelet Volume 9.9 fL Sodium Level 139 mmol/L Potassium Level 3.6 mmol/L Chloride Level 105 mmol/L Carbon Dioxide Level 28 mmol/L Anion Gap 6.0 mmol/L Blood Urea Nitrogen 13 mg/dl Creatinine 0.86 mg/dl Est Creatinine Clear Calc Drug Dose 49.2 ml/min Estimated GFR () 70.4 Estimated GFR (Non- 60.7 BUN/Creatinine Ratio 15.1 Random Glucose 105 mg/dl Calcium Level 8.9 mg/dl Magnesium Level 1.7 mg/dl Assessment and Plan 87-year-old female with recurrent C difficile colitis, not sure whether she actually had urinary tract infection with E coli. As discussed, patient to be given prolonged vancomycin taper after discharge.
[2017-08-14 17:32] VITALS: BP 145/79; PULSE 64; TEMP 36.4; O2SAT 92
== END 2017-08-14 19:17 | disposition home or self-care (01) | DRG 372 ==
LOC: EDBD 01:51 → C.EDA 01:52 → C.4E 04:39 → UNDOADMIN 04:39 → ENRESERV 04:55
PROVIDERS: ADMIT Internal Medicine; ATTEND Family Medicine
PROC: 0DBN8ZX Excision of Sigmoid Colon, Via Natural or Artificial Opening Endoscopic, Diagnostic (ICD-10-PCS; principal; 2017-08-09 15:42)
DX: A04.71 Enterocolitis due to Clostridium difficile, recurrent (principal); N39.0 Urinary tract infection, site not specified; B96.1 Klebsiella pneumoniae [K. pneumoniae] as the cause of diseases classified elsewhere; R53.1 Weakness; I69.398 Other sequelae of cerebral infarction; H54.7 Unspecified visual loss; I10 Essential (primary) hypertension; E11.40 Type 2 diabetes mellitus with diabetic neuropathy, unspecified; G47.33 Obstructive sleep apnea (adult) (pediatric); F32.9 Major depressive disorder, single episode, unspecified; R29.6 Repeated falls; E66.9 Obesity, unspecified; Z68.30 Body mass index [BMI] 30.0-30.9, adult; Z66 Do not resuscitate; Z79.02 Long term (current) use of antithrombotics/antiplatelets; Z79.82 Long term (current) use of aspirin; Z79.899 Other long term (current) drug therapy; Z91.81 History of falling; Z88.8 Allergy status to other drugs, medicaments and biological substances; Z91.030 Bee allergy status

== ENCOUNTER 2019-07-22 01:48 | Inpatient (IN) ==
[2019-07-22] MEDS ORDERED: ACETAMINOPHEN 1,000 MG/100 ML VIAL IV STA (02:04)
--- NOTE | 2019-07-22 02:12 | Emergency Department Note ---
History of Present Illness General Chief complaint: Shortness of Breath/Dyspnea Stated complaint: Shortness of breath, dizziness Time Seen by Provider: 07/22/19 02:04 Source: patient and EMS Mode of arrival: EMS Limitations: no limitations History of Present Illness Provider complaint: Fever Onset (ago): day(s) 1 Current Pain Intensity: 0 Associated symptoms: + fever/chills; no chest pain, no cough, no headaches, no nausea/vomiting and no shortness of breath Treatments prior to arrival: none This is an 89-year-old female brought in by EMS from the [facility]. Per EMS patient sent in due to fever, shortness of breath and cough. They state they have not noticed any increased work of breathing, tachypnea, or hypoxia during their time with the patient. EMS temperature was 99 although the director of assessing states patient does feel warm. Per our charge nurse, Dr. Santana called to alert us that the patient was coming in stating the staff called him due to concern for fever and general illness. There is no known contact with any COVID positive individuals there. Patient denied any complaints of pain, or shortness of breath. Patient here states that she has no pain, no trouble breathing, no cough. States she was told by staff that she had a fever and when they contacted the doctor they were instructed to send her to the emergency room. Patient has no complaints at this time. Patient states she has not recently been ill. Denies any change in bowel or bladder function. Denies any black or bloody stools. Denies vomiting or loss of appetite. Patient denies any pulmonary or cardiac history. Patient states she does not use any oxygen or breathing treatments at home. Patient does wear CPAP for sleep apnea at night. No recent change in any medications. Pt seen during a time of high acuity and national emergency pandemic while wearing PPE. Home Medications Home Medications Medication Instructions Recorded Confirmed Type acetaminophen [Acetaminophen Extra 500 mg PO TID PRN MDD 3gm 07/22/19 07/22/19 History Strength] atorvastatin 40 mg PO DAILY 07/22/19 07/22/19 History calcium carbonate [Tums] 400 mg PO Q4 PRN 07/22/19 07/22/19 History calcium carbonate-vitamin D3 1 tab PO DAILY 07/22/19 07/22/19 History [Oyster Shell Calcium-Vit D3] carboxymethylcellulose sodium 1 drp OPB QID 07/22/19 07/22/19 History [Refresh Tears] clopidogrel 75 mg PO DAILY 07/22/19 07/22/19 History escitalopram oxalate 15 mg PO DAILY 07/22/19 07/22/19 History famotidine 20 mg PO BID 07/22/19 07/22/19 History furosemide 20 mg PO DAILY 07/22/19 07/22/19 History gabapentin 300 mg PO DAILY 07/22/19 07/22/19 History gabapentin 600 mg PO HS 07/22/19 07/22/19 History hydrocortisone 1 applic TOPICAL BID PRN 07/22/19 07/22/19 History lactase [Lactaid] 3,000 unit PO TIDM 07/22/19 07/22/19 History loperamide [Imodium A-D] 2 mg PO TID 07/22/19 07/22/19 History losartan 100 mg PO DAILY 07/22/19 07/22/19 History metoprolol tartrate 25 mg PO BID 07/22/19 07/22/19 History xskcqzdidwtk-rqm-bioz-FA-vit K 1 tab PO DAILY 07/22/19 07/22/19 History [Multi-Day Plus Minerals] simethicone [Gas Relief 80 80 mg PO Q8 07/22/19 07/22/19 History (simethicone)] timolol maleate 1 drp OPB BID 07/22/19 07/22/19 History triamcinolone acetonide 1 applic TOPICAL HS 07/22/19 07/22/19 History Allergies Allergy/AdvReac Type Severity Reaction Status Date / Time bee venom protein (honey bee) Allergy Intermediate . Unverified 07/22/19 02:32 epinephrine Allergy Unknown BODY Verified 07/22/19 02:32 SHOOK, FREEZING Past Med/Surg History Medical History Acquired claw toe of left foot (Acute) Acquired claw toe of right foot (Acute) Callus (Acute) Diabetes mellitus with diabetic polyneuropathy (Acute) Hallux valgus (acquired), left foot (Acute) Social History Preferred Language: French Communication Ability: Effective Hearing Ability: Hard of Hearing Veneer Sorter Required: No Beliefs That Will Affect Care: None Current Living Situation: Personal Care Facility current occupational status: retired Other Information That Helps Us Care for You: No Feels Safe at Home: Yes Safety Concerns: Feels Safe At This Time Smoking Status: Unknown if ever smoked Hx Alcohol Use: No Hx Substance Use: No Review of Systems See HPI for pertinent positives & negatives. and A total of 10 systems reviewed and were otherwise negative Physical Exam Vital Signs Vital Signs - 24 hr 07/22/19 04:30 Pulse Rate 53 L Pulse Rate from SpO2 Sensor 53 L Respiratory Rate 15 Blood Pressure 114/52 L Blood Pressure Mean 72 Pulse Oximetry 96 Oxygen Delivery Method Nasal Cannula Oxygen Flow Rate 3 GENERAL: alert, well appearing, well nourished, no distress, non-toxic, facemask in place, nasal cannula oxygen EYE EXAM: normal conjunctiva, PERRL and EOM's grossly intact OROPHARYNX: no exudate, no erythema, lips, buccal mucosa, and tongue normal and mucous membranes are moist NECK: supple, no nuchal rigidity, no adenopathy, non-tender LUNGS: Clear to auscultation. Normal chest wall mechanics, no w/r/r HEART: no murmurs, S1 normal and S2 normal ABDOMEN: abdomen soft, non-tender, normo-active bowel sounds, no masses, no rebound or guarding. BACK: Back is symmetrical on inspection and there is no deformity, no midline tenderness, no CVA tenderness. SKIN: no rashes and no bruising, no petechiae UPPER EXTREMITIES: upper extremities are grossly normal. FROM, nml pulses b/l. LOWER EXTREMITIES: No pitting edema. FROM, nml pulses b/l. NEURO EXAM: Normal sensorium, cranial nerves II-XII grossly intact, normal speech, no gross weakness of arms, no gross weakness of legs. Gross sensation intact. Patient oriented and able to give history. Course Course 0340: Reexamine the patient. Patient awake, alert, and oriented. Updated on results. Patient states she had noticed a stronger odor to her urine over the last couple of weeks, however when she mentioned this to staff they advised her to drink more water. Nursing staff did alert me that they talk to the daughter of the patient. Daughter states she had noticed an increased cough and her mother over the last several days as well. States she has had a pneumonia vaccine. The daughter also states she received a letter from the facility stating that 1 of the staff members who work there did test positive for coronavirus. 0400: Discussed with Dr. Solorzano, [facility] service. Administered Medications Artificial Tears (Artificial Tears) 1 drops OP QID TYRELL Stop: 08/21/19 08:59 Last Admin: 07/22/19 20:27 Dose: 1 drops Documented by: [id number] Admin: 07/22/19 16:02 Dose: Not Given Documented by: [id number] Admin: 07/22/19 13:39 Dose: Not Given Documented by: [id number] Admin: 07/22/19 11:56 Dose: Not Given Documented by: [id number] Famotidine (Pepcid) 20 mg PO BID@0800,2000 [facility] Stop: 08/21/19 19:59 Last Admin: 07/22/19 20:26 Dose: 20 mg Documented by: [id number] Guaifenesin (Robitussin Sugar Free) 200 mg PO Q6H PRN PRN Reason: Cough Stop: 08/21/19 07:51 Last Admin: 07/22/19 09:23 Dose: 200 mg Documented by: [id number] Hydralazine HCl (Hydralazine Hcl) 10 mg IV Q6H PRN PRN Reason: SBP>160 Stop: 08/21/19 09:59 Last Admin: 07/22/19 12:18 Dose: 10 mg Documented by: [id number] Promethazine HCl 12.5 mg/ (Sodium Chloride) 50.5 mls @ 202 mls/hr IV Q6H PRN PRN Reason: Nausea And Vomiting Stop: 08/21/19 06:41 Last Infusion: 07/22/19 12:00 Dose: 0 mls/hr Documented by: [id number] Admin: 07/22/19 11:40 Dose: 202 mls/hr Documented by: [id number] Cefepime HCl 2,000 mg/ Syringe 20 mls @ 5 mls/min IV Q24H [facility]; Protocol Stop: 08/02/19 03:59 Last Admin: 07/23/19 04:25 Dose: 5 mls/min Documented by: [id number] Insulin Aspart (Novolog Flexpen) 0 units SC ACHS TYRELL Stop: 08/21/19 07:29 Last Admin: 07/22/19 20:40 Dose: Not Given Documented by: [id number] Cosigned by: [id number] Admin: 07/22/19 16:01 Dose: Not Given Documented by: [id number] Cosigned by: [id number] Admin: 07/22/19 11:54 Dose: Not Given Documented by: [id number] Cosigned by: [id number] Admin: 07/22/19 08:44 Dose: Not Given Documented by: [id number] Cosigned by: [id number] Ioversol (Optiray 320 125ml) 125 ml IV ONCE PRN PRN Reason: Interaction Checking Stop: 07/26/19 06:12 Last Admin: 07/22/19 06:13 Dose: 118 ml Documented by: [id number] Metoprolol Tartrate (Lopressor) 25 mg PO BID@ [facility] Stop: 08/21/19 19:59 Last Admin: 07/22/19 20:26 Dose: 25 mg Documented by: [id number] Timolol Maleate (Timoptic 0.25% Oph) 1 drops OPB BID@ [facility] Stop: 08/21/19 19:59 Last Admin: 07/22/19 20:26 Dose: 1 drops Documented by: [id number] Discontinued Medications Albuterol (Duoneb) 3 ml NEB NOW STA Stop: 07/22/19 06:43 Last Admin: 07/22/19 07:00 Dose: 3 ml Documented by: [id number] Amlodipine Besylate (Norvasc) 10 mg PO NOW ONE Stop: 07/22/19 12:30 Last Admin: 07/22/19 12:29 Dose: Not Given Documented by: [id number] Atorvastatin Calcium (Lipitor) 40 mg PO DAILY TYRELL Stop: 08/21/19 08:59 Last Admin: 07/22/19 08:17 Dose: 40 mg Documented by: [id number] Calcium Carbonate (Os-Eleazar 500) 1,250 mg PO DAILY TYRELL Stop: 08/21/19 08:59 Last Admin: 07/22/19 09:14 Dose: 1,250 mg Documented by: [id number] Clopidogrel Bisulfate (Plavix) 75 mg PO DAILY TYRELL Stop: 08/21/19 08:59 Last Admin: 07/22/19 08:16 Dose: 75 mg Documented by: [id number] Escitalopram Oxalate (Lexapro Tab) 15 mg PO DAILY TYRELL Stop: 08/21/19 08:59 Last Admin: 07/22/19 08:14 Dose: 15 mg Documented by: [id number] Famotidine (Pepcid) 20 mg PO BID TYRELL Stop: 08/21/19 08:59 Last Admin: 07/22/19 08:13 Dose: 20 mg Documented by: [id number] Hydralazine HCl (Hydralazine Hcl) 10 mg IV NOW STA Stop: 07/22/19 09:49 Last Admin: 07/22/19 09:56 Dose: 10 mg Documented by: [id number] Hydralazine HCl (Hydralazine Hcl) 10 mg IV NOW STA Stop: 07/22/19 12:13 Last Admin: 07/22/19 12:12 Dose: 10 mg Documented by: [id number] Acetaminophen (Ofirmev) 1,000 mg in 100 mls @ 400 mls/hr IV NOW STA Stop: 07/22/19 02:18 Last Infusion: 07/22/19 03:12 Dose: 0 mls/hr Documented by: [id number] Admin: 07/22/19 03:00 Dose: 400 mls/hr Documented by: [id number] Sodium Chloride (Nss 1000ml) 1,000 mls @ 125 mls/hr IV .Q8H TYRELL Stop: 08/21/19 02:14 Last Infusion: 07/22/19 07:05 Dose: 0 mls/hr Documented by: [id number] Admin: 07/22/19 03:03 Dose: 125 mls/hr Documented by: [id number] Cefepime HCl (Maxipime) 2,000 mg in 20 mls @ 5 mls/min IV NOW STA Stop: 07/22/19 02:50 Last Admin: 07/22/19 03:05 Dose: 5 mls/min Documented by: [id number] Potassium Chloride/Sodium Chloride (Normal Saline W/20 Meq Kcl) 20 meq in 1,000 mls @ 60 mls/hr IV .[id number] ONE Stop: 07/22/19 23:21 Last Infusion: 07/22/19 16:00 Dose: 0 mls/hr Documented by: [id number] Admin: 07/22/19 08:06 Dose: 60 mls/hr Documented by: [id number] Losartan Potassium (Cozaar) 100 mg PO DAILY TYRELL Stop: 08/21/19 08:59 Last Admin: 07/22/19 08:14 Dose: 100 mg Documented by: [id number] Metoprolol Tartrate (Lopressor) 25 mg PO BID TYRELL Stop: 08/21/19 08:59 Last Admin: 07/22/19 08:16 Dose: Not Given Documented by: [id number] Multivitamins/Minerals (Multivitamin W/ Minerals Tab) 1 tab PO DAILY TYRELL Stop: 08/21/19 08:59 Last Admin: 07/22/19 09:14 Dose: 1 tab Documented by: [id number] Timolol Maleate (Timoptic 0.25% Oph) 1 drops OPB BID TYRELL Stop: 08/21/19 08:59 Last Admin: 07/22/19 09:15 Dose: 1 drops Documented by: [id number] Critical Care Time Critical Care Time: Yes Total Critical Care Time: 37 Critical care of 37 min performed to assess and manage high likelihood of life- threatening hypoxia and fever, involving labs and imaging performed with assessment to evaluate possible sepsis diagnosis with frequent reassessment. This time includes bedside time, treatment discussions with patient/family/consultants, documentation time and excludes procedure time. Medical Decision Making Differential Diagnosis Differential diagnosis: Etiologies such as viral syndrome, otitis, pharyngitis, pneumonia, influenza, meningitis, urinary tract infection, sepsis, bacteremia, as well as others were entertained. Medical Records Attestation: I reviewed the patient's medical records. Home Medications Current Medication List: was personally reviewed by me Laboratory Data Attestation: I reviewed the patient's lab results. Result diagrams: 07/22/19 15:16 07/22/19 15:16 Lab Results 07/22/19 07/22/19 07/22/19 Range/Units 02:00 02:00 02:00 WBC 5.38 (4.8-10.8) K/uL RBC 4.16 L (4.2-5.4) M/uL Hgb 13.1 (12.0-16.0) g/dL Hct 38.5 (37-47) % MCV 92.5 (80-100) fL MCH 31.5 (25-34) pg MCHC 34.0 (32-36) g/dL RDW Std Deviation 47.9 H (36.4-46.3) fL RDW Coeff of Lupillo 14.1 (11.5-14.5) % Plt Count 98 L (130-400) K/uL MPV 11.7 H (7.4-10.4) fL Immature Gran % (Auto) 0.2 % Neut % (Auto) 62.8 % Lymph % (Auto) 18.4 % Sharp % (Auto) 17.3 % Eos % (Auto) 1.1 % Baso % (Auto) 0.2 % Immature Gran # (Auto) 0.01 (0.00-0.02) K/uL Neut # (Auto) 3.38 (1.4-6.5) K/uL Lymph # (Auto) 0.99 L (1.2-3.4) K/uL Sharp # (Auto) 0.93 H (0.11-0.59) K/uL Eos # (Auto) 0.06 (0-0.5) K/uL Baso # (Auto) 0.01 (0-0.2) K/uL Platelet Estimate Decreased L (Normal) APTT (21.0-31.0) Seconds PTT Ratio D-Dimer (0-500) ug/L FEU ABG pH (7.35-7.45) ABG pCO2 (35-46) mmHg ABG pO2 (80-95) mmHg ABG HCO3 (19-24) mmol/L ABG O2 Saturation (90-95) % ABG Base Excess (-9-1.8) mEq/L Xaveir Test (Pos) Barometric Pressure mm/Hg Oxygen Given Sodium 138 (136-145) mmol/L Potassium 4.1 (3.5-5.1) mmol/L Chloride 104 (98-107) mmol/L Carbon Dioxide 27 (21-32) mmol/L Anion Gap 7.0 (3-11) BUN 15 (7-18) mg/dl Creatinine 0.91 (0.6-1.2) mg/dl Est Cr Clr Drug Dosing 50.1 ml/min Est GFR ( Amer) 64.8 Est GFR (Non-Af Amer) 55.9 BUN/Creatinine Ratio 16.3 (10-20) Glucose 143 H (70-99) mg/dl Estimat Average Glucose mg/dl Hemoglobin A1c (4.5-5.6) % Lactate (0.4-2.0) mmol/L Calcium 9.0 (8.5-10.1) mg/dl Magnesium 1.8 (1.8-2.4) mg/dl Total Bilirubin 1.1 H (0.2-1) mg/dl AST 28 (15-37) U/L ALT 27 (12-78) U/L Alkaline Phosphatase 61 (45-117) U/L Ammonia (11-32) umol/L Troponin I < 0.015 (0-0.045) ng/ml NT-Pro-B Natriuret Pep 1207 (0-1800) pg/ml Total Protein 7.1 (6.4-8.2) gm/dl Albumin 3.6 (3.4-5.0) gm/dl Globulin 3.5 (2.5-4.0) gm/dl Albumin/Globulin Ratio 1.0 (0.9-2) Lipase 20 L (73-393) U/L Procalcitonin < 0.05 (0-0.5) ng/ml TSH 3.130 (0.300-4.500) uIu/ml Specimen Hemolysis Urine Color Urine Appearance (Clear) Urine pH (4.5-7.5) Ur Specific [place] (1.000-1.030) Urine Protein (Negative) Urine Glucose (UA) (Negative) Urine Ketones (Negative) Urine Blood (Negative) Urine Nitrite (Negative) Urine Bilirubin (Negative) Urine Urobilinogen (Negative) Ur Leukocyte Esterase (Negative) Urine WBC (Auto) (0-5) /hpf Urine RBC (Auto) (0-4) /hpf U Hyaline Cast (Auto) (0-5) /lpf U Epithel Cells (Auto) (0-5) /lpf Urine Bacteria (Auto) (Negative) Adenovirus (PCR) (NotDetected) B. pertussis DNA (PCR) (NotDetected) B.parapertussis DNA PCR (NotDetected) C. pneumoniae DNA (PCR) (NotDetected) Coronavirus OC43 (PCR) (NotDetected) Coronavirus HKU1 (PCR) (NotDetected) Coronavirus 229E (PCR) (NotDetected) COVID-19 PCR (Negative) Coronavirus NL63 (PCR) (NotDetected) Human Metapneumovir PCR (NotDetected) Influenza Type A (PCR) (Neg) Influenza Type B (PCR) (Neg) M. pneumoniae (PCR) (NotDetected) Parainfluenza 1 (PCR) (NotDetected) Parainfluenza 2 (PCR) (NotDetected) Parainfluenza 3 (PCR) (NotDetected) Parainfluenza 4 (PCR) (NotDetected) RSV (PCR) (NotDetected) Entero/Rhino (PCR) (NotDetected) SARS-CoV-2 RNA (RT-PCR) 07/22/19 07/22/19 07/22/19 Range/Units 02:00 02:00 02:05 WBC (4.8-10.8) K/uL RBC (4.2-5.4) M/uL Hgb (12.0-16.0) g/dL Hct (37-47) % MCV (80-100) fL MCH (25-34) pg MCHC (32-36) g/dL RDW Std Deviation (36.4-46.3) fL RDW Coeff of Lupillo (11.5-14.5) % Plt Count (130-400) K/uL MPV (7.4-10.4) fL Immature Gran % (Auto) % Neut % (Auto) % Lymph % (Auto) % Sharp % (Auto) % Eos % (Auto) % Baso % (Auto) % Immature Gran # (Auto) (0.00-0.02) K/uL Neut # (Auto) (1.4-6.5) K/uL Lymph # (Auto) (1.2-3.4) K/uL Sharp # (Auto) (0.11-0.59) K/uL Eos # (Auto) (0-0.5) K/uL Baso # (Auto) (0-0.2) K/uL Platelet Estimate (Normal) APTT 25.7 (21.0-31.0) Seconds PTT Ratio 0.9 D-Dimer 1750 H* (0-500) ug/L FEU ABG pH (7.35-7.45) ABG pCO2 (35-46) mmHg ABG pO2 (80-95) mmHg ABG HCO3 (19-24) mmol/L ABG O2 Saturation (90-95) % ABG Base Excess (-9-1.8) mEq/L Xavier Test (Pos) Barometric Pressure mm/Hg Oxygen Given Sodium (136-145) mmol/L Potassium (3.5-5.1) mmol/L Chloride (98-107) mmol/L Carbon Dioxide (21-32) mmol/L Anion Gap (3-11) BUN (7-18) mg/dl Creatinine (0.6-1.2) mg/dl Est Cr Clr Drug Dosing ml/min Est GFR ( Amer) Est GFR (Non-Af Amer) BUN/Creatinine Ratio (10-20) Glucose (70-99) mg/dl Estimat Average Glucose 154 mg/dl Hemoglobin A1c 7.0 H (4.5-5.6) % Lactate (0.4-2.0) mmol/L Calcium (8.5-10.1) mg/dl Magnesium (1.8-2.4) mg/dl Total Bilirubin (0.2-1) mg/dl AST (15-37) U/L ALT (12-78) U/L Alkaline Phosphatase (45-117) U/L Ammonia (11-32) umol/L Troponin I (0-0.045) ng/ml NT-Pro-B Natriuret Pep (0-1800) pg/ml Total Protein (6.4-8.2) gm/dl Albumin (3.4-5.0) gm/dl Globulin (2.5-4.0) gm/dl Albumin/Globulin Ratio (0.9-2) Lipase (73-393) U/L Procalcitonin (0-0.5) ng/ml TSH (0.300-4.500) uIu/ml Specimen Hemolysis Urine Color Yellow Urine Appearance Cloudy A (Clear) Urine pH 7.0 (4.5-7.5) Ur Specific [place] 1.020 (1.000-1.030) Urine Protein Negative (Negative) Urine Glucose (UA) Negative (Negative) Urine Ketones Negative (Negative) Urine Blood Trace H (Negative) Urine Nitrite Positive A (Negative) Urine Bilirubin Negative (Negative) Urine Urobilinogen Negative (Negative) Ur Leukocyte Esterase 2+ H (Negative) Urine WBC (Auto) >30 H (0-5) /hpf Urine RBC (Auto) 5-10 H (0-4) /hpf U Hyaline Cast (Auto) 1-5 (0-5) /lpf U Epithel Cells (Auto) 10-20 H (0-5) /lpf Urine Bacteria (Auto) 4+ H (Negative) Adenovirus (PCR) (NotDetected) B. pertussis DNA (PCR) (NotDetected) B.parapertussis DNA PCR (NotDetected) C. pneumoniae DNA (PCR) (NotDetected) Coronavirus OC43 (PCR) (NotDetected) Coronavirus HKU1 (PCR) (NotDetected) Coronavirus 229E (PCR) (NotDetected) COVID-19 PCR (Negative) Coronavirus NL63 (PCR) (NotDetected) Human Metapneumovir PCR (NotDetected) Influenza Type A (PCR) (Neg) Influenza Type B (PCR) (Neg) M. pneumoniae (PCR) (NotDetected) Parainfluenza 1 (PCR) (NotDetected) Parainfluenza 2 (PCR) (NotDetected) Parainfluenza 3 (PCR) (NotDetected) Parainfluenza 4 (PCR) (NotDetected) RSV (PCR) (NotDetected) Entero/Rhino (PCR) (NotDetected) SARS-CoV-2 RNA (RT-PCR) 07/22/19 07/22/19 07/22/19 Range/Units 02:15 03:04 04:02 WBC (4.8-10.8) K/uL RBC (4.2-5.4) M/uL Hgb (12.0-16.0) g/dL Hct (37-47) % MCV (80-100) fL MCH (25-34) pg MCHC (32-36) g/dL RDW Std Deviation (36.4-46.3) fL RDW Coeff of Lupillo (11.5-14.5) % Plt Count (130-400) K/uL MPV (7.4-10.4) fL Immature Gran % (Auto) % Neut % (Auto) % Lymph % (Auto) % Sharp % (Auto) % Eos % (Auto) % Baso % (Auto) % Immature Gran # (Auto) (0.00-0.02) K/uL Neut # (Auto) (1.4-6.5) K/uL Lymph # (Auto) (1.2-3.4) K/uL Sharp # (Auto) (0.11-0.59) K/uL Eos # (Auto) (0-0.5) K/uL Baso # (Auto) (0-0.2) K/uL Platelet Estimate (Normal) APTT (21.0-31.0) Seconds PTT Ratio D-Dimer (0-500) ug/L FEU ABG pH (7.35-7.45) ABG pCO2 (35-46) mmHg ABG pO2 (80-95) mmHg ABG HCO3 (19-24) mmol/L ABG O2 Saturation (90-95) % ABG Base Excess (-9-1.8) mEq/L Xavier Test (Pos) Barometric Pressure mm/Hg Oxygen Given Sodium (136-145) mmol/L Potassium (3.5-5.1) mmol/L Chloride (98-107) mmol/L Carbon Dioxide (21-32) mmol/L Anion Gap (3-11) BUN (7-18) mg/dl Creatinine (0.6-1.2) mg/dl Est Cr Clr Drug Dosing ml/min Est GFR ( Amer) Est GFR (Non-Af Amer) BUN/Creatinine Ratio (10-20) Glucose (70-99) mg/dl Estimat Average Glucose mg/dl Hemoglobin A1c (4.5-5.6) % Lactate 1.1 (0.4-2.0) mmol/L Calcium (8.5-10.1) mg/dl Magnesium (1.8-2.4) mg/dl Total Bilirubin (0.2-1) mg/dl AST (15-37) U/L ALT (12-78) U/L Alkaline Phosphatase (45-117) U/L Ammonia (11-32) umol/L Troponin I (0-0.045) ng/ml NT-Pro-B Natriuret Pep (0-1800) pg/ml Total Protein (6.4-8.2) gm/dl Albumin (3.4-5.0) gm/dl Globulin (2.5-4.0) gm/dl Albumin/Globulin Ratio (0.9-2) Lipase (73-393) U/L Procalcitonin (0-0.5) ng/ml TSH (0.300-4.500) uIu/ml Specimen Hemolysis Urine Color Urine Appearance (Clear) Urine pH (4.5-7.5) Ur Specific [place] (1.000-1.030) Urine Protein (Negative) Urine Glucose (UA) (Negative) Urine Ketones (Negative) Urine Blood (Negative) Urine Nitrite (Negative) Urine Bilirubin (Negative) Urine Urobilinogen (Negative) Ur Leukocyte Esterase (Negative) Urine WBC (Auto) (0-5) /hpf Urine RBC (Auto) (0-4) /hpf U Hyaline Cast (Auto) (0-5) /lpf U Epithel Cells (Auto) (0-5) /lpf Urine Bacteria (Auto) (Negative) Adenovirus (PCR) (NotDetected) B. pertussis DNA (PCR) (NotDetected) B.parapertussis DNA PCR (NotDetected) C. pneumoniae DNA (PCR) (NotDetected) Coronavirus OC43 (PCR) (NotDetected) Coronavirus HKU1 (PCR) (NotDetected) Coronavirus 229E (PCR) (NotDetected) COVID-19 PCR (Negative) Coronavirus NL63 (PCR) (NotDetected) Human Metapneumovir PCR (NotDetected) Influenza Type A (PCR) Neg for Influ A (Neg) Influenza Type B (PCR) Neg for Influ B (Neg) M. pneumoniae (PCR) (NotDetected) Parainfluenza 1 (PCR) (NotDetected) Parainfluenza 2 (PCR) (NotDetected) Parainfluenza 3 (PCR) (NotDetected) Parainfluenza 4 (PCR) (NotDetected) RSV (PCR) (NotDetected) Entero/Rhino (PCR) (NotDetected) SARS-CoV-2 RNA (RT-PCR) Cancelled 07/22/19 07/22/19 07/22/19 Range/Units 04:02 04:02 04:50 WBC (4.8-10.8) K/uL RBC (4.2-5.4) M/uL Hgb (12.0-16.0) g/dL Hct (37-47) % MCV (80-100) fL MCH (25-34) pg MCHC (32-36) g/dL RDW Std Deviation (36.4-46.3) fL RDW Coeff of Lupillo (11.5-14.5) % Plt Count (130-400) K/uL MPV (7.4-10.4) fL Immature Gran % (Auto) % Neut % (Auto) % Lymph % (Auto) % Sharp % (Auto) % Eos % (Auto) % Baso % (Auto) % Immature Gran # (Auto) (0.00-0.02) K/uL Neut # (Auto) (1.4-6.5) K/uL Lymph # (Auto) (1.2-3.4) K/uL Sharp # (Auto) (0.11-0.59) K/uL Eos # (Auto) (0-0.5) K/uL Baso # (Auto) (0-0.2) K/uL Platelet Estimate (Normal) APTT (21.0-31.0) Seconds PTT Ratio D-Dimer (0-500) ug/L FEU ABG pH 7.38 (7.35-7.45) ABG pCO2 48 H (35-46) mmHg ABG pO2 59 L (80-95) mmHg ABG HCO3 28 H (19-24) mmol/L ABG O2 Saturation 89.0 L (90-95) % ABG Base Excess 2.4 H (-9-1.8) mEq/L Xavier Test POS (Pos) Barometric Pressure 729.9 mm/Hg Oxygen Given 3 L Sodium (136-145) mmol/L Potassium (3.5-5.1) mmol/L Chloride (98-107) mmol/L Carbon Dioxide (21-32) mmol/L Anion Gap (3-11) BUN (7-18) mg/dl Creatinine (0.6-1.2) mg/dl Est Cr Clr Drug Dosing ml/min Est GFR ( Amer) Est GFR (Non-Af Amer) BUN/Creatinine Ratio (10-20) Glucose (70-99) mg/dl Estimat Average Glucose mg/dl Hemoglobin A1c (4.5-5.6) % Lactate (0.4-2.0) mmol/L Calcium (8.5-10.1) mg/dl Magnesium (1.8-2.4) mg/dl Total Bilirubin (0.2-1) mg/dl AST (15-37) U/L ALT (12-78) U/L Alkaline Phosphatase (45-117) U/L Ammonia (11-32) umol/L Troponin I (0-0.045) ng/ml NT-Pro-B Natriuret Pep (0-1800) pg/ml Total Protein (6.4-8.2) gm/dl Albumin (3.4-5.0) gm/dl Globulin (2.5-4.0) gm/dl Albumin/Globulin Ratio (0.9-2) Lipase (73-393) U/L Procalcitonin (0-0.5) ng/ml TSH (0.300-4.500) uIu/ml Specimen Hemolysis Urine Color Urine Appearance (Clear) Urine pH (4.5-7.5) Ur Specific [place] (1.000-1.030) Urine Protein (Negative) Urine Glucose (UA) (Negative) Urine Ketones (Negative) Urine Blood (Negative) Urine Nitrite (Negative) Urine Bilirubin (Negative) Urine Urobilinogen (Negative) Ur Leukocyte Esterase (Negative) Urine WBC (Auto) (0-5) /hpf Urine RBC (Auto) (0-4) /hpf U Hyaline Cast (Auto) (0-5) /lpf U Epithel Cells (Auto) (0-5) /lpf Urine Bacteria (Auto) (Negative) Adenovirus (PCR) Not Detected (NotDetected) B. pertussis DNA (PCR) Not Detected (NotDetected) B.parapertussis DNA PCR Not Detected (NotDetected) C. pneumoniae DNA (PCR) Not Detected (NotDetected) Coronavirus OC43 (PCR) Not Detected (NotDetected) Coronavirus HKU1 (PCR) Not Detected (NotDetected) Coronavirus 229E (PCR) Not Detected (NotDetected) COVID-19 PCR POSITIVE A* (Negative) Coronavirus NL63 (PCR) Not Detected (NotDetected) Human Metapneumovir PCR Not Detected (NotDetected) Influenza Type A (PCR) Not Detected (Neg) Influenza Type B (PCR) Not Detected (Neg) M. pneumoniae (PCR) Not Detected (NotDetected) Parainfluenza 1 (PCR) Not Detected (NotDetected) Parainfluenza 2 (PCR) Not Detected (NotDetected) Parainfluenza 3 (PCR) Not Detected (NotDetected) Parainfluenza 4 (PCR) Not Detected (NotDetected) RSV (PCR) Not Detected (NotDetected) Entero/Rhino (PCR) Not Detected (NotDetected) SARS-CoV-2 RNA (RT-PCR) 07/22/19 Range/Units 04:51 WBC (4.8-10.8) K/uL RBC (4.2-5.4) M/uL Hgb (12.0-16.0) g/dL Hct (37-47) % MCV (80-100) fL MCH (25-34) pg MCHC (32-36) g/dL RDW Std Deviation (36.4-46.3) fL RDW Coeff of Lupillo (11.5-14.5) % Plt Count (130-400) K/uL MPV (7.4-10.4) fL Immature Gran % (Auto) % Neut % (Auto) % Lymph % (Auto) % [place] % (Auto) % Eos % (Auto) % Baso % (Auto) % Immature Gran # (Auto) (0.00-0.02) K/uL Neut # (Auto) (1.4-6.5) K/uL Lymph # (Auto) (1.2-3.4) K/uL Sharp # (Auto) (0.11-0.59) K/uL Eos # (Auto) (0-0.5) K/uL Baso # (Auto) (0-0.2) K/uL Platelet Estimate (Normal) APTT (21.0-31.0) Seconds PTT Ratio D-Dimer (0-500) ug/L FEU ABG pH (7.35-7.45) ABG pCO2 (35-46) mmHg ABG pO2 (80-95) mmHg ABG HCO3 (19-24) mmol/L ABG O2 Saturation (90-95) % ABG Base Excess (-9-1.8) mEq/L Xavier Test (Pos) Barometric Pressure mm/Hg Oxygen Given Sodium (136-145) mmol/L Potassium (3.5-5.1) mmol/L Chloride (98-107) mmol/L Carbon Dioxide (21-32) mmol/L Anion Gap (3-11) BUN (7-18) mg/dl Creatinine (0.6-1.2) mg/dl Est Cr Clr Drug Dosing ml/min Est GFR ( Amer) Est GFR (Non-Af Amer) BUN/Creatinine Ratio (10-20) Glucose (70-99) mg/dl Estimat Average Glucose mg/dl Hemoglobin A1c (4.5-5.6) % Lactate (0.4-2.0) mmol/L Calcium (8.5-10.1) mg/dl Magnesium (1.8-2.4) mg/dl Total Bilirubin (0.2-1) mg/dl AST (15-37) U/L ALT (12-78) U/L Alkaline Phosphatase (45-117) U/L Ammonia 19.0 (11-32) umol/L Troponin I (0-0.045) ng/ml NT-Pro-B Natriuret Pep (0-1800) pg/ml Total Protein (6.4-8.2) gm/dl Albumin (3.4-5.0) gm/dl Globulin (2.5-4.0) gm/dl Albumin/Globulin Ratio (0.9-2) Lipase (73-393) U/L Procalcitonin (0-0.5) ng/ml TSH (0.300-4.500) uIu/ml Specimen Hemolysis Urine Color Urine Appearance (Clear) Urine pH (4.5-7.5) Ur Specific [place] (1.000-1.030) Urine Protein (Negative) Urine Glucose (UA) (Negative) Urine Ketones (Negative) Urine Blood (Negative) Urine Nitrite (Negative) Urine Bilirubin (Negative) Urine Urobilinogen (Negative) Ur Leukocyte Esterase (Negative) Urine WBC (Auto) (0-5) /hpf Urine RBC (Auto) (0-4) /hpf U Hyaline Cast (Auto) (0-5) /lpf U Epithel Cells (Auto) (0-5) /lpf Urine Bacteria (Auto) (Negative) Adenovirus (PCR) (NotDetected) B. pertussis DNA (PCR) (NotDetected) B.parapertussis DNA PCR (NotDetected) C. pneumoniae DNA (PCR) (NotDetected) Coronavirus OC43 (PCR) (NotDetected) Coronavirus HKU1 (PCR) (NotDetected) Coronavirus 229E (PCR) (NotDetected) COVID-19 PCR (Negative) Coronavirus NL63 (PCR) (NotDetected) Human Metapneumovir PCR (NotDetected) Influenza Type A (PCR) (Neg) Influenza Type B (PCR) (Neg) M. pneumoniae (PCR) (NotDetected) Parainfluenza 1 (PCR) (NotDetected) Parainfluenza 2 (PCR) (NotDetected) Parainfluenza 3 (PCR) (NotDetected) Parainfluenza 4 (PCR) (NotDetected) RSV (PCR) (NotDetected) Entero/Rhino (PCR) (NotDetected) SARS-CoV-2 RNA (RT-PCR) Imaging Data Attestation: I personally reviewed and interpreted this imaging study as follows: My Impression: X-ray: I interpreted the following studies. Chest: A single view study of the chest was reviewed and was negative for effusion, pulmonary edema, or wide mediastinum. Mild cardiomegaly noted, as well as questionable early infiltrate in the right lower lobe which is worse in appearance compared to prior chest x-ray. All other findings appear chronic and stable. ECG Data Attestation: I personally reviewed and interpreted this ECG as follows: Indication: + SOB/dyspnea Rate (beats per minute): 70 Rhythm: + normal sinus ECG Intervals/blocks: + First degree AV block and + Left bundle branch block ECG [place]: + Left axis deviation ECG ST segments: + Nonspecific ST abnormalities Comparison ECG Date: from (08/08/2017) Blood Pressure Blood Pressure Findings: Elevated blood pressure Blood Pressure Disposition: further management by hospitalist JENNIFER Emery Curlinnea 65 - 2 PSI - moderate risk This is an elderly female sent in from a personal care facility locally. There was conflicting data regarding why the patient was sent in as staff there stated she was sent in for fever, cough, and shortness of breath although patient denied any respiratory symptoms. Daughter who called to check on the patient did confirm she had noticed a recent cough and the patient. Staff there was concerned the patient was not acting right and was confused although here patient was oriented and mentating appropriately. Patient had no other complaints or concerns. With additional questioning patient did note that her urine had been darker recently and she was found to have a urinary tract infection which I felt would recently explain the fever and even potential altered mental status. Chest x-ray was slightly concerning as was patient's initial hypoxia as she has no pulmonary history and does not routinely wear oxygen. Out of precaution patient given IV antibiotics, additional sepsis labs ordered. Patient's lactic acid and procalcitonin were reassuring. Culture sent. Due to concern given patient's advanced age, and elevated curb 65 as well as PSI and a likely evolving pneumonia with concurrent urinary tract infection, case was discussed with hospitalist for additional evaluation and management. Patient was hemodynamically stable in the emergency room. Due to potential reported staff member at the [facility] who was COVID positive, a flu, bio fire, and COVID-19 were sent on the patient as well and were pending at the time of my d iscussion with the hospitalist for additional inpatient management. I do not suspect other occult [employer] pathology as patient was oriented here and had no focal neuro deficits on my exam. An order was placed for continuous cardiac monitoring. The monitor shows a rate of 74 with normal sinus rhythm. Impression & Plan Fever, Acute UTI (urinary tract infection), Pneumonia, Hypoxia, Thrombocytopenia, Hyperglycemia Discharge Plan Visit Data *Final* Discharge Date/Time: 07/22/19 05:27 Chief Complaint: Shortness of Breath/Dyspnea Stated Complaint: Shortness of breath, dizziness ED Provider: Sury Chadwick Discharge Problem: Fever, Acute UTI (urinary tract infection), Pneumonia, Hypoxia, Thrombocytopenia, Hyperglycemia Patient Disposition: Admitted As Inpatient Discharge Instructions Interventions: ED Discharge Assessment Last Done: 07/22/19 05:27 Risk - CURB-65 Scoring CURB-65 Scoring Confusion: Yes BUN >19 mg/dl (>7 mmol/L): No Respiratory Rate > or = 30: No SBP <90 mmHg or DBP < or = 60 mmHg: No Age > or = 65: Yes CURB-65 Total Points: 2 CURB-65 Risk: Moderate Risk Pneumonia CURB-65 Interpretation: Score interpretation (as per derivation study): CURB-65 Mortality Score Risk Recommendations* 0 0.60% Low risk, consider home treatment 1 2.70% Low risk, consider home treatment 2 6.80% Short inpatient hospitalization or closely supervised outpt treatment 3 14.00% Severe pneumonia; hospitalize and consider admitting to intensive care 4 or 5 27.80% Severe pneumonia; hospitalize and consider admitting to intensive care Reference: 1. Richie WHITLEY, et. al. Validity of Pneumonia Severity Index and CURB-65 Severity Scoring Systems in Community Acquired Pneumonia in an [place] Setting. The [facility] of Chest Disease & Allied Sciences. 2010; Vol 52. 2. Mariangel D, Myles TE, Mahendra DM, et al. Prospective comparison of three validated prediction rules for prognosis in community-acquired pneumonia. AM. J. Med. 2005; 118(4): 384-92.doi: 10.1016/j.amjmed.2005.01.006. PMID [id number] 3. Stephen PK, Anny AV, Kim SL, Chao DN, Benjamin BD. Seveirty assessment criteria recommended by the [place] [employer] (BTS) for communicty- acquired pneumonia (CAP) and older patients. Should SOAR (systolic blood pressure, oxygenation, age and respiratory rate) criteria be used in older people? A compilation study of two prospective coholrts. Age Ageing. 2006:35(3):286-91 4. Rafa A, Ramírez PP, Rafael JM, et al. Validation of a predictive rule f or the management of community-acquired pneumonia. Eur Respir J. 2006:27(1):151-7. Discharge Problem: Fever Qualifiers: Fever type: due to other condition Qualified Code(s): R50.81 - Fever presenting with conditions classified elsewhere Pneumonia Qualifiers: Pneumonia type: due to unspecified organism Laterality: right Lung location: lower lobe of lung Qualified Code(s): J18.9 - Pneumonia, unspecified organism
[2019-07-22] MEDS ORDERED: SODIUM CHLORIDE 0.9% 1000ML 1,000 ML IV SCH (02:15)
[2019-07-22 02:31] LABS: Appearance Urine Cloudy (Clear); Bacteria Urine Automated 4+ (Negative); Bilirubin Urine Negative (Negative); Blood Urine Trace (Negative); Color Urine Yellow; Glucose Urine UA Negative (Negative); Ketones Urine Negative (Negative); Leukocyte Esterase Urine 2+ (Negative); Nitrite Urine Positive (Negative); Protein Urine Negative (Negative); Urobilinogen Urine Negative (Negative); WBC Urine Automated >30 /hpf (0-5)
[2019-07-22] MEDS ORDERED: CEFEPIME 2,000 MG/20 ML VIAL IV STA (02:47)
[2019-07-22 02:52] LABS: Alanine Aminotransferase 27 U/L (12-78); Albumin Level 3.6 gm/dl (3.4-5.0); Aspartate Aminotransferase 28 U/L (15-37); BUN Creatinine Ratio 16.3 (10-20); Blood Urea Nitrogen 15 mg/dl (7-18); Carbon Dioxide 27 mmol/L (21-32); Chloride 104 mmol/L (98-107); Creatinine Clr Calc Pharmacy 50.1 ml/min; Est GFR (African American) 64.8; Est GFR (Non-African American) 55.9; Glucose 143 mg/dl (70-99); Lipase 20 U/L (73-393); Magnesium 1.8 mg/dl (1.8-2.4); Potassium 4.1 mmol/L (3.5-5.1); Sodium 138 mmol/L (136-145)
[2019-07-22 02:54] LABS: Hematocrit (blood only) 38.5 % (37-47); Hemoglobin 13.1 g/dL (12.0-16.0); Mean Corpuscular Hemoglobin 31.5 pg (25-34); Mean Corpuscular Volume 92.5 fL (80-100); Mean Platelet Volume 11.7 fL (7.4-10.4); Platelet Count 98 K/uL (130-400); RDW Coefficient of Variation 14.1 % (11.5-14.5); RDW Standard Deviation 47.9 fL (36.4-46.3); Red Blood Count 4.16 M/uL (4.2-5.4); White Blood Count 5.38 K/uL (4.8-10.8)
[2019-07-22 02:55] LABS: Basophils # (auto) 0.01 K/uL (0-0.2); Basophils % (auto) 0.2 %; Eosinophils # (auto) 0.06 K/uL (0-0.5); Eosinophils % (auto) 1.1 %; Immature Granulocytes # (auto) 0.01 K/uL (0.00-0.02); Immature Granulocytes % (auto) 0.2 %; Lymphocytes # (auto) 0.99 K/uL (1.2-3.4); Lymphocytes % (auto) 18.4 %; Monocytes # (auto) 0.93 K/uL (0.11-0.59); Monocytes % (auto) 17.3 %; Neutrophils # (auto) 3.38 K/uL (1.4-6.5); Neutrophils % (auto) 62.8 %; Platelet Estimate Decreased (Normal)
[2019-07-22 03:03] LABS: Alkaline Phosphatase 61 U/L (45-117); Bilirubin,Total 1.1 mg/dl (0.2-1); Globulin 3.5 gm/dl (2.5-4.0); NT Pro B Type Natriuretic Pept 1207 pg/ml (0-1800); Total Protein 7.1 gm/dl (6.4-8.2); Troponin I < 0.015 ng/ml (0-0.045)
[2019-07-22 03:54] LABS: Influenza A virus by PCR Neg for Influ A (Neg); Influenza B virus by PCR Neg for Influ B (Neg)
--- NOTE | 2019-07-22 04:48 | History & Physical Report ---
Date of Service July 22, 2019 Assessment & Plan (1) Acute hypoxemic respiratory failure: ? Viral RTI Rule out COVID rule out pulmonary hypertension, hx RILEY on CPAP Complicated UTI, no sepsis hypertension, stable history LBBB history CVA as per records breast cancer status post surgery DM 2 diet-controlled, well-controlled as of hemoglobin A1c of 6.28 Jul 2018 chronic thrombocytopenia Medical telemetry Supplemental O2 Baseline ABG Follow COVID testing Isolation precautions until COVID ruled out Supportive management for viral RTI, nebs, mucolytic PRN TTE RE hypoxemia, rule out pulmonary HTN, hx RILEY Following urine cultures, Cefepime for now Basal insulin, ISS BG goal [id number], carb count coverage, update hemoglobin A1c DVT prophylaxis. SCDs RE thrombocytopenia Full code Text document was generated using [employer] voice recognition software. It may contain grammatical or spelling errors. Kindly contact undersigned for clarification of any documentation item in question. History of Present Illness Chief Complaint: They wanted me to be checked out as per patient Low O2 as per records Primary Care Provider: Moe Borges MD History obtained from patient and records. History from patient somewhat limited by mild hearing impairment. Medical history significant for hypertension, history LBBB, history CVA as per records, breast cancer status post surgery, DM 2, diet-controlled, chronic thrombocytopenia, RILEY on CPAP. 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 Few days ago patient had transient dry cough symptoms without chest pain, S OB, no fever, no chills. Last night as per [facility] facility staff account, patient noted to have fever, shortness of breath, cough -all of which are denied by patient. O2 sats noted to be low at home. [facility] staff member reportedly found to be COVID positive. Patient denies abdominal pain, dysuria, headache symptoms. At the ER, O2 sats noted to be 80s on room air. Patient received cefepime for possible UTI. 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 Unverified 07/22/19 02:32 epinephrine Allergy Unknown BODY Verified 07/22/19 02:32 SHOOK, FREEZING Home Medications Home Medications Medication Instructions Recorded Confirmed Type acetaminophen [Acetaminophen Extra 500 mg PO TID PRN MDD 3gm 07/22/19 07/22/19 History Strength] atorvastatin 40 mg PO DAILY 07/22/19 07/22/19 History calcium carbonate [Tums] 400 mg PO Q4 PRN 07/22/19 07/22/19 History calcium carbonate-vitamin D3 1 tab PO DAILY 07/22/19 07/22/19 History [Oyster Shell Calcium-Vit D3] carboxymethylcellulose sodium 1 drp OPB QID 07/22/19 07/22/19 History [Refresh Tears] clopidogrel 75 mg PO DAILY 07/22/19 07/22/19 History escitalopram oxalate 15 mg PO DAILY 07/22/19 07/22/19 History famotidine 20 mg PO BID 07/22/19 07/22/19 History furosemide 20 mg PO DAILY 07/22/19 07/22/19 History gabapentin 300 mg PO DAILY 07/22/19 07/22/19 History gabapentin 600 mg PO HS 07/22/19 07/22/19 History hydrocortisone 1 applic TOPICAL BID PRN 07/22/19 07/22/19 History lactase [Lactaid] 3,000 unit PO TIDM 07/22/19 07/22/19 History loperamide [Imodium A-D] 2 mg PO TID 07/22/19 07/22/19 History losartan 100 mg PO DAILY 07/22/19 07/22/19 History metoprolol tartrate 25 mg PO BID 07/22/19 07/22/19 History dvzzbhmaajwi-jgd-fjtb-FA-vit K 1 tab PO DAILY 07/22/19 07/22/19 History [Multi-Day Plus Minerals] simethicone [Gas Relief 80 80 mg PO Q8 07/22/19 07/22/19 History (simethicone)] timolol maleate 1 drp OPB BID 07/22/19 07/22/19 History triamcinolone acetonide 1 applic TOPICAL HS 07/22/19 07/22/19 History Past Med/Surg History Medical History Acquired claw toe of left foot (Acute) Acquired claw toe of right foot (Acute) Callus (Acute) Diabetes mellitus with diabetic polyneuropathy (Acute) Hallux valgus (acquired), left foot (Acute) Social History (Updated 07/22/19 @ 02:11 by Sury Chadwick DO) Preferred Language: Egyptian Communication Ability: Effective Hearing Ability: Hard of Hearing Stripper Color Required: No Beliefs That Will Affect Care: None Current Living Situation: Personal Care Facility current occupational status: retired Other Information That Helps Us Care for You: No Feels Safe at Home: Yes Safety Concerns: Feels Safe At This Time Smoking Status: Unknown if ever smoked Hx Alcohol Use: No Hx Substance Use: No Review of Systems Review of Systems: As per HPI, all 10 systems reviewed, all other ROS negative Physical Exam Physical Exam: GENERAL: Obese, wane, slightly hard of hearing , no respiratory distress SKIN: Normal color, warm HEENT: [place] palpebral conjunctivae, no ptosis, dry buccal mucosa, nasal cannula in place NECK : Supple, short neck, no tenderness CHEST : Decreased breath sounds , no tenderness HEART : Bradycardic , no obvious murmurs ABDOMEN: Some distention, nontender EXTREMITIES : Minimal LE swelling, no LE tenderness, no other conspicuous deformities noted NEUROLOGIC : Coherent, no facial asymmetry, slight hard of hearing, no other gross focality Results & Data Results & Data ([facility]) Vital Signs (Past 12 Hours) Vital Signs Temp Pulse Pulse Resp BP BP Pulse Ox 07/22/19 04:30 53 L 15 114/52 L 96 07/22/19 04:01 37.1 C 61 14 96 07/22/19 04:00 54 L 15 117/56 L 96 07/22/19 03:31 55 L 15 96 07/22/19 03:30 64 16 119/60 95 07/22/19 03:25 37.2 C 07/22/19 03:08 63 20 145/74 H 96 07/22/19 03:06 60 20 145/74 H 97 07/22/19 03:00 57 L 18 07/22/19 02:30 67 17 07/22/19 02:24 37.8 C H 71 24 179/87 H 89 L 07/22/19 02:00 71 24 93 07/22/19 01:57 70 22 96 07/22/19 01:53 70 23 179/87 H 96 Laboratory Results Laboratory Results WBC 5.38 K/uL (4.8-10.8) 07/22/19 02:00 RBC 4.16 M/uL (4.2-5.4) L 07/22/19 02:00 Hgb 13.1 g/dL (12.0-16.0) 07/22/19 02:00 Hct 38.5 % (37-47) 07/22/19 02:00 MCV 92.5 fL (80-100) 07/22/19 02:00 MCH 31.5 pg (25-34) 07/22/19 02:00 MCHC 34.0 g/dL (32-36) 07/22/19 02:00 RDW Std Deviation 47.9 fL (36.4-46.3) H 07/22/19 02:00 RDW Coeff of Lupillo 14.1 % (11.5-14.5) 07/22/19 02:00 Plt Count 98 K/uL (130-400) L 07/22/19 02:00 MPV 11.7 fL (7.4-10.4) H 07/22/19 02:00 Immature Gran % (Auto) 0.2 % 07/22/19 02:00 Neut % (Auto) 62.8 % 07/22/19 02:00 Lymph % (Auto) 18.4 % 07/22/19 02:00 [place] % (Auto) 17.3 % 07/22/19 02:00 Eos % (Auto) 1.1 % 07/22/19 02:00 Baso % (Auto) 0.2 % 07/22/19 02:00 Immature Gran # (Auto) 0.01 K/uL (0.00-0.02) 07/22/19 02:00 Neut # (Auto) 3.38 K/uL (1.4-6.5) 07/22/19 02:00 Lymph # (Auto) 0.99 K/uL (1.2-3.4) L 07/22/19 02:00 [place] # (Auto) 0.93 K/uL (0.11-0.59) H 07/22/19 02:00 Eos # (Auto) 0.06 K/uL (0-0.5) 07/22/19 02:00 Baso # (Auto) 0.01 K/uL (0-0.2) 07/22/19 02:00 Platelet Estimate Decreased (Normal) L 07/22/19 02:00 Sodium 138 mmol/L (136-145) 07/22/19 02:00 Potassium 4.1 mmol/L (3.5-5.1) 07/22/19 02:00 Chloride 104 mmol/L (98-107) 07/22/19 02:00 Carbon Dioxide 27 mmol/L (21-32) 07/22/19 02:00 Anion Gap 7.0 (3-11) 07/22/19 02:00 BUN 15 mg/dl (7-18) 07/22/19 02:00 Creatinine 0.91 mg/dl (0.6-1.2) 07/22/19 02:00 Est Cr Clr Drug Dosing 50.1 ml/min 07/22/19 02:00 Est GFR ( Amer) 64.8 07/22/19 02:00 Est GFR (Non-Af Amer) 55.9 07/22/19 02:00 BUN/Creatinine Ratio 16.3 (10-20) 07/22/19 02:00 Glucose 143 mg/dl (70-99) H 07/22/19 02:00 Lactate 1.1 mmol/L (0.4-2.0) 07/22/19 02:15 Calcium 9.0 mg/dl (8.5-10.1) 07/22/19 02:00 Magnesium 1.8 mg/dl (1.8-2.4) 07/22/19 02:00 Total Bilirubin 1.1 mg/dl (0.2-1) H 07/22/19 02:00 AST 28 U/L (15-37) 07/22/19 02:00 ALT 27 U/L (12-78) 07/22/19 02:00 Alkaline Phosphatase 61 U/L (45-117) 07/22/19 02:00 Troponin I < 0.015 ng/ml (0-0.045) 07/22/19 02:00 NT-Pro-B Natriuret Pep 1207 pg/ml (0-1800) 07/22/19 02:00 Total Protein 7.1 gm/dl (6.4-8.2) 07/22/19 02:00 Albumin 3.6 gm/dl (3.4-5.0) 07/22/19 02:00 Globulin 3.5 gm/dl (2.5-4.0) 07/22/19 02:00 Albumin/Globulin Ratio 1.0 (0.9-2) 07/22/19 02:00 Lipase 20 U/L (73-393) L 07/22/19 02:00 Procalcitonin < 0.05 ng/ml (0-0.5) 07/22/19 02:00 Specimen Hemolysis 07/22/19 02:00 Urine Color Yellow 07/22/19 02:05 Urine Appearance Cloudy (Clear) A 07/22/19 02:05 Urine pH 7.0 (4.5-7.5) 07/22/19 02:05 Ur Specific [place] 1.020 (1.000-1.030) 07/22/19 02:05 Urine Protein Negative (Negative) 07/22/19 02:05 Urine Glucose (UA) Negative (Negative) 07/22/19 02:05 Urine Ketones Negative (Negative) 07/22/19 02:05 Urine Blood Trace (Negative) H 07/22/19 02:05 Urine Nitrite Positive (Negative) A 07/22/19 02:05 Urine Bilirubin Negative (Negative) 07/22/19 02:05 Urine Urobilinogen Negative (Negative) 07/22/19 02:05 Ur Leukocyte Esterase 2+ (Negative) H 07/22/19 02:05 Urine WBC (Auto) >30 /hpf (0-5) H 07/22/19 02:05 Urine RBC (Auto) 5-10 /hpf (0-4) H 07/22/19 02:05 U Hyaline Cast (Auto) 1-5 /lpf (0-5) 07/22/19 02:05 U Epithel Cells (Auto) 10-20 /lpf (0-5) H 07/22/19 02:05 Urine Bacteria (Auto) 4+ (Negative) H 07/22/19 02:05 Influenza Type A (PCR) Neg for Influ A (Neg) 07/22/19 03:04 Influenza Type B (PCR) Neg for Influ B (Neg) 07/22/19 03:[address] head initial read : Chronic right occipital infarct. White matter hypodensities which are nonspecific. CT chest initial read No acute pulmonary embolism. No aortic aneurysm or dissection. Atherosclerotic calcifications. Aberrant right subclavian artery. Dependent atelectasis. No infiltrate. No pneumothorax or effusion. Cardiomegaly. Coronary calcification. Pancreatic tail lesion enlarged from prior CT abdomen from July 2017. Status post cholecystectomy, increase biliary ductal dilatation EKG as per my interpretation : Rate 70, NSR, LAD, LAFB, LBBB
[2019-07-22 05:01] LABS: Base Excess ABG 2.4 mEq/L (-9-1.8); HCO3 ABG 28 mmol/L (19-24); PCO2 ABG 48 mmHg (35-46); PO2 ABG 59 mmHg (80-95); pH ABG 7.38 (7.35-7.45)
[2019-07-22 05:04] LABS: Allen Test POS (Pos)
[2019-07-22 05:19] LABS: Partial Thromboplastin Ratio 0.9; Partial Thromboplastin Time 25.7 Seconds (21.0-31.0)
[2019-07-22 05:25] LABS: D Dimer 1750 ug/L FEU (0-500)
[2019-07-22 05:48] LABS: Adenovirus PCR Not Detected (NotDetected); Bordetella parapertussis PCR Not Detected (NotDetected); Bordetella pertussis PCR Not Detected (NotDetected); Chlamydia pneumoniae PCR Not Detected (NotDetected); Coronavirus 229E PCR Not Detected (NotDetected); Coronavirus HKU1 PCR Not Detected (NotDetected); Coronavirus NL63 PCR Not Detected (NotDetected); Coronavirus OC43PCR Not Detected (NotDetected); Human Metapneumovirus PCR Not Detected (NotDetected); Influenza A PCR Not Detected (NotDetected); Influenza B PCR Not Detected (NotDetected); Mycoplasma pneumoniae PCR Not Detected (NotDetected); Parainfluenza Virus 1 PCR Not Detected (NotDetected); Parainfluenza Virus 2 PCR Not Detected (NotDetected); Parainfluenza Virus 3 PCR Not Detected (NotDetected); Parainfluenza Virus 4 PCR Not Detected (NotDetected); Respiratory Syncytial VirusPCR Not Detected (NotDetected); Rhinovirus/Enterovirus PCR Not Detected (NotDetected)
[2019-07-22] MEDS ORDERED: CEFEPIME CONSULT ACTIVE PRN (06:12)
[2019-07-22] MEDS ORDERED: OPTIRAY 320 125ml IV PRN (06:13)
[2019-07-22 06:17] LABS: Estimated Average Glucose 154 mg/dl
[2019-07-22] MEDS ORDERED: ALBUT/IPRATROP 3MG/0.5MG NEB 3 ML VIAL NEB STA (06:42)
[2019-07-22] MEDS ORDERED: GLUCOSE 10 TABS/TUBE PO PRN (06:42)
[2019-07-22] MEDS ORDERED: DEXTROSE 50% 50 ML SYRINGE IV PRN (06:42)
[2019-07-22] MEDS ORDERED: NSS + 20MEQ KCL 20 MEQ/1,000 ML BAG IV ONE (06:42)
[2019-07-22] MEDS ORDERED: CALCIUM CARBONATE 500 MG CHEWABLE TAB PO PRN ×2 (06:42→07:34)
[2019-07-22] MEDS ORDERED: GLUCOSE 40% GEL 15 GM TUBE PO PRN (06:42)
[2019-07-22] MEDS ORDERED: GLUCAGON FOR INJ 1 MG VIAL SQ PRN (06:42)
[2019-07-22] MEDS ORDERED: CARBOHYDRATES FOR HYPOGLYCEMIA PO PRN (06:42)
--- NOTE | 2019-07-22 06:49 | XRay Report ---
XR chest 1V portable CLINICAL HISTORY: Shortness of breath COMPARISON STUDY: 08/08/2017 FINDINGS: The heart is enlarged. There is no overt failure. There is a suboptimal inspiration with in creased basilar markings likely on a hypoventilatory bases. An infectious/inflammatory processes coul d appear similar. Clinical and radiographic follow-up is recommended. There are no significant pleura l effusions.[ IMPRESSION: 1. Increased basilar markings possibly hypoventilatory basis. An infectious/inflammatory processes co uld appear similar. Clinical and radiographic follow-up is recommended. ACT 112: Negative or not required by law. Electronically signed by: Julio C Pérez M.D. 07/22/2019 6:48 AM
--- NOTE | 2019-07-22 07:10 | CT Scan Report ---
CT head/brain wo con CLINICAL HISTORY: Acute change in mental status COMPARISON STUDY: October 17, 2017 TECHNIQUE: Axial CT of the brain is performed from the vertex to the skull base. IV contrast was not administered for this examination. A dose lowering technique was utilized adhering to the principles of ALARA. CT DOSE: 729.78 mGycm FINDINGS: No intra or extra-axial mass lesions are visualized. There is no CT evidence of acute cortical infarc tion. There is no evidence of midline shift. There is no acute hemorrhage. No calvarial fractures ar e visualized. There are patchy white matter hypodensities likely on a small vessel basis. There is an old right occ ipital lobe infarct. There is no evidence of pathologic ventricular dilatation. There is no evidence of acute sinusitis IMPRESSION: No acute intracranial findings ACT 112: Negative or not required by law. Electronically signed by: Julio C Pérez M.D. 07/22/2019 7:09 AM
--- NOTE | 2019-07-22 07:28 | CT Scan Report ---
CT ANGIOGRAM OF THE CHEST CLINICAL HISTORY: Shortness of breath, fever, urinary tract infection. Comment 19 exposure. COMPARISON STUDY: Chest x-ray dated 07/22/2019 TECHNIQUE: Following the IV administration of 118 mL of Optiray-320, CT angiogram of the thorax was p erformed from the thoracic inlet to the lung bases utilizing the pulmonary embolus protocol. Images a re reviewed in the axial, sagittal, and coronal planes. IV contrast was administered without complica tion. MIP imaging was performed. A dose lowering technique was utilized adhering to the principles o f ALARA. CT DOSE: 491.24 mGycm FINDINGS: There is a 14 mm right lobe thyroid nodule. In a patient of this age, no further follow-up is recomme nded. No pathologically enlarged axillary mediastinal or hilar lymph nodes were visualized. There is a left aortic arch with an aberrant right subclavian artery. There is no evidence of thoraci c aortic aneurysm. There were no pulmonary artery filling defects to indicate acute pulmonary embolism. No pleural effusions are visualized. There is mild dependent atelectasis. There is no lobar consolidation. There is mild lower lobe bronch ial wall thickening. There is slight elevation of interstitium. An element of mild pulmonary vascular congestion cannot be excluded. There is a 19 mm cystic pancreatic tail lesion, perhaps slightly larger than on the prior 2018 study. There is mild biliary ductal dilatation. IMPRESSION: 1. No evidence of acute pulmonary embolism. 2. Left aortic arch with an aberrant right subclavian artery 3. Minor dependent atelectasis 4. Cardiomegaly and mild interstitial prominence 5. Equivocal slight increase in the size of a 19 mm cystic pancreatic tail lesion visualized on the p rior July 2017 study. ACT 112: Negative or not required by law. Electronically signed by: Julio C Pérez M.D. 07/22/2019 7:27 AM
[2019-07-22] MEDS ORDERED: guaiFENesin SUGAR FREE 200 MG/10 ML UDC PO PRN (07:52)
[2019-07-22] MEDS: INSULIN ASPART 100 UNITS/ML 3 ML PEN SC SCH ×4 (08:44→20:40)
[2019-07-22] MEDS ORDERED: ESCITALOPRAM OXALATE 10 MG TAB PO SCH (09:00)
[2019-07-22] MEDS ORDERED: TIMOLOL MALEATE 0.25% OP SOLN 5 ML BTL OPB SCH (09:00)
[2019-07-22] MEDS ORDERED: METOPROLOL TARTRATE 25 MG TAB PO SCH (09:00)
[2019-07-22] MEDS ORDERED: FAMOTIDINE 20 MG TAB PO SCH (09:00)
[2019-07-22] MEDS ORDERED: CLOPIDOGREL BISULFATE 75 MG TAB PO SCH (09:00)
[2019-07-22] MEDS ORDERED: CEROVITE ADV FORMULA TAB PO SCH (09:00)
[2019-07-22] MEDS ORDERED: CALCIUM CARBONATE 1250MG TAB PO SCH (09:00)
[2019-07-22] MEDS ORDERED: LOSARTAN POTASSIUM 50 MG TAB PO SCH (09:00)
[2019-07-22] MEDS ORDERED: ATORVASTATIN 40 MG TAB PO SCH (09:00)
[2019-07-22] MEDS ORDERED: HydrALAZINE HCL 20 MG/ML VIAL IV STA ×2 (09:48→12:12)
--- NOTE | 2019-07-22 10:35 | Electrocardiogram Report ---
Test Reason : Blood Pressure : / mmHG Vent. Rate : 070 BPM Atrial Rate : 070 BPM P-R Int : 204 ms QRS Dur : 166 ms QT Int : 464 ms P-R-T Axes : 026 -51 121 degrees QTc Int : 501 ms Normal sinus rhythm Left axis deviation Left bundle branch block Abnormal ECG When compared with ECG of 08-AUG-2017 01:57, No significant change was found Confirmed by Jai Rizzo ([id number]) on 07/22/2019 10:35:16 AM Referred By: CATRACHITA Confirmed By:Jai Rizzo
[2019-07-22] MEDS: PROMETHAZINE HCL 12.5 MG in SODIUM CHLORIDE 0.9% 50 ML IV PRN (11:40)
[2019-07-22] MEDS: ARTIFICIAL TEARS OP SCH ×4 (11:56→20:27)
[2019-07-22] MEDS: HydrALAZINE HCL 20 MG/ML VIAL IV PRN (12:18)
[2019-07-22] MEDS ORDERED: AMLODIPINE BESYLATE 5 MG TAB PO ONE (12:29)
--- NOTE | 2019-07-22 13:12 | Infectious Disease Consult ---
Date of Consultation July 22, 2019 Assessment & Plan (1) COVID-19 virus infection: continue supportive care, patient is admitted in COVID unit, treatment per protocol. would continue cefepime for now, pending urine and blood culture results. History of Present Illness Attending Physician: Bhaskar Chen MD pt admitted from SN[facility] with cough, sob, low O2 sat. currently 96% on RA. she had contact with staff member who recently tested + for COVID, she underwent COVID testing and is + and now in isolation. wbc 5, creat 0.9, d dimer elevated at 1750 CT head negative, CTA chest negative for PE/pna, CXR negative for infiltrate. she is on cefepime due to abnormal UA > 30 wbc, + 4 bacteria. no sob reported by patient. tmax 37.8 in ER, afebrile since admission. tolerating cefepime, urine and blood cultures pending ID consulted for COVID + Allergies Allergy/AdvReac Type Severity Reaction Status Date / Time bee venom protein (honey bee) Allergy Intermediate . Unverified 07/22/19 02:32 epinephrine Allergy Unknown BODY Verified 07/22/19 02:32 SHOOK, FREEZING Home Medications Home Medications Medication Instructions Recorded Confirmed Type acetaminophen [Acetaminophen Extra 500 mg PO TID PRN MDD 3gm 07/22/19 07/22/19 History Strength] atorvastatin 40 mg PO DAILY 07/22/19 07/22/19 History calcium carbonate [Tums] 400 mg PO Q4 PRN 07/22/19 07/22/19 History calcium carbonate-vitamin D3 1 tab PO DAILY 07/22/19 07/22/19 History [Oyster Shell Calcium-Vit D3] carboxymethylcellulose sodium 1 drp OPB QID 07/22/19 07/22/19 History [Refresh Tears] clopidogrel 75 mg PO DAILY 07/22/19 07/22/19 History escitalopram oxalate 15 mg PO DAILY 07/22/19 07/22/19 History famotidine 20 mg PO BID 07/22/19 07/22/19 History furosemide 20 mg PO DAILY 07/22/19 07/22/19 History gabapentin 300 mg PO DAILY 07/22/19 07/22/19 History gabapentin 600 mg PO HS 07/22/19 07/22/19 History hydrocortisone 1 applic TOPICAL BID PRN 07/22/19 07/22/19 History lactase [Lactaid] 3,000 unit PO TIDM 07/22/19 07/22/19 History loperamide [Imodium A-D] 2 mg PO TID 07/22/19 07/22/19 History losartan 100 mg PO DAILY 07/22/19 07/22/19 History metoprolol tartrate 25 mg PO BID 07/22/19 07/22/19 History aiyjqhmnhjia-naa-rldd-FA-vit K 1 tab PO DAILY 07/22/19 07/22/19 History [Multi-Day Plus Minerals] simethicone [Gas Relief 80 80 mg PO Q8 07/22/19 07/22/19 History (simethicone)] timolol maleate 1 drp OPB BID 07/22/19 07/22/19 History triamcinolone acetonide 1 applic TOPICAL HS 07/22/19 07/22/19 History Patient History Medical History Acquired claw toe of left foot (Acute) Acquired claw toe of right foot (Acute) Callus (Acute) Diabetes mellitus with diabetic polyneuropathy (Acute) Hallux valgus (acquired), left foot (Acute) Social History Preferred Language: Azeri Communication Ability: Effective Hearing Ability: Hard of Hearing 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: No Beliefs That Will Affect Care: None Current Living Situation: Personal Care Facility current occupational status: retired Other Information That Helps Us Care for You: No Feels Safe at Home: Yes Safety Concerns: Feels Safe At This Time Smoking Status: Unknown if ever smoked Hx Alcohol Use: No Hx Substance Use: No Review of Systems Review of Systems: per H&P Results & Data ([facility]) Vital Signs (Past 12 Hours) Vital Signs Temp Pulse Pulse Pulse Resp BP BP 07/22/19 11:53 36.9 C 63 18 211/79 H 07/22/19 09:30 36.8 C 54 L 16 199/74 H 07/22/19 07:00 52 L 54 L 16 07/22/19 06:15 36.8 C 56 L 18 171/73 H 07/22/19 05:00 51 L 14 137/61 07/22/19 04:30 53 L 15 114/52 L 07/22/19 04:01 37.1 C 61 14 07/22/19 04:00 54 L 15 117/56 L 07/22/19 03:31 55 L 15 07/22/19 03:30 64 16 119/60 07/22/19 03:25 37.2 C 07/22/19 03:08 63 20 145/74 H 07/22/19 03:06 60 20 145/74 H 07/22/19 03:00 57 L 18 07/22/19 02:30 67 17 07/22/19 02:24 37.8 C H 71 24 179/87 H 07/22/19 02:00 71 24 07/22/19 01:57 70 22 07/22/19 01:53 70 23 179/87 H Pulse Ox 07/22/19 11:53 96 07/22/19 09:30 95 07/22/19 07:00 92 07/22/19 06:15 91 07/22/19 05:00 98 07/22/19 04:30 96 07/22/19 04:01 96 07/22/19 04:00 96 07/22/19 03:31 96 07/22/19 03:30 95 07/22/19 03:25 07/22/19 03:08 96 07/22/19 03:06 97 07/22/19 03:00 07/22/19 02:30 07/22/19 02:24 89 L 07/22/19 02:00 93 07/22/19 01:57 96 07/22/19 01:53 96 PG Care Time/CCT Total # of Minutes Spent Total Time Spent with Patient: Total time spent is greater than 50% in coordination of care (as documented) at patient's floor/unit and/or counseling patient: Coding Level of Care Code 90226 Inpt Consult Level 2 Diagnoses COVID-19 virus infection U07.1
--- NOTE | 2019-07-22 14:42 | Hospitalist Progress Note ---
Date of Service July 22, 2019 Assessment & Plan Admission and Anticipated Discharge Date Admission Date: July 22, 2019 Results & Data Results & Data ([facility]) Vital Signs (Past 12 Hours) Vital Signs Temp Pulse Pulse Pulse Resp BP BP 07/22/19 14:00 71 144/65 H 07/22/19 11:53 36.9 C 63 18 211/79 H 07/22/19 09:30 36.8 C 54 L 16 199/74 H 07/22/19 07:00 52 L 54 L 16 07/22/19 06:15 36.8 C 56 L 18 171/73 H 07/22/19 05:00 51 L 14 137/61 07/22/19 04:30 53 L 15 114/52 L 07/22/19 04:01 37.1 C 61 14 07/22/19 04:00 54 L 15 117/56 L 07/22/19 03:31 55 L 15 07/22/19 03:30 64 16 119/60 07/22/19 03:25 37.2 C 07/22/19 03:08 63 20 145/74 H 07/22/19 03:06 60 20 145/74 H 07/22/19 03:00 57 L 18 Pulse Ox 07/22/19 14:00 95 07/22/19 11:53 96 07/22/19 09:30 95 07/22/19 07:00 92 07/22/19 06:15 91 07/22/19 05:00 98 07/22/19 04:30 96 07/22/19 04:01 96 07/22/19 04:00 96 07/22/19 03:31 96 07/22/19 03:30 95 07/22/19 03:25 07/22/19 03:08 96 07/22/19 03:06 97 07/22/19 03:00
[2019-07-22 15:41] LABS: D Dimer 1600 ug/L FEU (0-500)
[2019-07-22 15:42] LABS: Alanine Aminotransferase 30 U/L (12-78); Albumin Level 3.5 gm/dl (3.4-5.0); Aspartate Aminotransferase 25 U/L (15-37); BUN Creatinine Ratio 16.4 (10-20); Bilirubin Direct 0.3 mg/dl (0-0.2); Blood Urea Nitrogen 15 mg/dl (7-18); C Reactive Protein < 0.29 mg/dl (0-0.29); Calcium 8.8 mg/dl (8.5-10.1); Carbon Dioxide 27 mmol/L (21-32); Chloride 104 mmol/L (98-107); Creatinine Clr Calc Pharmacy 50.7 ml/min; Est GFR (African American) 65.7; Est GFR (Non-African American) 56.7; Glucose 162 mg/dl (70-99); Sodium 138 mmol/L (136-145)
[2019-07-22 15:48] LABS: Alkaline Phosphatase 60 U/L (45-117); Bilirubin,Total 1.1 mg/dl (0.2-1); Creatine Kinase 83 U/L (26-192); Ferritin 248.9 ng/ml (8-388); Globulin 3.4 gm/dl (2.5-4.0); Total Protein 6.9 gm/dl (6.4-8.2); Troponin I < 0.015 ng/ml (0-0.045)
[2019-07-22 15:53] LABS: Basophils # (auto) 0.01 K/uL (0-0.2); Basophils % (auto) 0.1 %; Eosinophils # (auto) 0.01 K/uL (0-0.5); Eosinophils % (auto) 0.1 %; Hematocrit (blood only) 39.8 % (37-47); Hemoglobin 12.9 g/dL (12.0-16.0); Immature Granulocytes # (auto) 0.02 K/uL (0.00-0.02); Immature Granulocytes % (auto) 0.2 %; Lymphocytes # (auto) 0.71 K/uL (1.2-3.4); Lymphocytes % (auto) 7.9 %; Mean Corpuscular Hemoglobin 30.1 pg (25-34); Mean Corpuscular Hgb Conc 32.4 g/dL (32-36); Monocytes # (auto) 0.72 K/uL (0.11-0.59); Neutrophils # (auto) 7.57 K/uL (1.4-6.5); Neutrophils % (auto) 83.7 %; Platelet Count 93 K/uL (130-400); Platelet Estimate Decreased (Normal); RDW Coefficient of Variation 14.3 % (11.5-14.5); RDW Standard Deviation 48.4 fL (36.4-46.3); Red Blood Count 4.28 M/uL (4.2-5.4); White Blood Count 9.04 K/uL (4.8-10.8)
--- NOTE | 2019-07-22 19:16 | Communication Note ---
Date of Service: July 22, 2019 COVID 19 test: Positive RN informed of elevated BP- systolic 211, (+) vomiting Hydralazine IV and Amlodipine 10mg po ordered seen sitting in bed, comfortable, on 2 L NC, not in distress somewhat sleepy but oriented x 3, answers all questions appropriately nausea resolved, no chest pain, headache, dizziness no shortness of breath, cough, myalgias/arthralgias, diarrhea no dysuria denies other symptoms General- oriented x 3, not in distress, speaks in sentences with no effort or accessory muscle use Eyes- anicteric Neck- no JVD Lungs- clear breath sounds bilaterally, no rales/wheezes Heart- normal rate, regular rhythm; no murmurs Abdomen- normal bowel sounds, nondistended, soft, nontender Extremities- no pretibial edema, no calf tenderness Neuro- alert, oriented x 3; no gross focal neurologic deficits Skin- warm & dry A/P> COVID-19 INFECTION hemodynamically stable requiring 2 L of oxygen via nasal cannula maintain O2 between 90-92% to avoid hyperoxygenation, has history of hypercarbia discussed with Pulm- Dr. Duenas labs ordered discussed with ID, will continue supportive care for now discussed with patient in detail, she confirms DNR status POSSIBLE UTI continue Cefepime ff up cultures HYPERTENSIVE URGENCY Hydralazine IV PRN ordered Amlodipine 10mg po ordered DM 2 ISS continue usual Losartan and Metoprolol DVT prophylaxis hold anticoagulation in light of uncontrolled BP discussed case and plan of care in detail and at length with patient and patient's daughter Juliane onthe phone all questions answered they are understanding, agreeable, and comfortable with plan of care
[2019-07-22] MEDS: FAMOTIDINE 20 MG TAB PO SCH (20:26)
[2019-07-22] MEDS: METOPROLOL TARTRATE 25 MG TAB PO SCH (20:26)
[2019-07-22] MEDS: TIMOLOL MALEATE 0.25% OP SOLN 5 ML BTL OPB SCH (20:26)
[2019-07-23] MEDS: CEFEPIME 2,000 MG in SYRINGE 7.5 ML IV SCH (04:25)
[2019-07-23 05:26] LABS: Hematocrit (blood only) 38.6 % (37-47); Hemoglobin 12.6 g/dL (12.0-16.0); Mean Corpuscular Hemoglobin 30.4 pg (25-34); Mean Corpuscular Hgb Conc 32.6 g/dL (32-36); Mean Corpuscular Volume 93.2 fL (80-100); RDW Coefficient of Variation 14.4 % (11.5-14.5); RDW Standard Deviation 49.2 fL (36.4-46.3); Red Blood Count 4.14 M/uL (4.2-5.4); White Blood Count 7.21 K/uL (4.8-10.8)
[2019-07-23 05:44] LABS: BUN Creatinine Ratio 14.5 (10-20); Calcium 8.7 mg/dl (8.5-10.1); Creatinine Clr Calc Pharmacy 52.4 ml/min; Est GFR (African American) 68.5; Est GFR (Non-African American) 59.1; Mean Platelet Volume 10.9 fL (7.4-10.4); Platelet Count 88 K/uL (130-400); Potassium 3.8 mmol/L (3.5-5.1)
[2019-07-23 05:50] LABS: Basophils # (auto) 0.01 K/uL (0-0.2); Basophils % (auto) 0.1 %; Eosinophils # (auto) 0.02 K/uL (0-0.5); Eosinophils % (auto) 0.3 %; Immature Granulocytes # (auto) 0.02 K/uL (0.00-0.02); Immature Granulocytes % (auto) 0.3 %; Lymphocytes # (auto) 1.27 K/uL (1.2-3.4); Lymphocytes % (auto) 17.6 %; Monocytes # (auto) 0.79 K/uL (0.11-0.59); Neutrophils % (auto) 70.7 %
[2019-07-23] MEDS ORDERED: CLOPIDOGREL BISULFATE 75 MG TAB PO SCH (08:00)
[2019-07-23] MEDS: INSULIN ASPART 100 UNITS/ML 3 ML PEN SC SCH ×4 (08:30→20:50)
[2019-07-23] MEDS: LOSARTAN POTASSIUM 50 MG TAB PO SCH (08:50)
[2019-07-23] MEDS: ESCITALOPRAM OXALATE 10 MG TAB PO SCH (08:50)
[2019-07-23] MEDS: ATORVASTATIN 40 MG TAB PO SCH (08:52)
[2019-07-23] MEDS: CALCIUM CARBONATE 1250MG TAB PO SCH (08:53)
[2019-07-23] MEDS: FAMOTIDINE 20 MG TAB PO SCH ×2 (08:53→20:48)
[2019-07-23] MEDS: METOPROLOL TARTRATE 25 MG TAB PO SCH ×2 (08:53→18:18)
[2019-07-23] MEDS: CEROVITE ADV FORMULA TAB PO SCH (08:54)
[2019-07-23] MEDS: ARTIFICIAL TEARS OP SCH ×4 (08:55→20:50)
[2019-07-23] MEDS: TIMOLOL MALEATE 0.25% OP SOLN 5 ML BTL OPB SCH ×2 (08:55→20:49)
[2019-07-23] MEDS: HydrALAZINE HCL 20 MG/ML VIAL IV PRN (16:17)
--- NOTE | 2019-07-23 16:49 | Hospitalist Progress Note ---
Date of Service delayed entry date of service noted below July 23, 2019 Assessment & Plan (1) Acute hypoxemic respiratory failure: secondary to COVID 19 Infection -- off oxygen supplement afebrile -- CXR: no infiltrates -- improved clinically, no dyspnea, cough, fever -- continue supportive care ID consulted continue to monitor closely Klebsiella UTI -- no sepsis -- on Ceftriaxone Hypertension -- BP elevated -- continued on usual Losartan and Metoprolol Amlodipine 5 mg po ordered 07/22, PRN Hydralazine -- monitor DM 2 diet-controlled, well-controlled as of hemoglobin A1c of 6.28 Jul 2018 -- BSGs stable History of LBBB -- no chest pain History CVA as per records -- continue Plavix, Atorvastatin Breast cancer status post surgery chronic thrombocytopenia -- Plt stable at 80-90 K history of RILEY -- on CPAP DVT prophylaxis. SCDs RE thrombocytopenia Full code Disposition resident of the [facility] and plan of care discussed with patient and her daughter Juliane over the phone all questions answered they are understanding, agreeable, comfortable with the plan of care Admission and Anticipated Discharge Date Admission Date: July 22, 2019 Subjective ff up for COVID 19 infection seen resting in bedside chair, on room air comfortable, conversant, very pleasant, in good spirits states she feels better today just walked in the hallways, no dyspnea denies shortness of breath, cough, sputum, fever/chills no abdominal pain, nausea, diarrhea no other symptoms Review of Systems Review of Systems: All systems reviewed & are unremarkable except as noted in HPI & below Physical Exam Physical Exam: General- oriented x 3, not in distress, speaks in sentences with no effort or accessory muscle use Eyes- anicteric Neck- no JVD Lungs- clear breath sounds bilaterally no crackles no wheezing Heart- normal rate, regular rhythm; no murmurs Abdomen- normal bowel sounds, nondistended, soft, nontender Extremities- no pretibial edema, no calf tenderness Neuro- alert, oriented x 3; no gross focal neurologic deficits Skin- warm & dry Results & Data Results & Data ([facility]) Vital Signs (Past 12 Hours) Vital Signs Temp Pulse Pulse Pulse Resp BP Pulse Ox 07/23/19 16:00 37.0 C 76 16 199/88 H 95 07/23/19 13:25 36.8 C 64 20 132/65 93 07/23/19 09:00 36.6 C 67 18 181/93 H 07/23/19 08:40 96 07/23/19 08:00 60 Laboratory Results all noted and reviewed
[2019-07-23] MEDS ORDERED: Nursing to Pharmacy Communication ONE (17:34)
[2019-07-23] MEDS ORDERED: Nursing to Pharmacy Communication STA (17:36)
[2019-07-23] MEDS ORDERED: AMLODIPINE BESYLATE 5 MG TAB PO ONE (18:00)
[2019-07-23] MEDS: ACETAMINOPHEN 325 MG TAB PO PRN (19:13)
[2019-07-24] MEDS: HydrALAZINE HCL 20 MG/ML VIAL IV PRN ×2 (00:35→12:26)
[2019-07-24] MEDS: CEFEPIME 2,000 MG in SYRINGE 7.5 ML IV SCH (03:56)
[2019-07-24 05:26] LABS: Hematocrit (blood only) 39.2 % (37-47); Hemoglobin 12.9 g/dL (12.0-16.0); Mean Corpuscular Hemoglobin 30.1 pg (25-34); Mean Corpuscular Hgb Conc 32.9 g/dL (32-36); Mean Corpuscular Volume 91.6 fL (80-100); RDW Coefficient of Variation 14.2 % (11.5-14.5); RDW Standard Deviation 47.8 fL (36.4-46.3); Red Blood Count 4.28 M/uL (4.2-5.4); White Blood Count 6.78 K/uL (4.8-10.8)
[2019-07-24 05:30] LABS: Basophils # (auto) 0.01 K/uL (0-0.2); Basophils % (auto) 0.1 %; Eosinophils # (auto) 0.06 K/uL (0-0.5); Eosinophils % (auto) 0.9 %; Immature Granulocytes # (auto) 0.01 K/uL (0.00-0.02); Immature Granulocytes % (auto) 0.1 %; Lymphocytes # (auto) 1.03 K/uL (1.2-3.4); Lymphocytes % (auto) 15.2 %; Mean Platelet Volume 11.7 fL (7.4-10.4); Monocytes # (auto) 0.73 K/uL (0.11-0.59); Monocytes % (auto) 10.8 %; Neutrophils # (auto) 4.94 K/uL (1.4-6.5); Neutrophils % (auto) 72.9 %; Platelet Count 94 K/uL (130-400)
[2019-07-24 05:59] LABS: BUN Creatinine Ratio 19.1 (10-20); Calcium 8.5 mg/dl (8.5-10.1); Creatinine Clr Calc Pharmacy 62.8 ml/min; Est GFR (African American) 84.6; Magnesium 1.8 mg/dl (1.8-2.4); Potassium 3.3 mmol/L (3.5-5.1)
[2019-07-24] MEDS ORDERED: cefTRIAXone SODIUM 1,000 MG in DEXTROSE 5% 25 ML IV SCH (07:15)
[2019-07-24] MEDS ORDERED: POTASSIUM CHLORIDE 20 MEQ TABCR PO STA (07:47)
[2019-07-24] MEDS: INSULIN ASPART 100 UNITS/ML 3 ML PEN SC SCH ×4 (08:22→21:07)
[2019-07-24] MEDS: ESCITALOPRAM OXALATE 10 MG TAB PO SCH (08:23)
[2019-07-24] MEDS: ATORVASTATIN 40 MG TAB PO SCH (08:24)
[2019-07-24] MEDS: METOPROLOL TARTRATE 25 MG TAB PO SCH ×2 (08:24→19:42)
[2019-07-24] MEDS: CALCIUM CARBONATE 1250MG TAB PO SCH (08:25)
[2019-07-24] MEDS: CEROVITE ADV FORMULA TAB PO SCH (08:25)
[2019-07-24] MEDS: LOSARTAN POTASSIUM 50 MG TAB PO SCH (08:25)
[2019-07-24] MEDS: TIMOLOL MALEATE 0.25% OP SOLN 5 ML BTL OPB SCH ×2 (08:26→19:49)
[2019-07-24] MEDS: ARTIFICIAL TEARS OP SCH ×3 (08:26→19:42)
[2019-07-24] MEDS: FAMOTIDINE 20 MG TAB PO SCH ×2 (08:26→19:48)
[2019-07-24] MEDS: cefTRIAXone SODIUM 2,000 MG in DEXTROSE 5% 50 ML IV SCH (08:26)
--- NOTE | 2019-07-24 12:59 | Infectious Disease Progress Nt ---
Date of Service July 24, 2019 Assessment & Plan (1) COVID-19 virus infection: can continue ctx x 3 days total for k. oxytoca in urine. continue supportive care for COVID, O2 sats stable on RA, afebrile. Admission and Anticipated Discharge Date Admission Date: July 22, 2019 Subjective pt urine culture growing crowley sensitive K. oxytoca. remains on ctx, tolerating we ll. afebrile. wbc 6, creat 0.7.blood cultures negative. 96% RA. Results & Data ([facility]) Vital Signs (Past 12 Hours) Vital Signs Temp Pulse Pulse Resp BP Pulse Ox 07/24/19 12:19 37.1 C 65 16 199/108 H 96 07/24/19 08:00 69 07/24/19 07:37 37.2 C 66 18 168/76 H 93 07/24/19 03:38 37.2 C 66 14 159/69 H 92 07/24/19 01:17 160/59 H Laboratory Results Microbiology 07/22/19 02:05 Urine,Indwelling Cath Urine Culture - Final Klebsiella oxytoca 07/22/19 02:00 Blood Aerobic Blood Culture - Preliminary No growth in Aerobic bottle after 48 hours. 07/22/19 02:00 Blood Anaerobic Blood Culture - Preliminary No growth in Anaerobic bottle after 48 hours. 07/22/19 02:15 Blood Aerobic Blood Culture - Preliminary No growth in Aerobic bottle after 48 hours. 07/22/19 02:15 Blood Anaerobic Blood Culture - Preliminary No growth in Anaerobic bottle after 48 hours. PG Care Time/CCT Total # of Minutes Spent Total Time Spent with Patient: Total time spent is greater than 50% in coordination of care (as documented) at patient's floor/unit and/or counseling patient: Coding Level of Care Code 12149 Subseq Hosp Care Lvl 1 Diagnoses COVID-19 virus infection U07.1
[2019-07-24] MEDS: ENOXAPARIN INJ 40 MG/0.4 ML SYR SQ SCH (13:36)
[2019-07-24] MEDS: CLOPIDOGREL BISULFATE 75 MG TAB PO SCH (13:36)
[2019-07-24] MEDS ORDERED: HYDROCORTISONE 1% CRM 30 GM TUBE EXT PRN (14:45)
--- NOTE | 2019-07-24 14:54 | Hospitalist Progress Note ---
Date of Service July 24, 2019 Assessment & Plan (1) Acute hypoxemic respiratory failure: secondary to COVID 19 Infection --symptom has resolved , respiratory status improved spo2 > 96% in RA no dyspnea, cough, fever afebrile -- CXR: no infiltrates - -- continue supportive care ID consulted NAUSEA /VOMITING : started to have GI symptoms today which possibly associated with COVID 19 infection ordered for clears symptomatic management with PRN phenargan Zofran avoided due to prolong Qtc LOW k : due to GI loss/vs poor po intake ordered for IV fluid with K supplement repeat BMP In AM Klebsiella UTI -- no sepsis -- on Ceftriaxone/complete total 3 days of treatment as per ID Hypertension -- continued on usual Losartan and Metoprolol cont on Norvasc 5 mg daily -- monitor PROLONG QTC : Qtc > 500 hold escilatopram ( can cause prolong qtc ) avoid Zofran follow lab: keep K> 4 , mg > 2 to prevent arrythmia repeat EKG in am DM 2 diet-controlled, well-controlled as of hemoglobin A1c of 6.28 Jul 2018 -- BSGs stable History of LBBB -- no chest pain History CVA as per records -- continue Plavix, Atorvastatin Breast cancer status post surgery chronic thrombocytopenia -- Plt stable at 80-90 K history of RILEY -- on CPAP DVT prophylaxis. SC Alex Full code Disposition resident of the [place] PT/OT earlene prior to discharge to Personal [facility]dc Admission and Anticipated Discharge Date Admission Date: July 22, 2019 Subjective pt reports of not feeling well cough has improved , no fever hypoxia resolved 97% in RA developed GI symptoms with Nausea /vomiting no abdominal pain , no loose stool Review of Systems Review of Systems: All systems reviewed & are unremarkable except as noted in HPI & below Constitutional: + weakness; no fever and no chills Respiratory: + cough; no dyspnea, no dyspnea on exertion, no sputum production and no wheezing Cardiovascular: no chest pain, no dyspnea, no orthopnea, no palpitations, no lightheadedness, no syncope and no edema Gastrointestinal: + belching, + bloating, + heartburn, + nausea and + vomiting; no abdominal pain and no diarrhea/loose stools Physical Exam Constitutional: WD/WN, vitals as above + acute distress (due to nausea ) Eyes: PERRL, conjunctivae normal, anicteric sclerae ENMT: external ear and nose normal, oropharynx normal Neck: trachea midline, no thyromegaly Respiratory: normal respiratory effort and + cough (non productive ); no respiratory distress Auscultation: no crackles, no rales, no rhonchi and no wheezes Cardiovascular: RRR, no murmur, no edema Gastrointestinal (Abdomen): Percussion/Palpation: + abdomen tender and abdomen soft Musculoskeletal: Extremities: + abnormal strength (generalized weakness ) Skin: no rashes, warm and dry Neurologic: PERRL, EOMI, accommodation nl, no face palsy, no dysarthria Psychiatric: A+Ox3, euthymic affect Results & Data Results & Data ([facility]) Vital Signs (Past 12 Hours) Vital Signs Temp Pulse Pulse Resp BP Pulse Ox 07/24/19 13:53 68 168/78 H 07/24/19 12:19 37.1 C 65 16 199/108 H 96 07/24/19 08:00 69 07/24/19 07:37 37.2 C 66 18 168/76 H 93 07/24/19 03:38 37.2 C 66 14 159/[address] head initial read : Chronic right occipital infarct. White matter hypodensities which are nonspecific. CT chest initial read No acute pulmonary embolism. No aortic aneurysm or dissection. Atherosclerotic calcifications. Aberrant right subclavian artery. Dependent atelectasis. No infiltrate. No pneumothorax or effusion. Cardiomegaly. Coronary calcification. Pancreatic tail lesion enlarged from prior CT abdomen from July 2017. Status post cholecystectomy, increase biliary ductal dilatation EKG : Rate 70, NSR, LAD, LAFB, LBBB
[2019-07-24] MEDS ORDERED: ONDANSETRON INJ 2 MG/ML 2 ML VIAL ONE (15:48)
[2019-07-24] MEDS ORDERED: Nursing to Pharmacy Communication ONE (16:25)
[2019-07-24] MEDS: LACTASE 3000 UNIT TAB PO SCH (17:25)
[2019-07-24] MEDS ORDERED: NSS + 20MEQ KCL 20 MEQ/1,000 ML BAG IV SCH (18:45)
[2019-07-24] MEDS: AMLODIPINE BESYLATE 5 MG TAB PO SCH (19:40)
[2019-07-24] MEDS: TRIAMCINOLONE ACET 0.1% CR 15 GM TUBE TOP SCH (20:48)
[2019-07-25] MEDS: PROMETHAZINE HCL 12.5 MG in SODIUM CHLORIDE 0.9% 50 ML IV PRN (00:58)
[2019-07-25] MEDS: HydrALAZINE HCL 20 MG/ML VIAL IV PRN ×3 (04:12→23:43)
[2019-07-25] MEDS: ASCORBIC ACID 500 MG TAB PO SCH ×3 (04:13→19:40)
[2019-07-25] MEDS: ZINC SULFATE 220 MG CAPSULE PO SCH ×2 (04:13→08:25)
[2019-07-25 06:28] LABS: BUN Creatinine Ratio 15.9 (10-20); Calcium 8.7 mg/dl (8.5-10.1); Creatinine Clr Calc Pharmacy 62.6 ml/min; Est GFR (African American) 84.6; Magnesium 1.9 mg/dl (1.8-2.4); Potassium 3.7 mmol/L (3.5-5.1)
[2019-07-25] MEDS: TIMOLOL MALEATE 0.25% OP SOLN 5 ML BTL OPB SCH ×2 (07:29→19:38)
[2019-07-25] MEDS: cefTRIAXone SODIUM 2,000 MG in DEXTROSE 5% 50 ML IV SCH (07:31)
[2019-07-25] MEDS: LACTASE 3000 UNIT TAB PO SCH ×3 (08:22→15:39)
[2019-07-25] MEDS: LOSARTAN POTASSIUM 50 MG TAB PO SCH (08:23)
[2019-07-25] MEDS: CEROVITE ADV FORMULA TAB PO SCH (08:23)
[2019-07-25] MEDS: ATORVASTATIN 40 MG TAB PO SCH (08:23)
[2019-07-25] MEDS: CALCIUM CARBONATE 1250MG TAB PO SCH (08:23)
[2019-07-25] MEDS: FAMOTIDINE 20 MG TAB PO SCH ×2 (08:24→19:40)
[2019-07-25] MEDS: ARTIFICIAL TEARS OP SCH ×4 (08:24→19:39)
[2019-07-25] MEDS: METOPROLOL TARTRATE 25 MG TAB PO SCH ×2 (08:24→19:38)
[2019-07-25] MEDS: INSULIN ASPART 100 UNITS/ML 3 ML PEN SC SCH ×4 (08:24→20:46)
[2019-07-25] MEDS: AMLODIPINE BESYLATE 5 MG TAB PO SCH (08:25)
[2019-07-25] MEDS ORDERED: CEROVITE ADV FORMULA TAB PO SCH (09:00)
[2019-07-25] MEDS ORDERED: ERGOCALCIFEROL 50,000 UNITS CAP PO SCH (11:00)
[2019-07-25] MEDS: ENOXAPARIN INJ 40 MG/0.4 ML SYR SQ SCH (11:41)
[2019-07-25] MEDS: CLOPIDOGREL BISULFATE 75 MG TAB PO SCH (11:41)
--- NOTE | 2019-07-25 14:57 | Electrocardiogram Report ---
Test Reason : Blood Pressure : / mmHG Vent. Rate : 068 BPM Atrial Rate : 068 BPM P-R Int : 190 ms QRS Dur : 156 ms QT Int : 468 ms P-R-T Axes : 009 -50 114 degrees QTc Int : 497 ms Sinus rhythm with Premature atrial complexes Left axis deviation Left bundle branch block Abnormal ECG No previous ECGs available Confirmed by Jai Rizzo ([id number]) on 07/25/2019 2:56:56 PM Referred By: CATRACHITA Confirmed By:Jai Rizzo
--- NOTE | 2019-07-25 17:00 | Hospitalist Progress Note ---
Date of Service July 25, 2019 Assessment & Plan (1) Acute hypoxemic respiratory failure: secondary to COVID 19 disease SARS-Cov-2 PCR + positive -, respiratory status improved spo2 > 96% in RA no dyspnea, cough, fever afebrile -- CXR: no infiltrates/no antibiotic needed - -- continue supportive care ID consulted NAUSEA /VOMITING : GI symptoms possibly associated with COVID 19 infection symptoms has improved avoid PRN Zofran for nausea due to prolong Qtc LOW k : corrected due to GI loss/vs poor po intake follow BMP Klebsiella UTI -- no sepsis -- on Ceftriaxone/complete total 3 days of treatment as per ID 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 ( goal 30-40 ) ordered 50,000 U once weekly , cont for 6-8 weeks to achieve goal level Vit level check in 3 months d/c Ca supplement to prevent hypercalcemia Hypertension -- continued on usual Losartan and Metoprolol cont on Norvasc 5 mg daily -- monitor PROLONG QTC : Qtc > 500 hold escilatopram ( can cause prolong qtc ) avoid Zofran follow lab: keep K> 4 , mg > 2 to prevent arrythmia repeat EKG in am DM 2 diet-controlled, well-controlled as of hemoglobin A1c of 6.28 Jul 2018 -- BSGs stable History of LBBB -- no chest pain History CVA as per records -- continue Plavix, Atorvastatin Breast cancer status post surgery chronic thrombocytopenia -- Plt stable at 80-90 K history of RILEY -- on CPAP DVT prophylaxis. [place] Lovenox Full code Disposition resident of the [facility] PT/OT eval prior to discharge to Personal correction spoke with Survey Coordinator at [facility] -update given Admission and Anticipated Discharge Date Admission Date: July 22, 2019 Subjective nausea /vomiting has improved no loose stool today feels extremely tired and exhausted has been afebrile Review of Systems Constitutional: + weakness; no fever and no chills Gastrointestinal: no abdominal pain and no diarrhea/loose stools Physical Exam Constitutional: WD/WN, vitals as above + acute distress (due to nausea ) Eyes: PERRL, conjunctivae normal, anicteric sclerae ENMT: external ear and nose normal, oropharynx normal Neck: trachea midline, no thyromegaly Respiratory: normal respiratory effort and + cough (non productive ); no respiratory distress Auscultation: no crackles, no rales, no rhonchi and no wheezes Cardiovascular: RRR, no murmur, no edema Gastrointestinal (Abdomen): Percussion/Palpation: abdomen soft Musculoskeletal: Extremities: + abnormal strength (generalized weakness ) Skin: no rashes, warm and dry Neurologic: PERRL, EOMI, accommodation nl, no face palsy, no dysarthria Psychiatric: A+Ox3, euthymic affect Results & Data Results & Data ([facility]) Vital Signs (Past 12 Hours) Vital Signs Temp Pulse Pulse Resp BP Pulse Ox 07/25/19 15:56 37.1 C 72 71 22 138/54 L 90 07/25/19 12:25 138/54 L 07/25/19 11:27 37.4 C 72 18 203/77 H 91 07/25/19 07:27 37.4 C 86 16 166/71 H 95
[2019-07-25] MEDS ORDERED: LACTOBACILLUS ACIDOPHILUS 1 GM PACK PO SCH (18:40)
[2019-07-25] MEDS: ACETAMINOPHEN 325 MG TAB PO PRN (19:38)
[2019-07-25] MEDS: TRIAMCINOLONE ACET 0.1% CR 15 GM TUBE TOP SCH (19:39)
[2019-07-25] MEDS ORDERED: HydrALAZINE HCL 20 MG/ML VIAL IV ONE (20:00)
[2019-07-25] MEDS: LACTOBACILLUS ACIDOPHILUS 1 GM PACK PO SCH (20:47)
[2019-07-26] MEDS ORDERED: cloNIDine HCL 0.1 MG TAB PO ONE (01:10)
[2019-07-26] MEDS ORDERED: LABETALOL HCL IV 5 MG/ML 20ML IV STA (04:10)
[2019-07-26 07:59] LABS: BUN Creatinine Ratio 22.5 (10-20); Calcium 8.5 mg/dl (8.5-10.1); Creatinine Clr Calc Pharmacy 69.7 ml/min; Est GFR (African American) 90.8; Est GFR (Non-African American) 78.3; Magnesium 1.9 mg/dl (1.8-2.4); Potassium 3.4 mmol/L (3.5-5.1)
[2019-07-26] MEDS: ARTIFICIAL TEARS OP SCH ×4 (08:28→20:27)
[2019-07-26] MEDS: cefTRIAXone SODIUM 2,000 MG in DEXTROSE 5% 50 ML IV SCH (08:28)
[2019-07-26] MEDS: INSULIN ASPART 100 UNITS/ML 3 ML PEN SC SCH ×4 (08:28→20:32)
[2019-07-26] MEDS: CEROVITE ADV FORMULA TAB PO SCH (08:29)
[2019-07-26] MEDS: LACTOBACILLUS ACIDOPHILUS 1 GM PACK PO SCH ×3 (08:29→16:59)
[2019-07-26] MEDS: ATORVASTATIN 40 MG TAB PO SCH (08:29)
[2019-07-26] MEDS: METOPROLOL TARTRATE 25 MG TAB PO SCH ×2 (08:29→20:29)
[2019-07-26] MEDS: ASCORBIC ACID 500 MG TAB PO SCH ×2 (08:30→20:31)
[2019-07-26] MEDS: LOSARTAN POTASSIUM 50 MG TAB PO SCH (08:30)
[2019-07-26] MEDS: FAMOTIDINE 20 MG TAB PO SCH ×2 (08:30→20:29)
[2019-07-26] MEDS: LACTASE 3000 UNIT TAB PO SCH ×3 (08:30→17:00)
[2019-07-26] MEDS: TIMOLOL MALEATE 0.25% OP SOLN 5 ML BTL OPB SCH ×2 (08:30→20:31)
[2019-07-26] MEDS: AMLODIPINE BESYLATE 5 MG TAB PO SCH (08:31)
[2019-07-26] MEDS: ZINC SULFATE 220 MG CAPSULE PO SCH (08:31)
[2019-07-26] MEDS ORDERED: CHOLECALCIFEROL 1,000 UNITS 25 MCG TAB PO SCH (09:00)
--- NOTE | 2019-07-26 11:10 | Hospitalist Progress Note ---
Date of Service July 26, 2019 Assessment & Plan (1) Acute hypoxemic respiratory failure: secondary to COVID 19 disease SARS-Cov-2 PCR + positive -, respiratory status improved spo2 > 96% in RA no dyspnea, cough, fever afebrile -- CXR: no infiltrates/no antibiotic needed - -- continue supportive care ID following NAUSEA /VOMITING : GI symptoms possibly associated with COVID 19 infection symptoms -nausea /vomiting has resolved appetite remains fair multiple loose bowel movements stool C diff assay ordered - avoid PRN Zofran for nausea due to prolong Qtc having LOW k : due to GI loss/vs poor po intake cont to replace follow BMP Klebsiella UTI -- no sepsis -- on Ceftriaxone/complete total 3 days of treatment as per ID 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 ( goal 30-40 ) ordered 50,000 U once weekly , cont for 6-8 weeks to achieve goal level Vit level check in 3 months d/c Ca supplement to prevent hypercalcemia Hypertension -- continued on usual Losartan and Metoprolol cont on Norvasc 5 mg daily -- monitor PROLONG QTC : Qtc > 500 hold escilatopram ( can cause prolong qtc ) avoid Zofran follow lab: keep K> 4 , mg > 2 to prevent arrythmia repeat EKG in am DM 2 diet-controlled, well-controlled as of hemoglobin A1c of 6.28 Jul 2018 -- BSGs stable History of LBBB -- no chest pain History CVA as per records -- continue Plavix, Atorvastatin Breast cancer status post surgery chronic thrombocytopenia -- Plt stable at 80-90 K history of RILEY -- on CPAP DVT prophylaxis. [place] Lovenox Full code Disposition resident of the [place] PT/OT eval prior to discharge to Personal group home spoke with Echocardiograph Tech at [facility] -update given Admission and Anticipated Discharge Date Admission Date: July 22, 2019 Subjective nausea /abdominal pain has resolved still having loose bowel movements no fever or chills no cough or sob complains of extreme fatigue and weakness Review of Systems Constitutional: + weakness; no fever and no chills Respiratory: no dyspnea, no dyspnea on exertion, no sputum production and no wheezing Physical Exam Constitutional: WD/WN, vitals as above Eyes: PERRL, conjunctivae normal, anicteric sclerae ENMT: external ear and nose normal, oropharynx normal Neck: trachea midline, no thyromegaly Respiratory: normal respiratory effort; no respiratory distress Auscultation: no crackles, no rales, no rhonchi and no wheezes Cardiovascular: RRR, no murmur, no edema Gastrointestinal (Abdomen): Percussion/Palpation: abdomen soft Musculoskeletal: Extremities: + abnormal strength (generalized weakness ) Skin: no rashes, warm and dry Neurologic: PERRL, EOMI, accommodation nl, no face palsy, no dysarthria Psychiatric: A+Ox3, euthymic affect Results & Data Results & Data ([facility]) Vital Signs (Past 12 Hours) Vital Signs Temp Pulse Pulse Pulse Resp BP Pulse Ox 07/26/19 08:51 70 07/26/19 08:00 36.8 C 77 18 142/70 H 93 07/26/19 04:02 37.2 C 71 16 184/63 H 93 07/26/19 01:43 65 07/26/19 00:44 67 186/71 H 95 07/25/19 23:12 36.7 C 72 16 186/73 H 93
[2019-07-26] MEDS ORDERED: POTASSIUM CHLORIDE 20 MEQ TABCR PO ONE (12:00)
[2019-07-26] MEDS: ENOXAPARIN INJ 40 MG/0.4 ML SYR SQ SCH (12:14)
[2019-07-26] MEDS: CLOPIDOGREL BISULFATE 75 MG TAB PO SCH (12:14)
[2019-07-26] MEDS ORDERED: POTASSIUM CHLORIDE 20 MEQ TABCR PO STA (13:09)
[2019-07-26] MEDS: HydrALAZINE HCL 20 MG/ML VIAL IV PRN (19:25)
[2019-07-26] MEDS: ACETAMINOPHEN 325 MG TAB PO PRN (19:25)
[2019-07-26] MEDS: TRIAMCINOLONE ACET 0.1% CR 15 GM TUBE TOP SCH (20:27)
[2019-07-27] MEDS: ACETAMINOPHEN 325 MG TAB PO PRN ×2 (03:54→14:13)
[2019-07-27] MEDS: HydrALAZINE HCL 20 MG/ML VIAL IV PRN ×2 (03:55→21:01)
[2019-07-27 06:43] LABS: Hematocrit (blood only) 37.8 % (37-47); Hemoglobin 12.6 g/dL (12.0-16.0); Mean Corpuscular Hemoglobin 30.1 pg (25-34); Mean Corpuscular Hgb Conc 33.3 g/dL (32-36); Mean Corpuscular Volume 90.4 fL (80-100); Platelet Count 99 K/uL (130-400); RDW Coefficient of Variation 13.9 % (11.5-14.5); RDW Standard Deviation 45.9 fL (36.4-46.3); Red Blood Count 4.18 M/uL (4.2-5.4); White Blood Count 7.87 K/uL (4.8-10.8)
[2019-07-27 07:08] LABS: BUN Creatinine Ratio 21.5 (10-20); Calcium 8.4 mg/dl (8.5-10.1); Creatinine Clr Calc Pharmacy 63.9 ml/min; Est GFR (African American) 86.1; Est GFR (Non-African American) 74.3; Magnesium 1.8 mg/dl (1.8-2.4); Potassium 3.4 mmol/L (3.5-5.1)
[2019-07-27] MEDS ORDERED: AMLODIPINE BESYLATE 5 MG TAB PO SCH (08:00)
[2019-07-27] MEDS: LACTASE 3000 UNIT TAB PO SCH ×3 (08:26→16:23)
[2019-07-27] MEDS: ZINC SULFATE 220 MG CAPSULE PO SCH (08:26)
[2019-07-27] MEDS: CHOLECALCIFEROL 1,000 UNITS 25 MCG TAB PO SCH (08:27)
[2019-07-27] MEDS: METOPROLOL TARTRATE 25 MG TAB PO SCH ×2 (08:27→21:05)
[2019-07-27] MEDS: ASCORBIC ACID 500 MG TAB PO SCH ×2 (08:27→21:07)
[2019-07-27] MEDS: LOSARTAN POTASSIUM 50 MG TAB PO SCH (08:28)
[2019-07-27] MEDS: LACTOBACILLUS ACIDOPHILUS 1 GM PACK PO SCH ×3 (08:28→16:24)
[2019-07-27] MEDS: CEROVITE ADV FORMULA TAB PO SCH (08:28)
[2019-07-27] MEDS: ATORVASTATIN 40 MG TAB PO SCH (08:28)
[2019-07-27] MEDS: FAMOTIDINE 20 MG TAB PO SCH ×2 (08:28→21:06)
[2019-07-27] MEDS: TIMOLOL MALEATE 0.25% OP SOLN 5 ML BTL OPB SCH ×2 (08:29→21:05)
[2019-07-27] MEDS: INSULIN ASPART 100 UNITS/ML 3 ML PEN SC SCH ×4 (08:38→21:09)
[2019-07-27] MEDS: ARTIFICIAL TEARS OP SCH ×4 (08:45→21:08)
[2019-07-27] MEDS: ENOXAPARIN INJ 40 MG/0.4 ML SYR SQ SCH (11:54)
[2019-07-27] MEDS: CLOPIDOGREL BISULFATE 75 MG TAB PO SCH (11:54)
--- NOTE | 2019-07-27 12:18 | Hospitalist Progress Note ---
Date of Service July 27, 2019 Assessment & Plan (1) Acute hypoxemic respiratory failure: secondary to COVID 19 disease SARS-Cov-2 PCR + positive -, respiratory status improved spo2 > 96% in RA -- CXR: no infiltrates/no antibiotic needed -intermittent low grade fever /temp spike noted PRN Tylenol ordered -- continue supportive care ID following NAUSEA /VOMITING : GI symptoms possibly associated with COVID 19 infection symptoms -nausea /vomiting has resolved -tolerating diet appetite remains fair stool C diff assay negative cont Lactinex and PRN imodium for loose stool Klebsiella UTI -- no sepsis -- Ceftriaxone/completed total 3 days of treatment as per ID 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 ( goal 30-40 ) ordered 50,000 U once weekly , cont for 6-8 weeks to achieve goal level Vit level check in 3 months d/c Ca supplement to prevent hypercalcemia LOW k : Replaced follow BMP Hypertension -- continued on usual Losartan and Metoprolol cont on Norvasc 5 mg daily -- PROLONG QTC : Qtc > 500 hold escilatopram ( can cause prolong qtc ) avoid Zofran follow lab: keep K> 4 , mg > 2 to prevent arrhythmia repeat EKG in am DM 2 diet-controlled, well-controlled as of hemoglobin A1c of 6.28 Jul 2018 -- BSGs stable History CVA as per records -- continue Plavix, Atorvastatin chronic thrombocytopenia -- Plt stable at 80-90 K history of RILEY -- on CPAP DVT prophylaxis. [place] Lovenox CODE STATUS : DNR/DNI Disposition resident of the [place] [facility] prior to discharge to Personal shelter spoke with Daughter Juliane -given update over phone Admission and Anticipated Discharge Date Admission Date: July 22, 2019 Subjective feels tired and wiped out temp spike with chills noted earlier , resolved with PO Tylenol GI symptoms has improved , no loose stool /nausea or vomiting appetite remains extremely poor on 3 l 02 NC Review of Systems Constitutional: + weakness Physical Exam Constitutional: WD/WN, vitals as above Eyes: PERRL, conjunctivae normal, anicteric sclerae ENMT: external ear and nose normal, oropharynx normal Neck: trachea midline, no thyromegaly Respiratory: normal respiratory effort; no respiratory distress Auscultation: no crackles, no rales, no rhonchi and no wheezes Cardiovascular: RRR, no murmur, no edema Gastrointestinal (Abdomen): Percussion/Palpation: abdomen soft Musculoskeletal: Extremities: + abnormal strength (generalized weakness ) Skin: no rashes, warm and dry Neurologic: PERRL, EOMI, accommodation nl, no face palsy, no dysarthria Psychiatric: A+Ox3, euthymic affect Results & Data Results & Data ([facility]) Vital Signs (Past 12 Hours) Vital Signs Temp Pulse Pulse Pulse Resp BP Pulse Ox 07/27/19 12:02 37 C 72 18 155/72 H 96 07/27/19 08:00 37.6 C H 72 18 177/90 H 96 07/27/19 05:17 36.9 C 151/65 H 07/27/19 05:02 37.8 C H 81 16 194/94 H 92 07/27/19 01:42 36.8 C 07/27/19 00:43 37.8 C H 67 67 16 159/66 H 93 07/27/19 00:38 72
[2019-07-27] MEDS ORDERED: LOPERAMIDE HCL 2 MG CAP PO PRN (12:19)
[2019-07-27] MEDS ORDERED: MAGNESIUM SULFATE / D5W 1 GM/100 ML BAG IV SCH ×2 (12:35→13:15)
[2019-07-27] MEDS ORDERED: POTASSIUM CHLORIDE 20 MEQ TABCR PO ONE (13:15)
[2019-07-27] MEDS: TRIAMCINOLONE ACET 0.1% CR 15 GM TUBE TOP SCH (21:08)
[2019-07-27] MEDS: PROMETHAZINE HCL 12.5 MG in SODIUM CHLORIDE 0.9% 50 ML IV PRN (21:13)
[2019-07-27] MEDS ORDERED: LABETALOL HCL IV 5 MG/ML 20ML IV STA (22:27)
[2019-07-28] MEDS: HydrALAZINE HCL 20 MG/ML VIAL IV PRN ×3 (08:06→22:29)
[2019-07-28] MEDS: ACETAMINOPHEN 325 MG TAB PO PRN ×3 (08:07→22:26)
[2019-07-28] MEDS: ASCORBIC ACID 500 MG TAB PO SCH ×2 (08:07→20:21)
[2019-07-28] MEDS: ATORVASTATIN 40 MG TAB PO SCH (08:08)
[2019-07-28] MEDS: LOSARTAN POTASSIUM 50 MG TAB PO SCH (08:08)
[2019-07-28] MEDS: METOPROLOL TARTRATE 25 MG TAB PO SCH ×2 (08:08→20:20)
[2019-07-28] MEDS: CHOLECALCIFEROL 1,000 UNITS 25 MCG TAB PO SCH (08:08)
[2019-07-28] MEDS: CEROVITE ADV FORMULA TAB PO SCH (08:08)
[2019-07-28] MEDS: FAMOTIDINE 20 MG TAB PO SCH ×2 (08:09→20:20)
[2019-07-28] MEDS: ZINC SULFATE 220 MG CAPSULE PO SCH (08:09)
[2019-07-28] MEDS: TIMOLOL MALEATE 0.25% OP SOLN 5 ML BTL OPB SCH ×2 (08:09→20:22)
[2019-07-28] MEDS: AMLODIPINE BESYLATE 5 MG TAB PO SCH (08:10)
[2019-07-28] MEDS: LACTASE 3000 UNIT TAB PO SCH ×3 (08:10→16:04)
[2019-07-28] MEDS: ARTIFICIAL TEARS OP SCH ×4 (08:11→20:21)
[2019-07-28] MEDS: LACTOBACILLUS ACIDOPHILUS 1 GM PACK PO SCH ×3 (08:11→16:04)
[2019-07-28] MEDS: INSULIN ASPART 100 UNITS/ML 3 ML PEN SC SCH ×4 (08:14→20:31)
[2019-07-28 08:48] LABS: BUN Creatinine Ratio 25.2 (10-20); Calcium 8.6 mg/dl (8.5-10.1); Creatinine Clr Calc Pharmacy 67.1 ml/min; Est GFR (African American) 89.9; Est GFR (Non-African American) 77.6; Magnesium 2.1 mg/dl (1.8-2.4); Potassium 3.7 mmol/L (3.5-5.1)
--- NOTE | 2019-07-28 09:04 | Electrocardiogram Report ---
Test Reason : Blood Pressure : / mmHG Vent. Rate : 076 BPM Atrial Rate : 076 BPM P-R Int : 192 ms QRS Dur : 164 ms QT Int : 456 ms P-R-T Axes : 000 -48 120 degrees QTc Int : 513 ms Sinus rhythm with Premature atrial complexes Left bundle branch block Abnormal ECG When compared with ECG of 25-JUL-2019 09:59, No significant change was found Confirmed by Kavin Reynolds ([id number]) on 07/28/2019 9:04:00 AM Referred By: CATRACHITA Confirmed By:Kavin Reynolds
[2019-07-28] MEDS: PROMETHAZINE HCL 12.5 MG in SODIUM CHLORIDE 0.9% 50 ML IV PRN ×2 (09:08→16:02)
[2019-07-28] MEDS ORDERED: POTASSIUM CHLORIDE 20 MEQ in SODIUM CHLORIDE 0.9% 1000ML 1,000 ML IV SCH (11:30)
[2019-07-28] MEDS ORDERED: NSS + 20MEQ KCL 20 MEQ/1,000 ML BAG IV SCH (11:30)
[2019-07-28] MEDS: CLOPIDOGREL BISULFATE 75 MG TAB PO SCH (12:16)
[2019-07-28] MEDS: ENOXAPARIN INJ 40 MG/0.4 ML SYR SQ SCH (12:17)
--- NOTE | 2019-07-28 15:58 | Hospitalist Progress Note ---
Date of Service July 28, 2019 Assessment & Plan (1) Acute hypoxemic respiratory failure: secondary to COVID 19 disease SARS-Cov-2 PCR + positive clinical symptoms waxing and weaning feeling very poorly today due to GI symptoms and fever -- CXR: no infiltrates/no antibiotic needed -intermittent low grade fever /temp spike noted PRN Tylenol ordered -- continue supportive care ID following NAUSEA /VOMITING : GI symptoms possibly associated with COVID 19 infection IV fluids ordered to prevent dehydration stool C diff assay negative cont Lactinex and PRN imodium for loose stool Klebsiella UTI -- no sepsis -- Ceftriaxone/completed total 3 days of treatment as per ID 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 ( goal 30-40 ) ordered 50,000 U once weekly , cont for 6-8 weeks to achieve goal level Vit level check in 3 months d/c Ca supplement to prevent hypercalcemia LOW k : due to GI loss replaced follow BMP Hypertension Hypertensive episodes noted intermittently , possibly due to acute illness -- continued on Losartan 100 mg daily and Metoprolol( home med ) Norvasc dose increased to 10 mg daily cont to monitor -- PROLONG QTC : Qtc > 500 hold escilatopram ( can cause prolong qtc ) avoid Zofran follow lab: keep K> 4 , mg > 2 to prevent arrhythmia repeat EKG in am DM 2 diet-controlled, well-controlled as of hemoglobin A1c of 6.28 Jul 2018 -- BSGs stable History CVA as per records -- continue Plavix, Atorvastatin chronic thrombocytopenia -- Plt stable at 80-90 K history of RILEY -- on CPAP DVT prophylaxis. [place] Lovenox CODE STATUS : DNR/DNI Disposition resident of the [place] [facility] prior to discharge to [facility] spoke with Daughter Juliane -given update over phone Admission and Anticipated Discharge Date Admission Date: July 22, 2019 Subjective not feeling well , spiked temps earlier , resolved with tylenol having ongoing nausea Hypertesnvie episodes noted requiring PRN IV hydralazine Physical Exam Constitutional: WD/WN, vitals as above + acute distress (due to nausea ) Eyes: PERRL, conjunctivae normal, anicteric sclerae ENMT: external ear and nose normal, oropharynx normal Neck: trachea midline, no thyromegaly Respiratory: normal respiratory effort; no respiratory distress Auscultation: no crackles, no rales, no rhonchi and no wheezes Cardiovascular: RRR, no murmur, no edema Gastrointestinal (Abdomen): Percussion/Palpation: abdomen soft Musculoskeletal: Extremities: + abnormal strength (generalized weakness ) Skin: no rashes, warm and dry Neurologic: PERRL, EOMI, accommodation nl, no face palsy, no dysarthria Psychiatric: A+Ox3, euthymic affect Results & Data Results & Data ([facility]) Vital Signs (Past 12 Hours) Vital Signs Temp Pulse Pulse Pulse Resp BP Pulse Ox 07/28/19 15:17 38.3 C H 85 26 H 200/107 H 91 07/28/19 14:55 77 07/28/19 10:44 36.7 C 71 22 145/84 H 91 07/28/19 10:27 62 07/28/19 09:11 72 24 179/92 H 93 07/28/19 08:34 196/92 H 07/28/19 07:59 37.6 C H 73 25 H 204/82 H 93
[2019-07-28] MEDS: TRIAMCINOLONE ACET 0.1% CR 15 GM TUBE TOP SCH (20:22)
[2019-07-29] MEDS: ACETAMINOPHEN 325 MG TAB PO PRN (03:04)
[2019-07-29 07:28] LABS: BUN Creatinine Ratio 25.1 (10-20); Calcium 8.3 mg/dl (8.5-10.1); Creatinine Clr Calc Pharmacy 72.3 ml/min; Est GFR (African American) 92.2; Est GFR (Non-African American) 79.5; Potassium 3.6 mmol/L (3.5-5.1)
[2019-07-29] MEDS: PROMETHAZINE HCL 12.5 MG in SODIUM CHLORIDE 0.9% 50 ML IV PRN (07:53)
[2019-07-29] MEDS: HydrALAZINE HCL 20 MG/ML VIAL IV PRN ×3 (08:07→15:48)
[2019-07-29] MEDS: LACTOBACILLUS ACIDOPHILUS 1 GM PACK PO SCH ×3 (08:26→12:23)
[2019-07-29] MEDS: ASCORBIC ACID 500 MG TAB PO SCH ×2 (08:26→11:07)
[2019-07-29] MEDS: LACTASE 3000 UNIT TAB PO SCH ×3 (08:26→12:23)
[2019-07-29] MEDS: ZINC SULFATE 220 MG CAPSULE PO SCH ×2 (08:26→11:07)
[2019-07-29] MEDS: AMLODIPINE BESYLATE 5 MG TAB PO SCH ×2 (08:26→11:06)
[2019-07-29] MEDS: CEROVITE ADV FORMULA TAB PO SCH ×2 (08:26→11:08)
[2019-07-29] MEDS: FAMOTIDINE 20 MG TAB PO SCH ×2 (08:26→11:06)
[2019-07-29] MEDS: ARTIFICIAL TEARS OP SCH ×3 (08:27→15:45)
[2019-07-29] MEDS: CHOLECALCIFEROL 1,000 UNITS 25 MCG TAB PO SCH (08:27)
[2019-07-29] MEDS: METOPROLOL TARTRATE 25 MG TAB PO SCH ×2 (08:27→11:06)
[2019-07-29] MEDS: ATORVASTATIN 40 MG TAB PO SCH ×2 (08:27→11:06)
[2019-07-29] MEDS: TIMOLOL MALEATE 0.25% OP SOLN 5 ML BTL OPB SCH (08:27)
[2019-07-29] MEDS: LOSARTAN POTASSIUM 50 MG TAB PO SCH (08:27)
[2019-07-29] MEDS: INSULIN ASPART 100 UNITS/ML 3 ML PEN SC SCH ×3 (08:28→16:25)
[2019-07-29 09:13] LABS: Base Excess ABG -0.5 mEq/L (-9-1.8); HCO3 ABG 21 mmol/L (19-24); PCO2 ABG 27 mmHg (35-46); PO2 ABG 47 mmHg (80-95)
--- NOTE | 2019-07-29 09:13 | XRay Report ---
XR chest 1V portable CLINICAL HISTORY: 89 years-old Female presenting with SOB/Hypoxia. TECHNIQUE: Portable upright AP view of the chest was obtained. COMPARISON: 07/22/2019. FINDINGS: Atherosclerosis of the aortic arch. Cardiac silhouette enlarged. Mildly low lung volumes as on prior exam. Increased interstitial prominence. Heterogeneity lung parenchyma with irregular reticulonodular opacities in the right upper lung and to lesser extent in the left upper and perihilar lung. No larg e effusion or pneumothorax. Degenerative changes of the thoracic spine and left glenohumeral joint. U pper abdomen normal. IMPRESSION: 1. Cardiomegaly. Some degree of volume overload and congestive change may be present. 2. Vague upper lobe predominant infiltrates suspected. Atypical infection not excluded though the ap pearance could relate to congestive change. 3. Mildly low lung volumes as on prior exam. ACT 112: Negative or not required by law. Electronically signed by: Tim Epperson M.D. 07/29/2019 9:12 AM
[2019-07-29 09:15] LABS: Hematocrit (blood only) 41.6 % (37-47); Hemoglobin 14.2 g/dL (12.0-16.0); Mean Corpuscular Hemoglobin 30.6 pg (25-34); Mean Corpuscular Hgb Conc 34.1 g/dL (32-36); Mean Corpuscular Volume 89.7 fL (80-100); Mean Platelet Volume 11.5 fL (7.4-10.4); Platelet Count 139 K/uL (130-400); Red Blood Count 4.64 M/uL (4.2-5.4); White Blood Count 9.69 K/uL (4.8-10.8)
--- NOTE | 2019-07-29 09:27 | Hospitalist Progress Note ---
Date of Service July 29, 2019 Assessment & Plan Admission and Anticipated Discharge Date Admission Date: July 22, 2019 Subjective ATTENDING NOTE : pts Am chart reviewed noted to have worsening of hypoxia on 5 L 02 spo2 90% worsening of Gi symptoms -nausea /vomiting hypertensive urgency requiring IV hydralazine Stat ABG/CBC with diff ordered infection markers D-dimer , CRP , Pro ema and lactic acid level stat portable cxray shows pulmonary congestion pt was given IV fluids NSS + 20 K X1 L yesterday for ongoing GI symptoms with N/V /D and hyponatremia /hypokalemia IV fluids been discontinued stat 40 mg IV Lasix x1 dose now check BNP level ordered for Bipap Pulmonology consulted given advanced age /COVID-19 disease , pts prognosis remains guarded CODE status : DNR/DNI pt will be physically evaluated by my self in the COVID UNIT shortly all ordered been communicated to Nursing Alondra Aguilar MD Results & Data Results & Data ([facility]) Vital Signs (Past 12 Hours) Vital Signs Temp Pulse Pulse Pulse Resp BP Pulse Ox 07/29/19 08:03 189/88 H 07/29/19 07:58 36.8 C 81 196/77 H 90 07/29/19 06:36 36.6 C 74 21 155/72 H 93 07/29/19 03:56 37.4 C 75 21 152/70 H 93 07/29/19 03:09 37.7 C H 07/29/19 02:45 36.7 C 82 20 181/77 H 92 07/29/19 02:18 82 21 94 07/29/19 01:55 36.7 C 80 22 92 07/29/19 00:12 76 22 94 07/29/19 00:00 86 07/28/19 23:53 36.6 C 79 22 155/70 H 93 07/28/19 23:13 37.6 C H 81 24 150/63 H 93 07/28/19 22:47 83 24 90 07/28/19 22:18 38.2 C H 82 25 H 187/96 H 90
[2019-07-29] MEDS ORDERED: FUROSEMIDE 40 MG in SYRINGE 0 ML IV ONE (09:30)
[2019-07-29 09:39] LABS: Allen Test Pos (Pos)
[2019-07-29 09:40] LABS: pH ABG 7.51 (7.35-7.45)
[2019-07-29 09:42] LABS: C Reactive Protein 7.47 mg/dl (0-0.29)
[2019-07-29 09:53] LABS: D Dimer 1810 ug/L FEU (0-500)
[2019-07-29] MEDS ORDERED: ACETAMINOPHEN 1,000 MG/100 ML VIAL IV PRN (09:58)
[2019-07-29 10:19] LABS: Basophils # (auto) 0.02 K/uL (0-0.2); Basophils % (auto) 0.2 %; Eosinophils # (auto) 0.01 K/uL (0-0.5); Eosinophils % (auto) 0.1 %; Immature Granulocytes # (auto) 0.09 K/uL (0.00-0.02); Immature Granulocytes % (auto) 0.9 %; Lymphocytes # (auto) 0.73 K/uL (1.2-3.4); Lymphocytes % (auto) 7.5 %; Monocytes # (auto) 0.71 K/uL (0.11-0.59); Monocytes % (auto) 7.3 %; Neutrophils # (auto) 8.13 K/uL (1.4-6.5)
[2019-07-29] MEDS ORDERED: NITROGLYCERIN 2% OINTMENT 30GM TUBE EXT SCH (10:30)
[2019-07-29] MEDS ORDERED: ENOXAPARIN 1 MG/KG SC SCH (10:45)
[2019-07-29] MEDS ORDERED: ENOXAPARIN 100 MG/1ML SYR SQ SCH (11:00)
--- NOTE | 2019-07-29 11:34 | Hospitalist Progress Note ---
Date of Service July 29, 2019 Assessment & Plan (1) Acute hypoxemic respiratory failure: ACUTE RESPIRATORY DISTRESS SYNDROME WITH HYPOXIA : secondary to COVID 19 disease SARS-Cov-2 PCR + positive pt is past 24 hrs developed progression of respiratory distress /hypoxia was on 3 L 02 daytime yesterday , overnight started to desaturate requiring 5 L 02 marked hypoxemia noted : spo2 remains in 90% while on 10 L 02 via NRB ABG shows severe respiratory alkalosis with hypoxemia pt placed on High flow 02 -25 L on fio2 60 % -vitals ( RR/Hypertensive urgency /tachypnia /tachycardia ) improved after 02 supports pt remains very lathergic . minimally responsive inflammatory markers : D-dimer , CRP , pro calcitonin ordered given IV lasix 40 mg IV X1 as cxray showed pulm congestion BNP borderline normal will repeat Cxray in am follow serial : Ddimer , LDH , procal, CRP daily pt is DNR/DNI confirmed with Daughter POA cont respiratory support with High flow 02 /Fio2 can be increased to 100 % if needed due to ongoing nausea and vomiting -prone ventilation is not safe /high risk for aspiration no Bipap ( N/V) pt is tolerating high flow 02 calculated NLR( neutrophil /lymphocyte ratio) 11 -refelecting critical illness -prognosis remains very poor with high mortality NAUSEA /VOMITING : GI symptoms possibly associated with COVID 19 infection worsening of nausea /vomiting today ordered for strict NPO including med PRN phenergan IV for nausea /prolong Qtc -avoid Zofran NON SUSTAINED VTACH 9 beats of non sustained vtach noted in tele hold PO Lopressor due to N/V IV scheduled lopressor 5 mg Q6 hrs ELEVATED DIMER : possibly due to acute viral infection pt developed worsening of hypoxia , tachypnia high risk for thromboembolic events with COVID 19 pts was on Lovenox sc DVT prophylaxis dose increased to theraputic dose SC given pt's frail respiratory status /CTA of chest is not ordered ,as it will not make any change in the treatment cont to monitor for bleeding HYPERTENSIVE URGENCY : due to respiratory distress BP improved from 200 to 130 after hypoxia improved on high flow 02 cont IV hydralzine PRN all po meds are on hold for now ( losartan 100 mg /Lopressor 25 mg BID ) daily Lasix 40 mg IV ( was on 20 mg daily PO home med ) may consider Nitro paste for persisted HTN , not respoding to IV hydralazine PROLONG QTC : Qtc > 500 hold escilatopram ( can cause prolong qtc ) avoid Zofran follow lab: keep K> 4 , mg > 2 to prevent arrhythmia daily EKG ordered History CVA as per records --hold Plavix, Atorvastatin-npo status chronic thrombocytopenia - DVT prophylaxis. [place] Lovenox theraputic dose CODE STATUS : DNR/DNI Disposition pt remains in COVID 19 isolation unit progressive clinical decline noted -overall prognosis remains guarded spoke with Daughter Juliane -given update over phone /daughter understands the critical status of pt's illness confirm DNR status again over phone , pt has living will and also told family members multiple times never wanted life support or resuscitation Admission and Anticipated Discharge Date Admission Date: July 22, 2019 Subjective pt developed severe respiratory distress this AM was hypoxic Spo2 dropped to 90% on 6 L 02 via NC extremely nauseous , vomited her am meds hypertensive with SBP ~200 /tachycardic and tachypnic Temp spike 100 F very lathergic stat ABG shows severe hypoxia Spo2 47 on 6 L via NRB pH 7.51 pt placed on high flow 02 25 L /Fio2 60% spo2 improved , BP normalized to SBP 130's fever was resolved with IV 1 gm tylenol pt remains extremely fatigued /lathergic able to say : she feels nauseaous IV phenergan given over all prognosis remains very poor Review of Systems Constitutional: + fever, + fatigue, + weakness and + problem reported respiratory distress , nausea /vomiting , very lethergic Respiratory: + dyspnea Cardiovascular: + dyspnea and + orthopnea Physical Exam Constitutional: WD/WN, vitals as above + in distress and + lethargic Respiratory: + respiratory distress, + labored breathing, + uses accessory muscles and + tachypneic; + not able to speak in complete sentence Auscultation: + crackles and + rales Cardiovascular: Rate/Rhythm: + tachycardic and + irregularly irregular Gastrointestinal (Abdomen): Percussion/Palpation: abdomen soft Musculoskeletal: Extremities: + abnormal strength (generalized weakness ) Psychiatric: Orientation: + not alert (obtuned /lethergic ) Results & Data Results & Data ([facility]) Vital Signs (Past 12 Hours) Vital Signs Temp Pulse Pulse Pulse Resp BP BP 07/29/19 10:22 88 20 07/29/19 10:15 89 187/87 H 07/29/19 10:00 38.4 C H 86 210/94 H 07/29/19 09:32 93 H 192/114 H 192/114 H 07/29/19 08:03 189/88 H 07/29/19 07:58 36.8 C 81 196/77 H 07/29/19 06:36 36.6 C 74 21 155/72 H 07/29/19 03:56 37.4 C 75 21 152/70 H 07/29/19 03:09 37.7 C H 07/29/19 02:45 36.7 C 82 20 181/77 H 07/29/19 02:18 82 21 07/29/19 01:55 36.7 C 80 22 07/29/19 00:12 76 22 07/29/19 00:00 86 07/28/19 23:53 36.6 C 79 22 155/70 H Pulse Ox 07/29/19 10:22 95 07/29/19 10:15 94 07/29/19 10:00 95 07/29/19 09:32 93 07/29/19 08:03 07/29/19 07:58 90 07/29/19 06:36 93 07/29/19 03:56 93 07/29/19 03:09 07/29/19 02:45 92 07/29/19 02:18 94 07/29/19 01:55 92 07/29/19 00:12 94 07/29/19 00:00 07/28/19 23:53 93 Diagnostic Findings CHEST XRAY 07/29/2019: IMPRESSION: 1. Cardiomegaly. Some degree of volume overload and congestive change may be present. 2. Vague upper lobe predominant infiltrates suspected. Atypical infection not excluded though the appearance could relate to congestive change.
[2019-07-29] MEDS: METOPROLOL TARTRATE 1 MG/ML VIAL IV SCH ×2 (12:49→18:07)
--- NOTE | 2019-07-29 13:20 | Pulmonary Consultation ---
Date of Consultation July 29, 2019 Assessment & Plan (1) COVID-19 virus infection: Impression: 89-year-old female with novel coronavirus infection, pneumonia, hypoxemic respiratory failure. Her hypoxemic respiratory failure may be multifactorial exacerbated by her diastolic dysfunction, low lung volumes, atelectasis contributing to VQ mismatch/shunt physiology. Recommendations: 1. Would aggressively pursue pulmonary toilet including incentive spirometry and Acapella valve. Okay to use high flow, however the patient should have a surgical mask in place while the high flow system is on. Could consider BiPAP if needed, however again the patient is DNR/DNI and unclear what BiPAP would be offering us this late in the case. 2. I do not think the patient is a candidate for aggressive therapies including anti-IL-6 medications for cytokine storm, convalescent plasma this far out, or R emdesevir or Plaquenil. Unfortunately supportive care appears to be the best option for the patient at this point time and her overall prognosis is quite guarded. For the hospitalist, she has had extensive discussions with regarding advanced directives and DNR DNI status has been confirmed on multiple occasions. 3. Treatment of other potential etiologies for hypoxemic respiratory failure including diuresis for diastolic dysfunction and possible fluid overload is recommended. Deferred to primary service. Patient's overall prognosis is guarded. If she continues to clinically deteriorate, consideration for transition to care/palliative care measures would be appropriate. (2) Acute hypoxemic respiratory failure: (3) Pneumonia: Laterality: right Lung location: lower lobe of lung Pneumonia type: due to unspecified organism Qualified Code(s): J18.9 - Pneumonia, unspecified organism History of Present Illness Attending Physician: Alondra Aguilar MD History of Present Illness Her BNP was 1146. LDH mildly elevated at 435 and C-reactive protein is 7.47Asked by hospitalist to assist in management of this patient with novel coronavirus infection and hypoxemic respiratory failure. History is obtained from review electronic medical record. Patient is an 89-year-old female who presented to the facility 07/22/2019 with hypoxemia shortness of breath and cough. She had no rapid testing performed in the emergency room which revealed coronavirus infection. She was treated for a urinary tract infection with antibiotics. ID consultation was obtained and supportive care for her coronavirus was infection. I was contacted by the hospitalist today due to apparently the patient having an increasing oxygen requirement and looking somewhat worse. She was transitioned to high flow oxygen. Per the hospitalist they do report some respiratory distress. Lactate was 1.5 which is normal. Echocardiogram from 2018 showed a preserved ejection fraction with no significant evidence of pulmonary hypertension. Grade 1 di astolic dysfunction was noted. Allergies Allergy/AdvReac Type Severity Reaction Status Date / Time bee venom protein (honey bee) Allergy Intermediate . Unverified 07/22/19 02:32 epinephrine Allergy Unknown BODY Verified 07/22/19 02:32 CASIMIRO, BASILIO Home Medications Home Medications Medication Instructions Recorded Confirmed Type acetaminophen [Acetaminophen Extra 500 mg PO TID PRN MDD 3gm 07/22/19 07/22/19 History Strength] atorvastatin 40 mg PO DAILY 07/22/19 07/22/19 History calcium carbonate [Tums] 400 mg PO Q4 PRN 07/22/19 07/22/19 History calcium carbonate-vitamin D3 1 tab PO DAILY 07/22/19 07/22/19 History [Oyster Shell Calcium-Vit D3] carboxymethylcellulose sodium 1 drp OPB QID 07/22/19 07/22/19 History [Refresh Tears] clopidogrel 75 mg PO DAILY 07/22/19 07/22/19 History escitalopram oxalate 15 mg PO DAILY 07/22/19 07/22/19 History famotidine 20 mg PO BID 07/22/19 07/22/19 History furosemide 20 mg PO DAILY 07/22/19 07/22/19 History gabapentin 300 mg PO DAILY 07/22/19 07/22/19 History gabapentin 600 mg PO HS 07/22/19 07/22/19 History hydrocortisone 1 applic TOPICAL BID PRN 07/22/19 07/22/19 History lactase [Lactaid] 3,000 unit PO TIDM 07/22/19 07/22/19 History loperamide [Imodium A-D] 2 mg PO TID 07/22/19 07/22/19 History losartan 100 mg PO DAILY 07/22/19 07/22/19 History metoprolol tartrate 25 mg PO BID 07/22/19 07/22/19 History [id number]-[id number]-FA-vit K 1 tab PO DAILY 07/22/19 07/22/19 History [Multi-Day Plus Minerals] simethicone [Gas Relief 80 80 mg PO Q8 07/22/19 07/22/19 History (simethicone)] timolol maleate 1 drp OPB BID 07/22/19 07/22/19 History triamcinolone acetonide 1 applic TOPICAL HS 07/22/19 07/22/19 History Patient History Medical History Acquired claw toe of left foot (Acute) Acquired claw toe of right foot (Acute) Callus (Acute) Diabetes mellitus with diabetic polyneuropathy (Acute) Hallux valgus (acquired), left foot (Acute) Social History Preferred Language: Croatian Communication Ability: Effective Hearing Ability: Hard of Hearing Barrel Rifler Button Required: No Beliefs That Will Affect Care: None Current Living Situation: Personal Care Facility current occupational status: retired Other Information That Helps Us Care for You: No Feels Safe at Home: Yes Safety Concerns: Feels Safe At This Time Smoking Status: Unknown if ever smoked Hx Alcohol Use: No Hx Substance Use: No Review of Systems Review of Systems: Please refer to hospitalist notes Physical Exam Physical Exam: Exam deferred as the patient is in isolation due to as per hospital policy. Please refer to attending hospitalist exam today. Results & Data Results & Data ([facility]) Vital Signs (Past 12 Hours) Vital Signs Temp Pulse Pulse Pulse Resp BP BP 07/29/19 12:49 84 174/79 H 07/29/19 12:01 82 07/29/19 12:00 37.3 C 84 145/67 H 07/29/19 11:45 79 125/67 07/29/19 11:31 88 07/29/19 11:30 86 133/71 07/29/19 11:15 88 120/62 07/29/19 11:00 89 104/46 L 07/29/19 10:45 86 127/56 L 07/29/19 10:31 91 H 132/57 L 07/29/19 10:30 93 H 07/29/19 10:22 88 20 07/29/19 10:15 89 187/87 H 07/29/19 10:00 38.4 C H 86 210/94 H 07/29/19 09:32 93 H 192/114 H 192/114 H 07/29/19 08:03 189/88 H 07/29/19 07:58 36.8 C 81 196/77 H 07/29/19 06:36 36.6 C 74 21 155/72 H 07/29/19 03:56 37.4 C 75 21 152/70 H 07/29/19 03:09 37.7 C H 07/29/19 02:45 36.7 C 82 20 181/77 H 07/29/19 02:18 82 21 07/29/19 01:55 36.7 C 80 22 Pulse Ox 07/29/19 12:49 07/29/19 12:01 95 07/29/19 12:00 94 07/29/19 11:45 95 07/29/19 11:31 95 07/29/19 11:30 93 07/29/19 11:15 94 07/29/19 11:00 93 07/29/19 10:45 92 07/29/19 10:31 94 07/29/19 10:30 95 07/29/19 10:22 95 07/29/19 10:15 94 07/29/19 10:00 95 07/29/19 09:32 93 07/29/19 08:03 07/29/19 07:58 90 07/29/19 06:36 93 07/29/19 03:56 93 07/29/19 03:09 07/29/19 02:45 92 07/29/19 02:18 94 07/29/19 01:55 92 Laboratory Results 07/29/19 08:27 07/29/19 06:30 Diagnostic Findings Chest x-ray from today was independently reviewed. Mild cardiomegaly with prominent pulmonary vascular changes. Lung volumes are low with basilar atelectasis. PG Care Time/CCT Total # of Minutes Spent Total Time Spent with Patient: Total time spent is greater than 50% in coordination of care (as documented) at patient's floor/unit and/or counseling patient: Coding Level of Care Code None Diagnoses COVID-19 virus infection U07.1 Acute hypoxemic respiratory failure J96.01 Pneumonia J18.9 Laterality: right Lung location: lower lobe of lung Pneumonia type: due to unspecified organism Time Spent (min) 45 Comment 45 minutes critical care time spent evaluating and coordinating care for this patient with multiorgan system dysfunction/failure
[2019-07-29] MEDS ORDERED: SODIUM BICARB 8.4% INJ 50 MEQ/50 ML SYR IV ONE (13:50)
[2019-07-29] MEDS ORDERED: HydrALAZINE HCL 20 MG/ML VIAL IV STA (16:31)
[2019-07-29] MEDS ORDERED: MAGNESIUM SULFATE / D5W 1 GM/100 ML BAG IV ONE (19:05)
[2019-07-29] MEDS ORDERED: ONDANSETRON 4 MG OD TAB SL PRN (19:08)
[2019-07-29] MEDS ORDERED: LORazepam 0.5 MG TAB PO PRN (19:08)
[2019-07-29] MEDS ORDERED: ONDANSETRON INJ 2 MG/ML 2 ML VIAL IV PRN (19:08)
[2019-07-29] MEDS ORDERED: ATROPINE SULFATE 1% OP SOLN 2 ML BTL SL PRN (19:08)
[2019-07-29] MEDS ORDERED: MoRPHine SULFATE 2 MG/ML CARP IV STA (19:12)
--- NOTE | 2019-07-29 19:21 | Hospitalist Progress Note ---
Date of Service July 29, 2019 Assessment & Plan Admission and Anticipated Discharge Date Admission Date: July 22, 2019 Subjective ATTENDING ADDENDUM: pt's condition continues to decline 32 runs of vtach noted in tele , was given IV lopressor progressive hypoxia with respiratory distress , on high flow 02 fi02 increased to 80% pesistent fever /temp spike noted , pt given multiple doses of IV tylenol which reduces fever for few hours hypertensive urgency with ventricular arrythmia pt is very lathergic, opened eyes briefly with voice pt voiced to nursing earlier " she did not want to continue to fight this any more ,she is tired and wanted to be comfortable only " family daughter Juliane been updated regarding pt's decline is status in morning and was given update multiple times over phone by Nursing stuff Daughter managed to see Her mother Via Zoom in hospital iPad she understands the prognosis of her mother and high mortality with COVID 19 disease -with s/s of severe refractory respiratory failure Daughter wants her mother to transition to comfort care only /her other sister also verbalized the same Goal of care transitioned to hospice /Comfort care pt is transitioned from High Flow 02 to Oxymask IV morphine 1 mg Q 1 hrs ordered for respiratory distress /discomfort pt is already very lathergic obtunded if intermittent IV morphine gtt does not help with the symptoms IV morphine gtt will be ordered . all lab draw, cardiac meds D/jv over all prognosis is grim pt may in next 24-48 hrs CODE STATUS : DNR/DNI daughter did not want to see her mother in zoom as she is doing poorly Daughter Juliane wanted a call if patient expires in her home phone A# [phone] not in the cell phone no in SnapTell support and condolences provided to the grieving family over the phone Alondra Aguilar MD Results & Data Results & Data ([facility]) Vital Signs (Past 12 Hours) Vital Signs Temp Pulse Pulse Pulse Resp BP BP 07/29/19 18:43 37.2 C 84 26 H 171/76 H 07/29/19 18:33 86 24 07/29/19 18:18 28 H 07/29/19 18:07 111 H 146/70 H 07/29/19 18:04 38.8 C H 111 H 24 07/29/19 18:00 146/70 H 07/29/19 17:21 76 07/29/19 17:15 96 H 24 07/29/19 15:46 37.8 C H 84 21 175/77 H 07/29/19 14:15 82 22 163/68 H 07/29/19 14:00 79 20 150/69 H 07/29/19 13:45 72 26 H 142/83 H 07/29/19 13:34 73 20 07/29/19 13:30 71 127/66 07/29/19 13:16 66 160/65 H 07/29/19 13:15 77 07/29/19 13:01 68 146/70 H 07/29/19 12:52 86 168/73 H 07/29/19 12:49 84 174/79 H 07/29/19 12:46 90 174/79 H 07/29/19 12:45 88 07/29/19 12:30 82 142/62 H 07/29/19 12:15 81 137/64 07/29/19 12:01 82 07/29/19 12:00 37.3 C 84 145/67 H 07/29/19 11:45 79 125/67 07/29/19 11:31 88 07/29/19 11:30 86 133/71 07/29/19 11:15 88 120/62 07/29/19 11:00 89 104/46 L 07/29/19 10:45 86 127/56 L 07/29/19 10:31 91 H 132/57 L 07/29/19 10:30 93 H 07/29/19 10:22 88 20 07/29/19 10:15 89 187/87 H 07/29/19 10:00 38.4 C H 86 210/94 H 07/29/19 09:32 93 H 192/114 H 192/114 H 07/29/19 08:03 189/88 H 07/29/19 07:58 36.8 C 81 196/77 H Pulse Ox 07/29/19 18:43 91 07/29/19 18:33 92 07/29/19 18:18 87 L 07/29/19 18:07 07/29/19 18:04 07/29/19 18:00 07/29/19 17:21 07/29/19 17:15 91 07/29/19 15:46 92 07/29/19 14:15 92 07/29/19 14:00 93 07/29/19 13:45 92 07/29/19 13:34 93 07/29/19 13:30 93 07/29/19 13:16 93 07/29/19 13:15 07/29/19 13:01 92 07/29/19 12:52 91 07/29/19 12:49 07/29/19 12:46 92 07/29/19 12:45 90 07/29/19 12:30 93 07/29/19 12:15 96 07/29/19 12:01 95 07/29/19 12:00 94 07/29/19 11:45 95 07/29/19 11:31 95 07/29/19 11:30 93 07/29/19 11:15 94 07/29/19 11:00 93 07/29/19 10:45 92 07/29/19 10:31 94 07/29/19 10:30 95 07/29/19 10:22 95 07/29/19 10:15 94 07/29/19 10:00 95 07/29/19 09:32 93 07/29/19 08:03 07/29/19 07:58 90
[2019-07-29] MEDS: ACETAMINOPHEN 1,000 MG/100 ML VIAL IV PRN (19:49)
[2019-07-29] MEDS: MoRPHine SULFATE 2 MG/ML CARP IV PRN (23:46)
[2019-07-30] MEDS: MoRPHine SULFATE 2 MG/ML CARP IV PRN ×2 (04:34→22:57)
[2019-07-30] MEDS: ACETAMINOPHEN 1,000 MG/100 ML VIAL IV PRN (04:41)
[2019-07-30] MEDS: PROMETHAZINE HCL 12.5 MG in SODIUM CHLORIDE 0.9% 50 ML IV PRN ×2 (04:52→12:57)
--- NOTE | 2019-07-30 08:42 | Pulmonology Progress Note ---
Date of Service July 30, 2019 Assessment & Plan (1) COVID-19 virus infection: Impression: 89-year-old female admitted with coronavirus infection with progressive hypoxemia, mental status obtundation. Recommendations: 1. The patient and family have elected to pursue palliative care/comfort care measures. Discussed with hospitalist extensively yesterday. Agree with transition to full palliative care. Palliative care consultation may be appropriate. We will sign off at this point time. Feel free to contact us with questions or concerns (2) Acute hypoxemic respiratory failure: (3) Pneumonia: Laterality: right Lung location: lower lobe of lung Pneumonia type: due to unspecified organism Qualified Code(s): J18.9 - Pneumonia, uns pecified organism Admission and Anticipated Discharge Date Admission Date: July 22, 2019 Subjective Chart only reviewed. Deferred physical exam as the patient is isolation for confirmed coronavirus infection Review of Systems Review of Systems: Per hospitalist notes Physical Exam Physical Exam: Deferred Results & Data Results & Data ([facility]) Vital Signs (Past 12 Hours) Vital Signs Temp Pulse Resp Pulse Ox 07/30/19 04:40 37.5 C 107 H 32 H 85 L 07/30/19 03:03 37.1 C 07/29/19 23:33 37.5 C 80 26 H 93 07/29/19 22:22 37.6 C H 82 22 92 Laboratory Results 07/29/19 08:27 07/29/19 06:30 PG Care Time/CCT Total # of Minutes Spent Total Time Spent with Patient: Total time spent is greater than 50% in coordination of care (as documented) at patient's floor/unit and/or counseling patient: Coding Level of Care Code 64057 Subseq Hosp Care Lvl 1 Diagnoses COVID-19 virus infection U07.1 Acute hypoxemic respiratory failure J96.01 Pneumonia J18.9 Laterality: right Lung location: lower lobe of lung Pneumonia type: due to unspecified organism
[2019-07-30] MEDS ORDERED: FUROSEMIDE 40 MG in SYRINGE 0 ML IV SCH (09:00)
[2019-07-30] MEDS ORDERED: ONDANSETRON INJ 2 MG/ML 2 ML VIAL IV PRN (16:35)
[2019-07-30] MEDS: LORazepam 0.5 MG/1 ML VIAL IV PRN ×2 (17:13→21:37)
[2019-07-30] MEDS: SCOPOLAMINE 1.5 MG TDSY TD SCH (17:13)
[2019-07-30] MEDS ORDERED: PROMETHAZINE HCL 12.5 MG in SODIUM CHLORIDE 0.9% 50 ML IV PRN (17:38)
--- NOTE | 2019-07-30 17:39 | Hospitalist Progress Note ---
Date of Service July 30, 2019 Assessment & Plan (1) Acute hypoxemic respiratory failure: ACUTE RESPIRATORY DISTRESS SYNDROME WITH HYPOXIA : secondary to COVID 19 disease SARS-Cov-2 PCR + positive pt remains in comfort care per nursing pt did not complain of any pain had persistent nausea requiring doses of Pherergan Iv ordered for Zofran as well as IV ativan to control symptoms received 2 doses of IV morphine so far at bedside -pt appears to be uncomfortable very plethoric /very flushed face ,with rapid shallow breath on oxymask with 15 L 02 keeps her eyes closed more lucid , asked me " how long she is been in hospital , and is there any other person has the same disease as her she understands that she is dying , ' asked me " how long it will last " when asked she denies of any pain , does not think she is having trouble breathing cont comfort care , taking care of symptoms that are distressing for the pt on IV morphine 1 mg q 1 hrs as well all other comfort care med : IV ativan prn , atropine gtt prn , scopolamine patch pt is terminal status due to COVID 19 disease complication likely will during this hospital stay continue comfort care to relieve the symptoms CODE STATUS : DNR/DNI pt's daughter Juliane given update over the phone understands the terminal status of pt's illness , appreciative for the comfort care Admission and Anticipated Discharge Date Admission Date: July 22, 2019 Subjective very lathergic , openes eyes briefly to voice states that she feels very nauseaus given IV phenergan jas ordered to add Zofran scopolamine patch continue comfort care hospice -end of the life care Physical Exam Physical Exam: no exam done to keep pt comfortable
[2019-07-30] MEDS: CHECK SCOPOLAMINE PATCH PLACEMENT SCH (23:38)
[2019-07-31] MEDS: MoRPHine SULFATE 2 MG/ML CARP IV PRN ×4 (05:02→21:42)
[2019-07-31] MEDS: CHECK SCOPOLAMINE PATCH PLACEMENT SCH ×3 (07:37→23:42)
--- NOTE | 2019-07-31 18:34 | Hospitalist Progress Note ---
Date of Service July 31, 2019 Assessment & Plan (1) Comfort measures only status: remains tachypneic on 15L oxymask. Morphine prn for comfort. Pt denies pain. More oriented today and appears peaceful. she was able to tolerate some food. Cont palliative measures and will give her gabapentin and her home SSRI back for comfort after speaking with her daughter by phone. (2) Acute hypoxemic respiratory failure: 2/2 COVID-19 infection. Palliative measures as above. (3) COVID-19 virus infection: Admission and Anticipated Discharge Date Admission Date: July 22, 2019 Subjective 89 yo F on palliative measures after acute respiratory failure 2/2 COVID-19 infection. She was doing better today, mentating well and she was able to eat some solid food. She is denying respiratory distress or pain, and she appears comfortable despite some persistent tachypnea and use of supplemental oxygen of 15L on oxymask. Review of Systems Review of Systems: All systems reviewed & are unremarkable except as noted in Subjective Physical Exam Physical Exam: CONSTITUTIONAL: obese, vitals as above, generally appears comfortable EYES: pupils are round and equal bilaterally, normal conjunctivae RESPIRATORY: crackles present throughout lungs, with limited exam as patient is fatigued and very weak. Tachypnea. CARDIOVASCULAR: regular rate and rhythm, S1 and 2 heard without murmurs, gallops or rubs, no JVD, no peripheral edema GASTROINTESTINAL: soft, nontender, nondistended MUSCULOSKELETAL: generally weak and deconditioned. SKIN: warm and dry NEUROLOGIC: fatigued after morphine. PSYCHIATRIC: alert cooperative and answering questions appropriately. Results & Data Results & Data ([facility]) Medications Administered Current Inpatient Medications Atropine Sulfate (Atropine Sulfate 1% Oph Soln) 4 drops SL Q1H PRN PRN Reason: Secretions or Pulm Congestion Stop: 08/28/19 19:07 Lorazepam (Ativan) 0.5 mg in 1 mls @ 1 mls/min IV Q4H PRN PRN Reason: Anxiety/Agitation Stop: 08/28/19 19:07 Last Admin: 07/30/19 21:37 Dose: 1 mls/min Documented by: Acetaminophen (Ofirmev) 1,000 mg in 100 mls @ 400 mls/hr IV Q8H PRN PRN Reason: Fever Stop: 08/01/19 19:43 Last Infusion: 07/30/19 05:02 Dose: Infused Documented by: Promethazine HCl 12.5 mg/ (Sodium Chloride) 50.5 mls @ 202 mls/hr IV Q4 PRN PRN Reason: Nausea And Vomiting Stop: 08/21/19 06:41 Last Infusion: 07/30/19 20:15 Dose: Infused Documented by: Miscellaneous (Check Scopolamine Patch Placement) 1 ea N/A QS TYRE[facility] Stop: 08/30/19 00:00 Last Admin: 07/31/19 15:26 Dose: 1 ea Documented by: Miscellaneous (Remove Transderm-Scop Patch) 1 ea N/A Q72H TYRE[facility] Stop: 09/01/19 08:58 Morphine Sulfate (Morphine Sulfate) 1 mg IV Q1H PRN PRN Reason: discomfort Stop: 08/12/19 19:24 Last Admin: 07/31/19 15:57 Dose: 1 mg Documented by: Ondansetron HCl (Zofran) 4 mg IV Q4H PRN PRN Reason: Nausea Stop: 08/29/19 16:34 Last Admin: 07/30/19 18:47 Dose: 4 mg Documented by: Scopolamine (Transderm-Scop) 1.5 mg TD Q3D@0900 [facility] Stop: 08/29/19 16:59 Last Admin: 07/30/19 17:13 Dose: 1.5 mg Documented by:
[2019-07-31] MEDS: GABAPENTIN 300 MG CAP PO SCH (20:24)
[2019-08-01] MEDS: MoRPHine SULFATE 2 MG/ML CARP IV PRN ×6 (05:34→23:38)
[2019-08-01] MEDS: ESCITALOPRAM OXALATE 10 MG TAB PO SCH (07:39)
[2019-08-01] MEDS: GABAPENTIN 300 MG CAP PO SCH ×2 (07:39→19:49)
[2019-08-01] MEDS: CHECK SCOPOLAMINE PATCH PLACEMENT SCH ×3 (07:39→23:36)
[2019-08-01] MEDS ORDERED: GABAPENTIN 300 MG CAP PO SCH (09:00)
--- NOTE | 2019-08-01 11:07 | Hospitalist Progress Note ---
Date of Service August 01, 2019 Assessment & Plan (1) Comfort measures only status: remains tachypneic on 15L oxymask. Morphine prn for comfort. Pt denies pain. More oriented today with clinical improvement over the past 24 hours. She asked me "how to I get ahead of this virus" and "how do I beat this?" This prompted a conversation regarding palliative care treatments. We discussed reinstitution of treatments such as bipap and medications, however, she was hesitant. It is very possible that she was hypoxic and altered during this conversation, retrospectively. I decided to obtain a chest xray and get some basic bloodwork. She was found to have a partially collapsed right lung 2/2 spontaneous pneumothorax. I discussed the possibility of a chest tube with her daughter by phone and we decided against any further treatments, and to continue with palliative care measures. (2) Acute respiratory failure due to COVID-19: (3) Spontaneous pneumothorax: Admission and Anticipated Discharge Date Admission Date: July 22, 2019 Subjective Pt appeared improved today and was mentating clearly. She was able to feed herself and was eating ice chips independently. Still exhibiting tachypnea and hypoxia. Denies pain or discomfort, just interested in eating ice chips. Review of Systems Review of Systems: All systems reviewed & are unremarkable except as noted in Subjective Physical Exam Physical Exam: CONSTITUTIONAL: obese, vitals as above, generally appears comfortable EYES: pupils are round and equal bilaterally, normal conjunctivae RESPIRATORY: crackles present throughout lungs, with limited exam as patient is fatigued and very weak. Tachypnea. CARDIOVASCULAR: regular rate and rhythm, S1 and 2 heard without murmurs, gallops or rubs, no JVD, no peripheral edema GASTROINTESTINAL: soft, nontender, nondistended MUSCULOSKELETAL: generally weak and deconditioned. SKIN: warm and dry PSYCHIATRIC: alert cooperative and answering questions appropriately. Results & Data Results & Data ([facility]) Medications Administered Current Inpatient Medications Atropine Sulfate (Atropine Sulfate 1% Oph Soln) 4 drops SL Q1H PRN PRN Reason: Secretions or Pulm Congestion Stop: 08/28/19 19:07 Escitalopram Oxalate (Lexapro Tab) 15 mg PO DAILY@0800 [facility] Stop: 08/31/19 07:59 Last Admin: 08/02/19 07:56 Dose: Not Given Documented by: Gabapentin (Neurontin) 600 mg PO HS@2000 [facility] Stop: 08/30/19 19:59 Last Admin: 08/01/19 19:49 Dose: Not Given Documented by: Gabapentin (Neurontin) 300 mg PO DAILY@0800 [facility] Stop: 08/31/19 07:59 Last Admin: 08/02/19 07:56 Dose: Not Given Documented by: Promethazine HCl 12.5 mg/ (Sodium Chloride) 50.5 mls @ 202 mls/hr IV Q4 PRN PRN Reason: Nausea And Vomiting Stop: 08/21/19 06:41 Last Infusion: 07/30/19 20:15 Dose: Infused Documented by: Lorazepam (Ativan) 1 mg in 2 mls @ 0.5 mls/min IV Q15M PRN PRN Reason: Anxiety/Agitation Stop: 09/01/19 01:15 Last Admin: 08/02/19 09:41 Dose: 0.5 mls/min Documented by: Morphine Sulfate (Morphine Sulf/Nss) 250 mg in 250 mls @ 1 mls/hr IV .Q24H [facility]; Protocol Stop: 08/16/19 10:44 Miscellaneous (Check Scopolamine Patch Placement) 1 ea N/A QS [facility] Stop: 08/30/19 00:00 Last Admin: 08/02/19 07:55 Dose: 1 ea Documented by: Miscellaneous (Remove Transderm-Scop Patch) 1 ea N/A Q72H [facility] Stop: 09/01/19 08:58 Last Admin: 08/02/19 07:56 Dose: 1 ea Documented by: Scopolamine (Transderm-Scop) 1.5 mg TD Q3D@0900 [facility] Stop: 08/29/19 16:59 Last Admin: 08/02/19 07:57 Dose: 1.5 mg Documented by:
[2019-08-01 11:48] LABS: Basophils # (auto) 0.04 K/uL (0-0.2); Basophils % (auto) 0.3 %; Eosinophils # (auto) 0.01 K/uL (0-0.5); Eosinophils % (auto) 0.1 %; Hematocrit (blood only) 40.8 % (37-47); Hemoglobin 13.7 g/dL (12.0-16.0); Immature Granulocytes # (auto) 0.14 K/uL (0.00-0.02); Immature Granulocytes % (auto) 0.9 %; Lymphocytes # (auto) 0.93 K/uL (1.2-3.4); Lymphocytes % (auto) 6.1 %; Mean Corpuscular Hemoglobin 31.1 pg (25-34); Mean Corpuscular Hgb Conc 33.6 g/dL (32-36); Mean Corpuscular Volume 92.5 fL (80-100); Mean Platelet Volume 11.3 fL (7.4-10.4); Monocytes % (auto) 11.2 %; Neutrophils # (auto) 12.39 K/uL (1.4-6.5); Neutrophils % (auto) 81.4 %; Platelet Count 194 K/uL (130-400); RDW Coefficient of Variation 14.4 % (11.5-14.5); RDW Standard Deviation 49.1 fL (36.4-46.3); Red Blood Count 4.41 M/uL (4.2-5.4); White Blood Count 15.21 K/uL (4.8-10.8)
--- NOTE | 2019-08-01 11:56 | XRay Report ---
XR chest 1V portable CLINICAL HISTORY: tachypnea, COVID+, clinical improvement. COMPARISON STUDY: 07/29/2019 FINDINGS: The cardiac and mediastinal contours remain stable. Since the prior study, the patient has developed a right pneumothorax demonstrating equivocal mild tension. The pneumothorax measures 43 mm in pleural separation. There are progressive bilateral pulmonary airspace opacities.[ IMPRESSION: 1. Progressive bilateral pulmonary airspace opacities 2. Interval development of a right-sided pneumothorax with pleural separation of 43 mm. ACT 112: Negative or not required by law. Electronically signed by: Julio C Pérez M.D. 08/01/2019 11:55 AM
[2019-08-01 11:58] LABS: INR 1.5 (0.9-1.1); Partial Thromboplastin Time 28.2 Seconds (21.0-31.0); Prothrombin Time 15.6 Seconds (9.0-12.0)
[2019-08-01 12:15] LABS: Albumin Level 2.3 gm/dl (3.4-5.0); BUN Creatinine Ratio 32.4 (10-20); C Reactive Protein 13.6 mg/dl (0-0.29); Calcium 8.8 mg/dl (8.5-10.1); Creatinine Clr Calc Pharmacy 38.3 ml/min; Est GFR (African American) 46.9; Est GFR (Non-African American) 40.4; Potassium 3.8 mmol/L (3.5-5.1)
[2019-08-01 12:18] LABS: Albumin Globulin Ratio 0.5 (0.9-2); Bilirubin,Total 0.7 mg/dl (0.2-1); Globulin 4.5 gm/dl (2.5-4.0); Total Protein 6.8 gm/dl (6.4-8.2)
[2019-08-02] MEDS: MoRPHine SULFATE 2 MG/ML CARP IV PRN (01:04)
[2019-08-02] MEDS ORDERED: LORazepam 1 MG/2 ML VIAL IV PRN (01:16)
[2019-08-02] MEDS: MoRPHine SULFATE 4 MG/ML 1 ML CARP\\VIAL IV PRN ×3 (03:35→08:49)
[2019-08-02] MEDS: CHECK SCOPOLAMINE PATCH PLACEMENT SCH ×2 (07:55→14:28)
[2019-08-02] MEDS: ESCITALOPRAM OXALATE 10 MG TAB PO SCH (07:56)
[2019-08-02] MEDS: GABAPENTIN 300 MG CAP PO SCH (07:56)
[2019-08-02] MEDS: SCOPOLAMINE 1.5 MG TDSY TD SCH (07:57)
[2019-08-02] MEDS ORDERED: STAT IV Infusion **Titration per Protocol STA (10:43)
[2019-08-02] MEDS ORDERED: MoRPHine SULF/NSS 250 MG/250 ML BTL IV SCH (10:45)
--- NOTE | 2019-08-02 10:57 | Hospitalist Progress Note ---
Date of Service August 02, 2019 Assessment & Plan (1) Comfort measures only status: obtunded on morphine this morning, appears comfortable, however, with increased requirements of morphine, will start her on a drip now. Ativan PRN. Cont oxygen supplementation and comfort measures. (2) Acute respiratory failure due to COVID-19: (3) Spontaneous pneumothorax: comfort meassures as above. oxygen supplementation. Admission and Anticipated Discharge Date Admission Date: July 22, 2019 Subjective Pt became more tachypneic and agitated overnight, requiring increasing amounts of morphine. Decided to transition to morphine drip this morning. The patient is obtunded and respiratory rate is around 20-25. She is tachycardic and skin is slightly diaphoretic. She was given Ativan. Review of Systems Review of Systems: Unobtainable due to reduced consciousness Physical Exam Physical Exam: CONSTITUTIONAL: obese, vitals as above, generally appears comfortable EYES: closed RESPIRATORY: tachypnea, with some increased work of breathing, breath sounds are clear on auscultation. CARDIOVASCULAR: tachy rate and rhythm, S1 and 2 heard without murmurs, gallops or rubs, no JVD, no peripheral edema GASTROINTESTINAL: soft, nontender, nondistended MUSCULOSKELETAL: generally weak and deconditioned SKIN: warm and diaphoretic PSYCHIATRIC: obtunded Results & Data Results & Data ([facility]) Laboratory Results Short CBC 08/01/19 Range/Units 11:40 WBC 15.21 H (4.8-10.8) K/uL Hgb 13.7 (12.0-16.0) g/dL Hct 40.8 (37-47) % Plt Count 194 (130-400) K/uL BMP 08/01/19 11:40 Sodium 133 L Potassium 3.8 Chloride 99 Carbon Dioxide 26 BUN 39 H Creatinine 1.19 Glucose 168 H Calcium 8.8 Liver Function 08/01/19 Range/Units 11:40 Total Bilirubin 0.7 (0.2-1) mg/dl AST 100 H (15-37) U/L ALT 76 (12-78) U/L Alkaline Phosphatase 78 (45-117) U/L Albumin 2.3 L (3.4-5.0) gm/dl Medications Administered Current Inpatient Medications Atropine Sulfate (Atropine Sulfate 1% Oph Soln) 4 drops SL Q1H PRN PRN Reason: Secretions or Pulm Congestion Stop: 08/28/19 19:07 Escitalopram Oxalate (Lexapro Tab) 15 mg PO DAILY@0800 [facility] Stop: 08/31/19 07:59 Last Admin: 08/02/19 07:56 Dose: Not Given Documented by: Gabapentin (Neurontin) 600 mg PO HS@2000 [facility] Stop: 08/30/19 19:59 Last Admin: 08/01/19 19:49 Dose: Not Given Documented by: Gabapentin (Neurontin) 300 mg PO DAILY@0800 [facility] Stop: 08/31/19 07:59 Last Admin: 08/02/19 07:56 Dose: Not Given Documented by: Promethazine HCl 12.5 mg/ (Sodium Chloride) 50.5 mls @ 202 mls/hr IV Q4 PRN PRN Reason: Nausea And Vomiting Stop: 08/21/19 06:41 Last Infusion: 07/30/19 20:15 Dose: Infused Documented by: Lorazepam (Ativan) 1 mg in 2 mls @ 0.5 mls/min IV Q15M PRN PRN Reason: Anxiety/Agitation Stop: 09/01/19 01:15 Last Admin: 08/02/19 09:41 Dose: 0.5 mls/min Documented by: Morphine Sulfate (Morphine Sulf/Nss) 250 mg in 250 mls @ 1 mls/hr IV .Q24H [facility]; Protocol Stop: 08/16/19 10:44 Miscellaneous (Check Scopolamine Patch Placement) 1 ea N/A QS [facility] Stop: 08/30/19 00:00 Last Admin: 08/02/19 07:55 Dose: 1 ea Documented by: Miscellaneous (Remove Transderm-Scop Patch) 1 ea N/A Q72H [facility] Stop: 09/01/19 08:58 Last Admin: 08/02/19 07:56 Dose: 1 ea Documented by: Scopolamine (Transderm-Scop) 1.5 mg TD Q3D@0900 [facility] Stop: 08/29/19 16:59 Last Admin: 08/02/19 07:57 Dose: 1.5 mg Documented by:
[2019-08-03] MEDS: CHECK SCOPOLAMINE PATCH PLACEMENT SCH (00:29)
--- NOTE | 2019-08-03 08:09 | Discharge Summary ---
Date of Service August 03, 2019 Admission HPI Per Admitting Provider History obtained from patient and records. History from patient somewhat limited by mild hearing impairment. Medical history significant for hypertension, history LBBB, history CVA as per records, breast cancer status post surgery, DM 2, diet-controlled, chronic thrombocytopenia, RILEY on CPAP. 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 Few days ago patient had transient dry cough symptoms without chest pain, S OB, no fever, no chills. Last night as per [place] facility staff account, patient noted to have fever, shortness of breath, cough -all of which are denied by patient. O2 sats noted to be low at home. [place] staff member reportedly found to be COVID positive. Patient denies abdominal pain, dysuria, headache symptoms. At the ER, O2 sats noted to be 80s on room air. Patient received cefepime for possible UTI. 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 Admission Exam Per Admitting Provider GENERAL: Obese, wane, slightly hard of hearing , no respiratory distress SKIN: Normal color, warm HEENT: [place] palpebral conjunctivae, no ptosis, dry buccal mucosa, nasal cannula in place NECK : Supple, short neck, no tenderness CHEST : Decreased breath sounds , no tenderness HEART : Bradycardic , no obvious murmurs ABDOMEN: Some distention, nontender EXTREMITIES : Minimal LE swelling, no LE tenderness, no other conspicuous deformities noted NEUROLOGIC : Coherent, no facial asymmetry, slight hard of hearing, no other gross focality Principal Diagnosis Acute hypoxic respiratory failure 2/2 COVID-19 Pneumothorax UTI Discharge Data Allergies Allergy/AdvReac Type Severity Reaction Status Date / Time bee venom protein (honey bee) Allergy Intermediate . Unverified 07/22/19 02:32 epinephrine Allergy Unknown BODY Verified 07/22/19 02:32 BASILIO KIRKPATRICK Consultations 07/22/19 04:06 ED Decision to Admit Stat 07/22/19 12:27 Consult Infectious Diseases Routine 07/29/19 09:04 Consult Pulmonology Routine 07/29/19 19:08 Consult Case Management - Discharge Planning Routine Ordered Studies 07/22/19 05:28 CT angio chest PE protocol Urgent 07/22/19 05:29 CT head/brain wo con Urgent Hospital Course (1) Comfort measures only status: (2) Acute respiratory failure due to COVID-19: (3) Acute UTI (urinary tract infection): (4) Spontaneous pneumothorax: 89 yo F admitted with worsening dyspnea. Workup revealed no infiltrate or PE on CT chest, but she was covid +. She also had a concerning urinalysis and was placed on broad-spectrum cefepime and admitted to the Hospitalist service. Infectious disease was consulted, and recommending continuing antibiotics pending culture results and clincial improvement. Urine culture grew Klebsiella and she was placed on ceftriaxone. Respiratory status improved over the next couple of days, however, she developed nausea, vomiting and loose bowel movements, thought related to COVID-19. On 07/27 she started to worsen. IVF were stopped and she was started on Lasix when CXR revealed pulmonary congestion. Oxygen needs increased. She was placed on hi flow oxygen but continued to become very lethargic with minimal responsiveness. Pulmonary was consulted and recommended continuing supportive care. This was unsuccessful, however, and the patient was placed on comfort measures only. She began to wake up more and was able to eat some food over the next couple of days. As she improved, a repeat CXR was taken revealing a right-sided pneumothorax with progressed bilateral pulmonary airspace opacities. A discussion with the patient and daughter ensued regarding consideration of a chest tube. However, both parties were not in favor of something this aggressive. She was placed on a morphine drip the next day and on 08/02. Total Time Total Time Spent Total Time Spent (In Minutes): 60 Total Time Includes: Examination of the Patient, Discharge Planning, Medication Reconciliation and Communication With Other Providers Discharge Plan Discharge Items Patient Disposition: Reason For Visit: RESP FAILURE Discharge Diagnosis: Acute hypoxic respiratory failure 2/2 COVID-19 Pneumothorax Follow-up/Referrals: CATRACHITA [Primary Care Provider] - Cindy Attending Provider Instructions: N/A Admission Data Admit Date/Time: 07/22/19 04:52 Other DC Date/Time DO NOT enter until pt leaves facility: 08/03/19 06:45
== END 2019-08-03 06:45 | disposition expired | DRG 177 ==
LOC: ED 01:48 → 2W 04:52 → SUATTDRO 04:52 → 2W 05:27 → 2E 12:52